=== PATIENT | male | born 1970 | race Caucasian/White ===

== ENCOUNTER 2018-03-14 10:12 | Outpatient (CLI) | payer MEDICARE, SELFPAY ==
[2018-03-14 10:45] LABS: HGB 15.5 g/dL (13.5-17.5); Mean Corp. HGB Concentration 33.7 g/dL (32.0-36.0); Mean Corpuscular Volume 83.2 fL (80-95); Mean Platelet Volume 9.8 fL (8.0-11.0); Platelet Count 184 x1000/uL (130-400); RBC 5.53 m/cumm (4.50-6.00); White Blood Cell Count 4.74 k/cumm (4.4-10.8)
[2018-03-14 10:48] LABS: Hemoglobin A1C 5.9 % (4.5-6.2)
[2018-03-14 10:55] LABS: VALPROIC ACID 37.4 ug/mL (50-100)
[2018-03-14 10:56] LABS: ALT 65 U/L (12-78); AST 47 U/L (15-37); Albumin 3.8 g/dL (3.4-5.0); Alkaline Phosphatase 66 U/L (46-116); Bilirubin, Total 0.4 mg/dL (0.2-1.0); Glucose 86 mg/dL (70-100); Total Protein 8.1 g/dL (6.4-8.2)
[2018-03-14 11:09] LABS: Cholesterol 194 mg/dL (50-200); HDL Cholesterol 43 mg/dL (40-60); LDL CHOLESTEROL 119 mg/dL (<100); Triglyceride 220 mg/dL (30-150)
== END 2018-03-14 10:32 ==
PROVIDERS: PCP Internal Medicine; Visit Provider Psychiatry & Neurology Psychiatry
DX: F63.81 Intermittent explosive disorder (principal); Z79.899 Other long term (current) drug therapy; Z51.81 Encounter for therapeutic drug level monitoring
CPT/HCPCS: 36415; 80061; 80076; 82947; 83721; 85027; 80164; 83036

== ENCOUNTER 2018-07-09 09:09 | Outpatient (CLI) | payer MEDICARE, SELFPAY ==
[2018-07-09 10:43] LABS: Ammonia 36 umol/L (11-32)
== END 2018-07-09 09:29 ==
PROVIDERS: PCP Internal Medicine
DX: F39 Unspecified mood [affective] disorder (principal); Z79.899 Other long term (current) drug therapy; Z51.81 Encounter for therapeutic drug level monitoring
CPT/HCPCS: 36415; 80164; 82140

== ENCOUNTER → 2018-10-16 10:41 | Outpatient (BNVA) | payer MEDICARE, MEDICAID, SELFPAY | PROVIDERS: PCP Internal Medicine; Visit Provider Psychiatry & Neurology Neurology | DX: G40.309 Generalized idiopathic epilepsy and epileptic syndromes, not intractable, without status epilepticus (principal); F39 Unspecified mood [affective] disorder; F81.9 Developmental disorder of scholastic skills, unspecified | CPT/HCPCS: 99213 ==

== ENCOUNTER 2018-10-25 02:05 | Outpatient (CLI) | payer MEDICARE, MEDICAID, SELFPAY ==
[2018-10-25 10:07] LABS: Ammonia 21 umol/L (11-32)
[2018-10-25 10:11] LABS: VALPROIC ACID 82.8 ug/mL (50-100)
== END 2018-10-25 02:25 ==
PROVIDERS: Psychiatry & Neurology Psychiatry; PCP Internal Medicine; Visit Provider Internal Medicine
DX: Z79.899 Other long term (current) drug therapy (principal); Z51.81 Encounter for therapeutic drug level monitoring; G40.909 Epilepsy, unspecified, not intractable, without status epilepticus
CPT/HCPCS: 36415; 80164; 82140

== ENCOUNTER → 2019-10-21 09:38 | Outpatient (BNVA) | payer MEDICARE, MEDICAID, SELFPAY | PROVIDERS: PCP Internal Medicine; Visit Provider Psychiatry & Neurology Neurology | DX: G40.309 Generalized idiopathic epilepsy and epileptic syndromes, not intractable, without status epilepticus (principal); F39 Unspecified mood [affective] disorder; F81.9 Developmental disorder of scholastic skills, unspecified | CPT/HCPCS: 99213 ==

== ENCOUNTER → 2019-12-11 10:55 | Outpatient (BNVA) | payer MEDICARE, MEDICAID, SELFPAY | PROVIDERS: PCP Internal Medicine; Referring Provider Internal Medicine; Visit Provider Physical Therapy Assistant | DX: Z12.11 Encounter for screening for malignant neoplasm of colon (principal) ==

== ENCOUNTER 2019-12-18 09:50 | Day surgery (SDC) | payer MEDICARE, MEDICAID, SELFPAY ==
[2019-12-18 10:08] VITALS: BP 130/91; PULSE 88; RESP 16; TEMP 36.3; O2SAT 93
[2019-12-18] MEDS: Lactated Ringers 1,000 ML 80 ML IV (11:03)
--- NOTE | 2019-12-18 11:45 | W.PM.DSUDISC ---
Discharge Plan Disposition Patient Disposition: HOME Condition: Good Discharge Details Reason For Visit: Colonoscopy Attending Provider: Angélica Márquez Primary Care Provider: Kelvin Delatorre Home Meds and New Rx's Prescriptions: Continued ketoconazole 2 % cream 1 applic TP .QOD RF: 0 diphenhydramine HCl [Benadryl Allergy] 25 mg tablet 25 mg PO QHS RF: 0 Atorvastatin Calcium 20 MG tablet 20 mg PO DAILY RF: 0 multivitamin [One Daily Multivitamin] 1 EACH tablet 1 ea PO DAILY RF: 0 sertraline 100 MG tablet 200 mg PO DAILY RF: 0 lorazepam [Ativan] 0.5 MG tablet 0.5 mg PO BID PRN RF: 0 risperidone [Risperdal] 1 MG tablet 1 mg PO BID RF: 0 loperamide 2 MG tablet 4 mg PO PRN RF: 0 acetaminophen [Tylenol Extra Strength] 500 MG tablet 1,000 mg PO PRN RF: 0 magnesium hydroxide [Milk of Magnesia] 400 MG/5 ML suspension 30 ml PO QID RF: 0 ibuprofen 200 MG tablet 400 mg PO TID RF: 0 MYLANTA 30 ml PO QID RF: 0 divalproex [Depakote] 500 mg tablet,delayed release (DR/EC) 1,500 mg PO BID RF: 0 Discontinued polyethylene glycol 3350 17 gram/dose powder 238 g PO ONCE Qty: 238 RF: 0 bisacodyl [Dulcolax (bisacodyl)] 5 mg tablet,delayed release (DR/EC) 5 mg PO ONCE Qty: 4 RF: 0 Discharge Instructions Additional Instructions: Findings: Two polyps were removed. My office will contact you with biopsy results. Follow up: Plan for a colonoscopy in 3 years. Please call if you develop: fevers >101.5 Nausea or Vomiting Abdominal pain that is not transient DAY SURGERY UNIT POST COLONOSCOPY INSTRUCTIONS 1. Because there will be medication in your system for the next 24 hours, you may feel a little sleepy. Your coordination will be affected. Therefore: a. Do not drive or operate dangerous equipment for 24 hours. b. Do not drink alcohol beverages for 24 hours (not even beer). c. Plan to go home and rest for the day. 2. Generally there are no restrictions on your activity after a day or so has gone by, but you may feel a bit fatigued for a few days. 3 After you arrive home you may have a light meal and return to a normal diet as you can tolerate it without feeling sick to your stomach. 4. After surgery, you may feel pain or discomfort. This should be only transient, but if it persists please contact your doctor. 5. If there are any questions regarding the findings of your procedure, please feel free to contact your doctor. 6. If you are unable to contact your doctor with a problem, contact the hospital at [phone]. 7. Continue all your regular medications unless directed otherwise. I understand the above instructions and have no questions. Signature of Patient or Responsible Adult Escort Date/Time Name of Responsible Adult Escort Signature of Nurse Date/Time Activity:: Activity as Tolerated Diet:: As Tolerated Discharge Orders Discharge Orders: Discharge Order (Routine); Ordered 12/18/19 Ordered By: Angélica Márquez DS: Diagnosis Discharge Diagnosis (1) Colon polyps: Status: Acute
--- NOTE | 2019-12-18 11:46 | W.COLOREPORT ---
Date of service: 12/18/19 Time of Service: 12:40 Colonoscopy Report Date of procedure: 12/18/19 Pre-op diagnosis general: Screening Post-op diagnosis procedure note: other (Colon polyps) Procedure: Colonoscopy with cold forceps polypectomy and snare polypectomy Surgeon: Angélica Márquez Anesthesia proc note operative: MAC Indications: This 49 year old man presents for his first screening colonoscopy. No symptoms or FH colon cancer. Procedure Description: The patient was placed in the left Dennis position. Propofol was titrated to sedation. Digital rectal examination revealed no abnormalities. The scope was advanced to the cecum without difficulty. The ileocecal valve and appendiceal orifice were clearly identified. The prep was marginal, a polyp could be missed. The scope was slowly withdrawn over the course of greater than 6 minutes with no abnormalities seen in the ascending or transverse colon. In the descending colon a less than 1cm polyp was removed with the cold forceps. In the sigmoid colon a slightly greater than 1cm polyp was removed with the snare and retrieved. A hemostatic clip was applied to the polypectomy site as a precaution. The rectum was normal including on retroflexed view. The patient tolerated the procedure well and was stable to recovery. Plan for colonoscopy in 3 years. A GoLytely prep should be used.
--- NOTE | 2019-12-18 12:30 | BOWEL_PTH ---
PATIENT: Alberto Sanchez LOC: [facility] U#:[id number] AGE/SX: 49/M ROOM: RE12/18/[address]: Angélica Márquez MD : [id number] BED: DIS: 12/18/2019 SPEC #: [id number] RECD: 12/18/19 12:50 STATUS: [place] REQ #: [id number] CHELI: 12/18/19 12:[address]: Angélica Márquez DEPT: Surgical Specimen RECD BY: Gabby Pagan ENTERED: 12/18/19 12:51 SP TYPE: Bowel OTHR DR: Kelvin Delatorre Tissues: 1 - BIOPSY BOWEL 2 - BIOPSY BOWEL Procedures: GROSS AND MICRO LEVEL 4 Comments: [id number]
[2019-12-18 13:10] VITALS: BP 118/67; PULSE 74; RESP 20; TEMP 36.8; O2SAT 93
== END 2019-12-18 13:41 | disposition home or self-care (01) ==
PROVIDERS: PCP Internal Medicine; Visit Provider Surgery
PROC: 0DJD8ZZ Inspection of Lower Intestinal Tract, Via Natural or Artificial Opening Endoscopic (ICD-10-PCS; CPT 45378; principal; 2019-12-18 11:15)
DX: Z12.11 Encounter for screening for malignant neoplasm of colon (principal); D12.4 Benign neoplasm of descending colon; D12.5 Benign neoplasm of sigmoid colon; G40.909 Epilepsy, unspecified, not intractable, without status epilepticus; F41.9 Anxiety disorder, unspecified
CPT/HCPCS: 45385; 45380; 88305

== ENCOUNTER 2020-03-18 19:27 | Outpatient (REF) | payer MEDICARE, MEDICAID, SELFPAY ==
[2020-03-18 19:59] LABS: Abs Immature Grans 0.04 10^3/uL (0.0-0.06); Absolute Basophil Count 0.04 10^3/uL (0.0-0.2); Absolute Eosinophil Count 0.18 10^3/uL (0.0-0.7); Absolute Lymphocyte Count 1.58 10^3/uL (1.2-3.4); Absolute Neutrophil Count 2.26 10^3/uL (1.2-6.7); Basophils % 0.9; HCT 50.3 % (40.0-50.0); HGB 15.8 g/dL (13.5-17.5); Immature Grans % 0.9; Lymphocytes % 35.1; MCH 28.2 pg (27.0-33.0); MCHC 31.4 % (32.0-36.0); MCV 89.8 fL (80-95); MPV 10.5 fL (8.0-11.0); Monocytes % 8.9; Neutrophils % 50.2; Nucleated RBC 0 %; Platelet Count 174 10^3/uL (130-400); RDW 14.3 % (11.8-14.1); RDW-SD 47.1 fL
[2020-03-18 20:40] LABS: Hemoglobin A1C 5.6 % (<5.7)
[2020-03-18 20:49] LABS: ALT 42 U/L (16-63); AST 55 U/L (15-37); Alkaline Phosphatase 55 U/L (46-116); Anion Gap 7.2 mmol/L (3-11); BUN 12 mg/dL (7-18); Bilirubin, Total 0.4 mg/dL (0.2-1.0); CO2 31.8 mmol/L (21.0-32.0); CREATININE 0.93 mg/dL (0.70-1.30); Calcium 9.4 mg/dL (8.5-10.1); Calculated LDL 103 mg/dL (<100); Chloride 103 mmol/L (98-107); Cholesterol 182 mg/dL (<200); Glucose 75 mg/dL (74-106); HDL Cholesterol 42 mg/dL (40-60); Potassium 4.9 mmol/L (3.5-5.1); Sodium 142 mmol/L (136-145); Total Protein 8.1 g/dL (6.4-8.2); Triglyceride 188 mg/dL (<150)
== END 2020-03-18 19:47 ==
LOC: NCHCN 19:27
PROVIDERS: PCP Internal Medicine; Visit Provider Physician Assistant
DX: R73.03 Prediabetes (principal); E78.5 Hyperlipidemia, unspecified; R39.9 Unspecified symptoms and signs involving the genitourinary system; G40.909 Epilepsy, unspecified, not intractable, without status epilepticus
CPT/HCPCS: 80053; 80061; 83036; 85025

== ENCOUNTER → 2020-07-28 13:15 | Outpatient (BNVA) | payer MEDICARE, MEDICAID, SELFPAY | PROVIDERS: PCP Internal Medicine; Referring Provider Internal Medicine; Visit Provider Psychiatry & Neurology Neurology | DX: G40.309 Generalized idiopathic epilepsy and epileptic syndromes, not intractable, without status epilepticus (principal); F39 Unspecified mood [affective] disorder; F81.9 Developmental disorder of scholastic skills, unspecified; R25.1 Tremor, unspecified | CPT/HCPCS: 99213 ==

== ENCOUNTER → 2020-10-05 11:38 | Outpatient (BNVA) | payer MEDICARE, MEDICAID, SELFPAY | PROVIDERS: PCP Internal Medicine; Referring Provider Internal Medicine; Visit Provider Psychiatry & Neurology Neurology | DX: G40.309 Generalized idiopathic epilepsy and epileptic syndromes, not intractable, without status epilepticus (principal); F39 Unspecified mood [affective] disorder; F81.9 Developmental disorder of scholastic skills, unspecified; R25.1 Tremor, unspecified | CPT/HCPCS: 99213 ==

== ENCOUNTER 2020-10-26 09:16 | Outpatient (REF) | payer MEDICARE, MEDICAID, SELFPAY ==
[2020-10-26 20:20] LABS: HCT 47.9 % (40.0-50.0); HGB 15.1 g/dL (13.5-17.5); MCH 28.2 pg (27.0-33.0); MCHC 31.5 % (32.0-36.0); MCV 89.5 fL (80-95); MPV 10.1 fL (8.0-11.0); Platelet Count 149 10^3/uL (130-400); RBC 5.35 10^6/uL (4.36-5.78); WBC 4.73 10^3/uL (4.4-10.8)
[2020-10-26 20:26] LABS: VALPROIC ACID 79.1 ug/mL
[2020-10-26 20:32] LABS: Hemoglobin A1C 5.7 % (<5.7)
[2020-10-26 20:37] LABS: ALT 44 U/L (16-63); AST 41 U/L (15-37); Albumin 3.9 g/dL (3.4-5.0); Alkaline Phosphatase 51 U/L (46-116); Bilirubin, Total 0.3 mg/dL (0.2-1.0); Calculated LDL 111 mg/dL (<100); Cholesterol 198 mg/dL (<200); Glucose 77 mg/dL (74-106); HDL Cholesterol 38 mg/dL (40-60); Total Protein 7.7 g/dL (6.4-8.2); Triglyceride 247 mg/dL (<150)
[2020-10-26 20:57] LABS: Bilirubin, Direct 0.1 mg/dL (0.0-0.2)
== END 2020-10-26 09:17 | disposition home or self-care (01) ==
LOC: LBN 09:16
PROVIDERS: Psychiatry & Neurology Psychiatry; PCP Internal Medicine; Visit Provider Physician Assistant
DX: F63.81 Intermittent explosive disorder (principal); Z79.899 Other long term (current) drug therapy
CPT/HCPCS: 80061; 80076; 82947; 85027; 80164; 83036

== ENCOUNTER → 2020-11-30 13:27 | Outpatient (BNVA) | payer MEDICARE, MEDICAID, SELFPAY | PROVIDERS: PCP Internal Medicine; Referring Provider Internal Medicine; Visit Provider Psychiatry & Neurology Neurology | DX: G40.309 Generalized idiopathic epilepsy and epileptic syndromes, not intractable, without status epilepticus (principal); F39 Unspecified mood [affective] disorder; F81.9 Developmental disorder of scholastic skills, unspecified; R25.1 Tremor, unspecified; Z79.899 Other long term (current) drug therapy | CPT/HCPCS: 99213 ==

== ENCOUNTER → 2021-03-01 13:06 | Outpatient (BNVA) | payer MEDICARE, MEDICAID, SELFPAY | PROVIDERS: PCP Internal Medicine; Referring Provider Internal Medicine; Visit Provider Psychiatry & Neurology Neurology | DX: G40.309 Generalized idiopathic epilepsy and epileptic syndromes, not intractable, without status epilepticus (principal); F39 Unspecified mood [affective] disorder; F81.9 Developmental disorder of scholastic skills, unspecified; R25.1 Tremor, unspecified | CPT/HCPCS: 99213 ==

== ENCOUNTER 2021-06-19 16:11 | Outpatient (REF) | payer MEDICARE, MEDICAID, SELFPAY | END 2021-06-19 16:12 | disposition home or self-care (01) | LOC: LBN 16:11 | PROVIDERS: PCP Internal Medicine; Visit Provider Psychiatry & Neurology Psychiatry ==

== ENCOUNTER 2021-06-20 16:31 | Inpatient (IN) | payer MEDICARE, MEDICAID, SELFPAY ==
[2021-06-20] VITALS (38 sets, daily range): BP systolic 116–139; BP diastolic 78–87; PULSE 81–107; RESP 14–26; TEMP 36.5–38.4; O2SAT 90–98
--- NOTE | 2021-06-20 16:15 | RT.EKG_ITS ---
APPROVED REPORT Exam: Resting ECG Reason for Exam: sob Patient Location: E HR:103 bpm ECG Measurements Heart Rate 103 AXIS NJ 150 P 38 QRSd 83 QRS -34 QT 326 T 35 QTc 428 Conclusion Sinus tachycardia Probable left atrial enlargement. Inferior Q >35mS, II III aVF
--- NOTE | 2021-06-20 16:22 | ED.GENADUL_ITS ---
Discharge Plan Disposition Patient Disposition: [facility] INPATIENT Condition: Stable Discharge Details Clinical Impression: COVID-19, Hypoxia Admit Date/Time: 06/20/21 18:33 Admit Provider: Joann Mata Attending Provider: Joann Mata Primary Care Provider: Kelvin Delatorre ED Provider: Azra Lee Medical Decision Making 51-year-old male with a history of epilepsy, anxiety, hyperlipidemia, obstructive sleep apnea, cognitive developmental delay and mood disorder presents to the ER with chief complaint of difficulty breathing after being diagnosed with COVID-19. Per EMS he was placed on 3 L O2 nasal cannula which brought his room air sat from 87% up to 95%. 1828: Room air trial patient desats to 88% on room air. Dexamethasone 6 mg IV given. Blood cultures ordered. Chest x-ray shows bilateral pneumonia in the bases and patchy groundglass opacities consistent with COVID-19. 1845: Spoke with Dr. Mata regarding patient case in detail she agrees to accept patient for admission. Discussed with the caregiver at the bedside and the patient who verbalized understanding. We are discussing with positive visor regarding the one-to-one caregiver that the patient has while at the long term and whether or not this will be allowed up on the floor. Dr. Mata did recommend administering remdesivir 200 mg and adding on a procalcitonin and she will place admitting orders. Patient is full code. Labs largely unremarkable, COVID-19 positive. Patient does use a CPAP machine at night I did discuss with the caregiver to request to have somebody bring in his own machine for the night. Patient remained hemodynamically stable throughout the remainder of the stay. Patient was transported up to room in hemodynamically stable condition. This text was generated using [email or web address] system, please disregard any oddities of phrase or misspellings. Medical Records Medical records reviewed: Yes I reviewed the patient's medical records. Lab Data Lab results reviewed: Yes I reviewed the patient's lab results. Lab results narrative: Laboratory Tests Range/Units 06/20/21 06/20/21 06/20/21 16:25 16:50 16:50 WBC (4.4-10.8) 10^3/uL 5.98 RBC (4.36-5.78) 10^6/uL 5.78 Hgb (13.5-17.5) g/dL 16.1 Hct (40.0-50.0) % 49.1 MCV (80-95) fL 84.9 MCH (27.0-33.0) pg 27.9 MCHC (32.0-36.0) % 32.8 RDW (11.8-14.1) % 14.5 H Plt Count (130-400) 10^3/uL 151 MPV (8.0-11.0) fL 9.7 Immature Gran % 0.3 Neutrophils % 66.1 Lymphocytes % 17.9 Monocytes % 14.9 Eosinophils % 0.3 Basophils % 0.5 Nucleated RBC % (0.0-0.3) % 0.0 Absolute Neutrophils (1.2-6.7) 10^3/uL 3.95 Absolute Lymphocytes (1.2-3.4) 10^3/uL 1.07 L Absolute Monocytes (0.1-0.8) 10^3/uL 0.89 H Absolute Eosinophils (0.0-0.7) 10^3/uL 0.02 Absolute Basophils (0.0-0.2) 10^3/uL 0.03 D-Dimer (<500) ng/mlFEU Sodium (136-145) mmol/L 137 Potassium (3.5-5.1) mmol/L 4.5 Chloride (98-107) mmol/L 99 Carbon Dioxide (21.0-32.0) mmol/L 31.8 Anion Gap (3-11) mmol/L 6.2 BUN (7-18) mg/dL 13 Creatinine (0.70-1.30) mg/dL 0.8 Estimated GFR/1.73 m2 (mL/min/1.73m2) >= 60.00 Glucose (74-106) mg/dL 99 Calcium (8.5-10.1) mg/dL 9.5 Magnesium (1.8-2.4) mg/dL 2.0 Total Bilirubin (0.2-1.0) mg/dL 0.3 AST (15-37) U/L 58 H ALT (16-63) U/L 40 Alkaline Phosphatase (46-116) U/L 51 Troponin I (<or=60) ng/L < 50 NT-Pro-B Natriuret Pep (<300) pg/mL 69 Total Protein (6.4-8.2) g/dL 8.6 H Albumin (3.4-5.0) g/dL 3.9 Procalcitonin ng/mL COVID-19 Source SARS-CoV-2 (PCR) (Negative) Influenza Type A (PCR) (Negative) Influenza Type B (PCR) (Negative) RSV (PCR) (Negative) Range/Units 06/20/21 06/20/21 06/20/21 16:50 16:50 16:52 WBC (4.4-10.8) 10^3/uL RBC (4.36-5.78) 10^6/uL Hgb (13.5-17.5) g/dL Hct (40.0-50.0) % MCV (80-95) fL MCH (27.0-33.0) pg MCHC (32.0-36.0) % RDW (11.8-14.1) % Plt Count (130-400) 10^3/uL MPV (8.0-11.0) fL Immature Gran % Neutrophils % Lymphocytes % Monocytes % Eosinophils % Basophils % Nucleated RBC % (0.0-0.3) % Absolute Neutrophils (1.2-6.7) 10^3/uL Absolute Lymphocytes (1.2-3.4) 10^3/uL Absolute Monocytes (0.1-0.8) 10^3/uL Absolute Eosinophils (0.0-0.7) 10^3/uL Absolute Basophils (0.0-0.2) 10^3/uL D-Dimer (<500) ng/mlFEU 270 Sodium (136-145) mmol/L Potassium (3.5-5.1) mmol/L Chloride (98-107) mmol/L Carbon Dioxide (21.0-32.0) mmol/L Anion Gap (3-11) mmol/L BUN (7-18) mg/dL Creatinine (0.70-1.30) mg/dL Estimated GFR/1.73 m2 (mL/min/1.73m2) Glucose (74-106) mg/dL Calcium (8.5-10.1) mg/dL Magnesium (1.8-2.4) mg/dL Total Bilirubin (0.2-1.0) mg/dL AST (15-37) U/L ALT (16-63) U/L Alkaline Phosphatase (46-116) U/L Troponin I (<or=60) ng/L NT-Pro-B Natriuret Pep (<300) pg/mL Total Protein (6.4-8.2) g/dL Albumin (3.4-5.0) g/dL Procalcitonin ng/mL 0.1 COVID-19 Source Nasopharynx SARS-CoV-2 (PCR) (Negative) Positive A Influenza Type A (PCR) (Negative) Negative Influenza Type B (PCR) (Negative) Negative RSV (PCR) (Negative) Negative HPI General Mode of arrival: EMS . Date/Time Provider Initiated Documentation: 06/20/21 16:40 . Information obtained by: EMS, RN notes reviewed and old records reviewed . HPI Narrative: 51-year-old male with a history of epilepsy, anxiety, hyperlipidemia, obstructive sleep apnea, cognitive developmental delay and mood disorder presents to the ER with chief complaint of difficulty breathing after being diagnosed with COVID-19. Per EMS he was placed on 3 L O2 nasal cannula which brought his room air sat from 87% up to 95%. Per EMS report patient is complaining of general fatigue and malaise was tested positive for COVID yesterday with a rapid home test. He denies any chest pain or productive cough upon arrival. He denies any nausea vomiting diarrhea. He is slightly tachycard ic and febrile with a temp of 38.4 temporal. Related Data Home Medications Medication Instructions Recorded Confirmed multivitamin (One Daily 1 ea PO DAILY 07/23/17 06/20/21 Multivitamin) sertraline 100 mg tablet 200 mg PO DAILY tab-cap 07/23/17 06/20/21 Mylanta 30 ml PO QID 08/07/17 06/20/21 acetaminophen 500 mg tablet 1,000 mg PO PRN tab-cap 08/07/17 06/20/21 (Tylenol Extra Strength) ibuprofen 200 mg tablet 400 mg PO TID tab-cap 08/07/17 06/20/21 magnesium hydroxide 400 mg/5 mL 30 ml PO QID ml 08/07/17 06/20/21 oral suspension (Milk of Magnesia) diphenhydramine HCl 25 mg tablet 25 mg PO QHS 10/21/19 06/20/21 (Benadryl Allergy) ketoconazole 2 % topical cream 1 applic TP .QOD gm 10/21/19 06/20/21 divalproex 500 mg tablet,delayed 1,500 mg PO BID tab 10/23/19 06/20/21 release (Depakote) atorvastatin 20 mg tablet (Lipitor) 20 mg PO QHS 07/28/20 06/20/21 menthol 1 % topical powder (Gold 1 applic TOPICAL QHS PRN 07/28/20 06/20/21 Monae Medicated Foot) lorazepam 0.5 mg tablet 0.5 mg PO BID PRN 03/01/21 06/20/21 risperidone 1 mg tablet (Risperdal) See Rx Instructions PO BID tab-cap 03/01/21 06/20/21 Allergies Allergy/AdvReac Type Severity Reaction Status Date / Time No Known Allergies Allergy Unverified 06/20/21 16:56 Review of Systems All systems reviewed & are unremarkable except as noted in HPI and below Constitutional Constitutional: Reports as per HPI, Reports chills, Reports fatigue, Reports fever(s), Reports headache(s) and Reports malaise ENT Ears, Nose, Mouth, and Throat: Reports headache(s) Cardiovascular Cardiovascular: Denies chest pain, Reports rapid heart rate, Denies leg edema and Reports dyspnea Respiratory Respiratory: Reports as per HPI, Denies hemoptysis and Reports dyspnea Neurologic Neurologic: Reports headache(s) Endocrine Endocrine: Reports fatigue PFSH All Active Problems (Updated 06/20/21 @ 21:20 by Joann Mata MD) Discharge planning issues (Acute) DVT prophylaxis (Acute) COVID-19 (Acute) Hypoxia (Acute) Tremor (Acute) Tubular adenoma of colon (Acute) Tubular adenoma (Acute ~11/2019) 12/18/19 Dr. Rajiv Márquez, repeat colo 3 years w/ Golytly prep Colon polyps (Acute) Cognitive developmental delay (Chronic) Mood disorder (Acute) Generalized epilepsy (Acute) Per caregiver he has not had a seizure in decades, see's Dr. Camarena for f/u Medical History (Updated 06/20/21 @ 21:20 by Joann Mata MD) Anxiety disorder Candidiasis Conduct disorder, aggressive type, mild Per caregiver (Liu) has been in a very good place recently History of tobacco use Hyperlipidemia Intermittent explosive disorder Per caregiver (Liu) on occasion he will have an agrressive incident per caregiver states he does not feel as though he will have any issues with procedures Kidney stone Lack of coordination Obstructive sleep apnea Remote PSG noted an AHI of 12.2 with an O2 sat jensen of 54%. He does not currently have a CPAP. Onychomycosis Other congenital valgus deformities of feet Prediabetes Per caregiver states he is not diabetic, he has lost 25 lbs Therapeutic drug monitoring Varus deformities of feet, congenital Surgical History S/P surgical manipulation of ankle joint R, 2013 Family History Father Epilepsy Brother Epilepsy Social History Smoking/Tobacco Use Status: Never Smoking risk assessment performed?: Yes Alcohol Intake: never Drug use: Never Substance use type: does not use Housing: other Number of Children: 0 current occupation: Disabled Do you feel safe at home: Yes Additional Social history: He currently resides at [facility] (since November 2016). He is under the guardianship of Patricia Arthur (since February 2017). 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 Exam Narrative Exam Narrative: Constitutional: Alert and oriented x3. Appears stated age. Obese body habitus. Febrile 38.4. Head: Normocephalic, no trauma. Eyes: Pupils PERRL, Red reflex noted, EOM's intact. Eyelids symmetrical without lesions, discharge, or swelling. ENT: Bilateral TM's WNL, External ear normal to inspection, no mastoid TTP, swe lling, or erythema, Nasal turbinates WNL, no nasal discharge. Normal dentition, Posterior pharynx WNL, no exudate. Chest: Sinus tachycardia rate of 106, S1, S2, distal pulses intact. Resp: Lungs clear to auscultation bilaterally, no wheezes, rales, or rhonchi. Slightly tachypneic respiratory rate of 25, Abdomen: Soft, non-distended, Normoactive bowel sounds all 4 quads. Musculoskeletal: Unable to assess gait, 5/5 strength to all four extremities. Skin: No suspicious rashes or lesions. Capillary refill less than 2 sec. Neurologic: Cranial nerves II-XII intact. Alert and oriented x 3. Motor: No deficits noted. Sensory: Intact bilaterally all 4 extremities. Hematologic/Lymphatic: No ecchymosis, no lymphadenopathy.
--- NOTE | 2021-06-20 16:30 | DI.RAD_ITS ---
Exam(s) XR PORTABLE CHEST AP EXAM: XR PORTABLE CHEST AP CLINICAL HISTORY: SOB, Covid + R/O PNA TECHNIQUE: 2D digital imaging was performed. COMPARISON: No exams were available for comparison FINDINGS: The exam is limited by poor pulmonary inflation. Leads overlie the chest. The heart size is normal. No consolidation. No effusion or pneumothorax.. IMPRESSION: Limited exam due to poor pulmonary inflation. No gross pulmonary consolidation. Mild infiltrates no t excluded. DATA REPOSITORY: RADIATION DOSE DELIVERED:
[2021-06-20] MEDS: Normal Saline 1,000 ML 1000 ML IV (17:02)
[2021-06-20] MEDS: Acetaminophen 325 MG TAB 650 MG PO (17:02)
[2021-06-20 17:11] LABS: Abs Immature Grans 0.02 10^3/uL (0.0-0.06); Absolute Basophil Count 0.03 10^3/uL (0.0-0.2); Absolute Eosinophil Count 0.02 10^3/uL (0.0-0.7); Absolute Lymphocyte Count 1.07 10^3/uL (1.2-3.4); Absolute Monocyte Count 0.89 10^3/uL (0.1-0.8); Absolute Neutrophil Count 3.95 10^3/uL (1.2-6.7); Basophils % 0.5; Eosinophils % 0.3; HCT 49.1 % (40.0-50.0); HGB 16.1 g/dL (13.5-17.5); Immature Grans % 0.3; Lymphocytes % 17.9; MCH 27.9 pg (27.0-33.0); MCHC 32.8 % (32.0-36.0); MCV 84.9 fL (80-95); MPV 9.7 fL (8.0-11.0); Monocytes % 14.9; Neutrophils % 66.1; Platelet Count 151 10^3/uL (130-400); RBC 5.78 10^6/uL (4.36-5.78); RDW 14.5 % (11.8-14.1); RDW-SD 44.5 fL; WBC 5.98 10^3/uL (4.4-10.8)
[2021-06-20 17:24] LABS: ALT 40 U/L (16-63); AST 58 U/L (15-37); Albumin 3.9 g/dL (3.4-5.0); Alkaline Phosphatase 51 U/L (46-116); Anion Gap 6.2 mmol/L (3-11); BUN 13 mg/dL (7-18); Bilirubin, Total 0.3 mg/dL (0.2-1.0); CO2 31.8 mmol/L (21.0-32.0); CREATININE 0.8 mg/dL (0.70-1.30); Calcium 9.5 mg/dL (8.5-10.1); Chloride 99 mmol/L (98-107); Glucose 99 mg/dL (74-106); Potassium 4.5 mmol/L (3.5-5.1); Sodium 137 mmol/L (136-145); Total Protein 8.6 g/dL (6.4-8.2); Troponin I < 50 ng/L (<or=60)
[2021-06-20 17:39] LABS: Influenza A PCR Negative (Negative); Influenza B PCR Negative (Negative); RSV PCR Negative (Negative)
[2021-06-20 17:47] LABS: COVID-19 PCR Positive (Negative); Source Nasopharynx
[2021-06-20] MEDS: Dexamethasone 4 MG/ML VIAL 6 MG IVP (18:20)
[2021-06-20 18:22] LABS: D-Dimer 270 ng/mlFEU (<500)
--- NOTE | 2021-06-20 18:22 | DI.VRAD_ITS ---
PROCEDURE INFORMATION: Exam: XR Chest Exam date and time: 06/20/2021 5:31 PM Age: 51 years old Clinical indication: Other: SOB, covid + R/O pna TECHNIQUE: Imaging protocol: XR of the chest. Views: 1 view. COMPARISON: No relevant prior studies available. FINDINGS: Lungs: Patchy ground-glass opacities within the bilateral pulmonary bases compatible with pneumonia. Low lung volumes. Pleural spaces: Unremarkable. No pleural effusion. No pneumothorax. Heart/Mediastinum: Unremarkable. No cardiomegaly. Bones/joints: Unremarkable. IMPRESSION: Patchy ground-glass opacities within the bilateral pulmonary bases compatible with pneumonia. Dictated and Authenticated by: Giancarlo Tamayo MD. Ordering:COLBY Oquendo MD
[2021-06-20 18:47] LABS: NT-proBNP 69 pg/mL (<300)
[2021-06-20 19:22] LABS: Procalcitonin 0.1 ng/mL
[2021-06-20] MEDS: REMDESIVIR 200 MG in Normal Saline 250 ML 250 MG IVPB (19:54)
[2021-06-20] MEDS: Normal Saline Flush 10 ML SYR IVP (19:54)
[2021-06-20 20:48] LABS: Troponin I < 50 ng/L (<or=60)
--- NOTE | 2021-06-20 21:02 | HPE_ITS ---
Date of service: 06/20/21 Time of Service: 21:03 Assessment and Plan Assessment and plan (1) COVID-19: Status: Acute Assessment and plan: With O2 requirements rising to 3.5-4L since being in the ED. Low threshold to transfer to the ICU. Patient was initiated on remdesivir and dexamethasone, which we will continue. Add baricitinib. Encourage proning, pulmonary toileting. Provide mucinex, tessalon perles. Schedule combivent; prn albuterol. No evidence of bacterial superinfection - no role for abx. CPAP tonight. Therapeutic anticoagulation with lovenox. Supplement vitamins C, D, zinc. Pepcid for GI ppx. Continue home atorvastatin. Monitor continuous pulse ox. Consider pulmonary consult. (2) Hypoxia: Status: Acute Assessment and plan: As above. Wean O2 as tolerated (3) Obstructive sleep apnea: Assessment and plan: Provide CPAP (4) Cognitive developmental delay: Status: Chronic Assessment and plan: With h/o mood d/o/anxiety d/o, and intermittent explosive d/o/conduct d/o. Continue home medications. The patient usually has a 1:1 sitter in his home environment. Because of COVID- 19, we have to consider that the patient's outside sitter may have been exposed to COVID-19 and could increase the risk of exposure for visitors and staff. I have asked the nursing shipyard painting supervisor to come up with a plan should the patient necessitate a sitter tonight and to address an issue of the sitter with administration/infection control tomorrow. (5) Generalized epilepsy: Status: Acute Assessment and plan: continue home divaloproex. Check valproic acid level. (6) DVT prophylaxis: Status: Acute Assessment and plan: Therapeutic anticoagulation with lovenox (indicated in patients with low flow O2 requirement in COVID-19). (7) Discharge planning issues: Status: Acute Assessment and plan: Full code See discussion re sitter above Guardian Patricia was notified of patient's admission. History of Present Illness History of Present Illness Chief Complaint: Shortness of breath Narrative: Mr Sanchez is a 51 year old male with PMHx of NARAYAN on CPAP, epilepsy, hyperlipi demia, cognitive developmental delay, who had a positive COVID-19 rapid test at his [facility] ([facility]) yesterday (the patient states that everyone is sick there ) but who did not start to feel sick until today who was brought to [facility] ED by ambulance today for shortness of breath and hypoxia with room air O2 sat of 87%, requiring 3L of O2 by NC to saturated in the 90s. The patient was fe brile to 38.4 and saturating 88% on RA in our ED, with an oxygen requirement of 2L of O2 by NC there. The patient reported that since this morning he has had a headache, runny nose, sore throat, shortness of breath, nonproductive cough, and fatigue. His COVID-19 PCR was indeed positive. His CXR showed patchy ground glass opacities in bilateral pulmonary bases c/w COVID-19 pneumonia. His D-dimer and procalcitonin were negative. He was initiated on dexamethasone and remdesivir. Hospitalist admission was requested. At the time of my evaluation with the patient his O2 sat is oscillating between 3.5 and 4L of O2. Per our medical record, the patient is s/p 2 Pfizer COVID-19 vaccines. His guardian is Patricia Jerson - I notified her of the patient's hospitalization and of his condition. She pointed out that today is Alberto's birthday. While this is rare, Alberto can sometimes act out/become aggressive if he feels he is not getting the food/drink that he wants, Patricia stated. Review of Systems Narrative: Additionally, the patient reports feeling constipated. He cannot tell me when his last bowel movement was. All systems reviewed & are unremarkable except as noted in HPI and below PFSH All Active Problems (Updated 06/20/21 @ 21:20 by Joann Mata MD) Discharge planning issues (Acute) DVT prophylaxis (Acute) COVID-19 (Acute) Hypoxia (Acute) Tremor (Acute) Tubular adenoma of colon (Acute) Tubular adenoma (Acute ~11/2019) 12/18/19 Dr. Rajiv Márquez, repeat colo 3 years w/ Golytly prep Colon polyps (Acute) Cognitive developmental delay (Chronic) Mood disorder (Acute) Generalized epilepsy (Acute) Per caregiver he has not had a seizure in decades, see's Dr. Camarena for f/u Medical History (Updated 06/20/21 @ 21:20 by Joann Mata MD) Anxiety disorder Candidiasis Conduct disorder, aggressive type, mild Per caregiver (Liu) has been in a very good place recently History of tobacco use Hyperlipidemia Intermittent explosive disorder Per caregiver (Liu) on occasion he will have an agrressive incident per caregiver states he does not feel as though he will have any issues with procedures Kidney stone Lack of coordination Obstructive sleep apnea Remote PSG noted an AHI of 12.2 with an O2 sat jensen of 54%. He does not currently have a CPAP. Onychomycosis Other congenital valgus deformities of feet Prediabetes Per caregiver states he is not diabetic, he has lost 25 lbs Therapeutic drug monitoring Varus deformities of feet, congenital Surgical History S/P surgical manipulation of ankle joint R, 2013 Family History Father Epilepsy Brother Epilepsy Social History Smoking/Tobacco Use Status: Never Smoking risk assessment performed?: Yes Alcohol Intake: never Drug use: Never Substance use type: does not use Housing: other Number of Children: 0 current occupation: Disabled Do you feel safe at home: Yes Additional Social history: He currently resides at [facility] (since November 2016). He is under the guardianship of Patricia Jerson (since February 2017). He graduated from high school and previously worked in a [employer]ing [employer]. Meds Allergies and Home Medications Allergies Allergy/AdvReac Type Severity Reaction Status Date / Time No Known Allergies Allergy Unverified 06/20/21 16:56 Home Medications Medication Instructions Recorded Confirmed Type multivitamin (One Daily 1 ea PO DAILY 07/23/17 06/20/21 History Multivitamin) sertraline 100 mg tablet 200 mg PO DAILY tab-cap 07/23/17 06/20/21 History Mylanta 30 ml PO QID 08/07/17 06/20/21 History acetaminophen 500 mg tablet 1,000 mg PO PRN tab-cap 08/07/17 06/20/21 History (Tylenol Extra Strength) ibuprofen 200 mg tablet 400 mg PO TID tab-cap 08/07/17 06/20/21 History magnesium hydroxide 400 mg/5 mL 30 ml PO QID ml 08/07/17 06/20/21 History oral suspension (Milk of Magnesia) diphenhydramine HCl 25 mg tablet 25 mg PO QHS 10/21/19 06/20/21 History (Benadryl Allergy) ketoconazole 2 % topical cream 1 applic TP .QOD gm 10/21/19 06/20/21 History divalproex 500 mg tablet,delayed 1,500 mg PO BID tab 10/23/19 06/20/21 History release (Depakote) atorvastatin 20 mg tablet (Lipitor) 20 mg PO QHS 07/28/20 06/20/21 History menthol 1 % topical powder (Gold 1 applic TOPICAL QHS PRN 07/28/20 06/20/21 History Monae Medicated Foot) lorazepam 0.5 mg tablet 0.5 mg PO BID PRN 03/01/21 06/20/21 History risperidone 1 mg tablet (Risperdal) See Rx Instructions PO BID tab-cap 03/01/21 06/20/21 History Exam Narrative Exam Narrative: General: Pleasant Obese male who is showing no dyspnea/tachypnea while on 3.5 L of O2 by NC, saturating 91%, A&Ox3 Neurological: A&Ox3, no focal deficits Psychiatric: Appropriate speech pattern/content for level of intellectual development Skin: Visible skin intact HEENT: Atraumatic, normocephalic, EOMI, dry MM, oropharynx hard to visualize, no submandibular or cervical lymphadenopathy, no goiter or JVD Cardiovascular: RRR, no m/r/g Lungs: CTAB Gastrointestinal: soft, tender in midabdomen on the R, nondistended Genitourinary: deferred Extremities: no edema BLE's, 1+ pedal pulses B Results Imaging Imaging Studies: EKG: ST, HR 103, no acute ischemia, inferior Q waves CXR: Patchy ground-glass opacities within the bilateral pulmonary bases compatible with pneumonia. Labs Result diagrams: 06/20/21 16:50 06/20/21 16:50 Labs: Laboratory Results - last 24 hr 06/20/21 06/20/21 06/20/21 16:25 16:50 16:50 WBC 5.98 RBC 5.78 Hgb 16.1 Hct 49.1 MCV 84.9 MCH 27.9 MCHC 32.8 RDW 14.5 H Plt Count 151 MPV 9.7 Immature Gran % 0.3 Neutrophils % 66.1 Lymphocytes % 17.9 Monocytes % 14.9 Eosinophils % 0.3 Basophils % 0.5 Nucleated RBC % 0.0 Absolute Neutrophils 3.95 Absolute Lymphocytes 1.07 L Absolute Monocytes 0.89 H Absolute Eosinophils 0.02 Absolute Basophils 0.03 D-Dimer Sodium 137 Potassium 4.5 Chloride 99 Carbon Dioxide 31.8 Anion Gap 6.2 BUN 13 Creatinine 0.8 Estimated GFR/1.73 m2 >= 60.00 Glucose 99 Calcium 9.5 Magnesium 2.0 Total Bilirubin 0.3 AST 58 H ALT 40 Alkaline Phosphatase 51 Troponin I < 50 NT-Pro-B Natriuret Pep 69 Total Protein 8.6 H Albumin 3.9 Procalcitonin COVID-19 Source SARS-CoV-2 (PCR) Influenza Type A (PCR) Influenza Type B (PCR) RSV (PCR) 06/20/21 06/20/21 06/20/21 16:50 16:50 16:52 WBC RBC Hgb Hct MCV MCH MCHC RDW Plt Count MPV Immature Gran % Neutrophils % Lymphocytes % Monocytes % Eosinophils % Basophils % Nucleated RBC % Absolute Neutrophils Absolute Lymphocytes Absolute Monocytes Absolute Eosinophils Absolute Basophils D-Dimer 270 Sodium Potassium Chloride Carbon Dioxide Anion Gap BUN Creatinine Estimated GFR/1.73 m2 Glucose Calcium Magnesium Total Bilirubin AST ALT Alkaline Phosphatase Troponin I NT-Pro-B Natriuret Pep Total Protein Albumin Procalcitonin 0.1 COVID-19 Source Nasopharynx SARS-CoV-2 (PCR) Positive A Influenza Type A (PCR) Negative Influenza Type B (PCR) Negative RSV (PCR) Negative 06/20/21 19:10 WBC RBC Hgb Hct MCV MCH MCHC RDW Plt Count MPV Immature Gran % Neutrophils % Lymphocytes % Monocytes % Eosinophils % Basophils % Nucleated RBC % Absolute Neutrophils Absolute Lymphocytes Absolute Monocytes Absolute Eosinophils Absolute Basophils D-Dimer Sodium Potassium Chloride Carbon Dioxide Anion Gap BUN Creatinine Estimated GFR/1.73 m2 Glucose Calcium Magnesium Total Bilirubin AST ALT Alkaline Phosphatase Troponin I < 50 NT-Pro-B Natriuret Pep Total Protein Albumin Procalcitonin COVID-19 Source SARS-CoV-2 (PCR) Influenza Type A (PCR) Influenza Type B (PCR) RSV (PCR) Last Vital Signs Temp 38.4 C H 06/20/21 16:32 Pulse 84 06/20/21 20:16 Resp 22 06/20/21 20:16 BP 138/78 06/20/21 20:16 Pulse Ox 96 06/20/21 20:16
[2021-06-20 21:43] LABS: Lab Add On Test DONE
[2021-06-20 21:57] LABS: VALPROIC ACID 74.7 ug/mL
[2021-06-20] MEDS: Famotidine 20 MG TAB PO (22:57)
[2021-06-20] MEDS: diphenhydrAMINE 25 MG CAP PO (22:57)
[2021-06-20] MEDS: Divalproex 500 MG TABEC 1500 MG PO (22:57)
[2021-06-20] MEDS: Atorvastatin 20 MG TAB PO (22:58)
[2021-06-20] MEDS: Ibuprofen 200 MG TAB 400 MG PO (22:58)
[2021-06-20] MEDS: Benzonatate 100 MG CAP PO (22:58)
[2021-06-20] MEDS: guaiFENesin 600 MG TABCR PO (22:58)
[2021-06-20] MEDS: risperiDONE 0.5 MG TAB 1 MG PO (22:58)
[2021-06-20] MEDS: Ascorbic Acid 500 MG TAB 1000 MG PO (22:58)
[2021-06-20] MEDS: Mylanta Suspension 30 ML CUP PO (22:59)
[2021-06-20] MEDS: Enoxaparin 120 MG/0.8 ML SYR 115 MG SC (23:00)
[2021-06-20] MEDS: Ipratropium/Albuterol 4 GM 120 PUFF INH IH (23:32)
[2021-06-21] VITALS (9 sets, daily range): BP systolic 119–153; BP diastolic 78–88; PULSE 57–83; RESP 14–18; TEMP 35–36.2; O2SAT 92–99
[2021-06-21 06:37] LABS: Abs Immature Grans 0.02 10^3/uL (0.0-0.06); Absolute Basophil Count 0.02 10^3/uL (0.0-0.2); Absolute Lymphocyte Count 1.28 10^3/uL (1.2-3.4); Absolute Monocyte Count 0.41 10^3/uL (0.1-0.8); Basophils % 0.5; HGB 14.4 g/dL (13.5-17.5); Immature Grans % 0.5; Lymphocytes % 32.6; MCH 27.6 pg (27.0-33.0); MCV 86.4 fL (80-95); MPV 10.3 fL (8.0-11.0); Monocytes % 10.4; Platelet Count 134 10^3/uL (130-400); RBC 5.21 10^6/uL (4.36-5.78); RDW 14.4 % (11.8-14.1); RDW-SD 45.7 fL; WBC 3.93 10^3/uL (4.4-10.8)
[2021-06-21 06:52] LABS: Prothrombin Time 10.2 sec (9.3-11.0)
[2021-06-21 06:59] LABS: ALT 35 U/L (16-63); AST 31 U/L (15-37); Albumin 3.1 g/dL (3.4-5.0); Alkaline Phosphatase 45 U/L (46-116); Anion Gap 4.3 mmol/L (3-11); BUN 18 mg/dL (7-18); Bilirubin, Direct 0.1 mg/dL (0.0-0.2); Bilirubin, Total 0.2 mg/dL (0.2-1.0); C-Reactive Protein 6.13 mg/dL (0.0-0.3); CO2 30.7 mmol/L (21.0-32.0); CREATININE 0.9 mg/dL (0.70-1.30); Calcium 8.6 mg/dL (8.5-10.1); Chloride 103 mmol/L (98-107); Creatine Kinase 59 U/L (39-308); Glucose 100 mg/dL (74-106); Magnesium 2.2 mg/dL (1.8-2.4); Potassium 4.9 mmol/L (3.5-5.1); Sodium 138 mmol/L (136-145); Total Protein 7.4 g/dL (6.4-8.2)
[2021-06-21 07:16] LABS: Hemoglobin A1C 5.8 % (<5.7)
[2021-06-21 07:22] LABS: D-Dimer 198 ng/mlFEU (<500)
[2021-06-21 07:24] LABS: Ferritin 436 ng/mL (26-388)
[2021-06-21] MEDS: Ipratropium/Albuterol 4 GM 120 PUFF INH IH ×4 (07:42→20:31)
[2021-06-21] MEDS: Zinc Sulfate 220 MG TAB PO (08:25)
[2021-06-21] MEDS: Ibuprofen 200 MG TAB 400 MG PO ×3 (08:25→20:26)
[2021-06-21] MEDS: Cholecalciferol (Vitamin D3) 1,000 UNIT TAB 2000 UNITS PO (08:25)
[2021-06-21] MEDS: Sertraline 50 MG TAB 200 MG PO (08:25)
[2021-06-21] MEDS: Famotidine 20 MG TAB PO ×2 (08:25→20:28)
[2021-06-21] MEDS: Ascorbic Acid 500 MG TAB 1000 MG PO ×2 (08:26→20:27)
[2021-06-21] MEDS: Benzonatate 100 MG CAP PO ×3 (08:26→20:30)
[2021-06-21] MEDS: Multivitamin TAB 1 TAB PO (08:26)
[2021-06-21] MEDS: Divalproex 500 MG TABEC 1500 MG PO ×2 (08:26→20:25)
[2021-06-21] MEDS: Docusate Sodium 100 MG CAP PO ×2 (08:26→20:29)
[2021-06-21] MEDS: risperiDONE 1 MG TAB 2 MG PO (08:26)
[2021-06-21] MEDS: Polyethylene Glycol 3350 17 GM PACKET PO ×2 (08:27→20:11)
[2021-06-21] MEDS: Mylanta Suspension 30 ML CUP PO ×4 (08:27→20:36)
[2021-06-21] MEDS: Dexamethasone 4 MG TAB 6 MG PO (08:27)
[2021-06-21] MEDS: guaiFENesin 600 MG TABCR PO ×2 (08:27→20:29)
[2021-06-21] MEDS: Milk of Magnesia 30 ML CUP PO ×2 (08:27→20:35)
--- NOTE | 2021-06-21 09:06 | INITIAL_ITS ---
- If Service Date Differs Date of service: 06/21/21 Time of Service: 09:06 Care Management Initial Assess REASON FOR HOSPITALIZATION:: Covid, Hypoxia PAST MEDICAL HISTORY/PAST SURGICAL HISTORY:: All Active Problems (Updated 06/20/21 @ 21:20 by Joann Mata MD). Discharge planning issues (Acute). DVT prophylaxis (Acute). COVID-19 (Acute). Hypoxia (Acute). Tremor (Acute). Tubular adenoma of colon (Acute). Tubular adenoma (Acute ~11/2019). 12/18/19 Dr. Rajiv Márquez, repeat colo 3 years w/ Yasirly prep. Colon polyps (Acute). Cognitive developmental delay (Chronic). Mood disorder (Acute). Generalized epilepsy (Acute). Per caregiver he has not had a seizure in decades, see's Dr. Camarena for f/u. Medical History (Updated 06/20/21 @ 21:20 by Joann Mata MD). Anxiety disorder. Candidiasis. Conduct disorder, aggressive type, mild. Per caregiver (Liu) has been in a very good place recently. History of tobacco use. Hyperlipidemia. Intermittent explosive disorder. Per caregiver (Liu) on occasion he will have an agrressive incident per caregiver states he does not feel as though he will have any issues with procedures. Kidney stone. Lack of coordination. Obstructive sleep apnea. Remote PSG noted an AHI of 12.2 with an O2 sat jensen of 54%. He does not currently have a CPAP. Onychomycosis. Other congenital valgus deformities of feet. Prediabetes. Per caregiver states he is not diabetic, he has lost 25 lbs. Therapeutic drug monitoring. Varus deformities of feet, congenital. Surgical History . S/P surgical manipulation of ankle joint. R, 2013 PREVIOUS FUNCTIONAL STATUS/SOCIAL/FAMILY SUPPORTS:: Alberto resides at [facility] ([facility]). He is developmentally delayed and has caregivers. Per [facility] staff, cognitively Alberto is a 6 year old in a 51 year old body. His Guardian is Patricia Arthur, Guardianship Documents were emailed to . CURRENT FUNCTIONAL STATUS:: Alberto is lying in bed, he is alert, oriented and pleasant. He is being closely monitored and treated for Covid. He requires supplimental oxygen. He would like a walker to take back to [facility] with him on discharge. CM spoke with his Guardian Patricia who states that Alberto does not use a walker. CM will request a PT evaluation prior to discharge. ADVANCE DIRECTIVES:: None on file. Guardian is Patricia Arthur. Has patient been provided with info about the portal/API?: Yes Did the patient sign up for the portal?: No CODE STATUS:: Full Code INSURANCE COVERAGE / FINANCIAL ISSUES:: Medicaid. Medicare CURRENT HOME/COMMUNITY SERVICES/EQUIPMENT:: Lives at [facility] and has caregivers. Guardian is Patricia Arthur, documention provided PRIMARY CARE PHYSICIAN:: Kelvin Delatorre POTENTIAL DISCHARGE NEEDS:: Follow up appointment. PATIENT/FAMILY EDUCATION NEEDS:: Review discharge plan, medications, limitations and plan to follow up with community providers. Review isolation considerations and ask me three. TRANSPORTATION:: via private vehicle with caregiver at [facility]. PLAN:: Alberto is Covid +, syptomatic and on isolation precautions. He requires close monitoring and treatment for his respiratory symptoms. He is on 3.5-4L Hi Flow O2 via [place], and does not use supplimental O2 at baseline. He will likely transfer to the ICU if his symptoms worsen. No caregiver's from [facility] are needed at this time, as Alberto has been appropriate in all interactions. PT contacted CM about Alberto's request for a walker at discharge. Per his guardian, he does not use a walker. He may benefit from a PT eval, to address his concerns. CM will continue to follow.
--- NOTE | 2021-06-21 16:13 | PGE_ITS ---
Date of Service Date of service: 06/21/21 Time of Service: 16:14 Assessment and Plan Assessment and plan (1) COVID-19: Status: Acute Assessment and plan: With O2 requirements that have continued to increase. Low threshold to transfer to the ICU. Patient was initiated on remdesivir and dexamethasone, baricitinib; which we will continue. Encourage proning, pulmonary toileting. Provide mucinex, tessalon perles. Schedule combivent; prn albuterol. No evidence of bacterial superinfection - no role for abx. CPAP at night. Prophylacti anticoagulation with lovenox. Supplement vitamins C, D, zinc. Pepcid for GI ppx. Continue home atorvastatin. Monitor continuous pulse ox. Consider pulmonary consult. (2) Hypoxia: Status: Acute Assessment and plan: As above. Wean O2 as tolerated (3) Obstructive sleep apnea: Assessment and plan: Provide CPAP (4) Cognitive developmental delay: Status: Chronic Assessment and plan: With h/o mood d/o/anxiety d/o, and intermittent explosive d/o/conduct d/o. Continue home medications. He has been cooperative; no behavioral events. The patient usually has a 1:1 sitter in his home environment. Because of COVID- 19, we have to consider that the patient's outside sitter may have been exposed to COVID-19 and could increase the risk of exposure for visitors and staff. Infection control in conversation with his skilled nursing to discuss logistics of a sitter should we see one is needed. (5) Generalized epilepsy: Status: Acute Assessment and plan: continue home divaloproex. Valproic acid level pendingl. (6) DVT prophylaxis: Status: Acute Assessment and plan: Now requiring high flow O2 so changed to prophylactic dosing of lovenox. (7) Discharge planning issues: Status: Acute Assessment and plan: Full code See discussion re sitter above Guardian Patricia was notified of patient's admission. Subjective Subjective Patient reports: no new complaints, tolerating a regular diet, shortness of breath and afebrile; denies diarrhea, nausea or vomiting Interval history since last seen: Dry cough Exam Narrative Exam Narrative: General: Pleasant Obese male who is showing no dyspnea/tachypnea w hile on 6 L of O2 by HFNC, saturating 92%-96% Neurological: A&Ox3, no focal deficits Psychiatric: Appropriate speech pattern/content for level of intellectual development Skin: Visible skin intact HEENT: Atraumatic, normocephalic, EOMI, dry MM Cardiovascular: RRR, no murmur Lungs: CTAB Gastrointestinal: soft, NT Extremities: no edema BLE's, no calf tenderness Objective Last Vital Signs Temp 35.9 C L 06/21/21 12:30 Pulse 83 06/21/21 12:30 Resp 16 06/21/21 12:30 BP 119/78 06/21/21 12:30 Pulse Ox 96 06/21/21 12:30 Laboratory Results - last 24 hr 06/20/21 06/20/21 06/20/21 16:25 16:50 16:50 WBC 5.98 RBC 5.78 Hgb 16.1 Hct 49.1 MCV 84.9 MCH 27.9 MCHC 32.8 RDW 14.5 H Plt Count 151 MPV 9.7 Immature Gran % 0.3 Neutrophils % 66.1 Lymphocytes % 17.9 Monocytes % 14.9 Eosinophils % 0.3 Basophils % 0.5 Nucleated RBC % 0.0 Absolute Neutrophils 3.95 Absolute Lymphocytes 1.07 L Absolute Monocytes 0.89 H Absolute Eosinophils 0.02 Absolute Basophils 0.03 PT INR D-Dimer Sodium 137 Potassium 4.5 Chloride 99 Carbon Dioxide 31.8 Anion Gap 6.2 BUN 13 Creatinine 0.8 Estimated GFR/1.73 m2 >= 60.00 Glucose 99 Hemoglobin A1c Calcium 9.5 Magnesium 2.0 Ferritin Total Bilirubin 0.3 Conjugated Bilirubin AST 58 H ALT 40 Alkaline Phosphatase 51 Creatine Kinase Troponin I < 50 C-Reactive Protein NT-Pro-B Natriuret Pep 69 Total Protein 8.6 H Albumin 3.9 Procalcitonin Valproic Acid COVID-19 Source SARS-CoV-2 (PCR) Influenza Type A (PCR) Influenza Type B (PCR) RSV (PCR) Add-On Test Request 06/20/21 06/20/21 06/20/21 16:50 16:50 16:52 WBC RBC Hgb Hct MCV MCH MCHC RDW Plt Count MPV Immature Gran % Neutrophils % Lymphocytes % Monocytes % Eosinophils % Basophils % Nucleated RBC % Absolute Neutrophils Absolute Lymphocytes Absolute Monocytes Absolute Eosinophils Absolute Basophils PT INR D-Dimer 270 Sodium Potassium Chloride Carbon Dioxide Anion Gap BUN Creatinine Estimated GFR/1.73 m2 Glucose Hemoglobin A1c Calcium Magnesium Ferritin Total Bilirubin Conjugated Bilirubin AST ALT Alkaline Phosphatase Creatine Kinase Troponin I C-Reactive Protein NT-Pro-B Natriuret Pep Total Protein Albumin Procalcitonin 0.1 Valproic Acid COVID-19 Source Nasopharynx SARS-CoV-2 (PCR) Positive A Influenza Type A (PCR) Negative Influenza Type B (PCR) Negative RSV (PCR) Negative Add-On Test Request 06/20/21 06/20/21 06/20/21 19:10 20:15 20:15 WBC RBC Hgb Hct MCV MCH MCHC RDW Plt Count MPV Immature Gran % Neutrophils % Lymphocytes % Monocytes % Eosinophils % Basophils % Nucleated RBC % Absolute Neutrophils Absolute Lymphocytes Absolute Monocytes Absolute Eosinophils Absolute Basophils PT INR D-Dimer Sodium Potassium Chloride Carbon Dioxide Anion Gap BUN Creatinine Estimated GFR/1.73 m2 Glucose Hemoglobin A1c Calcium Magnesium Ferritin Total Bilirubin Conjugated Bilirubin AST ALT Alkaline Phosphatase Creatine Kinase Troponin I < 50 C-Reactive Protein NT-Pro-B Natriuret Pep Total Protein Albumin Procalcitonin Valproic Acid 74.7 COVID-19 Source SARS-CoV-2 (PCR) Influenza Type A (PCR) Influenza Type B (PCR) RSV (PCR) Add-On Test Request DONE 06/21/21 06/21/21 06/21/21 06:02 06:02 06:02 WBC 3.93 L D RBC 5.21 Hgb 14.4 Hct 45.0 MCV 86.4 MCH 27.6 MCHC 32.0 RDW 14.4 H Plt Count 134 MPV 10.3 Immature Gran % 0.5 Neutrophils % 56.0 Lymphocytes % 32.6 Monocytes % 10.4 Eosinophils % 0.0 Basophils % 0.5 Nucleated RBC % 0.0 Absolute Neutrophils 2.20 Absolute Lymphocytes 1.28 Absolute Monocytes 0.41 Absolute Eosinophils 0.00 Absolute Basophils 0.02 PT 10.2 INR 1.0 D-Dimer 198 Sodium 138 Potassium 4.9 Chloride 103 Carbon Dioxide 30.7 Anion Gap 4.3 BUN 18 Creatinine 0.9 Estimated GFR/1.73 m2 >= 60.00 Glucose 100 Hemoglobin A1c Calcium 8.6 Magnesium 2.2 Ferritin 436 H Total Bilirubin 0.2 Conjugated Bilirubin 0.1 AST 31 ALT 35 Alkaline Phosphatase 45 L Creatine Kinase 59 Troponin I C-Reactive Protein 6.13 H NT-Pro-B Natriuret Pep Total Protein 7.4 Albumin 3.1 L Procalcitonin Valproic Acid COVID-19 Source SARS-CoV-2 (PCR) Influenza Type A (PCR) Influenza Type B (PCR) RSV (PCR) Add-On Test Request 06/21/21 06:02 WBC RBC Hgb Hct MCV MCH MCHC RDW Plt Count MPV Immature Gran % Neutrophils % Lymphocytes % Monocytes % Eosinophils % Basophils % Nucleated RBC % Absolute Neutrophils Absolute Lymphocytes Absolute Monocytes Absolute Eosinophils Absolute Basophils PT INR D-Dimer Sodium Potassium Chloride Carbon Dioxide Anion Gap BUN Creatinine Estimated GFR/1.73 m2 Glucose Hemoglobin A1c 5.8 H Calcium Magnesium Ferritin Total Bilirubin Conjugated Bilirubin AST ALT Alkaline Phosphatase Creatine Kinase Troponin I C-Reactive Protein NT-Pro-B Natriuret Pep Total Protein Albumin Procalcitonin Valproic Acid COVID-19 Source SARS-CoV-2 (PCR) Influenza Type A (PCR) Influenza Type B (PCR) RSV (PCR) Add-On Test Request
[2021-06-21] MEDS: REMDESIVIR 100 MG in Normal Saline 250 ML 250 MG IVPB (20:08)
[2021-06-21] MEDS: LORazepam 0.5 MG TAB PO (20:28)
[2021-06-21] MEDS: Atorvastatin 20 MG TAB PO (20:30)
[2021-06-21] MEDS: Normal Saline Flush 10 ML SYR IVP (20:32)
[2021-06-21] MEDS: Enoxaparin 40 MG/0.4 ML SYR SC (20:33)
[2021-06-21] MEDS: diphenhydrAMINE 25 MG CAP PO (21:45)
[2021-06-21] MEDS: risperiDONE 1 MG TAB PO (21:47)
[2021-06-22 00:57] VITALS: BP 132/88; PULSE 58; RESP 18; TEMP 36.9; O2SAT 97
[2021-06-22 00:58] VITALS: RESP 158
[2021-06-22 01:24] VITALS: PULSE 57
[2021-06-22 02:38] VITALS: BP 123/84; PULSE 61; RESP 16; TEMP 36.6; O2SAT 98
[2021-06-22] MEDS: Ipratropium/Albuterol 4 GM 120 PUFF INH IH ×2 (07:22→11:51)
[2021-06-22 07:26] LABS: Platelet Count 148 10^3/uL (130-400)
[2021-06-22] MEDS: Ascorbic Acid 500 MG TAB 1000 MG PO (09:21)
[2021-06-22] MEDS: Benzonatate 100 MG CAP PO ×2 (09:23→13:25)
[2021-06-22] MEDS: Cholecalciferol (Vitamin D3) 1,000 UNIT TAB 2000 UNITS PO (09:23)
[2021-06-22] MEDS: Dexamethasone 4 MG TAB 6 MG PO (09:24)
[2021-06-22] MEDS: Divalproex 500 MG TABEC 1500 MG PO (09:26)
[2021-06-22] MEDS: Docusate Sodium 100 MG CAP PO (09:27)
[2021-06-22] MEDS: Famotidine 20 MG TAB PO (09:27)
[2021-06-22] MEDS: guaiFENesin 600 MG TABCR PO (09:27)
[2021-06-22] MEDS: Ibuprofen 200 MG TAB 400 MG PO ×2 (09:27→13:26)
[2021-06-22] MEDS: Multivitamin TAB 1 TAB PO (09:29)
[2021-06-22] MEDS: Mylanta Suspension 30 ML CUP PO ×2 (09:29→13:26)
[2021-06-22] MEDS: Polyethylene Glycol 3350 17 GM PACKET PO (09:30)
[2021-06-22] MEDS: Normal Saline Flush 10 ML SYR IVP (09:32)
[2021-06-22] MEDS: Zinc Sulfate 220 MG TAB PO (09:32)
[2021-06-22] MEDS: risperiDONE 1 MG TAB 2 MG PO (09:32)
[2021-06-22] MEDS: Sertraline 50 MG TAB 200 MG PO (09:32)
--- NOTE | 2021-06-22 09:51 | CMPROGNOTE_ITS ---
- If Service Date Differs Date of service: 06/22/21 Time of Service: 09:51 Care Management Progress Note S/O: Alberto's respiratory status has improved. He is on room air and doing well. He was evaluated by PT and will not need a walker at discharge. Anticipate, Alberto will discharge back to [facility] later today, both his Guardian and facility RN are aware. RX's were sent to [facility] at facilities request. A: 51 year old developmentally delayed Male admitted to [facility] on 06/21/21 for Covid, Hypoxia P: Alberto will discharge back to [facility] via facility transportation when medically ready. His Guardian is Patriciagrady HudsonJerson. Alberto will follow up with community providers and discharge plan of care as prescribed. RX's will be faxed to [facility], facility RN aware. CM will continue to follow.
--- NOTE | 2021-06-22 10:47 | DSE_ITS ---
DS: Diagnosis Discharge Diagnosis (1) COVID-19: Status: Acute (2) Hypoxia: Status: Acute (3) Obstructive sleep apnea: (4) Cognitive developmental delay: Status: Chronic (5) Generalized epilepsy: Status: Acute (6) DVT prophylaxis: Status: Acute (7) Discharge planning issues: Status: Acute Discharge Plan Disposition Patient Disposition: HOME Condition: Improving Discharge Details Reason For Visit: COVID-19, Hypoxia Admit Date/Time: 06/20/21 18:33 Admit Provider: Joann Mata Attending Provider: Joann Mata [facility]: Mr Sanchez is a 51 year old male with PMHx of NARAYAN on CPAP, epilepsy, hyperlipidemia, cognitive developmental delay, who had a positive COVID-19 rapid test at his custodial ([facility]) yesterday (the patient states that everyone is sick there ) but who did not start to feel sick until today who was brought to [facility] ED by ambulance today for shortness of breath and hypoxia with room air O2 sat of 87%, requiring 3L of O2 by NC to saturated in the 90s. The patient was febrile to 38.4 and saturating 88% on RA in our ED, with an oxygen requirement of 2L of O2 by NC there. The patient reported that since this morning he has had a headache, runny nose, sore throat, shortness of breath, nonproductive cough, and fatigue.? His COVID-19 PCR was indeed positive. His CXR showed patchy ground glass opacities in bilateral pulmonary bases c/w COVID-19 pneumonia. His D-dimer and procalcitonin were negative. He was initiated on dexamethasone and remdesivir. Hospitalist admission was requested. At the time of Hospitalist's evaluation his O2 sat was oscillating between 3.5 and 4L of O2. Per our medical record, the patient is s/p 2 Pfizer COVID-19 vaccines.? His guardian is Patricia Arthur - she was notified of the patient's hospitalization and of his condition. She pointed out that today is Alberto's birthday. While this is rare, Alberto can sometimes act out/become aggressive if he feels he is not getting the food/drink that he wants, Patricia stated. Patient was initiated on remdesivir and dexamethasone, which we will continue. Add? baricitinib. Encourage proning, pulmonary toileting. Provide mucinex, tessalon perles. Schedule combivent; prn albuterol. No evidence of bacterial superinfection - no role for abx. During the first 24 hours of his stay his supplemental O2 demands did increase; CPAP initiated but he did not tolerate it well. The following day / day of discharge he was stable on RA and did not meet qualifications for home O2. He felt better. He was eating well. He displayed no agitated or combative behaviors. He was discharged back to his custodial setting on a burst of prednisone. Telehealth follow up being arranged with PCP. Home Meds and New Rx's Prescriptions: New prednisone 20 mg tablet 40 mg PO DAILY Qty: 8 0RF benzonatate 100 mg capsule 100 mg PO TID Qty: 15 0RF Continued atorvastatin [Lipitor] 20 mg tablet 20 mg PO QHS 0RF Gold Monae Medicated Foot 1 % powder 1 applic topical QHS PRN0RF ketoconazole 2 % cream 1 applic TP .QOD 0RF diphenhydramine HCl [Benadryl Allergy] 25 mg tablet 25 mg PO QHS 0RF Label Comments: 1-2 po HS prn lorazepam 0.5 mg tablet 0.5 mg PO BID PRN0RF multivitamin [One Daily Multivitamin] 1 EACH tablet 1 ea PO DAILY 0RF sertraline 100 MG tablet 200 mg PO DAILY 0RF acetaminophen [Tylenol Extra Strength] 500 MG tablet 1,000 mg PO PRN 0RF magnesium hydroxide [Milk of Magnesia] 400 MG/5 ML suspension 30 ml PO QID 0RF ibuprofen 200 MG tablet 400 mg PO TID 0RF MYLANTA 30 ml PO QID 0RF divalproex [Depakote] 500 mg tablet,delayed release (DR/EC) 1,500 mg PO BID 0RF risperidone [Risperdal] 1 mg tablet See Rx Instructions PO BID 0RF Rx Instructions: 2mg am and 1mg HS PO twice a day; Discharge Instructions Instructions: COVID-19 (Coronavirus Disease 2019) (DC) Stand Alone Forms: Nursing Discharge Form Referrals: Kelvin Delatorre [Primary Care Provider] - 07/06/21 2:00 pm Activity:: Activity as Tolerated Equipment/Supplies:: No Equipment Needed Diet:: Resume usual diet. Discharge Orders Discharge Orders: Discharge Order (Routine); Ordered 06/22/21 Ordered By: Lane Magallanes DS: Summary Time Spent with Patient providing and/or coordinating discharge services: Greater than 30 minutes Status at Discharge Functional status at discharge: uses cane/walker Overall status at discharge: patient is progressing back to baseline Mental Status: mental status grossly normal Speech and Movement: speech clear Mood: congruent mood Affect: normal affect Exam Narrative Exam Narrative: General: Pleasant Obese male who is showing no dyspnea/tachypnea while on 6 L of O2 by HFNC, saturating 92%-96% Neurological: A&Ox3, no focal deficits Psychiatric: Appropriate speech pattern/content for level of intellectual development Skin: Visible skin intact HEENT: Atraumatic, normocephalic, EOMI, dry MM Cardiovascular: RRR, no murmur Lungs: CTAB Gastrointestinal: soft, NT Extremities: no edema BLE's, no calf tenderness Psych Mental Status: mental status grossly normal Speech and Movement: speech clear Mood: congruent mood Affect: normal affect DS: Data Vitals/I&O Vitals and I&O: Vital Signs Temperature 36.6 C 06/22/21 02:38 Temperature Source Skin 06/22/21 02:38 Pulse 61 06/22/21 02:38 Pulse Rhythm Regular 06/22/21 00:55 Pulse 83 06/20/21 20:16 Respiratory Rate 16 06/22/21 02:38 Respiratory Effort Non-Labored 06/22/21 00:55 Respiratory Depth Normal 06/22/21 00:55 Respiratory Pattern Normal 06/22/21 00:55 Blood Pressure 123/84 06/22/21 02:38 Blood Pressure Mean 91 06/20/21 20:16 Blood Pressure Position Supine 06/20/21 16:32 Pulse Oximetry 98 06/22/21 02:38 Oxygen Delivery Method Cpap 06/22/21 02:38 Oxygen Flow Rate 5 06/21/21 20:43 Fraction of Inspired Oxygen (FIO2) 30 06/22/21 02:38 Pain Level 0 06/22/21 09:27 Comment 06/21/21 20:43 Intake & Output 06/21/21 06/21/21 06/22/21 11:59 23:59 11:59 Intake Total 110 / 1460 1350 / 1460 250 / 250 Output Total 500 / 1650 1150 / 1650 750 / 750 Balance -390 / -190 200 / -190 -500 / -500 Weight 111.9 kg Intake: IV 10 / 280 270 / 280 Oral 100 / 1180 1080 / 1180 250 / 250 Output: Urine 500 / 1650 1150 / 1650 750 / 750 Other: Urine Color Light Erin Straw Yellow Urine Appearance Clear Clear Clear Urine Odor Normal Comment voided in toilet and the hat 100 in the hat Stool Size Large Small Copious Stool Characteristics Liquid Soft Soft Liquid Formed Brown Voiding Methods Toilet Toilet Toilet Data Completed and Pending Labs on day of discharge: Labs from last 24 hours 06/22/21 06/21/21 06:35 06:02 Plt Count 148 25-OH Vitamin D Total 23.0 L Preliminary micro results at discharge 06/20/21 19:10 Blood Culture - Preliminary Blood NO GROWTH 24 HOURS 06/20/21 18:55 Blood Culture - Preliminary Blood NO GROWTH 24 HOURS PFSH All Active Problems (Updated 06/20/21 @ 21:20 by Joann Mata MD) Discharge planning issues (Acute) DVT prophylaxis (Acute) COVID-19 (Acute) Hypoxia (Acute) Tremor (Acute) Tubular adenoma of colon (Acute) Tubular adenoma (Acute ~11/2019) 12/18/19 Dr. Rajiv Márquez, repeat colo 3 years w/ Golabily prep Colon polyps (Acute) Cognitive developmental delay (Chronic) Mood disorder (Acute) Generalized epilepsy (Acute) Per caregiver he has not had a seizure in decades, see's Dr. Camarena for f/u Medical History (Updated 06/20/21 @ 21:20 by Joann Mata MD) Anxiety disorder Candidiasis Conduct disorder, aggressive type, mild Per caregiver (Liu) has been in a very good place recently History of tobacco use Hyperlipidemia Intermittent explosive disorder Per caregiver (Liu) on occasion he will have an agrressive incident per caregiver states he does not feel as though he will have any issues with procedures Kidney stone Lack of coordination Obstructive sleep apnea Remote PSG noted an AHI of 12.2 with an O2 sat jensen of 54%. He does not currently have a CPAP. Onychomycosis Other congenital valgus deformities of feet Prediabetes Per caregiver states he is not diabetic, he has lost 25 lbs Therapeutic drug monitoring Varus deformities of feet, congenital Surgical History S/P surgical manipulation of ankle joint R, 2014 Family History Father Epilepsy Brother Epilepsy Social History Smoking/Tobacco Use Status: Never Smoking risk assessment performed?: Yes Alcohol Intake: never Drug use: Never Substance use type: does not use Housing: other Number of Children: 0 current occupation: Disabled Do you feel safe at home: Yes Additional Social history: He currently resides at [facility] (since November 2016). He is under the guardianship of Patricia Arthur (since February 2017). 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
--- NOTE | 2021-06-22 11:49 | IN_ITS ---
Date of service: 06/22/21 Time of Service: 11:49 PT Notes Visit Reasons: COVID-19, Hypoxia Physical Therapy Inpatient Initial Evaluation Date: 06/22/2021 Referring Doctor: Lane Magallanes MD PT Orders: PT CONSULT: Eval/treat Precautions: COVID-19 positive. Activity as tolerated. Patient Profile/Admitting Diagnosis: Daniel is a 51-year-old male with admitting diagnosis of hypoxia, obstructive sleep apnea, cognitive developmental delay, generalized epilepsy, and COVID-19 infection referred to physical for mobility assessment and discharge planning recommendations. PMHX: All Active Problems?(Updated 06/20/21 @ 21:20 by Joann Mata MD) Discharge planning issues (Acute) DVT prophylaxis (Acute) COVID-19 (Acute) Hypoxia (Acute) Tremor (Acute) Tubular adenoma of colon (Acute) Tubular adenoma (Acute ~11/2019) 12/18/19 Dr. Rajiv Márquez, repeat colo 3 years w/ Golytly prep Colon polyps (Acute) Cognitive developmental delay (Chronic) Mood disorder (Acute) Generalized epilepsy (Acute) Per caregiver he has not had a seizure in decades, see's Dr. Camarena for f/u Medical History?(Updated 06/20/21 @ 21:20 by Joann Mata MD) Anxiety disorder Candidiasis Conduct disorder, aggressive type, mild Per caregiver (Liu) has been in a very good place recently History of tobacco use Hyperlipidemia Intermittent explosive disorder Per caregiver (Liu) on occasion he will have an agressive incident per caregiver states he does not feel as though he will have any issues with procedures Kidney stone Lack of coordination Obstructive sleep apnea Remote PSG noted an AHI of 12.2 with an O2 sat jensen of 54%. He does not currently have a CPAP. Onychomycosis Other congenital valgus deformities of feet Prediabetes Per caregiver states he is not diabetic, he has lost 25 lbs Therapeutic drug monitoring Varus deformities of feet, congenital Surgical History? S/P surgical manipulation of ankle joint R, 2013 Social History/Home Situation: Lives in a fdc at the [facility]. Requires no assistive device for mobility ADL performance. Equipment Owned/DME: None Subjective: Okay with PT assessment. Objective: General Observation: Seated on chair. RT Juwan present during consult. Mental Status: Alert and oriented as to person. Able to pay attention, focus, and respond appropriately. Pain: Denies Vital Signs: Oxygen oxygen saturation 91% to 93% on room air during ambulation activity. ROM: Right Upper Extremity: Shoulder Flexion WFL. Shoulder abduction WFL. Elbow flexion WFL. Wrist flexion WFL. Functional opening and closing of hand WFL. Left Upper Extremity: Shoulder Flexion WFL. Shoulder abduction WFL. Elbow flexion WFL. Wrist flexion WFL. Functional opening and closing of hand WFL. Right Lower Extremity: Hip flexion WFL. Hip abduction WFL. Knee flexion WFL. Ankle dorsiflexion WFL. Ankle plantarflexion WFL. Left Lower Extremity: Hip flexion WFL. Hip abduction WFL. Knee flexion WFL. Ankle dorsiflexion WFL. Ankle plantarflexion WFL. Strength: Right Upper Extremity: Shoulder flexors 4/5. Shoulder abductors 4/5. Elbow flexors 5/5. Elbow extensors 5/5. Senior Mobile Web Developer strong. Left Upper Extremity: Shoulder flexors 4/5. Shoulder abductors 4/5. Elbow flexors 5/5. Elbow extensors 5/5. Senior Mobile Web Developer strong. Right Lower Extremity: Hip flexors 4/5. Hip abductors 4/5. Knee flexors 5/5. Knee extensors 5/5. Ankle dorsiflexors 5/5. Ankle plantarflexors 5/5. Left Lower Extremity: Hip flexors 4/5. Hip abductors 4/5. Knee flexors 5/5. Knee extensors 5/5. Ankle dorsiflexors 5/5. Ankle plantarflexors 5/5. Bed Mobility/Transfers: Sit to stand independent Stand to sit independent Bed to bedside commode independent Bedside commode to bed independent Gait: Instructed patient with level surface ambulation of at least 60 feet requiring stand by assist. Jennifer decreased. Mild trunk lean to R (chronic). Balance: Static Sitting: Normal Dynamic Sitting: Normal Static Standing: Good Dynamic Standing: Fair Special Tests: Mobility Limitations Standardized Measure [facility] AM-PAC 6 clicks Basic Mobility Inpatient Short Form: Raw Score: 23 CMS Score: 11% deficit Informed Consent/Education: Patient was instructed in purpose of PT consult and plan of care. Agreeable to proceed with established PT POC to achieve personal goals. Assessment: Patient is independent with all mobility ADL performance without the need for any assistive device. Patient is assessed as a 83769 low complexity based on the following: History: 51-year-old male with past medical history as indicated above Examination: Demonstrable impairment in strength, balance, and mobility level with underlying impairments and functional limitations as exhibited above as well as deficit score of 11% utilizing the [facility] Mobility Inpatient Short Form Presentation: Evolving Decision Makin low complexity Goals: N/A. PT evaluation only. Plan of Care/Treatment Plan: N/A. PT evaluation only. DISCHARGE RECOMMENDATIONS: Home when medically cleared by hospitalist. TREATMENT CODE/TIME: 53677 x 15 minutes beginning at 11:49 AM. Thank you for the opportunity to participate in the care of this patient. Angelika Cloud PT, DPT, CLT [facility] [place], [place]
[2021-06-22 11:57] VITALS: PULSE 80; PULSE 81; PULSE 88; RESP 16; RESP 18; O2SAT 91; O2SAT 93; O2SAT 95
--- NOTE | 2021-06-22 12:22 | PDOC.CMDIS ---
- If Service Date Differs Date of service: 06/22/21 Time of Service: 12:22 LACE Index Scoring Tool - Questions: Length of Stay (in days): 2 Acuity (Admit via E.D.?): Yes E.D. Visits: 1 - Answers: Total Score: 6 Risk of Readmission: Low Risk Care Management Discharge Reason for Hospitalization: Covid, Hypoxia Discharge Plan: Alberto is discharged back to [facility]. He will transport via facility vehicle with [facility] staff when medically ready. Alberto will follow up with community providers and discharge plan of care as prescribed. RX's will be faxed to [facility], facility RN oneil and will arrange pickling grader. CM discussed plan with Alberto's Guardian Patricia Arthur and Facility RN Jyoti prior to discharge. Patient/Family Education Needs: Review discharge instructions, medications, limitations and plan to follow up with community providers. Review isolation considerations and ask me three.
[2021-06-22 14:47] VITALS: PULSE 89
[2021-06-22 16:02] LABS: Alkaline Phosphatase 50 U/L (46-116); Calculated LDL 72 mg/dL (<100); Cholesterol 147 mg/dL (<200); HDL Cholesterol 37 mg/dL (40-60); Triglyceride 190 mg/dL (<150); Vitamin B12 471 pg/mL (193-986)
[2021-06-22 16:56] LABS: Folate > 20.0 ng/mL (8.6-20.0)
[2021-06-22 17:11] LABS: FREE T4 0.77 ng/dL (0.76-1.46)
[2021-06-22 21:44] LABS: T3,Free 3.8 pg/mL (2.8-5.3)
[2021-06-23 15:52] LABS: Copper, Serum 1.22 mcg/mL (0.75-1.45)
[2021-06-28 13:25] LABS: 1,25-Dihydroxyvitamin D 60 pg/mL (18-64)
== END 2021-06-22 16:00 | disposition home or self-care (01) | DRG 177 ==
LOC: ER 19:05 → MS 20:59
PROVIDERS: Psychiatry & Neurology Psychiatry; Admitting Provider Internal Medicine; Emergency Provider Registered Nurse Emergency; PCP Internal Medicine; Visit Provider Internal Medicine
DX: U07.1 COVID-19 (principal); J12.82 Pneumonia due to coronavirus disease 2019; R09.02 Hypoxemia; G47.33 Obstructive sleep apnea (adult) (pediatric); F81.9 Developmental disorder of scholastic skills, unspecified; G40.309 Generalized idiopathic epilepsy and epileptic syndromes, not intractable, without status epilepticus; F41.9 Anxiety disorder, unspecified; E78.5 Hyperlipidemia, unspecified; F39 Unspecified mood [affective] disorder; R25.1 Tremor, unspecified; F63.81 Intermittent explosive disorder; R73.03 Prediabetes
CPT/HCPCS: 36410; 36415; 80048; 80053; 80061; 80076; 82306; 82550; 84145; 87040; 87637; 93005; 94618; 94640; 96361; 96365; 96375; 97161; 99285; J1650; 71045; 80164; 82525; 82607; 82652; 82728; 82746; 83036; 83735; 83880; 84075; 84439; 84443; 84481; 84484; 85025; 85049; 85379; 85610; 86140; 93010; 94660; 99223; 99232; 99239; J0248; J1100; J3490; J8540

== ENCOUNTER → 2021-09-05 12:52 | Outpatient (BNVA) | payer MEDICARE, MEDICAID, SELFPAY | PROVIDERS: PCP Internal Medicine; Referring Provider Internal Medicine; Visit Provider Psychiatry & Neurology Neurology | DX: G40.309 Generalized idiopathic epilepsy and epileptic syndromes, not intractable, without status epilepticus (principal); R25.1 Tremor, unspecified; F81.9 Developmental disorder of scholastic skills, unspecified; F39 Unspecified mood [affective] disorder | CPT/HCPCS: 99214 ==

== ENCOUNTER → 2022-03-13 12:22 | Outpatient (BNVA) | payer MEDICARE, MEDICAID, SELFPAY | PROVIDERS: PCP Internal Medicine; Referring Provider Internal Medicine; Visit Provider Psychiatry & Neurology Neurology | DX: G40.309 Generalized idiopathic epilepsy and epileptic syndromes, not intractable, without status epilepticus (principal); F39 Unspecified mood [affective] disorder; F81.9 Developmental disorder of scholastic skills, unspecified; R25.1 Tremor, unspecified | CPT/HCPCS: 99214 ==

== ENCOUNTER → 2022-09-11 09:46 | Outpatient (BNVA) | payer MEDICARE, MEDICAID, SELFPAY | PROVIDERS: PCP Internal Medicine; Visit Provider Psychiatry & Neurology Neurology | DX: G40.309 Generalized idiopathic epilepsy and epileptic syndromes, not intractable, without status epilepticus (principal); F39 Unspecified mood [affective] disorder; F81.9 Developmental disorder of scholastic skills, unspecified; R25.1 Tremor, unspecified | CPT/HCPCS: 99213 ==

== ENCOUNTER 2022-10-24 13:02 | Outpatient (REF) | payer MEDICARE, MEDICAID, SELFPAY ==
[2022-10-24 20:13] LABS: HCT 46.8 % (40.0-50.0); HGB 15.8 g/dL (13.5-17.5); MCHC 33.8 % (32.0-36.0); MCV 83 fL (80-95); MPV 9.5 fL (8.0-11.0); Platelet Count 172 10^3/uL (130-400); RBC 5.64 10^6/uL (4.36-5.78); RDW 13.5 % (11.8-14.1); RDW-SD 41.1 fL; WBC 4.44 10^3/uL (4.4-10.8)
[2022-10-24 20:41] LABS: ALT 22 U/L (16-63); AST 19 U/L (15-37); Albumin 3.8 g/dL (3.4-5.0); Alkaline Phosphatase 54 U/L (46-116); BUN 16 mg/dL (7-18); Bilirubin, Total 0.4 mg/dL (0.2-1.0); CREATININE 0.7 mg/dL (0.70-1.30); Calcium 9.1 mg/dL (8.5-10.1); Chloride 97 mmol/L (98-107); Estimated GFR 110.18 (mL/min/1.73m2); Glucose 127 mg/dL (74-106); LDL CHOLESTEROL 94 mg/dL (<100); Potassium 4.6 mmol/L (3.5-5.1); Sodium 134 mmol/L (136-145); TSH (W/Ref FT4) 2.27 uIU/mL (0.36-3.74); Total Protein 7.7 g/dL (6.4-8.2)
[2022-10-24 20:51] LABS: Vitamin D 25 Total 25.8 ng/mL (30-100)
[2022-10-25 20:29] LABS: PSA, Screening 0.4 ng/mL (<=3.5)
== END 2022-10-24 13:03 | disposition home or self-care (01) ==
LOC: NCHCN 13:02
PROVIDERS: PCP Internal Medicine; Visit Provider Physician Assistant
DX: E78.5 Hyperlipidemia, unspecified (principal); E55.9 Vitamin D deficiency, unspecified; R73.03 Prediabetes; G40.909 Epilepsy, unspecified, not intractable, without status epilepticus; Z12.5 Encounter for screening for malignant neoplasm of prostate; R25.1 Tremor, unspecified
CPT/HCPCS: 80053; 82306; 83721; 84153; 85027; 84443

== ENCOUNTER 2023-03-18 19:19 | Emergency (ER) | payer MEDICARE, MEDICAID, SELFPAY ==
[2023-03-18] VITALS (14 sets, daily range): BP systolic 120–155; BP diastolic 68–78; PULSE 98–109; RESP 20; TEMP 39.3–39.8; O2SAT 89–95
[2023-03-18] MEDS: Ibuprofen 600 MG TAB PO (20:11)
--- NOTE | 2023-03-18 20:15 | DI.RAD_ITS ---
Exam(s) XR CHEST 2V PA LATERAL EXAM: XR CHEST 2V PA LATERAL CLINICAL HISTORY: cough TECHNIQUE: 2D digital imaging was performed of the chest. Two images were obtained. PA and lateral views were obtained. COMPARISON: CR,XR XR PORTABLE CHEST AP from 06/20/2021 FINDINGS: MEDIASTINUM: Normal. HEART: Normal. PULMONARY VASCULATURE: Normal. LUNGS: There is a left lower lobe infiltrate. The right lung is clear. PLEURAL SPACE: No pleural effusion or pneumothorax. BONE:Within normal limits for the patient's age. OTHER FINDINGS:Normal. IMPRESSION: Left lower lobe pneumonia. DATA REPOSITORY: RADIATION DOSE DELIVERED:
--- NOTE | 2023-03-18 20:26 | ED.GENADUL_ITS ---
HPI General Mode of arrival: ambulatory . Date/Time Provider Initiated Documentation: 03/18/23 19:58 . Limitations to Documentation: no limitations . Information obtained by: patient . History of Present Illness 52 year old M presents to the emergency department with the chief complaint of left foot pain, described as moderate, Quality is described as aching, Patient started experiencing this day(s) (1) and it has been constant. No relieving factors improve symptom(s), No exacerbating factors reported . Patient notes cough and fever/chills; denies chest pain and shortness of breath. Patient did receive the following treatments prior to arrival, none Related Data Home Medications Medication Instructions Recorded Confirmed sertraline 100 mg tablet 200 mg PO DAILY 07/23/17 03/18/23 magnesium hydroxide 400 mg/5 mL 30 ml PO QID 08/07/17 03/18/23 oral suspension (Milk of Magnesia) atorvastatin 20 mg tablet (Lipitor) 20 mg PO QHS 07/28/20 03/18/23 MYLANTA 15 - 30 ml PO QID PRN 09/05/21 12/12/22 acetaminophen 500 mg tablet 500 - 1,000 mg PO Q6H PRN 09/05/21 03/18/23 (Tylenol Extra Strength) diphenhydramine HCl 25 mg tablet 25 mg PO Q6H PRN allergy symptoms 09/05/21 03/18/23 (Benadryl Allergy) ibuprofen 200 mg tablet 400 mg PO TID PRN 09/05/21 03/18/23 risperidone 1 mg tablet (Risperdal) 2 mg PO BID 09/05/21 03/18/23 loperamide 2 mg capsule 2 mg PO DIRECTED PRN 10/25/21 03/18/23 divalproex 250 mg tablet,delayed 250 mg PO BID 03/13/22 03/18/23 release divalproex 500 mg tablet,delayed 1,000 mg PO BID 03/13/22 03/18/23 release (Depakote) ondansetron 4 mg disintegrating 4 mg PO Q8H PRN 03/13/22 12/12/22 tablet psyllium seed (sugar) oral powder 1 tbsp PO DAILY 03/13/22 03/18/23 (Metamucil (sugar) oral powder) triamcinolone acetonide 0.1 % 1 applic topical BID PRN 03/13/22 03/18/23 topical cream lorazepam 0.5 mg tablet 0.5 mg PO TID PRN 03/29/22 03/18/23 multivitamin (One Daily 1 tab PO DAILY 03/29/22 03/18/23 Multivitamin tablet) cholecalciferol (vitamin D3) 25 25 mcg PO DAILY 12/03/22 03/18/23 mcg (1,000 unit) capsule ketoconazole 2 % topical cream 1 applic topical BID #30 grams 12/03/22 03/18/23 urea 40 % topical cream 1 applic topical DAILY #198.4 grams 12/03/22 03/18/23 doxycycline hyclate 100 mg tablet 100 mg PO BID #14 tabs 03/18/23 Previous Rx's Medication Instructions Recorded ketoconazole 2 % topical cream 1 applic topical BID #30 grams 12/03/22 urea 40 % topical cream 1 applic topical DAILY #198.4 grams 12/03/22 doxycycline hyclate 100 mg tablet 100 mg PO BID #14 tabs 03/18/23 Allergies Allergy/AdvReac Type Severity Reaction Status Date / Time No Known Allergies Allergy Unverified 03/18/23 19:45 General Stated Complaint: Trauma YRN: 3 Review of Systems All systems reviewed & are unremarkable except as noted in HPI and below Constitutional Constitutional: Reports fever(s) and Denies weakness Cardiovascular Cardiovascular: Denies chest pain and Denies dyspnea Respiratory Respiratory: Reports cough and Denies dyspnea Gastrointestinal Gastrointestinal: Denies abdominal pain, Denies nausea and Denies vomiting Integumentary/Breasts Skin/Breast: Denies rash Neurologic Neurologic: Denies weakness Exam Const General: no acute distress Orientation: alert [facility] Head: normal to inspection Ears: external ears normal General nose exam: external nose normal Mouth: moist mucous membranes Eyes General: appearance normal, both eyes and all related structures Neck Neck: normal visual inspection Resp Effort & Inspection: normal respiratory effort and able to speak in complete sentences Auscultation: clear to auscultation bilaterally Cardio Jugular venous pressure: no JVD Rate: regular rate Heart Sounds: no murmurs Skin General skin exam: no rashes or lesions noted Neuro General: patient alert and patient oriented x3 Extrem General: full ROM and capillary refill normal Psych Mental Status: mental status grossly normal Course Vital Signs Vital signs: Vital Signs Temperature 39.3 C H 03/18/23 19:29 Pulse 109 H 03/18/23 19:29 Respiratory Rate 20 03/18/23 19:29 Blood Pressure 143/77 H 03/18/23 19:29 Temperature 39.8 C H 03/18/23 19:52 Temperature Source Oral 03/18/23 19:52 Pulse 109 H 03/18/23 19:29 Respiratory Rate 20 03/18/23 19:53 Respiratory Effort Normal, Non-Labored 03/18/23 19:56 Respiratory Depth Normal 03/18/23 19:56 Blood Pressure 143/77 H 03/18/23 19:29 Pulse Oximetry 95 03/18/23 19:52 Oxygen Delivery Method Room Air 03/18/23 19:52 Oxygen Flow Rate 0 03/18/23 19:29 Pain Level 3 03/18/23 19:52 Procedures Orthopedic Splinting/Casting Injury #1: Side: left Lower Extremity Injury Location: foot Lower Extremity Immobilizer: posterior splint Other Orthopedic Equipment: walker Medical Decision Making 52 yo male with hx of developmental delay who comes in with left foot pain after he states he tripped and hit his foot on the ground, denies hitting his head or loc. He also has had a cough for 2-3 days and today a fever. He is alert and appears well on exam with intermittent wet cough. Denies chest pain, dyspnea, abdominal pain, rashes. He has pain and burising of the left mid foot with intact sensation and pulses, has full rom of the ankle with no pain. Suspect fracture vs foot contusion, will obtain xrays. For his cough and fever will obtain cbc, cmp, fluvid and cxr. pt started coughing more persistently and on repeat exam does have apical wheezing, will treat with duoneb and decadron and reassess. foot xray shows fracute, consulted Dr. Haji recommends CT and f/u with them, posterior ankle splint and non weight bearing. CHest xray no infiltrate, has evidence of viral illness, is rsv positive. Will reassess after CT pt states he feels well, room air sat 93%. Given he is a former smoker will cover for possible copd exacerbation with doxy. Posterior splint applied without issues and intact csmts post splinting. He will trial crutches and if unable to will try walker. Differential Diagnosis Differential Diagnosis: fracture, contusion, pneumonia, covid Medical Records Medical records reviewed: Yes I reviewed the patient's medical records. Imaging Data Radiologic Study: Attestation: I personally reviewed and interpreted this imaging study as follows: Imaging: X-Ray Radiologist's impression: IMPRESSION: 1. No focal pneumonia. 2. There is bilateral perihilar peribronchial thickening consistent with bronchitis/bronchiolitis, pneumonitis, reactive airways disease or atypical bilateral bacterial pneumonia. Radiologic Study #2: Attestation: I personally reviewed and interpreted this imaging study as follows: Imaging: X-Ray Radiologist's impression: IMPRESSION: 1. Acute fracture through the proximal metaphysis of the 1st metatarsal with extension to the tarsometatarsal joint. 2. Irregularity of the proximal meta diaphyses of the 2nd, 3rd and 4th metatarsals, most consistent w ith nondisplaced fractures, with extension to the tarsometatarsal joints. 3. Acute comminuted fracture through the proximal metaphysis of the 5th metatarsal with extension to the tarsometatarsal joint. 4. Small calcaneal spurs at the insertion of the plantar aponeurosis. Lab Data Lab results reviewed: Yes I reviewed the patient's lab results. Quality:SDOH Health Related Social Needs: No Data to Display PFSH All Active Problems (Updated 03/18/23 @ 22:27 by Federico Saldana MD) Foot fracture, left (Acute) Respiratory syncytial virus (RSV) (Acute) GERD (gastroesophageal reflux disease) (Chronic) Vitamin D deficiency (Acute) Dermatophytosis of foot (Acute) Pain, foot (Acute) Nail dystrophy (Acute) Sensorineural hearing loss (SNHL) of both ears (Acute) Tremor (Acute) Tubular adenoma of colon (Acute) Tubular adenoma (Acute ~11/2019) 12/18/19 Dr. Rajiv Márquez, repeat colo 3 years w/ Golytly prep Colon polyps (Acute) Cognitive developmental delay (Chronic) Mood disorder (Acute) Generalized epilepsy (Acute) Per caregiver he has not had a seizure in decades, see's Dr. Camarena for f/u Medical History Anxiety disorder At high risk for falls BMI 40.0-44.9, adult Candidiasis Cerumen impaction Conduct disorder, aggressive type Conduct disorder, aggressive type, mild Per caregiver (Liu) has been in a very good place recently COVID-19 Decreased hearing of both ears Dyshidrotic eczema Epilepsy H/O adenomatous polyp of colon Hip pain, bilateral History of diverticulitis History of tobacco use Hyperlipidemia Impacted cerumen, bilateral Intellectual disability Intermittent explosive disorder Per caregiver (Liu) on occasion he will have an agrressive incident per caregiver states he does not feel as though he will have any issues with procedures Kidney stone Lack of coordination Morbid obesity Obesity Obstructive sleep apnea Remote PSG noted an AHI of 12.2 with an O2 sat jensen of 54%. He does not currently have a CPAP. Onychomycosis Onychomycosis of toenail Other congenital valgus deformities of feet Prediabetes Per caregiver states he is not diabetic, he has lost 25 lbs Pulmonary embolism Screening for colon cancer Therapeutic drug monitoring Tobacco use Varus deformities of feet, congenital Weakness of both legs Surgical History S/P surgical manipulation of ankle joint , 2013 Family History Father Epilepsy Brother , of seizure Epilepsy Social History Smoking/Tobacco Use Status: Former Tobacco Use Quit Date: 02/25/18 Smoking risk assessment performed?: Yes Alcohol Intake: never Drug use: Never Substance use type: does not use Housing: other Number of Children: 0 current occupation: Disabled Do you feel safe at home: Yes Additional Social history: He currently resides at [facility] (since November 2016). He is under the guardianship of [facility] (since February 2017). He graduated from high school and previously worked in a [employer]. Discharge Plan Disposition Patient Disposition: Home Condition: Stable Discharge Details Clinical Impression: Respiratory syncytial virus (RSV), Foot fracture, left Primary Care Provider: Kelvin Delatorre ED Provider: Federico Saldana [place] Meds and New Rx's Prescriptions: New doxycycline hyclate 100 mg tablet 100 mg PO BID Qty: 14 0RF Continued atorvastatin [Lipitor] 20 mg tablet 20 mg PO QHS triamcinolone acetonide 0.1 % cream 1 applic topical BID PRN Metamucil (sugar) Powder 1 tbsp PO DAILY ondansetron 4 mg tablet,disintegrating 4 mg PO Q8H PRN divalproex 250 mg tablet,delayed release (DR/EC) 250 mg PO BID lorazepam 0.5 mg tablet 0.5 mg PO TID PRN multivitamin [One Daily Multivitamin] Tablet 1 tab PO DAILY diphenhydramine HCl [Benadryl Allergy] 25 mg tablet 25 mg PO Q6H PRN (Reason: allergy symptoms) Patient Comments: 1-2 po Q6 hrs cholecalciferol (vitamin D3) 25 mcg (1,000 unit) capsule 25 mcg PO DAILY ketoconazole 2 % cream 1 applic topical BID Qty: 30 5RF Rx Instructions: Apply to affected areas of feet BID. urea 40 % cream 1 applic topical DAILY Qty: 198.4 3RF Rx Instructions: apply to feet as directed sertraline 100 MG tablet 200 mg PO DAILY magnesium hydroxide [Milk of Magnesia] 400 MG/5 ML suspension 30 ml PO QID ibuprofen 200 mg tablet 400 mg PO TID PRN MYLANTA 15 - 30 ml PO QID PRN acetaminophen [Tylenol Extra Strength] 500 mg tablet 500 - 1,000 mg PO Q6H PRN risperidone [Risperdal] 1 mg tablet 2 mg PO BID loperamide 2 mg capsule 2 mg PO DIRECTED PRN divalproex [Depakote] 500 mg tablet,delayed release (DR/EC) 1,000 mg PO BID Discharge Instructions Instructions: Foot Fracture in Adults (ED), Viral Syndrome (ED) Additional Instructions: call orthopedics tomorrow to arrange a follow up appointment use the inhaler 1-2 puffs as needed eveyr 4 hours you can take 1000mg tylenol and 600mg ibuprofen every 6 hours as needed follow up with his primary care provider within 1 week if cough continues if he feels more ill, has difficulty breathing or new symptoms such as persistent vomiting return to the emergency department Referrals: German Haji MD [ [facility] STAFF PHYSICIAN] -
[2023-03-18 20:52] LABS: Abs Immature Grans 0.02 10^3/uL (0.0-0.06); Absolute Basophil Count 0.02 10^3/uL (0.0-0.2); Absolute Lymphocyte Count 0.55 10^3/uL (1.2-3.4); Absolute Neutrophil Count 6.18 10^3/uL (1.2-6.7); Basophils % 0.3; HCT 43.9 % (40.0-50.0); HGB 14.5 g/dL (13.5-17.5); Immature Grans % 0.3; Lymphocytes % 7.5; MCH 27.3 pg (27.0-33.0); MCV 83 fL (80-95); MPV 9.3 fL (8.0-11.0); Monocytes % 8.1; Neutrophils % 83.8; Platelet Count 109 10^3/uL (130-400); RBC 5.32 10^6/uL (4.36-5.78); RDW 14.1 % (11.8-14.1); RDW-SD 42.4 fL; WBC 7.37 10^3/uL (4.4-10.8)
[2023-03-18 21:06] LABS: ALT 19 U/L (16-63); AST 37 U/L (15-37); Albumin 3.4 g/dL (3.4-5.0); Alkaline Phosphatase 36 U/L (46-116); Anion Gap 8.2 mmol/L (3-11); BUN 15 mg/dL (7-18); Bilirubin, Total 0.4 mg/dL (0.2-1.0); CO2 30.8 mmol/L (21.0-32.0); Calcium 9.2 mg/dL (8.5-10.1); Chloride 98 mmol/L (98-107); Glucose 138 mg/dL (74-106); Potassium 4.7 mmol/L (3.5-5.1); Sodium 137 mmol/L (136-145); Total Protein 7.8 g/dL (6.4-8.2)
--- NOTE | 2023-03-18 21:15 | DI.RAD_ITS ---
Exam(s) XR FOOT LT COMPLETE EXAM: XR FOOT LT COMPLETE CLINICAL HISTORY: pain s/p fall. TECHNIQUE: 2D digital imaging was performed of the left foot. Three images were obtained. AP, obli que and lateral views were obtained. COMPARISON: CT CT LOWER EXTREMITY LT WO from 03/18/2023 FINDINGS: BONES: There is a nondisplaced transverse fracture through the base of the 5th metatarsal bone. It a ppears comminuted. There is a nondisplaced fracture through the medial aspect of the base of the 1st metatarsal. There is a faint transverse lucencies through the proximal metaphysis of the 3rd metata rsal suspicious for fracture. It is comminuted on the lateral view. No bony destructive lesion is s een. There is a plantar calcaneal spur. There is an enthesophyte at the posterior calcaneus. There is a lucency seen through the base of the 4th metatarsal suspicious for fracture. JOINTS: No dislocation present. There is widening of the distance between the bases of the 1st and 2n d metatarsal bones suspicious for Lisfranc injury. SOFT TISSUE: There is soft tissue swelling of the foot. Vascular calcifications are present. IMPRESSION: 1. Visualized fractures involving the bases of the 1st, 3rd and 5th metatarsal bones which show minim al displacement. 2. Findings concerning for Lisfranc fracture dislocation. 3. Question of a fracture involving the base of the 3rd metatarsal bone. 4. Diffuse soft tissue swelling of the foot. DATA REPOSITORY: RADIATION DOSE DELIVERED:
[2023-03-18 21:21] LABS: COVID-19 PCR Negative (Negative); Influenza A PCR Negative (Negative); Influenza B PCR Negative (Negative); Source Nasopharynx
[2023-03-18 21:22] LABS: RSV PCR Positive (Negative)
--- NOTE | 2023-03-18 21:45 | DI.VRAD_ITS ---
PROCEDURE INFORMATION: Exam: XR Chest Exam date and time: 03/18/2023 9:13 PM Age: 52 years old Clinical indication: Cough TECHNIQUE: Imaging protocol: Radiologic exam of the chest. Views: 2 views. Total images: 4 COMPARISON: CR XR PORTABLE CHEST AP 06/20/2021 5:31 PM FINDINGS: Lungs: There is bilateral perihilar peribronchial thickening consistent with bronchitis/bronchiolitis, pneumonitis, reactive airways disease or atypical bilateral bacterial pneumonia. There is no focal pneumonia. Pulmonary vascularity is normal. Pleural spaces: There is no pleural effusion or pneumothorax. Heart/Mediastinum: Heart size is normal. Bones/joints: No acute osseous abnormalities. Gastrointestinal tract: The upper abdominal bowel gas pattern is normal. IMPRESSION: 1. No focal pneumonia. 2. There is bilateral perihilar peribronchial thickening consistent with bronchitis/bronchiolitis, pneumonitis, reactive airways disease or atypical bilateral bacterial pneumonia. Dictated and Authenticated by: Kathy Mera MD. Ordering:DIAMOND Caballero MD
--- NOTE | 2023-03-18 21:50 | DI.VRAD_ITS ---
PROCEDURE INFORMATION: Exam: XR Left Foot Exam date and time: 03/18/2023 9:22 PM Age: 52 years old Clinical indication: Injury or trauma; Blunt trauma; Left; Injury date: 03/18/23; Injury details: Fall, foot pain TECHNIQUE: Imaging protocol: Radiologic exam of the left foot. Views: 3 or more views. Total images: 3 COMPARISON: No relevant prior studies available. FINDINGS: Bones/joints: There is an acute fracture through the proximal metaphysis of the 1st metatarsal with extension to the tarsometatarsal joint. There is irregularity of the proximal metadiaphyses of the 2nd, 3rd and 4th metatarsals, most consistent with nondisplaced fractures, with extension to the tarsometatarsal joints. There is an acute comminuted fracture through the proximal metaphysis of the 5th metatarsal with extension to the tarsometatarsal joint. There are small calcaneal spurs at the insertion of the plantar aponeurosis. Soft tissues: Soft tissue swelling of the foot. IMPRESSION: 1. Acute fracture through the proximal metaphysis of the 1st metatarsal with extension to the tarsometatarsal joint. 2. Irregularity of the proximal meta diaphyses of the 2nd, 3rd and 4th metatarsals, most consistent with nondisplaced fractures, with extension to the tarsometatarsal joints. 3. Acute comminuted fracture through the proximal metaphysis of the 5th metatarsal with extension to the tarsometatarsal joint. 4. Small calcaneal spurs at the insertion of the plantar aponeurosis. 5. Soft tissue swelling of the foot. Dictated and Authenticated by: Kathy Mera MD. Ordering:DIAMOND Caballero MD
[2023-03-18] MEDS: Albuterol/Ipratropium 3 ML UPD VIAL UPD (21:55)
[2023-03-18] MEDS: Dexamethasone 10 MG/ML VIAL IVP (21:56)
--- NOTE | 2023-03-18 23:09 | DI.CT_ITS ---
Exam(s) CT LOWER EXTREMITY LT WO EXAM: CT LOWER EXTREMITY LT WO CLINICAL HISTORY: left foot fracture. TECHNIQUE: Imaging Protocol: Axial computed tomography images with coronal and sagittal reformatted images were created and reviewed. COMPARISON: CR,XR XR FOOT LT COMPLETE from 03/18/2023 FINDINGS: Bones: There is a nondisplaced fracture involving the anterolateral aspect of the lateral cuneiform. There is a comminuted intra-articular fracture involving the base of the 1st metatarsal bone. Ther e is mild displacement of the dorsal fracture component. There is a comminuted intra-articular fract ure involving the base of the 2nd metatarsal bone. There also comminuted intra-articular fractures i nvolving the bases of the 3rd and 4th metatarsal bones. There is a transverse comminuted fracture in volving the base of the 5th metatarsal bone. There is some deformity involving the head of the 5th m etatarsal bone. This may be chronic. There is a question of a lucency along the posterior aspect of the head of the 5th metatarsal which may represent a nondisplaced fracture (series 5, image 8). No cellulitic or osteomyelitic changes are identified. There is no evidence of joint space narrowing or cystic degeneration seen. No lytic or sclerotic lesions are identified. There is a plantar calcaneal spur. There is an enthesophyte at the posterior calcaneus. Soft Tissues: There is soft tissue swelling of the foot. IMPRESSION: 1. Fractures involving the bases of the 1st through 5th metatarsal bones as described above. Lisfran c fracture dislocation is seen. 2. Fracture involving the anterior lateral aspect of the lateral cuneiform. 3. Question of a nondisplaced fracture involving the head of the 5th metatarsal bone. 4. Diffuse soft tissue swelling of the foot. RADIATION DOSE DELIVERED: 277.76mGy.cm Total DLP 277.76mGy.cm Total DLP DATA REPOSITORY: All CT scans at this facility are submitted to the National Radiology Data Registry (NRDR) Dose Index Registry (DIR) with the [employer] (ACR). RADIATION OPTIMIZATION: All CT scans at this facility use at least one of these dose optimization te chniques: automated exposure control; mA and/or kV adjustment per patient size (includes targeted exa ms where dose is matched to clinical indication); or iterative reconstruction.
--- NOTE | 2023-03-18 23:38 | DI.VRAD_ITS ---
PROCEDURE INFORMATION: Exam: CT Left Lower Extremity Without Contrast, Foot Exam date and time: 03/18/2023 10:41 PM Age: 52 years old Clinical indication: Other: Lt foot fracture TECHNIQUE: Imaging protocol: CT of the left lower extremity without contrast was performed. Exam focused on the foot. COMPARISON: CR XR FOOT LT COMPLETE 03/18/2023 9:22 PM FINDINGS: Bones/joints: Os trigonum. There are comminuted intra-articular fractures of the base of the 1st metatarsal, base of the 2nd metatarsal, base of the 3rd metatarsal, base of 4th metatarsal and base of the 5th metatarsal bones. There is a nondisplaced fracture at the dorsal aspect of the lateral cuneiform. There is a nondisplaced fracture at the dorsal aspect of the middle cuneiform. There is an impacted fracture at the head of the 5th metatarsal, and head the 4th metatarsal bones. No ankle joint effusion. There is an inferior calcaneal spur. Soft tissues: Achilles enthesophytes. There is soft tissue swelling at the dorsum of the foot. There are Achilles enthesophytes. No tendon entrapment. IMPRESSION: 1. Lisfranc fracture dislocation with comminuted fractures of the base of the 1st, 2nd, 3rd, 4th and 5th metatarsal bones. 2. Nondisplaced fractures of the middle and lateral cuneiforms. 3. Nondisplaced fractures of the head of the 4th and 5th metatarsal bones. 4. No findings of open fracture. Dictated and Authenticated by: Edward Garcia MD. Ordering:DIAMOND Caballero MD
[2023-03-18] MEDS: Doxycycline Hyclate 100 MG CAP PO (23:58)
[2023-03-18] MEDS: Albuterol HFA 8 GM 60 PUFF INH IH (23:59)
[2023-03-19 00:05] VITALS: BP 124/85; PULSE 88; RESP 20; TEMP 37; O2SAT 94
--- NOTE | 2023-03-19 11:02 | NUR.NOTE ---
Accessed Pt chart for the Learning [employer] Development [employer] as the Pt took home a wheel chair and she needed to call him. His phone number was given.
== END 2023-03-19 00:06 | disposition home or self-care (01) ==
PROVIDERS: Emergency Provider Emergency Medicine; PCP Internal Medicine
DX: J12.1 Respiratory syncytial virus pneumonia (principal); S92.315A Nondisplaced fracture of first metatarsal bone, left foot, initial encounter for closed fracture; S92.325A Nondisplaced fracture of second metatarsal bone, left foot, initial encounter for closed fracture; S92.345A Nondisplaced fracture of fourth metatarsal bone, left foot, initial encounter for closed fracture; S92.335A Nondisplaced fracture of third metatarsal bone, left foot, initial encounter for closed fracture; S92.355A Nondisplaced fracture of fifth metatarsal bone, left foot, initial encounter for closed fracture; S92.225A Nondisplaced fracture of lateral cuneiform of left foot, initial encounter for closed fracture; R62.50 Unspecified lack of expected normal physiological development in childhood; G40.909 Epilepsy, unspecified, not intractable, without status epilepticus; Z11.52 Encounter for screening for COVID-19; Z87.891 Personal history of nicotine dependence; W19.XXXA Unspecified fall, initial encounter; Y92.099 Unspecified place in other non-institutional residence as the place of occurrence of the external cause
CPT/HCPCS: 29515; 80053; 87637; 94640; 96374; 99284; 71046; 73630; 73700; 85025; J1100; J7620

== ENCOUNTER 2023-03-19 12:53 | Inpatient (IN) | payer MEDICARE, MEDICAID, SELFPAY ==
[2023-03-19] VITALS (84 sets, daily range): BP systolic 94–149; BP diastolic 46–111; PULSE 81–130; RESP 2–20; TEMP 36.7–37.6; O2SAT 85–98
[2023-03-19 13:21] LABS: Abs Immature Grans 0.03 10^3/uL (0.0-0.06); Absolute Basophil Count 0.01 10^3/uL (0.0-0.2); Absolute Eosinophil Count 0.01 10^3/uL (0.0-0.7); Absolute Neutrophil Count 5.18 10^3/uL (1.2-6.7); Basophils % 0.2; Eosinophils % 0.2; HGB 13.8 g/dL (13.5-17.5); Immature Grans % 0.5; Lymphocytes % 10.6; MCH 27.3 pg (27.0-33.0); MCHC 32.9 % (32.0-36.0); MCV 83 fL (80-95); MPV 9.5 fL (8.0-11.0); Monocytes % 10.6; Neutrophils % 77.9; Platelet Count 121 10^3/uL (130-400); RBC 5.06 10^6/uL (4.36-5.78); RDW 14.2 % (11.8-14.1); RDW-SD 43.4 fL; WBC 6.63 10^3/uL (4.4-10.8)
--- NOTE | 2023-03-19 13:26 | ED.GENADUL_ITS ---
HPI General Date/Time Provider Initiated Documentation: 03/19/23 13:05 . HPI Narrative: 52-year-old male history of developmental delay, epilepsy, recent RSV diagnosis, presents with cough fever and hypoxia. Patient does have a history of PE Related Data Home Medications Medication Instructions Recorded Confirmed sertraline 100 mg tablet 200 mg PO DAILY 07/23/17 03/19/23 magnesium hydroxide 400 mg/5 mL 30 ml PO QID 08/07/17 03/19/23 oral suspension (Milk of Magnesia) atorvastatin 20 mg tablet (Lipitor) 20 mg PO QHS 07/28/20 03/19/23 MYLANTA 15 - 30 ml PO QID PRN 09/05/21 03/19/23 acetaminophen 500 mg tablet 500 - 1,000 mg PO Q6H PRN 09/05/21 03/19/23 (Tylenol Extra Strength) diphenhydramine HCl 25 mg tablet 25 mg PO Q6H PRN allergy symptoms 09/05/21 03/19/23 (Benadryl Allergy) ibuprofen 200 mg tablet 400 mg PO TID PRN 09/05/21 03/19/23 risperidone 1 mg tablet (Risperdal) 2 mg PO BID 09/05/21 03/19/23 loperamide 2 mg capsule 2 mg PO DIRECTED PRN 10/25/21 03/19/23 divalproex 250 mg tablet,delayed 250 mg PO BID 03/13/22 03/19/23 release divalproex 500 mg tablet,delayed 1,000 mg PO BID 03/13/22 03/19/23 release (Depakote) ondansetron 4 mg disintegrating 4 mg PO Q8H PRN 03/13/22 03/19/23 tablet psyllium seed (sugar) oral powder 1 tbsp PO DAILY 03/13/22 03/19/23 (Metamucil (sugar) oral powder) triamcinolone acetonide 0.1 % 1 applic topical BID PRN 03/13/22 03/19/23 topical cream lorazepam 0.5 mg tablet 0.5 mg PO TID PRN 03/29/22 03/19/23 multivitamin (One Daily 1 tab PO DAILY 03/29/22 03/19/23 Multivitamin tablet) cholecalciferol (vitamin D3) 25 25 mcg PO DAILY 12/03/22 03/19/23 mcg (1,000 unit) capsule ketoconazole 2 % topical cream 1 applic topical BID #30 grams 12/03/22 03/19/23 urea 40 % topical cream 1 applic topical DAILY #198.4 grams 12/03/22 03/19/23 doxycycline hyclate 100 mg tablet 100 mg PO BID #14 tabs 03/18/23 03/19/23 Previous Rx's Medication Instructions Recorded ketoconazole 2 % topical cream 1 applic topical BID #30 grams 12/03/22 urea 40 % topical cream 1 applic topical DAILY #198.4 grams 12/03/22 doxycycline hyclate 100 mg tablet 100 mg PO BID #14 tabs 03/18/23 Allergies Allergy/AdvReac Type Severity Reaction Status Date / Time No Known Allergies Allergy Unverified 03/18/23 19:45 General Stated Complaint: RespSymp YRN: 3 Review of Systems Narrative: Review of Systems Constitutional: Fever Eyes: negative ENT: negative Cardiovascular: negative Respiratory: Cough Gastrointestinal: negative : negative Musculoskeletal: negative Skin: negative Neurologic: negative Psych: negative Exam Narrative Exam Narrative: Physical Examination General: alert, awake, cooperative, resting comfortably, no acute distress HEENT: normocephalic, atraumatic; PERRL, EOM intact, conjunctiva normal; no nasal discharge; moist mucous membranes, oral and pharyngeal mucosa normal, tolerating secretions Neck: supple, trachea midline; full ROM Chest: normal to inspection Respiratory: normal respiratory effort, speaking in full sentences, dullness to auscultation left anterior lung field Cardiac: regular rate, regular rhythm, S1S2 intact, no murmurs rubs or gallops GI: abdomen soft, non-tender, non-distended; no palpable mass or hepatosplenomegaly Skin: no lesions, rashes or trauma appreciated Neuro: Interactive following commands cranial nerves intact, no focal weakness or sensory deficit Extremities: Left lower extremity in posterior slab cast Psych: Appropriate mood and affect Course Vital Signs Vital signs: Vital Signs Temperature 37.6 C H 03/19/23 12:57 Pulse 100 H 03/19/23 12:57 Respiratory Rate 20 03/19/23 12:57 Blood Pressure 120/63 03/19/23 12:57 Pulse Oximetry 88 L 03/19/23 12:57 Temperature 37.6 C H 03/19/23 12:59 Temperature Source Oral 03/19/23 12:59 Pulse 100 H 03/19/23 12:59 Respiratory Rate 20 03/19/23 12:59 Respiratory Effort Normal, Non-Labored 03/19/23 12:59 Respiratory Depth Normal 03/19/23 12:59 Blood Pressure 120/63 03/19/23 12:59 Blood Pressure Position Sitting 03/19/23 12:59 Pulse Oximetry 88 L 03/19/23 12:59 Oxygen Delivery Method Room Air 03/19/23 12:59 Oxygen Flow Rate 0 03/19/23 12:57 Lab/Test Results Lab/Test Results: Laboratory Tests Range/Units 03/19/23 13:05 WBC (4.4-10.8) 10^3/uL 6.63 RBC (4.36-5.78) 10^6/uL 5.06 Hgb (13.5-17.5) g/dL 13.8 Hct (40.0-50.0) % 42.0 MCV (80-95) fL 83 MCH (27.0-33.0) pg 27.3 MCHC (32.0-36.0) % 32.9 RDW (11.8-14.1) % 14.2 H Plt Count (130-400) 10^3/uL 121 L MPV (8.0-11.0) fL 9.5 Immature Gran % 0.5 Neutrophils % 77.9 Lymphocytes % 10.6 Monocytes % 10.6 Eosinophils % 0.2 Basophils % 0.2 Nucleated RBC % (0.0-0.3) % 0.0 Absolute Neutrophils (1.2-6.7) 10^3/uL 5.18 Absolute Lymphocytes (1.2-3.4) 10^3/uL 0.70 L Absolute Monocytes (0.1-0.8) 10^3/uL 0.70 Absolute Eosinophils (0.0-0.7) 10^3/uL 0.01 Absolute Basophils (0.0-0.2) 10^3/uL 0.01 Medical Decision Making 52-year-old male history of epilepsy, developmental delay, PE not on anticoagulation presents with cough fever and hypoxia in the setting of recent RSV diagnosis, patient also in left lower extremity posterior slab cast for orthopedic injury, noted be hypoxic to 88% on room air mildly tachycardic, some dullness to auscultation left anterior lung field, consider RSV with superimposed pneumonia versus PE versus pleural effusion versus asthma exacerbation versus less likely CHF aortic pathology or ACS. Screening labs imaging trial of albuterol dexamethasone will attempt to wean off of O2. 17:22 Patient resting comfortably no acute distress. Motion degraded CT chest no central PE however unable to appreciate peripheral vessels. Rescan with similar issue; patient remains hemodynamically stable however hypoxic to the 80s requiring 5 to 6 L nasal cannula to maintain a saturation in the low 90s; consider likely related to RSV infection will continue with nebs steroids also has been given. Speaking full sentences nontachypneic nontoxic. Plan for admission, awaiting call back from hospitalist. Quality:SDOH Health Related Social Needs: No Data to Display PFSH All Active Problems (Updated 03/18/23 @ 22:27 by Federico Saldana MD) Foot fracture, left (Acute) Respiratory syncytial virus (RSV) (Acute) GERD (gastroesophageal reflux disease) (Chronic) Vitamin D deficiency (Acute) Dermatophytosis of foot (Acute) Pain, foot (Acute) Nail dystrophy (Acute) Sensorineural hearing loss (SNHL) of both ears (Acute) Tremor (Acute) Tubular adenoma of colon (Acute) Tubular adenoma (Acute ~11/2019) 12/18/19 Dr. Rajiv Márquez, repeat colo 3 years w/ Golytly prep Colon polyps (Acute) Cognitive developmental delay (Chronic) Mood disorder (Acute) Generalized epilepsy (Acute) Per caregiver he has not had a seizure in decades, see's Dr. Camarena for f/u Medical History Anxiety disorder At high risk for falls BMI 40.0-44.9, adult Candidiasis Cerumen impaction Conduct disorder, aggressive type Conduct disorder, aggressive type, mild Per caregiver (Liu) has been in a very good place recently COVID-19 Decreased hearing of both ears Dyshidrotic eczema Epilepsy H/O adenomatous polyp of colon Hip pain, bilateral History of diverticulitis History of tobacco use Hyperlipidemia Impacted cerumen, bilateral Intellectual disability Intermittent explosive disorder Per caregiver (Liu) on occasion he will have an agrressive incident per caregiver states he does not feel as though he will have any issues with procedures Kidney stone Lack of coordination Morbid obesity Obesity Obstructive sleep apnea Remote PSG noted an AHI of 12.2 with an O2 sat jensen of 54%. He does not currently have a CPAP. Onychomycosis Onychomycosis of toenail Other congenital valgus deformities of feet Prediabetes Per caregiver states he is not diabetic, he has lost 25 lbs Pulmonary embolism Screening for colon cancer Therapeutic drug monitoring Tobacco use Varus deformities of feet, congenital Weakness of both legs Surgical History S/P surgical manipulation of ankle joint , 2013 Family History Father Epilepsy Brother , of seizure Epilepsy Social History Smoking/Tobacco Use Status: Former Tobacco Use Quit Date: 02/25/18 Smoking risk assessment performed?: Yes Alcohol Intake: never Drug use: Never Substance use type: does not use Housing: other Number of Children: 0 current occupation: Disabled Do you feel safe at home: Yes Additional Social history: He currently resides at [facility] (since November 2016). He is under the guardianship of [employer] (since February 2017). He graduated from high school and previously worked in a [employer]. Discharge Plan Discharge Details Chief Complaint: RespSymp Primary Care Provider: Kelvin Delatorre ED Provider: Lane Martino Home Meds and New Rx's Prescriptions: No Action atorvastatin [Lipitor] 20 mg tablet 20 mg PO QHS triamcinolone acetonide 0.1 % cream 1 applic topical BID PRN Metamucil (sugar) Powder 1 tbsp PO DAILY ondansetron 4 mg tablet,disintegrating 4 mg PO Q8H PRN divalproex 250 mg tablet,delayed release (DR/EC) 250 mg PO BID lorazepam 0.5 mg tablet 0.5 mg PO TID PRN multivitamin [One Daily Multivitamin] Tablet 1 tab PO DAILY diphenhydramine HCl [Benadryl Allergy] 25 mg tablet 25 mg PO Q6H PRN (Reason: allergy symptoms) Patient Comments: 1-2 po Q6 hrs cholecalciferol (vitamin D3) 25 mcg (1,000 unit) capsule 25 mcg PO DAILY ketoconazole 2 % cream 1 applic topical BID Qty: 30 5RF Rx Instructions: Apply to affected areas of feet BID. urea 40 % cream 1 applic topical DAILY Qty: 198.4 3RF Rx Instructions: apply to feet as directed sertraline 100 MG tablet 200 mg PO DAILY magnesium hydroxide [Milk of Magnesia] 400 MG/5 ML suspension 30 ml PO QID ibuprofen 200 mg tablet 400 mg PO TID PRN MYLANTA 15 - 30 ml PO QID PRN acetaminophen [Tylenol Extra Strength] 500 mg tablet 500 - 1,000 mg PO Q6H PRN risperidone [Risperdal] 1 mg tablet 2 mg PO BID loperamide 2 mg capsule 2 mg PO DIRECTED PRN divalproex [Depakote] 500 mg tablet,delayed release (DR/EC) 1,000 mg PO BID doxycycline hyclate 100 mg tablet 100 mg PO BID Qty: 14 0RF
[2023-03-19] MEDS: ACETAMINOPHEN 1,000 MG/100 ML BTL 400 MG IVPB (13:28)
[2023-03-19] MEDS: Albuterol/Ipratropium 3 ML UPD VIAL 9 ML UPD (13:29)
[2023-03-19] MEDS: Normal Saline 1,000 ML 1000 ML IV ×2 (13:30→15:50)
[2023-03-19] MEDS: Dexamethasone 10 MG/ML VIAL IVP (13:30)
[2023-03-19 13:40] LABS: ALT 23 U/L (16-63); AST 36 U/L (15-37); Albumin 3.1 g/dL (3.4-5.0); Alkaline Phosphatase 30 U/L (46-116); Anion Gap 8.5 mmol/L (3-11); BUN 22 mg/dL (7-18); Bilirubin, Total 0.3 mg/dL (0.2-1.0); CO2 29.5 mmol/L (21.0-32.0); Calcium 9.1 mg/dL (8.5-10.1); Chloride 100 mmol/L (98-107); Glucose 119 mg/dL (74-106); Sodium 138 mmol/L (136-145); Total Protein 7.5 g/dL (6.4-8.2)
--- NOTE | 2023-03-19 14:38 | DI.CT_ITS ---
Exam(s) CT CHEST PE CTA EXAM: CT CHEST PE CTA CLINICAL HISTORY: cough, hypoxa, rsv+ hx of PE. TECHNIQUE: Imaging Protocol: Axial CT angiography was performed with multi-slice acquisition and mu lti-planar and/or 3D reconstructions. CONTRAST MATERIAL: Intravenous: Omnipaque 350 contrast volume:100 mL COMPARISON: CR,XR XR CHEST 2V PA LATERAL from 03/18/2023 FINDINGS: The examination is limited due to patient motion artifact. Tracheobronchial tree: Patent where visualized. Pulmonary parenchyma: There is mild dependent atelectasis in the left lower lobe. No focal consolida ting infiltrates are seen. No architectural distortion. Pulmonary Arteries: There is significant artifact secondary to patient motion and low lung volumes. This significantly compromises evaluation of the peripheral pulmonary arteries. No central pulmonary embolus is seen. There are areas of decreased attenuation in or around several peripheral pulmonary arteries. This may reflect artifact versus filling defects. Mediastinum and Mely: No dominant adenopathy or fluid collection. The esophagus is unremarkable. Visualized thyroid gland: Unremarkable. Pleura: No effusion or pneumothorax. Heart: The heart is not dilated. No coronary artery calcifications are seen. No pericardial effusion. No evidence for right heart failure. Aorta: Thoracic aorta non-dilated. No evidence of dissection. Upper abdomen: Unremarkable. Tubes, Catheters, and Lines: None. Soft tissues: Unremarkable. Bones: Within normal limits for the patient's age. IMPRESSION: 1. Examination is compromised due to patient motion artifact. This affects the peripheral pulmonary arteries significantly. There are areas of decreased attenuation in/or around several peripheral pul monary arteries. This may reflect artifact versus filling defects. 2. No central pulmonary embolus. 3. No evidence for right heart failure. 4. Mild atelectasis in the left lower lobe. No focal consolidating infiltrates. 5. Findings were discussed with Dr. Martino at 3 p.m. on 03/19/2023. RADIATION DOSE DELIVERED: 507.31mGy.cm Total DLP DATA REPOSITORY: All CT scans at this facility are submitted to the National Radiology Data Registry (NRDR) Dose Index Registry (DIR) with the [employer] (ACR). RADIATION OPTIMIZATION: All CT scans at this facility use at least one of these dose optimization te chniques: automated exposure control; mA and/or kV adjustment per patient size (includes targeted exa ms where dose is matched to clinical indication); or iterative reconstruction.
[2023-03-19] MEDS: Albuterol 2.5 MG/3 ML INH SOLN VIAL UPD (14:40)
[2023-03-19] MEDS: Omnipaque 350 MG/ML 100 ML BTL IJ ×2 (14:44→15:58)
[2023-03-19] MEDS: Normal Saline - Diluent 50 ML VIAL IJ ×2 (14:45→15:59)
--- OUTSIDE RECORDS SUMMARY | 2023-03-19 14:52 | XMS_ITS | Continuity of Care Document ---
Author Name Unknown Organization [facility] Address [address] [place] [address] Care Team Providers Care Spray Crew Name Role Phone Juan Ramon BRYSONKelvin Primary Care Physician Encounter [facility] Date(s): 06/12/22 - 06/12/[address] [id number] Discharge Disposition: Home or Self Care Attending Physician: Meir Arora MD Admitting Physician: Meir Arora MD Referring Physician: Meir Arora MD Allergies, Adverse Reactions, Alerts No Known Medication Allergies Assessment and Plan Future Appointments Diagnostic Tests Pending * Homocysteine, Total, P OTT 06/12/22 Medications Ativan 0.5 mg oral tablet 0 Refill(s) Start Date: 08/16/21 Status: Ordered atorvastatin 20 mg oral tablet Start Date: 08/17/21 Status: Ordered benzonatate 100 mg oral capsule Start Date: 08/17/21 Status: Ordered CPAP mask fit CPAP mask fit, Please schedule an oofice visit with RT for a new mask fit for comfort. He can't tolerate current full face and may do better with a F301, Dreamwear full face or similar. Davidson Velazquez, See instructions, # 1 EA, 0 Refill(s) Start Date: 08/18/21 Status: Ordered Depakote 500 mg oral delayed release tablet 0 Refill(s) Start Date: 08/16/21 Status: Ordered ketoconazole 2% topical cream Start Date: 08/17/21 Status: Ordered loperamide PRN other (see comment), PRN, 0 Refill(s) Start Date: 08/16/21 Status: Ordered multivitamin adult, oral tablet 0 Refill(s) Start Date: 08/16/21 Status: Ordered Mylanta Mylanta, PRN other (see comment), PRN Start Date: 09/12/21 Status: Ordered Mylanta Coat and Cool 0 Refill(s) Start Date: 08/16/21 Status: Ordered Ritter Milk of Magnesia 0 Refill(s) Start Date: 08/16/21 Status: Ordered predniSONE 20 mg oral tablet Start Date: 08/17/21 Status: Ordered risperiDONE 2 mg oral tablet Start Date: 08/17/21 Status: Ordered Zoloft 2 tab(s), Oral, Daily, 100 mg, 0 Refill(s) Start Date: 08/16/21 Status: Ordered Problem List Condition Confirmation Course Effective Dates Status H ealth Status Informant Anxiety Confirmed Active Conduct disorder Confirmed Active Epilepsy Confirmed Active Hyperlipidemia Confirmed Active Kidney stone Confirmed Active Mental retardation Confirmed Active Obstructive sleep apnea syndrome Confirmed Active Results Laboratory List Name Date Automated Diff 06/12/22 CBC w/ Diff 06/12/22 Comprehensive Metabolic Panel 06/12/22 Folate Level 06/12/22 Free T4 06/12/22 Generic Orderable [facility] 06/12/22 Hemoglobin A1c 06/12/22 Lipid Panel 06/12/22 Magnesium Level 06/12/22 Thyroid Stimulating Hormone 06/12/22 Valproic Acid Level 06/12/22 Vitamin B12 Level 06/12/22 Most recent to oldest [Reference Range]: 1 WBC [5.0-10.0 x10^3/mcL] 4.7 x10^3/mcL *LOW* (06/12/22 9:04 AM) RBC [4.6-6.0 x10^6/mcL] 6.0 x10^6/mcL (06/12/22 9:04 AM) Neutro Auto [40.0-75.0 %] 59.6 % (06/12/22 9:04 AM) Lymph Auto [20.0-50.0 %] 30.5 % (06/12/22 9:04 AM) [place] Auto [2.0-15.0 %] 7.4 % (06/12/22 9:04 AM) Basophil Auto [0.0-1.0 %] 0.4 % (06/12/22 9:04 AM) BUN [7-18 mg/dL] 16 mg/dL (06/12/22 9:04 AM) Cholesterol Total [50-200 mg/dL] 169 mg/ dL (06/12/22 9:04 AM) LDL [0-130 mg/dL] 90 mg/dL (06/12/22:04 AM) Glucose Level [74-106 mg/dL] 84 mg/dL (06/12/22:04 AM) Potassium Level [3.5-5.1 mmol/L] 4.7 mmo l/L (06/12/22:04 AM) Valproic Acid Level [50-100 ug/mL] 64 ug /mL (06/12/22:04 AM) MCV [80.0-96.0] 84.0 (06/12/22:04 AM) HDL [40-60 mg/dL] 37 mg/dL *LOW* (06/12/22 AM) T4 Free [0.76-1.46 ng/dL] 0.61 ng/dL *LOW* (06/12/22:04 AM) AST [15-37 unit/L] 17 unit/L (06/12/22:04 AM) ALT [16-63 unit/L] 21 unit/L (06/12/22:04 AM) MCHC [31.0-35.0 g/dL] 32.9 g/dL (06/12/22:04 AM) Sodium Level [136-145 mmol/L] 138 mmol/L (06/12/22:04 AM) Folate Level [8.6-58.9 ng/mL] 20.0 ng/mL (06/12/22:04 AM) Hct [41.0-51.0 %] 50.4 % (06/12/22 9:04 AM) Triglycerides [0-150 mg/dL] 210 mg/dL *HI* (06/12/22:04 AM) Calcium Level [8.5-10.1 mg/dL] 9.3 mg/dL (06/12/22:04 AM) Albumin Level [3.4-5.0 g/dL] 3.9 g/dL (06/12/22:04 AM) Protein Total [6.4-8.2 g/dL] 8.1 g/dL (06/12/22 9:04 AM) MCH [26.0-32.0 pg] 27.7 pg (06/12/22 9:04 AM) Magnesium Level [1.8-2.4 mg/dL] 1.9 mg/d L (06/12/22 9:04 AM) Neutro Absolute 2.8 x10^3/mcL *NA* (06/12/22 9:04 AM) Bilirubin Total [0.2-1.0 mg/dL] 0.4 mg/d L (06/12/22 9:04 AM) Hgb [14.0-18.0 g/dL] 16.6 g/dL (06/12/22 9:04 AM) B12 Level [193-986 pg/mL] 513 pg/mL (06/12/22 9:04 AM) Alk Phos [46-146 unit/L] 51 unit/L (06/12/22 9:04 AM) Platelets [130-450 x10^3/mcL] 176 x10^3/ mcL (06/12/22 9:04 AM) CO2 [21-32 mmol/L] 33 mmol/L *HI* (06/12/22 9:04 AM) TSH [0.358-3.740 mcIntlUnit/mL] 3.275 mc IntlUnit/mL (06/12/22 9:04 AM) eGFR Non-AA [>=60] 103 (06/12/22 9:04 AM) eGFR AA [>=60] 103 (06/12/22 9:04 AM) Hemoglobin A1c [4.0-6.0 %] sent to rust % *NA* (06/12/22 9:04 AM) Chloride Level [98-107 mmol/L] 99 mmol/L (06/12/22 9:04 AM) RDW-CV [11.5-17.0 %] 14.7 % (06/12/22 9:04 AM) Imm Gran Auto [0.0-0.9 %] 0.2 % (06/12/22 9:04 AM) Creatinine Level [0.70-1.30 mg/dL] 0.88 mg/dL (06/12/22 9:04 AM) Generic Result [place] See Footnote 1 *NA* (06/12/22 9:04 AM) Eos, Auto [1.0-6.0 %] 1.9 % (06/12/22 9:04 AM) 1Result Comment: Test Result Flag Unit RefValue Hemoglobin A1c 5.4 % <5.7 Glycemic Status References: Normal: <5.7% Pre-Diabetes: 5.7% - 6.4% Diagnostic of Diabetes: > or = 6.5% (if confirmed) Estimated Average Glucose 108 mg/dL The eAG represents the A1c result expressed as average glucose in mg/dL. [id number]: HA1C DIAZ [place]: [id number] Test performed [place] [address] Social History Social History Type Response Tobacco Never tobacco user T obacco Use:. Sex Male Patient Care team information Care Team Personnel Name: Kelvin Onofre MD Position: Physician Member Role: Primary Care Physician Address: Address: [address] [place] [id number] [place] Care Team Related Persons Name: ARMAAN FRAZIER Address: Home [address] [phone]
--- OUTSIDE RECORDS SUMMARY | 2023-03-19 14:52 | XMS_ITS | Continuity of Care Document ---
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 Allergies, Adverse Reactions, Alerts No Known Medication Allergies Assessment and Plan Future Appointments Functional Status 04/16/22 Other exposure to Infectious Disease Non e Medications Ativan 0.5 mg oral tablet 0 [...] Active Obstructive sleep apnea syndrome Confirmed Active Vital Signs Most recent to oldest [Reference Range]: 1 Peripheral Pulse Rate [60-100 bpm] 105 b pm *HI* (04/16/22 11:20 AM) Blood Pressure [90-140/60-90 mmHg] 127/7 4mmHg (04/16/22 11:20 AM) Weight 115.53 kg (04/16/22 11:20 AM) Weight Measured (lbs) 254.7 lb (04/16/22 11:20 AM) Height 175 cm (04/16/22 11:20 AM) Height/Length Measured (inches) 68.9 inc h (04/16/22 11:20 AM) BSA Measured 2.37 m2 (04/16/22 11:20 AM) Body Mass Index 37.72 kg/m2 (04/16/22 11:20 AM) Social History Social History Type Response Tobacco Never tobacco user T obacco Use:. 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 He has a caregiver with him. Alberto was last seen by me on??09/15/2021. He has a history of mental retardation, epilepsy, anxiety, conduct disorder (aggressive/explosive) and NARAYAN. He currently resides at [facility] in [place], [place]. PSG 01/05/2010, Sleep efficiency 76.7%, AHI 12.2/hr, supine AHI 6.1/hr, sp02 jensen 54%, PLMi 1.7/hr, PLMai 0.6/hr. Titration study 03/23/2010, sleep efficiency 53.5%, no REM sleep, CPAP to 14 cm with an AHI of 2/hr and sp02 jensen 90% on this setting. CPAP 14 cm recommended. Titration 04/16/17 (BMI 38.1), sleep efficiency 73%, CPAP titrated from 7 to 16 cm and BiPAP /12 to 18/14 cm. At CPAP 14 cm there was elimination of all abnormal respiratory events including in lateral REM sleep, higher pressures were associated with treatment emergent centrals. PLMi 3.8/hr, PLMai0/hr, EKG NSR, CPAP 8-14 cm recommended. ? He has never had good compliance with CPAP and was not using CPAP 6-10 cm at last visit because he didn't know how to put his mask on. (Eson2)??His caregiver was going to help him with this. ?? Alberto says he is not really using CPAP because he finds the nasal mask to be uncomfortable and he wants to try nasal pillows. He had an unprevoked??PE in 01/2022 and he is being seen by [facility] (he is on Eliquis 5 mg BID now). He tried for a two week period after that to use his CPAP and did fairly well with it but after those couple of weeks he stopped using it again. He is napping mostdays after lunch for 1.5 hours and occasionally two naps a day. He sleeps from about 5:30-6 pm until 7 am. He gets up 2/night to urinate. He is snoring.? ESS today Physical Exam Vitals & Measurements HR:??105??(Peripheral)?? BP:??127/74?? SpO2:??94%?? HT:??175??cm?? WT:??115.53??kg?? BMI:??37.72?? BSA:??2.37?? GENERAL: answers questions appropriately, well groomed, obese. HEAD: normocephalic and atraumatic. EYES: non icteric LUNGS: CTA all perez. Good air movement throughout. CARDIO: RRR without murmur, gallop or thrill. NEURO: alert and oriented, normal gait. PYSCH: normal mood and affect. CUTANEOUS: no overt lesions or rashes.?? Assessment/Plan 1.??Obstructive sleep apnea syndrome??G47.33 NARAYAN diagnosed in 2009 with an AHI of 12.2/hr. He has most recently been treated with CPAP 6-10 cm. He has never had good compliance with CPAP due to poor tolerance to both pressures and masks as wellas problems with getting the mask on correctly. He most recently tried a nasal mask but continued to find the mask and headgear very uncomfortable. He is asking for a nasal pillows with straps on theears. I sent in an order to Caroline for nasal pillows with Vy straps. He is encouraged to use daily and reminded it should help with his excessive sleepiness, nocturia and reduce risk of cardiac disease and repeat PE (this was new in 01/2022). I will see him back in six months. He is asked to callour office for any sleep related questions or concerns. I provided greater than 30 minutes in the care of this patient, more than half the time was spent in [id number] counseling. Ordered: Follow-Up Appointment Request JOSEY, *Est. 10/14/22 +/- 28 days, Future Order, In [facility] ?? Referral Orders Referral Management, Medical Service: Other, Reason: Please send him nasal piloows with Vy straps. Caroline, Start: 04/16/22 Problem List/Past Medical History Ongoing Anxiety Conduct disorder Epilepsy Hyperlipidemia Kidney stone Mental retardation Morbid obesity Obstructive sleep apnea syndrome Historical No qualifying data Medications Ativan 0.5 mg oral tablet atorvastatin 20 mg oral tablet benzonatate 100 mg oral capsule CPAP mask fit, See instructions Depakote 500 mg oral delayed release tablet ketoconazole 2% topical cream loperamide, PRN multivitamin adult, oral tablet Mylanta, PRN Mylanta Coat and Cool Ritter Milk of Magnesia predniSONE 20 mg oral tablet risperiDONE 2 mg oral tablet Zoloft, 2 tab(s), Oral, Daily Allergies No Known Medication Allergies Social History Electronic Cigarette/Vaping Electronic Cigarette Use: Never. Tobacco Never tobacco user Tobacco Use:. Electronically Signed on 04/16/22 11:38 AM Stephanie Tate NP Patient Care team information Care Team Personnel Name: Kelvin Onofre MD Position: Physician Member Role: Primary Care Physician Address: Address: [address] [place] [id number] Care Team Related Persons Name: ARMAAN FRAZIER Address: Home [address] [phone]
--- OUTSIDE RECORDS SUMMARY | 2023-03-19 14:52 | XMS_ITS | Continuity of Care Document ---
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 Allergies, Adverse Reactions, Alerts No Known Medication Allergies Assessment and Plan Future Appointments Medications Ativan 0.5 mg oral tablet 0 [...] retardation Confirmed Active Obstructive sleep apnea syndrome 1 Confirmed Active 1CPAP 6-10 cm [place]/Adapt Results Laboratory List Name Date Automated Diff 03/07/23 CBC w/ Diff 03/07/23 Comprehensive Metabolic Panel 03/07/23 Valproic Acid Level 03/07/23 Most recent to oldest [Reference Range]: 1 WBC [5.0-10.0 x10^3/mcL] 4.1 x10^3/mcL *LOW* (03/07/23 9:40 AM) RBC [4.6-6.0 x10^6/mcL] 5.9 x10^6/mcL (03/07/23 9:40 AM) Neutro Auto [40.0-75.0 %] 57.2 % (03/07/23 9:40 AM) Lymph Auto [20.0-50.0 %] 30.4 % (03/07/23 9:40 AM) Morgan Auto [2.0-15.0 %] 9.0 % (03/07/23 9:40 AM) Basophil Auto [0.0-1.0 %] 0.7 % (03/07/23 9:40 AM) BUN [7-18 mg/dL] 16 mg/dL (03/07/23 9:40 AM) Glucose Level [74-106 mg/dL] 109 mg/dL *HI* (03/07/23 9:40 AM) Potassium Level [3.5-5.1 mmol/L] 4.8 mmo l/L (03/07/23 9:40 AM) Valproic Acid Level [50-100 ug/mL] 83 ug /mL (03/07/23 9:40 AM) MCV [80.0-96.0 fL] 84.8 fL (03/07/23 9:40 AM) AST [15-37 unit/L] 14 unit/L *LOW* (03/07/23 9:40 AM) ALT [16-63 unit/L] 19 unit/L (03/07/23 9:40 AM) MCHC [31.0-35.0 g/dL] 32.8 g/dL (03/07/23 9:40 AM) Sodium Level [136-145 mmol/L] 139 mmol/L (03/07/23 9:40 AM) Hct [41.0-51.0 %] 49.7 % (03/07/23 9:40 AM) Calcium Level [8.5-10.1 mg/dL] 9.4 mg/dL (03/07/23 9:40 AM) Albumin Level [3.4-5.0 g/dL] 3.6 g/dL (03/07/23 9:40 AM) Protein Total [6.4-8.2 g/dL] 7.9 g/dL (03/07/23 9:40 AM) MCH [26.0-32.0 pg] 27.8 pg (03/07/23 9:40 AM) Neutro Absolute 2.4 x10^3/mcL *NA* (03/07/23 9:40 AM) Bilirubin Total [0.2-1.0 mg/dL] 0.4 mg/d L (03/07/23 9:40 AM) Hgb [14.0-18.0 g/dL] 16.3 g/dL (03/07/23 9:40 AM) Alk Phos [46-146 unit/L] 46 unit/L (03/07/23 9:40 AM) Platelets [130-450 x10^3/mcL] 161 x10^3/ mcL (03/07/23 9:40 AM) CO2 [21-32 mmol/L] 32 mmol/L (03/07/23 9:40 AM) eGFR Non-AA [>=60] 105 (03/07/23 9:40 AM) eGFR AA [>=60] 105 (03/07/23 9:40 AM) Chloride Level [98-107 mmol/L] 101 mmol/ L (03/07/23 9:40 AM) RDW-CV [11.5-14.5 %] 14.2 % (03/07/23 9:40 AM) Imm Gran Auto [0.0-0.9 %] 0.5 % (03/07/23 9:40 AM) Slide Review Not Indicated (03/07/23 9:40 AM) Creatinine Level [0.70-1.30 mg/dL] 0.81 mg/dL (03/07/23 9:40 AM) Eos, Auto [1.0-6.0 %] 2.2 % (03/07/23 9:40 AM) Social History Social History Type Response Tobacco Former tobacco user Tobacco Use:. Sex Male Patient Care team information Care Team Personnel Name: Kelvin Smith MD Position: No Access Member Role: Primary Care Physician Address: Address: [facility] [address] [place] [address]- Care Team Related Persons Name: ARMAAN RFAZIER Address: Home [address] [place] [phone]
--- OUTSIDE RECORDS SUMMARY | 2023-03-19 14:52 | XMS_ITS | Continuity of Care Document ---
Author Name Unknown Organization 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 Caroline, Davidson, See instructions, # 1 EA, 0 Refill(s) [...] syndrome 1 Confirmed Active 1CPAP 6-10 cm Caroline/Adapt Vital Signs Most recent to oldest [Reference Range]: 1 Peripheral Pulse Rate [60-100 bpm] 83 bp m (12/24/22 1:00 PM) Blood Pressure [90-140/60-90 mmHg] 125/5 8mmHg (12/24/22 1:00 PM) Mean Arterial Pressure, Cuff [65-140 mmH g] 80 mmHg (12/24/22 1:00 PM) Weight 113.53 kg (12/24/22 1:00 PM) Weight Measured (lbs) 250.291 lb (12/24/22 1:00 PM) Weight Dosing 113.530 kg (12/24/22 1:00 PM) Height 175 cm (12/24/22 1:00 PM) Height/Length Measured (inches) 68.9 inc h (12/24/22 1:00 PM) BSA Measured 2.35 m2 (12/24/22 1:00 PM) Body Mass Index 37.07 kg/m2 (12/24/22 1:00 PM) Social History Social History Type Response Tobacco Former tobacco user Tobacco Use:. 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 He has a caregiver with him. Alberto was last seen by me on??04/16/2022. He has a history of mental retardation, epilepsy, anxiety, conduct disorder (aggressive/explosive) and NARAYAN. He currently resides at [facility] in [place], [place]. PSG 01/05/2010, Sleep efficiency 76.7%, AHI 12.2/hr, supine AHI 6.1/hr, sp02 jensen 54%, PLMi 1.7/hr, PLMai 0.6/hr. Titration study 03/23/2010, sleep efficiency 53.5%, no REM sleep, CPAP to 14 cm with an AHI of 2/hr and sp02 jensen 90% on this setting. CPAP 14 cm recommended. Titration 04/16/17 (BMI 38.1), sleep efficiency 73%, CPAP titrated from 7 to 16 cm and BiPAP 16/12 to 18/14 cm. At CPAP 14 cm there was elimination of all abnormal respiratory events including in lateral REM sleep, higher pressures were associated with treatment emergent centrals. PLMi 3.8/hr, PLMai0/hr, EKG NSR, CPAP 8-14 cm recommended. ? He has never had good compliance with CPAP and last visit was using CPAP 6-10 cm occasionally because he did not like his nasal mask. I placed?? an order for nasal pillows with Vy straps as he hadpoor tolerance to headgear. ?? Alberto says that he did get the nasal pillows with Vy straps?? and he recalls liking it. Whenasked why he is??not using he said I don't have anyone to set it up. ?? Compliance: No data! Physical Exam Vitals & Measurements HR:??83??(Peripheral)?? BP:??125/58?? SpO2:??94%?? HT:??175??cm?? WT:??113.53??kg?? BMI:??37.07?? BSA:??2.35?? GENERAL: answers questions appropriately, well groomed, obese. HEAD: normocephalic and atraumatic. EYES: non icteric LUNGS: CTA all perez. Good air movement throughout. CARDIO: RRR without murmur, gallop or thrill. NEURO: alert and oriented, normal gait. PYSCH: normal mood and affect. CUTANEOUS: no overt lesions or rashes.?? Clinic Assessment/Plan 1.??Obstructive sleep apnea syndrome??G47.33 NARAYAN diagnosed in 2009 with an AHI of 12.2/hr. He has most recently been treated with CPAP 6-10 cm. He has never had good compliance with CPAP due to poor tolerance to both pressures and masks as wellas problems with getting the mask on correctly He has tried several different masks at this point. He has not used the CPAP essentially since i last saw him. He did receive the nasal pillows with Vy straps and reports tolerating these so it is not really clear why he is not using CPAP. I reminded him to use it QHS, I asked that the staff where he resides given him a nightly reminder to put on his CPAP and assist with getting the mask on if needed. The attendant with him today asked about howto clean the parts??and I covered this with her as well as when mask, filter, tube etc should be changed our. They just need to request supplies as needed from [facility]. I will see him back in one year.He is asked to call our office for any sleep related questions or concerns.?? I provided greater than 30 minutes in the care of this patient, more than half the time was spent in [id number] counseling. Actions: COMPLETED - [id number] Office/Outpatient Visit - Established Patient, Level 4 (30-39 min)., 12/24/22 12:49:00 EDT, Obstructive sleep apnea syndrome FUTURE - Follow-Up Appointment Request KENISHA, *Est. 12/25/23 +/- 28 days, Future Order, In [facility] ?? Problem List/Past Medical History Ongoing Anxiety Conduct disorder Epilepsy Hyperlipidemia Kidney stone Mental retardation Morbid obesity Obstructive sleep apnea syndrome Historical No qualifying data Medications What How Much When Why Instructions Unchanged atorvastatin (atorvastatin 20 mg oral tablet) Contact prescribing physician if questions or concerns ?? Unchanged benzonatate (benzonatate 100 mg oral capsule) Contact prescribing physician if questions or concerns ?? Unchanged calcium carbonate/ Mg hydroxide/ simethicone (Mylanta Coat and Cool) Contact prescribing physician if questions or concerns ?? Unchanged divalproex sodium (Depakote 500 mg oral delayed release tablet) Contact prescribing physician if questions or concerns ?? Unchanged DME RESP CPAP (CPAP mask fit) See instructions Obstructive sleep apnea syndrome Please schedule an oofice visit with RT for a new mask fit for comfort. He can't tolerate current full face and may do better with a F301, Dreamwear full face or similar. Caroline Contact prescribing physician if questions or concerns ?? Unchanged ketoconazole topical (ketoconazole 2% topical cream) Contact prescribing physician if questions or concerns ?? Unchanged loperamide As needed for other (see comment) PRN Contact prescribing physician if questions or concerns ?? Unchanged LORazepam (Ativan 0.5 mg oral tablet) Contact prescribing physician if questions or concerns ?? Unchanged magnesium hydroxide (Ritter Milk of Magnesia) Contact prescribing physician if questions or concerns ?? Unchanged multivitamin (multivitamin adult, oral tablet) Contact prescribing physician if questions or concerns ?? Unchanged Other Prescription (Mylanta) As needed for other (see comment) PRN Contact prescribing physician if questions or concerns ?? Unchanged predniSONE (predniSONE 20 mg oral tablet) Contact prescribing physician if questions or concerns ?? Unchanged risperiDONE (risperiDONE 2 mg oral tablet) Contact prescribing physician if questions or concerns ?? Unchanged sertraline (Zoloft) 2 tab(s) Oral (given by mouth) Every day 100 mg Contact prescribing physician if questions or concerns ?? Allergies No Known Medication Allergies Social History Electronic Cigarette/Vaping Electronic Cigarette Use: Never. Tobacco Former tobacco user Tobacco Use:. Electronically Signed on 12/24/22 01:27 PM Stephanie Tate NP Patient Care team information Care Team Personnel Name: Kelvin Smith MD Position: No Access Member Role: Primary Care Physician Address: Address: [address] [address]- Care Team Related Persons Name: ARMAAN FRAZIER Address: Home [address] [phone]
--- OUTSIDE RECORDS SUMMARY | 2023-03-19 14:52 | XMS_ITS | Continuity of Care Document ---
Author Name Unknown Organization [facility] Address [address] [place] [address] Care Team Providers Care Nurse Name Role Phone Juan Ramon BRYSONKelvin Primary Care Physician Encounter [facility] Date(s): 12/19/21 - 12/19/[address] [address] Discharge Disposition: Home or Self Care Attending Physician: Meir Cabrera MD Admitting Physician: Meir Cabrera MD Referring Physician: Meir Cabrera MD Allergies, Adverse Reactions, Alerts No Known Medication Allergies Assessment and Plan Future Appointments Diagnostic Tests Pending * Homocysteine, Total, P OTT 12/19/21 Medications Ativan 0.5 mg oral tablet 0 [...] F301, Dreamwear full face or similar. Davidson eVlazquez, See instructions, # 1 EA, 0 Refill(s) [...] Results Laboratory List Name Date Automated Diff 12/19/21 CBC w/ Diff 12/19/21 Comprehensive Metabolic Panel 12/19/21 Folate Level 12/19/21 Free T4 12/19/21 Hemoglobin A1c 12/19/21 Lipid Panel 12/19/21 Magnesium Level 12/19/21 Thyroid Stimulating Hormone 12/19/21 Valproic Acid Level 12/19/21 Vitamin B12 Level 12/19/21 Most recent to oldest [Reference Range]: 1 WBC [5.0-10.0 x10^3/mcL] 5.3 x10^3/mcL (12/19/21 9:12 AM) RBC [4.6-6.0 x10^6/mcL] 5.9 x10^6/mcL (12/19/21 9:12 AM) Neutro Auto [40.0-75.0 %] 58.3 % (12/19/21 9:12 AM) Lymph Auto [20.0-50.0 %] 30.0 % (12/19/21 9:12 AM) Coosa Auto [2.0-15.0 %] 8.1 % (12/19/21 9:12 AM) Basophil Auto [0.0-1.0 %] 0.8 % (12/19/21 9:12 AM) BUN [7-18 mg/dL] 16 mg/dL (12/19/21 9:12 AM) Cholesterol Total [50-200 mg/dL] 201 mg/ dL *HI* (12/19/21 9:12 AM) LDL [0-130 mg/dL] 120 mg/dL (12/19/21 9:12 AM) Glucose Level [74-106 mg/dL] 91 mg/dL (12/19/21 9:12 AM) Potassium Level [3.5-5.1 mmol/L] 4.9 mmo l/L (12/19/21:12 AM) Valproic Acid Level [50-100 ug/mL] 59 ug /mL (12/19/21 9:12 AM) MCV [80.0-103.0 fL] 86.0 fL (12/19/21:12 AM) HDL [40-60 mg/dL] 40 mg/dL (12/19/21:12 AM) T4 Free [0.76-1.46 ng/dL] 0.63 ng/dL *LOW* (12/19/21:12 AM) AST [15-37 unit/L] 20 unit/L (12/19/21:12 AM) ALT [16-63 unit/L] 26 unit/L (12/19/21 9:12 AM) MCHC [31.0-35.0 g/dL] 33.1 g/dL (12/19/21:12 AM) Sodium Level [136-145 mmol/L] 138 mmol/L (12/19/21 9:12 AM) Folate Level [8.6-58.9 ng/mL] 61.8 ng/mL *HI* (12/19/21 9:12 AM) Hct [41.0-51.0 %] 50.4 % (12/19/21 9:12 AM) Triglycerides [0-150 mg/dL] 203 mg/dL *HI* (12/19/21 9:12 AM) Calcium Level [8.5-10.1 mg/dL] 9.3 mg/dL (12/19/21 9:12 AM) Albumin Level [3.4-5.0 g/dL] 4.0 g/dL (12/19/21 9:12 AM) Protein Total [6.4-8.2 g/dL] 8.2 g/dL (12/19/21 9:12 AM) MCH [26.0-32.0 pg] 28.5 pg (12/19/21 9:12 AM) Magnesium Level [1.8-2.4 mg/dL] 1.9 mg/d L (12/19/21 9:12 AM) Neutro Absolute 3.1 x10^3/mcL *NA* (12/19/21 9:12 AM) Bilirubin Total [0.2-1.0 mg/dL] 0.4 mg/d L (12/19/21 9:12 AM) Hgb [14.0-18.0 g/dL] 16.7 g/dL (12/19/21 9:12 AM) B12 Level [193-986 pg/mL] 502 pg/mL (12/19/21 9:12 AM) Alk Phos [46-146 unit/L] 48 unit/L (12/19/21 9:12 AM) Platelets [130-450 x10^3/mcL] 183 x10^3/ mcL (12/19/21 9:12 AM) CO2 [21-32 mmol/L] 34 mmol/L *HI* (12/19/21 9:12 AM) TSH [0.358-3.740 mcIntlUnit/mL] 2.428 mc IntlUnit/mL (12/19/21 9:12 AM) eGFR Non-AA [>=60] 92 (12/19/21 9:12 AM) eGFR AA [>=60] 92 (12/19/21 9:12 AM) Hemoglobin A1c [4.0-6.0 %] 5.2 % (12/19/21 9:12 AM) Chloride Level [98-107 mmol/L] 99 mmol/L (12/19/21 9:12 AM) RDW-CV [11.5-17.0 %] 14.2 % (12/19/21 9:12 AM) Imm Gran Auto [0.0-0.9 %] 0.4 % (12/19/21 9:12 AM) Creatinine Level [0.70-1.30 mg/dL] 0.99 mg/dL (12/19/21 9:12 AM) Eos, Auto [1.0-6.0 %] 2.4 % (12/19/21 9:12 AM) Social History Social History Type Response Tobacco Never tobacco user T obacco Use:. Sex Male Patient Care team information Personnel Name: Kelvin Onofre MD Address: Address: [address] [address]- [place]
--- OUTSIDE RECORDS SUMMARY | 2023-03-19 14:53 | XMS_ITS | Continuity of Care Document ---
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 Role Phone BAIRON RIOJAS Primary Care Physician Encounter [facility] FIN NBR [id number] Date(s): 01/29/22 - 01/31/[address] [id number] [place] Encounter Diagnosis Diverticulitis(Discharge Diagnosis) - 01/29/22 Pulmonary embolus(Discharge Diagnosis) - 01/29/22 Seizures(Discharge Diagnosis) - 01/29/22 Depression(Discharge Diagnosis) - 01/29/22 Conjunctivitis of both eyes(Discharge Diagnosis) - 01/29/22 Discharge Disposition: Discharge/Transfer - Other Type of Inst Attending Physician: Lane Hernandez MD Admitting Physician: Gege Mata APRN Allergies, Adverse Reactions, Alerts No Known Allergies Assessment and Plan Diagnostic Tests Pending * Thrombotic Risk Assessment LC 01/31/22 Future Scheduled Tests Laboratory* Lipase Level 01/29/22 Functional Status 01/31/22 Living Environment Living Situation: Current Home Treatments: Home Devices/Equipment Professional Skilled Services: Other: He has a casework managerCaryn Special Services and Community Resources: Sensory Deficits: Performed by: Lilia Aguila01/30/22 11:11:00 Lives In Other: [facility] facility Living Situation retirement Current Home Treatments CPAP Professional Skilled Services Other: He has a casework managerCaryn 01/31/22 Activity Status ADL Sleeping 01/31/22 ADLs Minimal assistance Personal Care Provided Back rub, Barrier cream, Bed bath, Diaper/Brief changed, Gown change, Linen change, Partial bath, Tessy care, Underpad change 01/30/22 Dinner Percent 100 01/30/22 Breakfast Percent 100 01/29/22 Other exposure to Infectious Disease COV ID-19 Symptoms Present Medications !-Augmentin 875 mg-125 mg oral tablet 1 tab, Oral, every 12 hr, # 14 tab, 0 Refill(s), called to pharmacy (Rx) Start Date: 01/31/22 Stop Date: 02/07/22 Status: Ordered acetaminophen 500 mg oral tablet 1-2 tabs, Oral, every 6 hr, PRN as needed for pain, 0 Refill(s) Start Date: 01/29/22 Status: Ordered Benadryl 25 mg oral capsule 1- 2 caps, Oral, every 6 hr, PRN as needed for itching, 0 Refill(s) Start Date: 01/29/22 Status: Ordered divalproex sodium 250 mg oral tablet, extended release 250 mg = 1 tab, Oral, BID, also takes DR 1000 mg twice daily Start Date: 01/30/22 Status: Ordered divalproex sodium 500 mg oral delayed release tablet 1,000 mg = 2 tab, Oral, BID, also takes ER 250mg twice daily, 0 Refill(s) Start Date: 01/29/22 Status: Ordered Eliquis 5 mg oral tablet 10 mg = 2 tab, Oral, BID, 0 Refill(s) Start Date: 01/31/22 Status: Ordered ibuprofen 400 mg oral tablet 400 mg = 1 tab, Oral, every 4 hr, PRN as needed for pain, 0 Refill(s) Start Date: 01/29/22 Status: Ordered lactobacillus acidophilus oral capsule Oral, BID, 0 Refill(s) Start Date: 01/31/22 Status: Ordered Lipitor 20 mg oral tablet 20 mg = 1 tab, Oral, every evening, 0 Refill(s) Start Date: 01/29/22 Status: Ordered LORazepam 0.5 mg oral tablet 0.5 mg = 1 tab, Oral, every 8 hr, PRN as needed for anxiety, 0 Refill(s) Start Date: 01/29/22 Status: Ordered Milk of Magnesia 8% oral suspension 2.4 g 30 mL, Oral, every day at bedtime, PRN as needed for constipation, # 300 mL, 0 Refill(s) Start Date: 01/29/22 Status: Ordered ofloxacin 0.3% ophthalmic solution 2 drops, Eye-Both, QID, 0 Refill(s) Start Date: 01/31/22 Status: Ordered risperiDONE 2 mg oral tablet 2 mg = 1 tab, Oral, BID, 0 Refill(s) Start Date: 01/29/22 Status: Ordered sertraline 100 mg oral tablet 200 mg = 2 tab, Oral, every morning, 0 Refill(s) Start Date: 01/29/22 Status: Ordered simethicone 80 mg oral tablet, chewable 0 Refill(s) Start Date: 01/29/22 Status: Ordered Problem List Condition Confirmation Course Effective Dates Status Health [facility] Informant Depression Confirmed Active Seizures Confirmed Active Results Laboratory List Name Date Automated Diff 01/31/22 Basic Metabolic Panel (BMP) 01/31/22 CBC w/ Diff 01/31/22 Automated Diff 01/30/22 Basic Metabolic Panel (BMP) 01/30/22 CBC w/ Diff 01/30/22 Urinalysis with Microscopic if Indicated 01/30/22 CBC w/ Diff 01/29/22 Comprehensive Metabolic Panel 01/29/22 Lactic Acid 01/29/22 Magnesium Level 01/29/22 Troponin-I 01/29/22 SARS-CoV-2 (COVID-19)/Flu/RSV ([facility]pert ) 01/29/22 Automated Diff 01/29/22 Most recent to oldest [Reference Range]: 1 2 3 WBC [4.8-10.8 K/mcL] 4.8 K/mcL (01/31/22 4:25 AM) 6.0 K/mcL (01/30/22 6:33 AM) 9.8 K/mcL (01/29/22 3:19 PM) RBC [4.20-6.10 Million/mcL] 4.67 Million /mcL (01/31/22 4:25 AM) 4.88 Million/mcL (01/30/22 6:33 AM) 5.27 Million/mcL (01/29/22 3:19 PM) Neutro Auto [42.2-75.2 %] 57.0 % (01/31/22 4:25 AM) 65.5 % (01/30/22 6:33 AM) 71.5 % (01/29/22 3:19 PM) Lymph Auto [20.5-51.1 %] 28.4 % (01/31/22 4:25 AM) 20.9 % (01/30/22 6:33 AM) 15.6 % *LOW* (01/29/22 3:19 PM) Hartley Auto [1.7-9.3 %] 10.9 % *HI* (01/31/22 4:25 AM) 11.0 % *HI* (01/30/22 6:33 AM) 11.8 % *HI* (01/29/22 3:19 PM) Basophil Auto [0.0-0.8 %] 0.6 % (01/31/22 4:25 AM) 0.5 % (01/30/22 6:33 AM) 0.2 % (01/29/22 3:19 PM) BUN [8-26 mg/dL] 11 mg/dL (01/31/22 4:25 AM) 12 mg/dL (01/30/22:33 AM) 14 mg/dL (01/29/22 3:19 PM) UA Color [Yellow] Yellow (01/30/22 3:24 AM) Glucose Level [74-106 mg/dL] 88 mg/dL (01/31/22 4:25 AM) 87 mg/dL (01/30/22 6:33 AM) 99 mg/dL (01/29/22 3:19 PM) Potassium Level [3.5-5.1 mmol/L] 4.3 mmol/L (01/31/22 4:25 AM) 4.5 mmol/L (01/30/22 6:33 AM) 4.1 mmol/L (01/29/22 3:19 PM) Baso Absolute [0.0-0.2 K/mcL] 0.0 K/mcL (01/31/22 4:25 AM) 0.0 K/mcL (01/30/22:33 AM) 0.0 K/mcL (01/29/22 3:19 PM) MCV [80.0-99.0 fL] 87.4 fL (01/31/22 4:25 AM) 85.5 fL (01/30/22 6:33 AM) 85.2 fL (01/29/22 3:19 PM) UA Urobilinogen [0.2] 0.2 (01/30/22 3:24 AM) UA Bili [Negative] Negative (01/30/22 3:24 AM) UA Ketones [Negative] Negative (01/30/22 3:24 AM) AST [15-41 IntlUnit/L] 13 IntlUnit/L *LOW* (01/29/22 3:19 PM) ALT [17-63 IntlUnit/L] 15 IntlUnit/L *LOW* (01/29/22 3:19 PM) MCHC [32.0-36.0 g/dL] 31.9 g/dL *LOW* (01/31/22 4:25 AM) 32.9 g/dL (01/30/22 6:33 AM) 33.0 g/dL (01/29/22 3:19 PM) Osmolality [275-295 mOsm/kg] 276 mOsm/kg (01/31/22 4:25 AM) 273 mOsm/kg *LOW* (01/30/22 6:33 AM) 258 mOsm/kg *LOW* (01/29/22 3:19 PM) Troponin-I [<=0.05 ng/mL] 0.01 ng/mL (01/29/22 3:19 PM) Sodium Level [134-143 mmol/L] 139 mmol/L (01/31/22 4:25 AM) 137 mmol/L (01/30/22 6:33 AM) 128 mmol/L *LOW* (01/29/22 3:19 PM) UA Leuk Est [Negative] Negative (01/30/22 3:24 AM) Lymph Absolute [1.2-3.4 K/mcL] 1.4 K/mcL (01/31/22 4:25 AM) 1.2 K/mcL (01/30/22 6:33 AM) 1.5 K/mcL (01/29/22 3:19 PM) UA Nitrite [Negative] Negative (01/30/22 3:24 AM) UA Glucose [Negative] Negative (01/30/22 3:24 AM) Hct [37.0-52.0 %] 40.8 % (01/31/22 4:25 AM) 41.7 % (01/30/22 6:33 AM) 44.9 % (01/29/22 3:19 PM) Calcium Level [8.9-10.3 mg/dL] 8.9 mg/dL (01/31/22 4:25 AM) 8.6 mg/dL *LOW* (01/30/22 6:33 AM) 9.2 mg/dL (01/29/22 3:19 PM) Hartley Absolute [0.1-0.6 K/mcL] 0.5 K/mcL (01/31/22 4:25 AM) 0.7 K/mcL *HI* (01/30/22 6:33 AM) 1.2 K/mcL *HI* (01/29/22 3:19 PM) Albumin Level [3.5-5.0 g/dL] 3.7 g/dL (01/29/22 3:19 PM) Protein Total [6.5-8.1 g/dL] 7.9 g/dL (01/29/22 3:19 PM) UA Protein [Negative] Negative (01/30/22 3:24 AM) MCH [27.0-31.0 pg] 27.8 pg (01/31/22 4:25 AM) 28.1 pg (01/30/22 6:33 AM) 28.1 pg (01/29/22 3:19 PM) Magnesium Level [1.8-2.5 mg/dL] 2.0 mg/dL (01/29/22 3:19 PM) Neutro Absolute [1.4-6.5 K/mcL] 2.7 K/mcL (01/31/22 4:25 AM) 3.9 K/mcL (01/30/22 6:33 AM) 7.0 K/mcL *HI* (01/29/22 3:19 PM) Bilirubin Total [0.2-1.2 mg/dL] 0.5 mg/dL (01/29/22 3:19 PM) Hgb [12.0-18.0 g/dL] 13.0 g/dL (01/31/22 4:25 AM) 13.7 g/dL (01/30/22 6:33 AM) 14.8 g/dL (01/29/22 3:19 PM) Alk Phos [38-130 IntlUnit/L] 41 IntlUnit /L (01/29/22 3:19 PM) UA Blood [Negative] Negative (01/30/22 3:24 AM) MPV [7.4-10.4 fL] 9.7 fL (01/31/22 4:25 AM) 9.7 fL (01/30/22 6:33 AM) 9.3 fL (01/29/22 3:19 PM) UA Spec Grav 1.010 *NA* (01/30/22 3:24 AM) Platelets [130-400 K/mcL] 183 K/mcL (01/31/22 4:25 AM) 154 K/mcL (01/30/22 6:33 AM) 170 K/mcL (01/29/22 3:19 PM) CO2 [22-32 mmol/L] 31 mmol/L (01/31/22 4:25 AM) 31 mmol/L (01/30/22 6:33 AM) 26 mmol/L (01/29/22 3:19 PM) Eos Absolute [0.0-0.2 K/mcL] 0.1 K/mcL (01/31/22 4:25 AM) 0.1 K/mcL (01/30/22 6:33 AM) 0.1 K/mcL (01/29/22 3:19 PM) Lactic Acid Lvl [0.5-2.2 mmol/L] 1.2 mmol/L (01/29/22 3:19 PM) UA pH 5.50 *NA* (01/30/22 3:24 AM) eGFR Non-AA 109 *NA* (01/31/22 4:25 AM) 120 *NA* (01/30/22 6:33 AM) 113 *NA* (01/29/22 3:19 PM) eGFR AA 109 *NA* (01/31/22 4:25 AM) 120 *NA* (01/30/22 6:33 AM) 113 *NA* (01/29/22 3:19 PM) UA Appear [Clear] Clear (01/30/22 3:24 AM) Chloride Level [98-111 mmol/L] 99 mmol/L (01/31/22 4:25 AM) 99 mmol/L (01/30/22 6:33 AM) 89 mmol/L *LOW* (01/29/22 3:19 PM) RDW-CV [11.5-14.5 %] 13.9 % (01/31/22 4:25 AM) 14.2 % (01/30/22 6:33 AM) 14.1 % (01/29/22 3:19 PM) A/G Ratio 0.9 *NA* (01/29/22 3:19 PM) BUN/Creat Ratio [8.0-20.0] 14.9 (01/31/22 4:25 AM) 22.2 *HI* (01/30/22 6:33 AM) 21.2 *HI* (01/29/22 3:19 PM) Globulin 4.2 *NA* (01/29/22 3:19 PM) Imm Gran Absolute 0.01 *NA* (01/31/22 4:25 AM) 0.02 *NA* (01/30/22 6:33 AM) 0.03 *NA* (01/29/22 3:19 PM) Imm Gran Auto [0.0-0.5 %] 0.2 % (01/31/22 4:25 AM) 0.3 % (01/30/22 6:33 AM) 0.3 % (01/29/22 3:19 PM) Creatinine Level [0.61-1.24 mg/dL] 0.74 mg/dL (01/31/22 4:25 AM) 0.54 mg/dL *LOW* (01/30/22 6:33 AM) 0.66 mg/dL (01/29/22 3:19 PM) Employed in healthcare? Unknown *NA* (01/29/22 3:07 PM) Symptomatic as defined by CDC? Unknown *NA* (01/29/22 3:07 PM) Hospitalized due to COVID-19? Unknown *NA* (01/29/22 3:07 PM) In ICU? Unknown *NA* (01/29/22 3:07 PM) Group care resident? Unknown *NA* (01/29/22 3:07 PM) status? Unknown *NA* (01/29/22 3:07 PM) SARS-CoV-2(Covid19)PCR(GXper t COVFLURSV) [Negative] Negative (01/29/22 3:07 PM) Flu A (GXpert COVFLURSV) [Negative] Negative (01/29/22 3:07 PM) RSV (GXpert COVFLURSV) [Negative] Negative (01/29/22 3:07 PM) Flu B (GXpert COVFLURSV) [Negative] Negative (01/29/22 3:07 PM) Anion Gap [3.0-12.0] 9.0 (01/31/22 4:25 AM) 7.0 (01/30/22 6:33 AM) 13.0 *HI* (01/29/22 3:19 PM) Eos, Auto [0.00-3.00 %] 2.90 % (01/31/22 4:25 AM) 1.80 % (01/30/22 6:33 AM) 0.60 % (01/29/22 3:19 PM) Orders for Microbiology Reports Name Date Blood Culture 01/29/22 Blood Culture 01/29/22 Microbiology Reports TEST:Blood Culture STATUS:Order in Progress BODY SITE:Right Hand SOURCE:Blood COLLECTED DATE/TIME:01/29/22 5:47 PM PRELIMINARY REPORT No growth at 2 days. TEST:Blood Culture STATUS:Order in Progress BODY SITE:Right Arm SOURCE:Blood COLLECTED DATE/TIME:01/29/22 3:19 PM PRELIMINARY REPORT No growth at 2 days. Radiology Reports * Exam Date Time Procedure Performing Provider Status 01/29/22 4:[address] Angio Chest Yue Godfrey ed Notes: (CT Angio Chest) Reason For Exam: hypoxia ?PE CT Angio Chest EXAM DESCRIPTION: CT Angio Chest 01/29/2022 INDICATION: HYPOXIA ?PE TECHNIQUE: All CT scans at this facility use at least one of these dose optimization techniques: Automated exposure control; mA and/or kV adjustment per patient size (includes targeted exams where dose is matched to clinical indication); or iterative reconstruction. CT angiography examination of the chest with thin section axial images including sagittal and coronal MPR images performed on a separate workstation under concurrent supervision. 100 cc of Isovue 370 contrast was utilized COMPARISON: None FINDINGS: Respiratory motion artifact significantly limits evaluation, especially of pulmonary artery branches in the mid-lower chest bilaterally. Filling defects suspicious for pulmonary emboli are identified involving segmental right middle lobe and right lower lobe pulmonary artery branches. Normal opacification of the right ventricular outflow tract and main pulmonary arteries with no significant central pulmonary embolism. No findings to suggest right ventricular strain. No evidence of thoracic aortic dissection. Mild ectasia of the ascending thoracic aorta measuring 3.6 x 3.3 cm. No focal consolidation or pulmonary mass with mild subsegmental atelectasis or scarring in the posterior aspect of both lower lobes. No significant emphysematous changes. No central endobronchial filling defect identified No pleural effusion or pneumothorax. No mediastinal, hilar or axillary adenopathy. No pericardial effusion. No suspicious regional osseous lesions. IMPRESSION: Respiratory motion artifact significantly limits evaluation, especially in the mid-lower chest. Filling defects in segmental right middle lobe and right lower lobe pulmonary artery branches suspicious for pulmonary emboli. No focal consolidation or pulmonary mass with mild subsegmental atelectasis or scarring in the posterior aspect of both lower lobes. JOB #: [id number] Final Signed by: Rufino Jamil MD Signed (Electronic Signature): 01/29/2022 4:[address] Angio Chest ADDENDUM: Results telephoned to ER physician at the time of interpretation. JOB #: [id number] Final Signed by: Rufino Jamil MD Signed (Electronic Signature): 01/29/2022 4:43 pm * Exam Date Time Procedure Performing Provider Status 01/29/22 4:[address] Abdomen and Pelvis w/ Contrast Yue Valdes; Auth (Verified) Notes: (CT Abdomen and Pelvis w/ Contrast) Reason For Exam: pain LLQ, left side with fever CT Abdomen and Pelvis w/ Contrast EXAM DESCRIPTION: CT Abdomen and Pelvis w/ Contrast 01/29/2022 INDICATION: PAIN LLQ, LEFT SIDE WITH FEVER TECHNIQUE: All CT scans at this facility use at least one of these dose optimization techniques: Automated exposure control; mA and/or kV adjustment per patient size (includes targeted exams where dose is matched to clinical indication); or iterative reconstruction. Technique: Axial CT images of the abdomen/pelvis with IV contrast administration 100 cc of Isovue 370 contrast was utilized COMPARISON: None FINDINGS: No focal hepatic lesion. Normal enhancement of the main hepatic veins and main portal vein. Normal spleen size without focal mass. No calcified gallstones in the gallbladder. Adrenal glands and pancreas appear within normal limits. Small fluid attenuation lesion involving the mid right kidney consistent with cyst. No solid renal mass, hydronephrosis or perinephric fluid collection on either side Normal caliber abdominal aorta with mild atherosclerotic calcifications. No retroperitoneal adenopathy in the abdomen or pelvis. Mural thickening and mesenteric inflammatory stranding involving the mid-distal descending colon consistent with colitis or acute diverticulitis. No abnormal fluid collection to suggest abscess. No free intraperitoneal air or ascites. No bowel dilatation to suggest obstruction or ileus. Normal appendix. No suspicious regional osseous lesions. IMPRESSION: Colitis or acute diverticulitis involving the mid-distal descending colon. Nonobstructive bowel pattern. No free air or evidence of abscess. JOB #: [id number] Final Signed by: Rufino Jamil MD Signed (Electronic Signature): 01/29/2022 4:26 pm Vital Signs Most recent to oldest [Reference Range]: 1 2 3 Temperature Oral [35.8-37.3 Deg C] 37.1 Deg C (01/30/22 2:48 PM) 37.3 Deg C (01/30/22 1:58 PM) 36.5 Deg C (01/30/22 7:35 AM) Temperature Tympanic [36.6-37.9 Deg C] 37 Deg C (01/30/22 6:07 PM) Temperature Temporal Artery [36-38 Deg C] 36.8 Deg C (01/31/22 7:23 AM) 36.6 Deg C (01/31/22 3:51 AM) 36.4 Deg C (01/31/22 12:06 AM) Temperature Temporal Artery (DegF) [97.3-100 Deg F] 97.88 Deg F (01/31/22 3:51 AM) 97.52 Deg F (01/31/22 12:06 AM) 98.6 Deg F (01/30/22 8:28 PM) Peripheral Pulse Rate [60-100 bpm] 88 bpm (01/31/22 11:07 AM) 73 bpm (01/31/22 7:23 AM) 73 bpm (01/31/22 3:51 AM) Heart Rate Monitored [60-100 bpm] 106 bpm *HI* (01/29/22 6:30 PM) 84 bpm (01/29/22 6:00 PM) 86 bpm (01/29/22 5:30 PM) Respiratory Rate [12-24 br/min] 20 br/min (01/31/22 11:07 AM) 20 br/min (01/31/22 7:23 AM) 20 br/min (01/31/22 3:51 AM) Blood Pressure [90-140/60-90 mmHg] 149/103mmHg *HI* (01/31/22 11:07 AM) 145/107mmHg *HI* (01/31/22 7:23 AM) 140/93mmHg (01/31/22 3:51 AM) Mean Arterial Pressure, Cuff [65-140 mmHg] 109 mmHg (01/31/22 3:51 AM) 111 mmHg (01/31/22 12:06 AM) 96 mmHg (01/30/22 8:28 PM) Mean Arterial Pressure Cuff 88 mmHg (01/29/22 6:30 PM) 87 mmHg (01/29/22 6:00 PM) 96 mmHg (01/29/22 5:30 PM) Weight 116 kg (01/31/22 6:59 AM) 116.2 kg (01/29/22 9:34 PM) Weight Dosing 116.00 kg (01/29/22 3:03 PM) Weight Estimated 116.00 kg (01/29/22 2:37 PM) Height/Length Dosing 180.000 cm (01/29/22 3:03 PM) Height/Length Estimated 180.000 cm (01/29/22 2:37 PM) Social History Social History Type Response Tobacco Never tobacco user T obacco Use:. Sex Hospital Discharge Instructions Patient Education 01/31/2022 09:19:54 Pulmonary Embolism Pulmonary Embolism A pulmonary embolism (PE) is a sudden blockage or decrease of blood flow in one or both lungs that happens when a clot travels into the arteries of the lung (pulmonary arteries). Most blockages come from a blood clot that forms in the vein of a leg or arm (deep vein thrombosis, DVT) and travels to the lungs. A clot is blood that has thickened into a gel or solid. PE is a dangerous and life-threatening condition that needs to be treated right away. What are the causes? This condition is usually caused by a blood clot that forms in a vein and moves to the lungs. In rare cases, it may be caused by air, fat, part of a tumor, or other tissue that moves through the veins and into the lungs. What increases the risk? The following factors may make you more likely to develop this condition: ??? Experiencing a traumatic injury, such as breaking a hip or leg. ??? Having: ??? A spinal cord injury. ??? Major surgery, especially hip or knee replacement, or surgery on parts of the nervous system oron the abdomen. ??? A stroke. ??? A blood-clotting disease. ??? Long-term (chronic) lung or heart disease. ??? Cancer, especially if you are being treated with chemotherapy. ??? A central venous catheter. ??? Taking medicines that contain estrogen. These include control pills and hormone replacement therapy. ??? Being: ??? . ??? In the period of time after your baby is delivered (). ??? Older than age 60. ??? Overweight. ??? A smoker, especially if you have other risks. ??? Not very active (sedentary), not being able to move at all, or spending long periods sitting, such as travel over 6 hours. You are also at a greater risk if you have a leg in a cast or splint. What are the signs or symptoms? Symptoms of this condition usually start suddenly and include: ??? Shortness of breath during activity or at rest. ??? Coughing, coughing up blood, or coughing up bloody mucus. ??? Chest pain, back pain, or shoulder blade pain that gets worse with deep breaths. ??? Rapid or irregular heartbeat. ??? Feeling light-headed or dizzy, or fainting. ??? Feeling anxious. ??? Pain and swelling in a leg. This is a symptom of DVT, which can lead to PE. How is this diagnosed? This condition may be diagnosed based on your medical history, a physical exam, and tests. Tests may include: ??? Blood tests. ??? An ECG (electrocardiogram) of the heart. ??? A CT pulmonary angiogram. This test checks blood flow in and around your lungs. ??? A ventilation???perfusion scan, also called a lung VQ scan. This test measures air flow and blood flow to the lungs. ??? An ultrasound to check for a DVT. How is this treated? Treatment for this condition depends on many factors, such as the cause of your PE, your risk for bleeding or developing more clots, and other medical conditions you may have. Treatment aims to stop blood clots from forming or growing larger. In some cases, treatment may be aimed at breaking apart or removing the blood clot. Treatment may include: ??? Medicines, such as: ??? Blood thinning medicines, also called anticoagulants, to stop clots from forming and growing. ??? Medicines that break apart clots (fibrinolytics). ??? Procedures, such as: ??? Using a flexible tube to remove a blood clot (embolectomy) or to deliver medicine to destroy it(catheter-directed thrombolysis). ??? Surgery to remove the clot (surgical embolectomy). This is rare. You may need a combination of immediate, long-term, and extended treatments. Your treatment may continue for several months (maintenance therapy) or longer depending on your medical conditions. You and your health care provider will work together to choose the treatment program that is best for you. Follow these instructions at home: Medicines ??? Take [id number] and prescription medicines only as told by your health care provider. ??? If you are taking blood thinners: ??? Talk with your health care provider before you take any medicines that contain aspirin or NSAIDs, such as ibuprofen. These medicines increase your risk for dangerous bleeding. ??? Take your medicine exactly as told, at the same time every day. ??? Avoid activities that could cause injury or bruising, and follow instructions about how to prevent falls. ??? Wear a medical alert bracelet or carry a card that lists what medicines you take. ??? Understand what foods and drugs interact with any medicines that you are taking. General instructions ??? Ask your health care provider when you may return to your normal activities. Avoid sitting or lying for a long time without moving. ??? Maintain a healthy weight. Ask your health care provider what weight is healthy for you. ??? Do not use any products that contain nicotine or tobacco. These products include cigarettes, chewing tobacco, and vaping devices, such as e-cigarettes. If you need help quitting, ask your health care provider. ??? Talk with your health care provider about any travel plans. It is important to make sure that you are still able to take your medicine while traveling. ??? Keep all follow-up visits. This is important. Where to find more information ??? [place] [employer]: www.lung.org ??? Centers for Disease Control and Prevention: www.cdc.gov Contact a health care provider if: ??? You missed a dose of your blood thinner medicine. ??? You have a fever. Get help right away if: ??? You have: ??? New or increased pain, swelling, warmth, or redness in an arm or leg. ??? Shortness of breath that gets worse during activity or at rest. ??? Worsening chest pain. ??? A rapid or irregular heartbeat. ??? A severe headache. ??? Vision changes. ??? A serious fall or accident, or you hit your head. ??? Blood in your vomit, stool, or urine. ??? A cut that will not stop bleeding. ??? You cough up blood. ??? You feel light-headed or dizzy, and that feeling does not go away. ??? You cannot move your arms or legs. ??? You are confused or have memory loss. These symptoms may represent a serious problem that is an emergency. Do not wait to see if the symptoms will go away. Get medical help right away. Call your local emergency services (911 in the [place] Do not drive yourself to the hospital. Summary ??? A pulmonary embolism (PE) is a serious and potentially life-threatening condition. It happens when a blood clot from one part of the body travels to the arteries of the lung, causing a sudden blockage or decrease of blood flow to the lungs. This may result in shortness of breath, chest pain, dizziness, and fainting. ??? Treatments for this condition usually include medicines to thin your blood (anticoagulants) or medicines to break apart blood clots. ??? If you are given blood thinners, take your medicine exactly as told by your health care provider, at the same time every day. This is important. ??? Understand what foods and drugs interact with any medicines that you are taking. ??? If you have signs of PE or DVT, call your local emergency services (911 in the [place] This information is not intended to replace advice given to you by your health care provider. Make sure you discuss any questions you have with your health care provider. Document Revised: 01/13/2021 Document Reviewed: 01/13/2021 [employer] Patient Education ?? 2021 [employer]. 01/31/2022 09:19:47 Diverticulitis Diverticulitis Diverticulitis is infection or inflammation of small pouches (diverticula) in the colon that form due to a condition called diverticulosis. Diverticula can trap stool (feces) and bacteria, causing infection and inflammation. Diverticulitis may cause severe stomach pain and diarrhea. It may lead to tissue damage in the colon that causes bleeding or blockage. The diverticula may also burst (rupture) and cause infected stool to enter other areas of the abdomen. What are the causes? This condition is caused by stool becoming trapped in the diverticula, which allows bacteria to grow in the diverticula. This leads to inflammation and infection. What increases the risk? You are more likely to develop this condition if you have diverticulosis. The risk increases if you: ??? Are overweight or obese. ??? Do not get enough exercise. ??? Drink alcohol. ??? Use tobacco products. ??? Eat a diet that has a lot of red meat such as beef, pork, or valentino. ??? Eat a diet that does not include enough fiber. High-fiber foods include fruits, vegetables, beans, nuts, and whole grains. ??? Are over 40 years of age. What are the signs or symptoms? Symptoms of this condition may include: ??? Pain and tenderness in the abdomen. The pain is normally located on the left side of the abdomen, but it may occur in other areas. ??? Fever and chills. ??? Nausea. ??? Vomiting. ??? Cramping. ??? Bloating. ??? Changes in bowel routines. ??? Blood in your stool. How is this diagnosed? This condition is diagnosed based on: ??? Your medical history. ??? A physical exam. ??? Tests to make sure there is nothing else causing your condition. These tests may include: ??? Blood tests. ??? Urine tests. ??? CT scan of the abdomen. How is this treated? Most cases of this condition are mild and can be treated at home. Treatment may include: ??? Taking lmog-awi-tqwwdpt pain medicines. ??? Following a clear liquid diet. ??? Taking antibiotic medicines by mouth. ??? Resting. More severe cases may need to be treated at a hospital. Treatment may include: ??? Not eating or drinking. ??? Taking prescription pain medicine. ??? Receiving antibiotic medicines through an IV. ??? Receiving fluids and nutrition through an IV. ??? Surgery. When your condition is under control, your health care provider may recommend that you have a colonoscopy. This is an exam to look at the entire large intestine. During the exam, a lubricated, bendable tube is inserted into the anus and then passed into the rectum, colon, and other parts of the large intestine. A colonoscopy can show how severe your diverticula are and whether something else may be causing your symptoms. Follow these instructions at home: Medicines ??? Take fgyw-rcs-zzoqlmi and prescription medicines only as told by your health care provider. These include fiber supplements, probiotics, and stool softeners. ??? If you were prescribed an antibiotic medicine, take it as told by your health care provider. Donot stop taking the antibiotic even if you start to feel better. ??? Ask your health care provider if the medicine prescribed to you requires you to avoid driving or using machinery. Eating and drinking ??? Follow a full liquid diet or another diet as directed by your health care provider. ??? After your symptoms improve, your health care provider may tell you to change your diet. He or she may recommend that you eat a diet that contains at least 25 grams (25 g) of fiber daily. Fiber makes it easier to pass stool. Healthy sources of fiber include: ??? Berries. One cup contains 4???8 grams of fiber. ??? Beans or lentils. One-half cup contains 5???8 grams of fiber. ??? Green vegetables. One cup contains 4 grams of fiber. ??? Avoid eating red meat. General instructions ??? Do not use any products that contain nicotine or tobacco, such as cigarettes, e-cigarettes, andchewing tobacco. If you need help quitting, ask your health care provider. ??? Exercise for at least 30 minutes, 3 times each week. You should exercise hard enough to raise your heart rate and break a sweat. ??? Keep all follow-up visits as told by your health care provider. This is important. You may needto have a colonoscopy. Contact a health care provider if: ??? Your pain does not improve. ??? Your bowel movements do not return to normal. Get help right away if: ??? Your pain gets worse. ??? Your symptoms do not get better with treatment. ??? Your symptoms suddenly get worse. ??? You have a fever. ??? You vomit more than one time. ??? You have stools that are bloody, black, or tarry. Summary ??? Diverticulitis is infection or inflammation of small pouches (diverticula) in the colon that form due to a condition called diverticulosis. Diverticula can trap stool (feces) and bacteria, causing infection and inflammation. ??? You are at higher risk for this condition if you have diverticulosis and you eat a diet that does not include enough fiber. ??? Most cases of this condition are mild and can be treated at home. More severe cases may need tana treated at a hospital. ??? When your condition is under control, your health care provider may recommend that you have an exam called a colonoscopy. This exam can show how severe your diverticula are and whether something else may be causing your symptoms. ??? Keep all follow-up visits as told by your health care provider. This is important. This information is not intended to replace advice given to you by your health care provider. Make sure you discuss any questions you have with your health care provider. Document Revised: 11/23/2019 Document Reviewed: 11/23/2019 [employer] Patient Education ?? 2021 [employer]. Follow Up Care 01/29/2022 14:37:35 With:BAIRON RIOJAS Address: [address] [place] [id number] When:1 to 2 weeks Comments:02/14/22 130pm Discharge instructions * Anais Gonzalez: PERFORM Event Display: Discharge Instructions Authored Date: [id number] OSITO CHAPIN :1970 Age:51 years Sex:Male Visit Date:01/29/2022 Primary Care Physician: BAIRON RIOJAS Hospital Discharge Instructions We would like to thank you for allowing us to assist you with your healthcare needs. The following includes patient education materials and information regarding your injury/illness. After you leave the hospital, you may get your health information including your test results, physician notes and discharge information by accessing your Patient Portal. Your Next Steps Follow Up Appointments Follow Up with??BAIRON RIOJAS When:??Within 1 to 2 weeks Why: 02/14/22 130pm Where: [address] [place] [id number]- The Following Services Have Been Arranged for You Other: He has ??a casework manager, Caryn Valles What How Much When Instructions Next Dose New amoxicillin-clavulanate (!- Augmentin 875 mg-125 mg oral tablet) 1 tab Oral (given by mouth) Every 12 hours Duration: 7 Days New apixaban (Eliquis 5 mg oral tablet) 2 tab Oral (given by mouth) 2 times a day New lactobacillus acidophilus (lactobacillus acidophilus oral capsule) Oral (given by mouth) 2 times a day New ofloxacin ophthalmic (ofloxacin 0.3% ophthalmic solution) 2 Drops Both eyes 4 times a day Changed acetaminophen (acetaminophen 500 mg oral tablet) 1-2 tabs Oral (given by mouth) Every 6 hours as needed for as needed for pain Changed atorvastatin (Lipitor 20 mg oral tablet) 1 tab Oral (given by mouth) Every evening Changed diphenhydrAMINE (Benadryl 25 mg oral capsule) 1- 2 caps Oral (given by mouth) Every 6 hours as needed for as needed for itching Changed divalproex sodium (divalproex sodium 250 mg oral tablet, extended release) 1 tab Oral (given by mouth) 2 times a day also takes DR 1000 mg twice daily ?? Changed divalproex sodium (divalproex sodium 500 mg oral delayed release tablet) 2 tab Oral (given by mouth) 2 times a day also takes ER 250mg twice daily ?? Changed ibuprofen (ibuprofen 400 mg oral tablet) 1 tab Oral (given by mouth) Every 4 hours as needed for as needed for pain Changed sertraline (sertraline 100 mg oral tablet) 2 tab Oral (given by mouth) Every morning Unchanged LORazepam (LORazepam 0.5 mg oral tablet) 1 tab Oral (given by mouth) Every 8 hours as needed for as needed for anxiety Unchanged magnesium hydroxide (Milk of Magnesia 8% oral suspension) 30 Milliliters Oral (given by mouth) Every night at bedtime as needed for as needed for constipation Unchanged risperiDONE (risperiDONE 2 mg oral tablet) 1 tab Oral (given by mouth) 2 times a day Unchanged simethicone (simethicone 80 mg oral tablet, chewable) Your Summary Your Care Team Admitting Physician - Gege Mata APRN Attending Physician - Lane Hernandez MD Primary Care Physician - BAIRON RIOJAS Your Diagnosis Diverticulitis Pulmonary embolus Seizures Depression Conjunctivitis of both eyes Problems Ongoing - Any problem that you are currently receiving treatment for. Depression Seizures Tests Performed/Pending Automated Diff BMP CBC w/ Diff Comprehensive Metabolic Panel GI Panel ([employer])?-- Results Pending -- Lactic Acid Magnesium Level SARS-CoV-2 (COVID-19)/Flu/RSV ([facility]) Thrombotic Risk Assessment LC?-- Results Pending -- Troponin-I Urinalysis with Microscopic if Indicated CT Abdomen and Pelvis w/ Contrast CT Angio Chest You will be contacted within 72 hours with your results. Discharge Vitals Temperature??(Temporal Artery) 98.2 ??F (36.8 ??C) Heart Rate??(Peripheral) 88 Respiratory Rate?? 20 Blood Pressure?? 149/103?? Weight?? 255.78 lb (116 kg) Allergies No Known Allergies Education Materials Pulmonary Embolism A pulmonary embolism (PE) is a sudden blockage or decrease of blood flow in one or both lungs that happens when a clot travels into the arteries of the lung (pulmonary arteries). Most blockages come from a blood clot that forms in the vein of a leg or arm (deep vein thrombosis, DVT) and travels to the lungs. A clot is blood that has thickened into a gel or solid. PE is a dangerous and life-threatening condition that needs to be treated right away. What are the causes? This condition is usually caused by a blood clot that forms in a vein and moves to the lungs. In rare cases, it may be caused by air, fat, part of a tumor, or other tissue that moves through the veins and into the lungs. What increases the risk? The following factors may make you more likely to develop this condition: ? Experiencing a traumatic injury, such as breaking a hip or leg. ? Having: ? A spinal cord injury. ? Major surgery, especially hip or knee replacement, or surgery on parts of the nervous system or on the abdomen. ? A stroke. ? A blood-clotting disease. ? Long-term (chronic) lung or heart disease. ? Cancer, especially if you are being treated with chemotherapy. ? A central venous catheter. ? Taking medicines that contain estrogen. These include control pills and hormone replacement therapy. ? Being: ? . ? In the period of time after your baby is delivered (). ? Older than age 60. ? Overweight. ? A smoker, especially if you have other risks. ? Not very active (sedentary), not being able to move at all, or spending long periods sitting, such as travel over 6 hours. You are also at a greater risk if you have a leg in a cast or splint. What are the signs or symptoms? Symptoms of this condition usually start suddenly and include: ? Shortness of breath during activity or at rest. ? Coughing, coughing up blood, or coughing up bloody mucus. ? Chest pain, back pain, or shoulder blade pain that gets worse with deep breaths. ? Rapid or irregular heartbeat. ? Feeling light-headed or dizzy, or fainting. ? Feeling anxious. ? Pain and swelling in a leg. This is a symptom of DVT, which can lead to PE. How is this diagnosed? This condition may be diagnosed based on your medical history, a physical exam, and tests. Tests may include: ? Blood tests. ? An ECG (electrocardiogram) of the heart. ? A CT pulmonary angiogram. This test checks blood flow in and around your lungs. ? A ventilation???perfusion scan, also called a lung VQ scan. This test measures air flow and blood flow to the lungs. ? An ultrasound to check for a DVT. How is this treated? Treatment for this condition depends on many factors, such as the cause of your PE, your risk for bleeding or developing more clots, and other medical conditions you may have. Treatment aims to stop blood clots from forming or growing larger. In some cases, treatment may be aimed at breaking apart or removing the blood clot. Treatment may include: ? Medicines, such as: ? Blood thinning medicines, also called anticoagulants, to stop clots from forming and growing. ? Medicines that break apart clots (fibrinolytics). ? Procedures, such as: ? Using a flexible tube to remove a blood clot (embolectomy) or to deliver medicine to destroy it (catheter-directed thrombolysis). ? Surgery to remove the clot (surgical embolectomy). This is rare. You may need a combination of immediate, long-term, and extended treatments. Your treatment may continue for several months (maintenance therapy) or longer depending on your medical conditions. You and your health care provider will work together to choose the treatment program that is best for you. Follow these instructions at home: Medicines ? Take ksyj-zrz-cdumssr and prescription medicines only as told by your health care provider. ? If you are taking blood thinners: ? Talk with your health care provider before you take any medicines that contain aspirin or NSAIDs, such as ibuprofen. These medicines increase your risk for dangerous bleeding. ? Take your medicine exactly as told, at the same time every day. ? Avoid activities that could cause injury or bruising, and follow instructions about how to prevent falls. ? Wear a medical alert bracelet or carry a card that lists what medicines you take. ? Understand what foods and drugs interact with any medicines that you are taking. General instructions ? Ask your health care provider when you may return to your normal activities. Avoid sitting or lyingfor a long time without moving. ? Maintain a healthy weight. Ask your health care provider what weight is healthy for you. ? Do not use any products that contain nicotine or tobacco. These products include cigarettes, chewing tobacco, and vaping devices, such as e-cigarettes. If you need help quitting, ask your health careprovider. ? Talk with your health care provider about any travel plans. It is important to make sure that you are still able to take your medicine while traveling. ? Keep all follow-up visits. This is important. Where to find more information ? [place] [employer]: www.lung.org ? Centers for Disease Control and Prevention: www.cdc.gov Contact a health care provider if: ? You missed a dose of your blood thinner medicine. ? You have a fever. Get help right away if: ? You have: ? New or increased pain, swelling, warmth, or redness in an arm or leg. ? Shortness of breath that gets worse during activity or at rest. ? Worsening chest pain. ? A rapid or irregular heartbeat. ? A severe headache. ? Vision changes. ? A serious fall or accident, or you hit your head. ? Blood in your vomit, stool, or urine. ? A cut that will not stop bleeding. ? You cough up blood. ? You feel light-headed or dizzy, and that feeling does not go away. ? You cannot move your arms or legs. ? You are confused or have memory loss. These symptoms may represent a serious problem that is an emergency. Do not wait to see if the symptoms will go away. Get medical help right away. Call your local emergency services (911 in the [place] Do not drive yourself to the hospital. Summary ? A pulmonary embolism (PE) is a serious and potentially life-threatening condition. It happens when a blood clot from one part of the body travels to the arteries of the lung, causing a sudden blockage or decrease of blood flow to the lungs. This may result in shortness of breath, chest pain, dizziness, and fainting. ? Treatments for this condition usually include medicines to thin your blood (anticoagulants) or medicines to break apart blood clots. ? If you are given blood thinners, take your medicine exactly as told by your health care provider, at the same time every day. This is important. ? Understand what foods and drugs interact with any medicines that you are taking. ? If you have signs of PE or DVT, call your local emergency services (911 in the [place] This information is not intended to replace advice given to you by your health care provider. Make sure you discuss any questions you have with your health care provider. Document Revised: 01/13/2021 Document Reviewed: 01/13/2021 [employer] Patient Education ?? 2021 [employer] Diverticulitis Diverticulitis is infection or inflammation of small pouches (diverticula) in the colon that form due to a condition called diverticulosis. Diverticula can trap stool (feces) and bacteria, causing infection and inflammation. Diverticulitis may cause severe stomach pain and diarrhea. It may lead to tissue damage in the colon that causes bleeding or blockage. The diverticula may also burst (rupture) and cause infected stool to enter other areas of the abdomen. What are the causes? This condition is caused by stool becoming trapped in the diverticula, which allows bacteria to grow in the diverticula. This leads to inflammation and infection. What increases the risk? You are more likely to develop this condition if you have diverticulosis. The risk increases if you: ? Are overweight or obese. ? Do not get enough exercise. ? Drink alcohol. ? Use tobacco products. ? Eat a diet that has a lot of red meat such as beef, pork, or valentino. ? Eat a diet that does not include enough fiber. High-fiber foods include fruits, vegetables, beans, nuts, and whole grains. ? Are over 40 years of age. What are the signs or symptoms? Symptoms of this condition may include: ? Pain and tenderness in the abdomen. The pain is normally located on the left side of the abdomen, but it may occur in other areas. ? Fever and chills. ? Nausea. ? Vomiting. ? Cramping. ? Bloating. ? Changes in bowel routines. ? Blood in your stool. How is this diagnosed? This condition is diagnosed based on: ? Your medical history. ? A physical exam. ? Tests to make sure there is nothing else causing your condition. These tests may include: ? Blood tests. ? Urine tests. ? CT scan of the abdomen. How is this treated? Most cases of this condition are mild and can be treated at home. Treatment may include: ? Taking fvxg-gcq-fnagnfp pain medicines. ? Following a clear liquid diet. ? Taking antibiotic medicines by mouth. ? Resting. More severe cases may need to be treated at a hospital. Treatment may include: ? Not eating or drinking. ? Taking prescription pain medicine. ? Receiving antibiotic medicines through an IV. ? Receiving fluids and nutrition through an IV. ? Surgery. When your condition is under control, your health care provider may recommend that you have a colonoscopy. This is an exam to look at the entire large intestine. During the exam, a lubricated, bendable tube is inserted into the anus and then passed into the rectum, colon, and other parts of the large intestine. A colonoscopy can show how severe your diverticula are and whether something else may be causing your symptoms. Follow these instructions at home: Medicines ? Take zabq-qel-xnpnkzh and prescription medicines only as told by your health care provider. These include fiber supplements, probiotics, and stool softeners. ? If you were prescribed an antibiotic medicine, take it as told by your health care provider. Do notstop taking the antibiotic even if you start to feel better. ? Ask your health care provider if the medicine prescribed to you requires you to avoid driving or using machinery. Eating and drinking ? Follow a full liquid diet or another diet as directed by your health care provider. ? After your symptoms improve, your health care provider may tell you to change your diet. He or she may recommend that you eat a diet that contains at least 25 grams (25 g) of fiber daily. Fiber makesit easier to pass stool. Healthy sources of fiber include: ? Berries. One cup contains 4???8 grams of fiber. ? Beans or lentils. One-half cup contains 5???8 grams of fiber. ? Green vegetables. One cup contains 4 grams of fiber. ? Avoid eating red meat. General instructions ? Do not use any products that contain nicotine or tobacco, such as cigarettes, e- cigarettes, and chewing tobacco. If you need help quitting, ask your health care provider. ? Exercise for at least 30 minutes, 3 times each week. You should exercise hard enough to raise your heart rate and break a sweat. ? Keep all follow-up visits as told by your health care provider. This is important. You may need to have a colonoscopy. Contact a health care provider if: ? Your pain does not improve. ? Your bowel movements do not return to normal. Get help right away if: ? Your pain gets worse. ? Your symptoms do not get better with treatment. ? Your symptoms suddenly get worse. ? You have a fever. ? You vomit more than one time. ? You have stools that are bloody, black, or tarry. Summary ? Diverticulitis is infection or inflammation of small pouches (diverticula) in the colon that form due to a condition called diverticulosis. Diverticula can trap stool (feces) and bacteria, causing infection and inflammation. ? You are at higher risk for this condition if you have diverticulosis and you eat a diet that does not include enough fiber. ? Most cases of this condition are mild and can be treated at home. More severe cases may need to be treated at a hospital. ? When your condition is under control, your health care provider may recommend that you have an examcalled a colonoscopy. This exam can show how severe your diverticula are and whether something elsemay be causing your symptoms. ? Keep all follow-up visits as told by your health care provider. This is important. This information is not intended to replace advice given to you by your health care provider. Make sure you discuss any questions you have with your health care provider. Document Revised: 11/23/2019 Document Reviewed: 11/23/2019 [employer] Patient Education ?? 2021 [employer] Medication Information amoxicillin and clavulanate potassium?? (am OK i JORDEN in ??KLAV ue ROSENDO ate ??norman TAS ee um) ?? Augmentin?What is the most important information I should know about amoxicillin and clavulanate potassium?You should not use this medicine if you have severe kidney disease, if you have had liver problems or jaundice while taking amoxicillin and clavulanate potassium, or if you are allergic to any penicillin or cephalosporin antibiotic, such as Amoxil, Ceftin, Cefzil, Moxatag, Omnicef, and others. ?What is amoxicillin and clavulanate potassium?Amoxicillin is a penicillin antibiotic. Clavulanate potassium helps prevent certain bacteria from becoming resistant to amoxicillin. ?Amoxicillin and clavulanate potassium is a combination medicine used to treat many different infections caused by bacteria, such as sinusitis, pneumonia, ear infections, bronchitis, urinary tractinfections, and infections of the skin. ?Amoxicillin and clavulanate potassium may also be used for purposes not listed in this medication guide. ?What should I discuss with my healthcare provider before taking amoxicillin and clavulanate potassium?You should not use this medicine if you are allergic to it, or if: ?you have severe kidney disease (or if you are on dialysis);?you have had liver problems or jaundice while taking amoxicillin and clavulanate potassium;or ?you are allergic to any penicillin or cephalosporin antibiotic, such as Amoxil, Ceftin, Cefzil, Moxatag, Omnicef, and others. ?Tell your doctor if you have ever had: ?liver disease (hepatitis or jaundice); ?kidney disease; or ?mononucleosis. ?The??liquid??or??chewable tablet??may contain phenylalanine. ??Tell your doctor if you have phenylketonuria (PKU). ?Tell your doctor if you are or . ?Amoxicillin and clavulanate potassium can make control pills less effective. Ask your doctor about using a non-hormonal control (condom, diaphragm, cervical cap, or contraceptive sponge) to prevent . ?Do not give this medicine to a child without medical advice. ?How should I take amoxicillin and clavulanate potassium?Follow all directions on your prescription label and read all medication guides or instruction sheets. ??Use the medicine exactly as directed. ?Amoxicillin and clavulanate potassium may work best if you take it at the start of a meal. ?Take the medicine every 12 hours.?Do not crush or chew the??extended-release tablet. ??Swallow the pill whole, or break the pill in half and take both halves one at a time. Tell your doctor if you have trouble swallowing a whole or half pill. ?You must chew the??chewable tablet??before you swallow it. ?Shake the??oral suspension??(liquid) before you measure a dose. Use the dosing syringe provided, or use a medicine dose-measuring device (not a kitchen spoon). ?This medicine can affect the results of certain medical tests. ??Tell any doctor who treats youthat you are using amoxicillin and clavulanate potassium. ?Use this medicine for the full prescribed length of time, even if your symptoms quickly improve. ??Skipping doses can increase your risk of infection that is resistant to medication. ??Amoxicillin and clavulanate potassium will not treat a viral infection such as the flu or a common cold. ?Store the??tablets??at room temperature away from moisture and heat. ?Store the??liquid??in the refrigerator. Throw away any unused liquid after 10 days. ?What happens if I miss a dose?Take the medicine as soon as you can, but skip the missed dose if it is almost time for your next dose.??Do not??take two doses at one time.?What happens if I overdose?Seek emergency medical attention or call the Poison Help line at . ?Overdose can cause nausea, vomiting, stomach pain, diarrhea, skin rash, drowsiness, hyperactivity, and decreased urination. ?What should I avoid while taking amoxicillin and clavulanate potassium?Avoid taking this medicine together with or just after eating a high-fat meal. ??This will makeit harder for your body to absorb the medication. ?Antibiotic medicines can cause diarrhea, which may be a sign of a new infection. ??If you have diarrhea that is watery or bloody, call your doctor before using anti-diarrhea medicine.?What are the possible side effects of amoxicillin and clavulanate potassium?Get emergency medical help if you have??signs of an allergic reaction??(hives, difficult breathing, swelling in your face or throat)??or a severe skin reaction??(fever, sore throat, burning eyes,skin pain, red or purple skin rash with blistering and peeling). ?Stop using amoxicillin and clavulanate potassium and seek medical treatment if you have a serious drug reaction that can affect many parts of your body.?Symptoms may include skin rash, fever, swollen glands, muscle aches, severe weakness, unusual bruising, or yellowing of your skin or eyes. ?Call your doctor at once if you have: ?severe stomach pain, diarrhea that is watery or bloody (even if it occurs months after yourlast dose); ?pale or yellowed skin, dark colored urine, fever, confusion or weakness; ?loss of appetite, upper stomach pain; ?little or no urination; or ?easy bruising or bleeding. ?Common side effects may include: ?nausea, vomiting; diarrhea;?rash, itching;?vaginal itching or discharge; or ?diaper rash. ?This is not a complete list of side effects and others may occur. Call your doctor for medical advice about side effects. You may report side effects to FDA at 2-515-TBK-5918. ?What other drugs will affect amoxicillin and clavulanate potassium?Tell your doctor about all your other medicines, especially: ?allopurinol; ?probenecid; or ?a blood thinner--warfarin, Coumadin, Jantoven. ?This list is not complete. ??Other drugs may affect amoxicillin and clavulanate potassium, including prescription and gthe-gwb-hatdsfy medicines, vitamins, and herbal products. ??Not all possibledrug interactions are listed here. ?Where can I get more information?Your doctor or pharmacist can provide more information about amoxicillin and clavulanate potassium. ?Remember, keep this and all other medicines out of the reach of children, never share your medicines with others, and use this medication only for the indication prescribed. ?Every effort has been made to ensure that the information provided by [employer] is accurate, up-to-date, and complete, but no guarantee is made to that effect. Drug information contained herein may be time sensitive. [employer] information has been compiled for use by healthcare practitioners and consumers in the [place] and therefore [facility] does not warrant that uses outside of the [place] are appropriate, unless specifically indicated otherwise. [facility] drug information does not endorse drugs, diagnose patients or recommend therapy. [facility] drug information is an informational resource designed to assist licensed healthcare practitioners in caring for their patients and/or to serve consumers viewing this service as a supplement to, and not a substitutefor, the expertise, skill, knowledge and judgment of healthcare practitioners. The absence of a warning for a given drug or drug combination in no way should be construed to indicate that the drug ordrug combination is safe, effective or appropriate for any given patient. [facility] does not assume any responsibility for any aspect of healthcare administered with the aid of information [facility] provides. The information contained herein is not intended to cover all possible uses, directions, precautions, warnings, drug interactions, allergic reactions, or adverse effects. If you have questions about the drugs you are taking, check with your doctor, nurse or pharmacist.? Copyright [employer]. Version: 14.. Revision Date: 12/01/2021. ? Patient Name:OSITO CHAPIN I have received this information and my questions have been answered. Patient/Die Stamper Name: Patient/Die Stamper Signature: Relationship to Patient: Witness Name/Signature: Date: Electronically Signed on: 01/31/2022 11:39 ESTSigned by:Ree David: PERFORM Event Display: Discharge Instructions Authored Date: [id number] OSITO CHAPIN :1970 Age:51 years Sex:Male Visit Date:01/29/2022 Primary Care Physician: BAIRON RIOJAS Hospital Discharge Instructions We would like to thank you for allowing us to assist you with your healthcare needs. The following includes patient education materials and information regarding your injury/illness. After you leave the hospital, you may get your health information including your test results, physician notes and discharge information by accessing your Patient Portal. Your Next Steps Follow Up Appointments Follow Up with??BAIRON RIOJAS When:??Within 1 to 2 weeks Why: 02/14/22 130pm Where: [address] [place] [id number]- The Following Services Have Been Arranged for You Other: He has ??a casework manager, Caryn Valles What How Much When Instructions Next Dose New amoxicillin-clavulanate (!- Augmentin 875 mg-125 mg oral tablet) 1 tab Oral (given by mouth) Every 12 hours Duration: 7 Days New apixaban (Eliquis 5 mg oral tablet) 2 tab Oral (given by mouth) 2 times a day New lactobacillus acidophilus (lactobacillus acidophilus oral capsule) Oral (given by mouth) 2 times a day New ofloxacin ophthalmic (ofloxacin 0.3% ophthalmic solution) 2 Drops Both eyes 4 times a day Changed acetaminophen (acetaminophen 500 mg oral tablet) 1-2 tabs Oral (given by mouth) Every 6 hours as needed for as needed for pain Changed atorvastatin (Lipitor 20 mg oral tablet) 1 tab Oral (given by mouth) Every evening Changed diphenhydrAMINE (Benadryl 25 mg oral capsule) 1- 2 caps Oral (given by mouth) Every 6 hours as needed for as needed for itching Changed divalproex sodium (divalproex sodium 250 mg oral tablet, extended release) 1 tab Oral (given by mouth) 2 times a day also takes DR 1000 mg twice daily ?? Changed divalproex sodium (divalproex sodium 500 mg oral delayed release tablet) 2 tab Oral (given by mouth) 2 times a day also takes ER 250mg twice daily ?? Changed ibuprofen (ibuprofen 400 mg oral tablet) 1 tab Oral (given by mouth) Every 4 hours as needed for as needed for pain Changed sertraline (sertraline 100 mg oral tablet) 2 tab Oral (given by mouth) Every morning Unchanged LORazepam (LORazepam 0.5 mg oral tablet) 1 tab Oral (given by mouth) Every 8 hours as needed for as needed for anxiety Unchanged magnesium hydroxide (Milk of Magnesia 8% oral suspension) 30 Milliliters Oral (given by mouth) Every night at bedtime as needed for as needed for constipation Unchanged risperiDONE (risperiDONE 2 mg oral tablet) 1 tab Oral (given by mouth) 2 times a day Unchanged simethicone (simethicone 80 mg oral tablet, chewable) Your Summary Your Care Team Admitting Physician - Gege Mata APRN Attending Physician - Lane Hernandez MD Primary Care Physician - BAIRON RIOJAS Your Diagnosis Diverticulitis Pulmonary embolus Seizures Depression Conjunctivitis of both eyes Problems Ongoing - Any problem that you are currently receiving treatment for. Depression Seizures Tests Performed/Pending Automated Diff BMP CBC w/ Diff Comprehensive Metabolic Panel GI Panel ([employer])?-- Results Pending -- Lactic Acid Magnesium Level SARS-CoV-2 (COVID-19)/Flu/RSV (GeneXpert) Thrombotic Risk Assessment LC?-- Results Pending -- Troponin-I Urinalysis with Microscopic if Indicated CT Abdomen and Pelvis w/ Contrast CT Angio Chest You will be contacted within 72 hours with your results. Discharge Vitals Temperature??(Temporal Artery) 98.2 ??F (36.8 ??C) Heart Rate??(Peripheral) 73 Respiratory Rate?? 20 Blood Pressure?? 145/107?? Weight?? 255.78 lb (116 kg) Allergies No Known Allergies Education Materials Pulmonary Embolism A pulmonary embolism (PE) is a sudden blockage or decrease of blood flow in one or both lungs that happens when a clot travels into the arteries of the lung (pulmonary arteries). Most blockages come from a blood clot that forms in the vein of a leg or arm (deep vein thrombosis, DVT) and travels to the lungs. A clot is blood that has thickened into a gel or solid. PE is a dangerous and life-threatening condition that needs to be treated right away. What are the causes? This condition is usually caused by a blood clot that forms in a vein and moves to the lungs. In rare cases, it may be caused by air, fat, part of a tumor, or other tissue that moves through the veins and into the lungs. What increases the risk? The following factors may make you more likely to develop this condition: ? Experiencing a traumatic injury, such as breaking a hip or leg. ? Having: ? A spinal cord injury. ? Major surgery, especially hip or knee replacement, or surgery on parts of the nervous system or on the abdomen. ? A stroke. ? A blood-clotting disease. ? Long-term (chronic) lung or heart disease. ? Cancer, especially if you are being treated with chemotherapy. ? A central venous catheter. ? Taking medicines that contain estrogen. These include control pills and hormone replacement therapy. ? Being: ? . ? In the period of time after your baby is delivered (). ? Older than age 60. ? Overweight. ? A smoker, especially if you have other risks. ? Not very active (sedentary), not being able to move at all, or spending long periods sitting, such as travel over 6 hours. You are also at a greater risk if you have a leg in a cast or splint. What are the signs or symptoms? Symptoms of this condition usually start suddenly and include: ? Shortness of breath during activity or at rest. ? Coughing, coughing up blood, or coughing up bloody mucus. ? Chest pain, back pain, or shoulder blade pain that gets worse with deep breaths. ? Rapid or irregular heartbeat. ? Feeling light-headed or dizzy, or fainting. ? Feeling anxious. ? Pain and swelling in a leg. This is a symptom of DVT, which can lead to PE. How is this diagnosed? This condition may be diagnosed based on your medical history, a physical exam, and tests. Tests may include: ? Blood tests. ? An ECG (electrocardiogram) of the heart. ? A CT pulmonary angiogram. This test checks blood flow in and around your lungs. ? A ventilation???perfusion scan, also called a lung VQ scan. This test measures air flow and blood flow to the lungs. ? An ultrasound to check for a DVT. How is this treated? Treatment for this condition depends on many factors, such as the cause of your PE, your risk for bleeding or developing more clots, and other medical conditions you may have. Treatment aims to stop blood clots from forming or growing larger. In some cases, treatment may be aimed at breaking apart or removing the blood clot. Treatment may include: ? Medicines, such as: ? Blood thinning medicines, also called anticoagulants, to stop clots from forming and growing. ? Medicines that break apart clots (fibrinolytics). ? Procedures, such as: ? Using a flexible tube to remove a blood clot (embolectomy) or to deliver medicine to destroy it (catheter-directed thrombolysis). ? Surgery to remove the clot (surgical embolectomy). This is rare. You may need a combination of immediate, long-term, and extended treatments. Your treatment may continue for several months (maintenance therapy) or longer depending on your medical conditions. You and your health care provider will work together to choose the treatment program that is best for you. Follow these instructions at home: Medicines ? Take vzci-vkf-eqhcmoe and prescription medicines only as told by your health care provider. ? If you are taking blood thinners: ? Talk with your health care provider before you take any medicines that contain aspirin or NSAIDs, such as ibuprofen. These medicines increase your risk for dangerous bleeding. ? Take your medicine exactly as told, at the same time every day. ? Avoid activities that could cause injury or bruising, and follow instructions about how to prevent falls. ? Wear a medical alert bracelet or carry a card that lists what medicines you take. ? Understand what foods and drugs interact with any medicines that you are taking. General instructions ? Ask your health care provider when you may return to your normal activities. Avoid sitting or lyingfor a long time without moving. ? Maintain a healthy weight. Ask your health care provider what weight is healthy for you. ? Do not use any products that contain nicotine or tobacco. These products include cigarettes, chewing tobacco, and vaping devices, such as e-cigarettes. If you need help quitting, ask your health careprovider. ? Talk with your health care provider about any travel plans. It is important to make sure that you are still able to take your medicine while traveling. ? Keep all follow-up visits. This is important. Where to find more information ? [place] [employer]: www.lung.org ? Centers for Disease Control and Prevention: www.cdc.gov Contact a health care provider if: ? You missed a dose of your blood thinner medicine. ? You have a fever. Get help right away if: ? You have: ? New or increased pain, swelling, warmth, or redness in an arm or leg. ? Shortness of breath that gets worse during activity or at rest. ? Worsening chest pain. ? A rapid or irregular heartbeat. ? A severe headache. ? Vision changes. ? A serious fall or accident, or you hit your head. ? Blood in your vomit, stool, or urine. ? A cut that will not stop bleeding. ? You cough up blood. ? You feel light-headed or dizzy, and that feeling does not go away. ? You cannot move your arms or legs. ? You are confused or have memory loss. These symptoms may represent a serious problem that is an emergency. Do not wait to see if the symptoms will go away. Get medical help right away. Call your local emergency services (911 in the [place] Do not drive yourself to the hospital. Summary ? A pulmonary embolism (PE) is a serious and potentially life-threatening condition. It happens when a blood clot from one part of the body travels to the arteries of the lung, causing a sudden blockage or decrease of blood flow to the lungs. This may result in shortness of breath, chest pain, dizziness, and fainting. ? Treatments for this condition usually include medicines to thin your blood (anticoagulants) or medicines to break apart blood clots. ? If you are given blood thinners, take your medicine exactly as told by your health care provider, at the same time every day. This is important. ? Understand what foods and drugs interact with any medicines that you are taking. ? If you have signs of PE or DVT, call your local emergency services (911 in the [place] This information is not intended to replace advice given to you by your health care provider. Make sure you discuss any questions you have with your health care provider. Document Revised: 01/13/2021 Document Reviewed: 01/13/2021 [employer] Patient Education ?? 2021 [employer]. Diverticulitis Diverticulitis is infection or inflammation of small pouches (diverticula) in the colon that form due to a condition called diverticulosis. Diverticula can trap stool (feces) and bacteria, causing infection and inflammation. Diverticulitis may cause severe stomach pain and diarrhea. It may lead to tissue damage in the colon that causes bleeding or blockage. The diverticula may also burst (rupture) and cause infected stool to enter other areas of the abdomen. What are the causes? This condition is caused by stool becoming trapped in the diverticula, which allows bacteria to grow in the diverticula. This leads to inflammation and infection. What increases the risk? You are more likely to develop this condition if you have diverticulosis. The risk increases if you: ? Are overweight or obese. ? Do not get enough exercise. ? Drink alcohol. ? Use tobacco products. ? Eat a diet that has a lot of red meat such as beef, pork, or valentino. ? Eat a diet that does not include enough fiber. High-fiber foods include fruits, vegetables, beans, nuts, and whole grains. ? Are over 40 years of age. What are the signs or symptoms? Symptoms of this condition may include: ? Pain and tenderness in the abdomen. The pain is normally located on the left side of the abdomen, but it may occur in other areas. ? Fever and chills. ? Nausea. ? Vomiting. ? Cramping. ? Bloating. ? Changes in bowel routines. ? Blood in your stool. How is this diagnosed? This condition is diagnosed based on: ? Your medical history. ? A physical exam. ? Tests to make sure there is nothing else causing your condition. These tests may include: ? Blood tests. ? Urine tests. ? CT scan of the abdomen. How is this treated? Most cases of this condition are mild and can be treated at home. Treatment may include: ? Taking wztt-xal-fxvgyaq pain medicines. ? Following a clear liquid diet. ? Taking antibiotic medicines by mouth. ? Resting. More severe cases may need to be treated at a hospital. Treatment may include: ? Not eating or drinking. ? Taking prescription pain medicine. ? Receiving antibiotic medicines through an IV. ? Receiving fluids and nutrition through an IV. ? Surgery. When your condition is under control, your health care provider may recommend that you have a colonoscopy. This is an exam to look at the entire large intestine. During the exam, a lubricated, bendable tube is inserted into the anus and then passed into the rectum, colon, and other parts of the large intestine. A colonoscopy can show how severe your diverticula are and whether something else may be causing your symptoms. Follow these instructions at home: Medicines ? Take najs-vji-gvzavye and prescription medicines only as told by your health care provider. These include fiber supplements, probiotics, and stool softeners. ? If you were prescribed an antibiotic medicine, take it as told by your health care provider. Do notstop taking the antibiotic even if you start to feel better. ? Ask your health care provider if the medicine prescribed to you requires you to avoid driving or using machinery. Eating and drinking ? Follow a full liquid diet or another diet as directed by your health care provider. ? After your symptoms improve, your health care provider may tell you to change your diet. He or she may recommend that you eat a diet that contains at least 25 grams (25 g) of fiber daily. Fiber makesit easier to pass stool. Healthy sources of fiber include: ? Berries. One cup contains 4???8 grams of fiber. ? Beans or lentils. One-half cup contains 5???8 grams of fiber. ? Green vegetables. One cup contains 4 grams of fiber. ? Avoid eating red meat. General instructions ? Do not use any products that contain nicotine or tobacco, such as cigarettes, e- cigarettes, and chewing tobacco. If you need help quitting, ask your health care provider. ? Exercise for at least 30 minutes, 3 times each week. You should exercise hard enough to raise your heart rate and break a sweat. ? Keep all follow-up visits as told by your health care provider. This is important. You may need to have a colonoscopy. Contact a health care provider if: ? Your pain does not improve. ? Your bowel movements do not return to normal. Get help right away if: ? Your pain gets worse. ? Your symptoms do not get better with treatment. ? Your symptoms suddenly get worse. ? You have a fever. ? You vomit more than one time. ? You have stools that are bloody, black, or tarry. Summary ? Diverticulitis is infection or inflammation of small pouches (diverticula) in the colon that form due to a condition called diverticulosis. Diverticula can trap stool (feces) and bacteria, causing infection and inflammation. ? You are at higher risk for this condition if you have diverticulosis and you eat a diet that does not include enough fiber. ? Most cases of this condition are mild and can be treated at home. More severe cases may need to be treated at a hospital. ? When your condition is under control, your health care provider may recommend that you have an examcalled a colonoscopy. This exam can show how severe your diverticula are and whether something elsemay be causing your symptoms. ? Keep all follow-up visits as told by your health care provider. This is important. This information is not intended to replace advice given to you by your health care provider. Make sure you discuss any questions you have with your health care provider. Document Revised: 11/23/2019 Document Reviewed: 11/23/2019 [employer] Patient Education ?? 2021 [employer]. Medication Information amoxicillin and clavulanate potassium?? (am OK i JORDEN in ??KLAV ue ROSENDO ate ??norman TAS ee um) ?? Augmentin?What is the most important information I should know about amoxicillin and clavulanate potassium?You should not use this medicine if you have severe kidney disease, if you have had liver problems or jaundice while taking amoxicillin and clavulanate potassium, or if you are allergic to any penicillin or cephalosporin antibiotic, such as Amoxil, Ceftin, Cefzil, Moxatag, Omnicef, and others. ?What is amoxicillin and clavulanate potassium?Amoxicillin is a penicillin antibiotic. Clavulanate potassium helps prevent certain bacteria from becoming resistant to amoxicillin. ?Amoxicillin and clavulanate potassium is a combination medicine used to treat many different infections caused by bacteria, such as sinusitis, pneumonia, ear infections, bronchitis, urinary tractinfections, and infections of the skin. ?Amoxicillin and clavulanate potassium may also be used for purposes not listed in this medication guide. ?What should I discuss with my healthcare provider before taking amoxicillin and clavulanate potassium?You should not use this medicine if you are allergic to it, or if: ?you have severe kidney disease (or if you are on dialysis);?you have had liver problems or jaundice while taking amoxicillin and clavulanate potassium;or ?you are allergic to any penicillin or cephalosporin antibiotic, such as Amoxil, Ceftin, Cefzil, Moxatag, Omnicef, and others. ?Tell your doctor if you have ever had: ?liver disease (hepatitis or jaundice); ?kidney disease; or ?mononucleosis. ?The??liquid??or??chewable tablet??may contain phenylalanine. ??Tell your doctor if you have phenylketonuria (PKU). ?Tell your doctor if you are or . ?Amoxicillin and clavulanate potassium can make control pills less effective. Ask your doctor about using a non-hormonal control (condom, diaphragm, cervical cap, or contraceptive sponge) to prevent . ?Do not give this medicine to a child without medical advice. ?How should I take amoxicillin and clavulanate potassium?Follow all directions on your prescription label and read all medication guides or instruction sheets. ??Use the medicine exactly as directed. ?Amoxicillin and clavulanate potassium may work best if you take it at the start of a meal. ?Take the medicine every 12 hours.?Do not crush or chew the??extended-release tablet. ??Swallow the pill whole, or break the pill in half and take both halves one at a time. Tell your doctor if you have trouble swallowing a whole or half pill. ?You must chew the??chewable tablet??before you swallow it. ?Shake the??oral suspension??(liquid) before you measure a dose. Use the dosing syringe provided, or use a medicine dose-measuring device (not a kitchen spoon). ?This medicine can affect the results of certain medical tests. ??Tell any doctor who treats youthat you are using amoxicillin and clavulanate potassium. ?Use this medicine for the full prescribed length of time, even if your symptoms quickly improve. ??Skipping doses can increase your risk of infection that is resistant to medication. ??Amoxicillin and clavulanate potassium will not treat a viral infection such as the flu or a common cold. ?Store the??tablets??at room temperature away from moisture and heat. ?Store the??liquid??in the refrigerator. Throw away any unused liquid after 10 days. ?What happens if I miss a dose?Take the medicine as soon as you can, but skip the missed dose if it is almost time for your next dose.??Do not??take two doses at one time.?What happens if I overdose?Seek emergency medical attention or call the Poison Help line at . ?Overdose can cause nausea, vomiting, stomach pain, diarrhea, skin rash, drowsiness, hyperactivity, and decreased urination. ?What should I avoid while taking amoxicillin and clavulanate potassium?Avoid taking this medicine together with or just after eating a high-fat meal. ??This will makeit harder for your body to absorb the medication. ?Antibiotic medicines can cause diarrhea, which may be a sign of a new infection. ??If you have diarrhea that is watery or bloody, call your doctor before using anti-diarrhea medicine.?What are the possible side effects of amoxicillin and clavulanate potassium?Get emergency medical help if you have??signs of an allergic reaction??(hives, difficult breathing, swelling in your face or throat)??or a severe skin reaction??(fever, sore throat, burning eyes,skin pain, red or purple skin rash with blistering and peeling). ?Stop using amoxicillin and clavulanate potassium and seek medical treatment if you have a serious drug reaction that can affect many parts of your body.?Symptoms may include skin rash, fever, swollen glands, muscle aches, severe weakness, unusual bruising, or yellowing of your skin or eyes. ?Call your doctor at once if you have: ?severe stomach pain, diarrhea that is watery or bloody (even if it occurs months after yourlast dose); ?pale or yellowed skin, dark colored urine, fever, confusion or weakness; ?loss of appetite, upper stomach pain; ?little or no urination; or ?easy bruising or bleeding. ?Common side effects may include: ?nausea, vomiting; diarrhea;?rash, itching;?vaginal itching or discharge; or ?diaper rash. ?This is not a complete list of side effects and others may occur. Call your doctor for medical advice about side effects. You may report side effects to FDA at 2-288-EJE-2028. ?What other drugs will affect amoxicillin and clavulanate potassium?Tell your doctor about all your other medicines, especially: ?allopurinol; ?probenecid; or ?a blood thinner--warfarin, Coumadin, Jantoven. ?This list is not complete. ??Other drugs may affect amoxicillin and clavulanate potassium, including prescription and kait-ott-exowrmj medicines, vitamins, and herbal products. ??Not all possibledrug interactions are listed here. ?Where can I get more information?Your doctor or pharmacist can provide more information about amoxicillin and clavulanate potassium. ?Remember, keep this and all other medicines out of the reach of children, never share your medicines with others, and use this medication only for the indication prescribed. ?Every effort has been made to ensure that the information provided by [employer] is accurate, up-to-date, and complete, but no guarantee is made to that effect. Drug information contained herein may be time sensitive. [facility] information has been compiled for use by healthcare practitioners and consumers in the [place] and therefore [facility] does not warrant that uses outside of the [place] are appropriate, unless specifically indicated otherwise. [employer] drug information does not endorse drugs, diagnose patients or recommend therapy. [employer] drug information is an informational resource designed to assist licensed healthcare practitioners in caring for their patients and/or to serve consumers viewing this service as a supplement to, and not a substitutefor, the expertise, skill, knowledge and judgment of healthcare practitioners. The absence of a warning for a given drug or drug combination in no way should be construed to indicate that the drug ordrug combination is safe, effective or appropriate for any given patient. [facility] does not assume any responsibility for any aspect of healthcare administered with the aid of information [facility] provides. The information contained herein is not intended to cover all possible uses, directions, precautions, warnings, drug interactions, allergic reactions, or adverse effects. If you have questions about the drugs you are taking, check with your doctor, nurse or pharmacist.?Copyright [employer]. Version: 14.. Revision Date: 12/01/2021. ? Patient Name:OSITO CHAPIN I have received this information and my questions have been answered. Patient/Die Stamper Name: Patient/Die Stamper Signature: Relationship to Patient: Witness Name/Signature: Date: Electronically Signed on: 01/31/2022 10:27 ESTSigned by:CC US Heart * Event Display: Echo Report Physician Emergency department Note * JOESPH Ferrara: PERFORM Event Display: ED Note Physician Authored Date: [id number] OSITO CHAPIN :1970 Age:51 years Sex:Male Visit Date:01/29/2022 Primary Care Physician: BAIRON RIOJAS Basic Information Time Seen: JOESPH Ferrara / 01/29/2022 14:47 Chief Complaint Pt sent from for L sided pain. History Of Present Illness: Patient is a 51-year-old male presenting to the emergency department for left sided pain.?? Does have a past medical history of seizure disorder mental health as he has, currently resides in a halfway, he arrives with his caregiver who provides most of the history.?? She states for the past 2 days he has not been his normal self.?? No measured fevers.?? He has been complaining of some left-sided abdominal pain.?? No recent travel no known sick contacts.?? No nausea vomiting diarrhea or constipation.?? On arrival he was noted to be hypoxic with oxygen saturation reading 89 to 91%.?? He was placed on nasal cannula oxygen.?? He denies pain in his chest,??denies SOB but appears short of breath.?? Caregiver states he has not been acting his normal self today. Review of Systems: Constitutional:?Positive for??fevers,?No??chills,?No??sweats ENT:?No??ear pain,?No??nasal congestion,?No??sore throat Respiratory:?Positive for??shortness of breath,?No??cough Cardiovascular:?No??Chest pain,?No??palpitations,?No??syncope Gastrointestinal:?Nonausea,?No??vomiting,?No??diarrhea,??PositiveAbdomi nal pain Musculoskeletal:??No??back pain,??No??neck pain,??No??joint pain Integumentary:?No??rash Physical Exam Vitals & Measurements T:??37.1?C ??(Oral)?? HR:??87??(Peripheral)?? RR:??22?? BP:??126/84?? SpO2:??99%?? HT:??180.000??cm?? WT:??116.00??kg??(Estimated)?? O2 Flow Rate:??4?? O2 Therapy:??Nasal cannula?? GENERAL: Awake and alert. No acute distress ?? CARDIOVASCULAR: Regular rate and rhythm ?? LUNGS: Initially on arrival had increased work and??breathing however this improved??with rest & oxygen.??no respiratory distress. Chest nontender. Normal breath sounds. No wheezing or crackles ?? ABDOMEN: Abdomen soft. LLQ and LUQ tenderness to palpation. nondistended active bowel sounds. No CVA/flank tenderness ?? EXTREMITIES: ?? Nontender. normal range of motion. ?? NEUROLOGIC: Alert and oriented x4. Motor normal.?Sensation normal. ?? SKIN: Color normal. ??Warm dry intact. No Rash ?? VASCULAR: Normal pedal pulses. No peripheral edema. Medical Decision Making: Hypoxic on arrival placed on 4 L??nasal cannula oxygen with oxygen saturations improving from 96 to98%. ?? CTA of the chest shows right-sided pulmonary embolism. ??CT abdomen shows diverticulitis.?? Given oxygen demand PE??and diverticulitis recommend hospital admission. ??Patient and caregiver both agreeable. ??Dr. Hernandez, hospitalist consulted. Procedure No Qualifying Data Assessment/Plan 1.??Diverticulitis??K57.92 Start Zosyn.?IV ??hydration given. ??Tylenol given for fever. Ordered: Lovenox, 116 mg = 0.77 mL, Subcutaneous, Injection, Once, First Dose: 01/29/22 17:10:00 EST, Stop Date: 01/29/22 17:10:00 EST, Physician Stop Zosyn, 4.5 g = 1 vials, IV Piggyback, Once, Antibiotic Indication diverticulitis, Administer over: 30 minutes, First Dose: 01/29/22 18:00:00 EST, Stop Date: 01/29/22 18:00:00 EST, Physician Stop, Routine, 200 mL/hr ?? 2.??Pulmonary embolus??I26.[address] Hernandez, hospitalist who prefers Lovenox. ??Initial injection given.?? Continue oxygen therapy ?? Admit to medicine service. Ordered: Lovenox, 116 mg = 0.77 mL, Subcutaneous, Injection, Once, First Dose: 01/29/22 17:10:00 EST, Stop Date: 01/29/22 17:10:00 EST, Physician Stop Zosyn, 4.5 g = 1 vials, IV Piggyback, Once, Antibiotic Indication diverticulitis, Administer over: 30 minutes, First Dose: 01/29/22 18:00:00 EST, Stop Date: 01/29/22 18:00:00 EST, Physician Stop, Routine, 200 mL/hr ?? 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, First Dose: 01/29/22 15:06:00 EST, Routine Blood Culture, Blood, Arm R, Stat collect, ST - Stat, 01/29/22 15:06:00 EST, Once, Nurse collect, Print Label Blood Culture, Blood, Stat collect, ST - Stat, 01/29/22 15:06:00 EST, Once, Nurse collect, Print Label Cardiac Monitoring, 01/29/22 15:06:00 EST, Once, Stop date 01/29/22 15:06:00 EST CV Electrocardiogram 12 Lead, 01/29/22 17:05:00 EST, Stat, Reason: Chest Pain, Stop date and time 01/29/22 17:05:00 EST, ORD_SET_REQ_DT_RANGE, [facility] Person Id Review Orders for Potential Auths., 01/29/22 17:05:45 EST Urinalysis with Microscopic if Indicated, Urine, Stat Collect, 01/29/22 15:15:00 EST, Once, Nurse collect, Print Label Vital Signs, 01/29/22 15:06:00 EST, Once, Stop date 01/29/22 15:06:00 EST, Q15min until stable and SBP greater than 90, then Q1hour Medication Reconciliation Unchanged acetaminophen (acetaminophen 500 mg oral tablet)1 tab Oral (given by mouth) every 4 hours as neededas needed for fever. ?? atorvastatin (Lipitor 20 mg oral tablet)1 tab Oral (given by mouth) every day. ?? diphenhydrAMINE (Benadryl 25 mg oral capsule)1 Capsules Oral (given by mouth) 3 times a day as needed as needed for motion sickness. ?? divalproex sodium (divalproex sodium 500 mg oral delayed release tablet)1 tab Oral (given by mouth)3 times a day. ?? ibuprofen (ibuprofen 400 mg oral tablet)1 tab Oral (given by mouth) every 4 hours. ?? LORazepam (LORazepam 0.5 mg oral tablet)1 tab Oral (given by mouth) every 8 hours as needed as needed for anxiety. ?? magnesium hydroxide (Milk of Magnesia 8% oral suspension)30 Milliliters Oral (given by mouth) everynight at bedtime as needed as needed for constipation. ?? risperiDONE (risperiDONE 2 mg oral tablet)1 tab Oral (given by mouth) 2 times a day. ?? sertraline (sertraline 100 mg oral tablet)1 tab Oral (given by mouth) every day. ?? simethicone (simethicone 80 mg oral tablet, chewable) Problem List/Past Medical History Ongoing No qualifying data Historical No qualifying data Medication Administration Given Tylenol, 1000 mg, IV Piggyback Allergies No Known Allergies Social History Electronic Cigarette/Vaping Electronic Cigarette Use: Never. Tobacco Never tobacco user Tobacco Use:. Diagnostic Results CT Abdomen and Pelvis w/ Contrast 01/29/2022 16:[address] Angio Chest 01/29/2022 16:[address] Angio Chest ?? 01/29/22 16:21:55 EXAM DESCRIPTION: CT Angio Chest ?? 01/29/2022 ?? INDICATION: HYPOXIA ?PE ?? TECHNIQUE: All CT scans at this facility use at least one of these dose optimization techniques: Automated exposure control; mA and/or kV adjustment per patient size (includes targeted exams where dose is matched to clinical indication); or iterative reconstruction. ?? CT angiography examination of the chest with thin section axial images including sagittal and coronal MPR images performed on a separate workstation under concurrent supervision. ?? 100 cc of Isovue 370 contrast was utilized ?? COMPARISON: None ?? FINDINGS: Respiratory motion artifact significantly limits evaluation, especially of pulmonary artery branches in the mid-lower chest bilaterally. Filling defects suspicious for pulmonary emboli are identified involving segmental right middle lobe and right lower lobe pulmonary artery branches. Normal opacification of the right ventricular outflow tract and main pulmonary arteries with no significant central pulmonary embolism. No findings to suggest right ventricular strain. ?? No evidence of thoracic aortic dissection. Mild ectasia of the ascending thoracic aorta measuring 3.6 x 3.3 cm. ?? No focal consolidation or pulmonary mass with mild subsegmental atelectasis or scarring in the posterior aspect of both lower lobes. No significant emphysematous changes. No central endobronchial filling defect identified ?? No pleural effusion or pneumothorax. ?? No mediastinal, hilar or axillary adenopathy. No pericardial effusion. ?? No suspicious regional osseous lesions. ?? IMPRESSION: Respiratory motion artifact significantly limits evaluation, especially in the mid-lower chest. Filling defects in segmental right middle lobe and right lower lobe pulmonary artery branches suspicious for pulmonary emboli. ?? No focal consolidation or pulmonary mass with mild subsegmental atelectasis or scarring in the posterior aspect of both lower lobes. ? JOB #: [id number] Electronically Signed By: ?? Signed By: Rufino Jamil MD ?? 01/29/22 16:43:35 ADDENDUM: Results telephoned to ER physician at the time of interpretation. ? JOB #: [id number] Electronically Signed By: ?? Signed By: Rufino Jamil MD ?? CT Abdomen and Pelvis w/ Contrast ?? 01/29/22 16:26:45 EXAM DESCRIPTION: CT Abdomen and Pelvis w/ Contrast ?? 01/29/2022 ?? INDICATION: PAIN LLQ, LEFT SIDE WITH FEVER ?? TECHNIQUE: All CT scans at this facility use at least one of these dose optimization techniques: Automated exposure control; mA and/or kV adjustment per patient size (includes targeted exams where dose is matched to clinical indication); or iterative reconstruction. ?? Technique: Axial CT images of the abdomen/pelvis with IV contrast administration ?? 100 cc of Isovue 370 contrast was utilized ?? COMPARISON: None ?? FINDINGS: No focal hepatic lesion. Normal enhancement of the main hepatic veins and main portal vein. ?? Normal spleen size without focal mass. ?? No calcified gallstones in the gallbladder. ?? Adrenal glands and pancreas appear within normal limits. Small fluid attenuation lesion involving the mid right kidney consistent with cyst. No solid renal mass, hydronephrosis or perinephric fluid collection on either side ?? Normal caliber abdominal aorta with mild atherosclerotic calcifications. No retroperitoneal adenopathy in the abdomen or pelvis. ?? Mural thickening and mesenteric inflammatory stranding involving the mid-distal descending colon consistent with colitis or acute diverticulitis. No abnormal fluid collection to suggest abscess. No free intraperitoneal air or ascites. No bowel dilatation to suggest obstruction or ileus. Normal appendix. ?? No suspicious regional osseous lesions. ?? IMPRESSION: Colitis or acute diverticulitis involving the mid-distal descending colon. Nonobstructive bowel pattern. No free air or evidence of abscess. ? JOB #: [id number] Electronically Signed By: ?? Signed By: Rufino Jamil MD ECG Sinus rhythm rate of 85.?? Reviewed with Dr. Mills Lab Results CBC and Differential?? LATEST RESULTS?? WBC?? 01/29/22 15:19?? 9.8?? RBC?? 01/29/22 15:19?? 5.27?? Hgb?? 01/29/22 15:19?? 14.8?? Hct?? 01/29/22 15:19?? 44.9?? MCV?? 01/29/22 15:19?? 85.2?? MCH?? 01/29/22 15:19?? 28.1?? MCHC?? 01/29/22 15:19?? 33.0?? RDW-CV?? 01/29/22 15:19?? 14.1?? Platelets?? 01/29/22 15:19?? 170?? MPV?? 01/29/22 15:19?? 9.3?? Neutro Auto?? 01/29/22 15:19?? 71.5?? Lymph Auto?? 01/29/22 15:19?? 15.6 ??Low?? Hartley Auto?? 01/29/22 15:19?? 11.8 ??High?? Eos, Auto?? 01/29/22 15:19?? 0.60?? Basophil Auto?? 01/29/22 15:19?? 0.2?? Imm Gran Auto?? 01/29/22 15:19?? 0.3?? Neutro Absolute?? 01/29/22 15:19?? 7.0 ??High?? Lymph Absolute?? 01/29/22 15:19?? 1.5?? Hartley Absolute?? 01/29/22 15:19?? 1.2 ??High?? Eos Absolute?? 01/29/22 15:19?? 0.1?? Baso Absolute?? 01/29/22 15:19?? 0.0?? Imm Gran Absolute?? 01/29/22 15:19?? 0.03? Routine Chemistry?? LATEST RESULTS?? Sodium Level?? 01/29/22 15:19?? 128 ??Low?? Potassium Level?? 01/29/22 15:19?? 4.1?? Chloride Level?? 01/29/22 15:19?? 89 ??Low?? CO2?? 01/29/22 15:19?? 26?? Alk Phos?? 01/29/22 15:19?? 41?? AST?? 01/29/22 15:19?? 13 ??Low?? ALT?? 01/29/22 15:19?? 15 ??Low?? BUN?? 01/29/22 15:19?? 14?? Glucose Level?? 01/29/22 15:19?? 99?? Creatinine Level?? 01/29/22 15:19?? 0.66?? BUN/Creat Ratio?? 01/29/22 15:19?? 21.2 ??High?? eGFR AA?? 01/29/22 15:19?? 113?? eGFR Non-AA?? 01/29/22 15:19?? 113?? Calcium Level?? 01/29/22 15:19?? 9.2?? Protein Total?? 01/29/22 15:19?? 7.9?? Albumin Level?? 01/29/22 15:19?? 3.7?? Globulin?? 01/29/22 15:19?? 4.2?? A/G Ratio?? 01/29/22 15:19?? 0.9?? Bilirubin Total?? 01/29/22 15:19?? 0.5?? Anion Gap?? 01/29/22 15:19?? 13.0 ??High?? Lactic Acid Lvl?? 01/29/22 15:19?? 1.2?? Magnesium Level?? 01/29/22 15:19?? 2.0?? Osmolality?? 01/29/22 15:19?? 258 ??Low? Infectious Disease?? LATEST RESULTS?? 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 01/29/22 15:07?? Unknown?? Symptomatic as defined by CDC??? 01/29/22 15:07?? Unknown?? Hospitalized due to COVID-19??? 01/29/22 15:07?? Unknown?? In ICU??? 01/29/22 15:07?? Unknown?? Group care resident??? 01/29/22 15:07?? Unknown?? status??? 01/29/22 15:07?? Unknown?? SARS-CoV-2(Covid19)PCR([facility])?? 01/29/22 15:07?? Negative?? Flu A ([facility]OV[facility])?? 01/29/22 15:07?? Negative?? Flu B ([facility]OV[facility])?? 01/29/22 15:07?? Negative?? RSV ([facility]OV[facility])?? 01/29/22 15:07?? Negative? Electronically Signed on 01/29/22 05:23 PM JOESPH Ferrara Progress note * Lane Hernandez MD: PERFORM, MODIFY Event Display: Progress Note - Physician Authored Date: [id number] OSITO CHAPIN :1970 Age:51 years Sex:Male Visit Date:01/29/2022 Primary Care Physician: BAIRON RIOJAS Anticipated Discharge Date Tomorrow Subjective Patient has no complaints Review of Systems Constitutional: The patient says he feels fine ENT:??No ear pain, nasal congestion, sore throat Respiratory:??No shortness of breath, cough Cardiovascular: The patient says he is breathing fine Gastrointestinal: The patient states he no longer has abdominal discomfort Genitourinary:??No hematuria Musculoskeletal:??No back pain, neck pain, joint pain, muscle pain, decreased range of motion Neurologic:??Alert & oriented X 4 Objective Vitals & Measurements T:??36.5?C ??(Oral)?? TMIN:??36.5?C ??(Oral)?? TMAX:??38.4?C ??(Oral)?? HR:??88??(Peripheral)?? RR:??22?? BP:??128/79?? SpO2:??96%?? HT:??180.000??cm?? WT:??116.2??kg?? O2 Flow Rate:??4??O2 Therapy:??Nasal cannula?? Physical Exam General: Pleasant,??slow but quite kind and oriented.?? HENT:??Normocephalic, clear tympanic membranes, normal hearing, moist oral mucosa, no scleral icterus, no sinus tenderness.?? Lungs: Nonspecific rhonchi in the mid lung field otherwise air movement is quite good.?? Heart:??Normal rate, regular rhythm, no murmur, gallop or edema. Abdomen: Only mild tenderness to deep palpation of the left lower quadrant, good bowel sounds.?? Musculoskeletal:??Normal range of motion and strength, no tenderness or swelling. Skin:??Skin is warm, dry and pink, no rashes or lesions. Neurologic:??Awake, alert and oriented X4, CN I-XII intact Lab Results Last 24 Hours?? Chemistry ? Event Name?? Event Result?? Date/Time?? Sodium Level 137 mmol/L 01/30/22 06:33:00 Potassium Level 4.5 mmol/L 01/30/22 06:33:00 Chloride Level 99 mmol/L 01/30/22 06:33:00 CO2 31 mmol/L 01/30/22 06:33:00 Alk Phos 41 IntlUnit/L 01/29/22 15:19:00 AST 13 IntlUnit/L??Low 01/29/22 15:19:00 ALT 15 IntlUnit/L??Low 01/29/22 15:19:00 BUN 12 mg/dL 01/30/22 06:33:00 Glucose Level 87 mg/dL 01/30/22 06:33:00 Creatinine Level 0.54 mg/dL??Low 01/30/22 06:33:00 BUN/Creat Ratio 22.2??High 01/30/22 06:33:00 eGFR AA 120 01/30/22 06:33:00 eGFR Non-AA 120 01/30/22 06:33:00 Calcium Level 8.6 mg/dL??Low 01/30/22 06:33:00 Protein Total 7.9 g/dL 01/29/22 15:19:00 Albumin Level 3.7 g/dL 01/29/22 15:19:00 Globulin 4.2 01/29/22 15:19:00 A/G Ratio 0.9 01/29/22 15:19:00 Bilirubin Total 0.5 mg/dL 01/29/22 15:19:00 Anion Gap 7 01/30/22 06:33:00 Lactic Acid Lvl 1.2 mmol/L 01/29/22 15:19:00 Magnesium Level 2 mg/dL 01/29/22 15:19:00 Osmolality 273 mOsm/kg??Low 01/30/22 06:33:00 Troponin-I 0.01 ng/mL 01/29/22 15:19:00 ? Hematology ? Event Name?? Event Result?? Date/Time?? WBC 6 K/mcL 01/30/22 06:33:00 RBC 4.88 Million/mcL 01/30/22 06:33:00 Hgb 13.7 g/dL 01/30/22 06:33:00 Hct 41.7 % 01/30/22 06:33:00 MCV 85.5 fL 01/30/22 06:33:00 MCH 28.1 pg 01/30/22 06:33:00 MCHC 32.9 g/dL 01/30/22 06:33:00 RDW-CV 14.2 % 01/30/22 06:33:00 Platelets 154 K/mcL 01/30/22 06:33:00 MPV 9.7 fL 01/30/22 06:33:00 Neutro Auto 65.5 % 01/30/22 06:33:00 Lymph Auto 20.9 % 01/30/22 06:33:00 Hartley Auto 11 %??High 01/30/22 06:33:00 Eos, Auto 1.8 % 01/30/22 06:33:00 Basophil Auto 0.5 % 01/30/22 06:33:00 Imm Gran Auto 0.3 % 01/30/22 06:33:00 Neutro Absolute 3.9 K/mcL 01/30/22 06:33:00 Lymph Absolute 1.2 K/mcL 01/30/22 06:33:00 Hartley Absolute 0.7 K/mcL??High 01/30/22 06:33:00 Eos Absolute 0.1 K/mcL 01/30/22 06:33:00 Baso Absolute 0 K/mcL 01/30/22 06:33:00 Imm Gran Absolute 0.02 01/30/22 06:33:00 ? Urinalysis ? Event Name?? Event Result?? Date/Time?? UA Color YELLOW. 01/30/22 03:24:00 UA Appear CLEAR. 01/30/22 03:24:00 UA Glucose NEGATIVE 01/30/22 03:24:00 UA Bili NEGATIVE 01/30/22 03:24:00 UA Ketones NEGATIVE 01/30/22 03:24:00 UA Spec Grav 1.01 01/30/22 03:24:00 UA Blood NEGATIVE 01/30/22 03:24:00 UA pH 5.5 01/30/22 03:24:00 UA Protein NEGATIVE 01/30/22 03:24:00 UA Urobilinogen 0.2 01/30/22 03:24:00 UA Nitrite NEGATIVE 01/30/22 03:24:00 UA Leuk Est NEGATIVE 01/30/22 03:24:00 ? All Other Results ? Event Name?? Event Result?? Date/Time?? 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 Unknown 01/29/22 15:07:00 Symptomatic as defined by CDC? Unknown 01/29/22 15:07:00 Hospitalized due to COVID-19? Unknown 01/29/22 15:07:00 In ICU? Unknown 01/29/22 15:07:00 Group care resident? Unknown 01/29/22 15:07:00 status? Unknown 01/29/22 15:07:00 SARS-CoV-2(Covid19)PCR([facility]) Neg-GeneXPert 01/29/22 15:07:00 Flu A ([facility]OV[facility]) Neg-GeneXPert 01/29/22 15:07:00 Flu B ([facility]OV[facility]) Neg-GeneXPert 01/29/22 15:07:00 RSV ([facility]OV[facility]) Neg-GeneXPert 01/29/22 15:07:00 ?:? Assessment/Plan 1.??Diverticulitis??K57.92 Zosyn, stool studies, allow for diet. ??Pain is diminishing. 2.??Pulmonary embolus??I26.99 Lovenox, hypercoagulable work-up,??change to Eliquis 3.??Seizures??R56.9 Continue current regimen, seizure precautions. 4.??Depression??F32.A Continue current regimen. 5.??Conjunctivitis of both eyes??H10.9 Continue ofloxacin ?? Time spent on patient care today is 40 minutes. Orders: LR 1000 mL, Total Volume (mL): 1,000, 1,000 mL, Soln-IV, IV, 60 mL/hr, Order Duration: 30 days, Start Date: 01/29/22 19:44:00 EST, Stop Date: 02/28/22 19:44:00 EST, 116 kg, Populate Charting Weight From Order, 2.41, m2 lactobacillus acidophilus oral capsule, 1 cap, Oral, Cap, BID for 30 days, First Dose: 01/30/22 9:00:00 EST, Stop Date: 03/01/22 8:59:00 EST, Physician Stop, Routine GI Panel (BioFire), Stool, Routine Collect, 01/30/22, Once, Nurse collect, Print Label, Order for future visit Electronically Signed on 01/30/22 08:[address] MD Electronically Signed on 01/30/22 08:[address] Hernandez MD Discharge summary * Lane Hernandez MD: PERFORM, MODIFY Event Display: Discharge Summary Authored Date: [id number] DARIOSITO :1970 Age:51 years Sex:Male Visit Date:01/29/2022 Primary Care Physician: BAIRON RIOJAS Admission Information Diverticulitis, PE Hospital Course This is a pleasant??51-year-old male??who lives in a group facility. ??He has a past medical history that includes developmental delay, seizures, hyperlipidemia [1] ?? He lives in an assisted facility. ??He has??caregivers [id number]. ?? Caregivers have noticed the patient not quite be himself the day before??admission.?? They went to a local??urgent care center where the??wait was too long??and they came down to our area. ?? In our urgent care center the patient was noted to have left lower quadrant pain??and to be hypoxic.??He was sent to the emergency room for evaluation. ?? In the emergency room CT of the abdomen pelvis was positive for diverticulitis. CT angio of the chest was positive for PE. ?? The patient was admitted on both Lovenox and Zosyn. ?? Echocardiogram was not particularly revealing for signs of significant right heart failure. To that point we have been able to wean the patient??off oxygen. We have transitioned to Eliquis. ?? As there??is no obvious causation,??patient did have COVID in long COVID??still being studied, I did send out a thrombotic work-up.?? Some of them will be skewed as the patient is already on Eliquis. ?? He will go home on Eliquis,??Augmentin, PCP follow-up. Physical Exam Vitals & Measurements T:??37.1?C ??(Oral)?? TMIN:??36.5?C ??(Oral)?? TMAX:??37.3?C ??(Oral)?? HR:??70??(Peripheral)?? BP:??120/79?? SpO2:??94%?? WT:??116.2??kg?? Pain Score:??0?? O2 Flow Rate:??2?? O2 Therapy:??Nasal cannula?? Medications Inpatient acetaminophen, 650 mg= 2 tab, Oral, every 4 hr, PRN divalproex sodium, 1000 mg= 4 tab, Oral, BID divalproex sodium 250 mg oral tablet, extended release, 250 mg= 1 tab, Oral, BID Eliquis, 10 mg= 2 tab, Oral, BID lactobacillus acidophilus oral capsule, 1 cap, Oral, BID Lipitor, 20 mg= 1 tab, Oral, Daily LORazepam, 0.5 mg= 1 tab, Oral, every 8 hr, PRN LR 1,000 mL, 1000 mL, IV Milk of Magnesia 8% oral suspension, 30 mL, Oral, every night at bedtime, PRN Normal Saline Flush, 10 mL, IV Flush, As Directed, PRN ofloxacin 0.3% ophthalmic solution, 2 drops, Eye-Both, QID risperiDONE, 2 mg= 2 tab, Oral, BID sertraline, 100 mg= 2 tab, Oral, Daily Zosyn Home acetaminophen 500 mg oral tablet, 1-2 tabs, Oral, every 6 hr, PRN Benadryl 25 mg oral capsule, 1- 2 caps, Oral, every 6 hr, PRN divalproex sodium 250 mg oral tablet, extended release, 250 mg= 1 tab, Oral, BID divalproex sodium 500 mg oral delayed release tablet, 1000 mg= 2 tab, Oral, BID ibuprofen 400 mg oral tablet, 400 mg= 1 tab, Oral, every 4 hr, PRN Lipitor 20 mg oral tablet, 20 mg= 1 tab, Oral, every evening LORazepam 0.5 mg oral tablet, 0.5 mg= 1 tab, Oral, every 8 hr, PRN Milk of Magnesia 8% oral suspension, 2.4 g= 30 mL, Oral, every night at bedtime, PRN risperiDONE 2 mg oral tablet, 2 mg= 1 tab, Oral, BID sertraline 100 mg oral tablet, 200 mg= 2 tab, Oral, every morning simethicone 80 mg oral tablet, chewable Social History Alcohol Never Electronic Cigarette/Vaping Electronic Cigarette Use: Never. Home/Environment Lives with [facility] at [facility], which is a retirement facility in [place], [place]. Living situation: Other. Tobacco Never tobacco user Tobacco Use:. Discharge Plan 1.??Diverticulitis??K57.92 Convert Zosyn to Augmentin. 2.??Pulmonary embolus??I26.99 Lovenox converted to Eliquis. ??10 mg p.o. twice daily for an additional 6 more days and 5 mg p.o. twice daily??until time determined by PCP and thrombotic risk work-up. 3.??Seizures??R56.9 Maintain current regimen. 4.??Depression??F32.A Maintain current regimen. 5.??Conjunctivitis of both eyes??H10.9 Oxfloxacin??eyedrops. Orders: Eliquis, 10 mg = 2 tab, Oral, Tab, BID for 7 days, First Dose: 01/30/22 21:00:00 EST, Stop Date: 02/06/22 20:59:00 EST, Physician Stop, Routine divalproex sodium, 1,000 mg = 4 tab, Oral, Tab-DR, BID, First Dose: 01/30/22 21:00:00 EST, Routine divalproex sodium 250 mg oral tablet, extended release, 250 mg = 1 tab, Oral, Tab-ER, BID, First Dose: 01/30/22 21:00:00 EST, Routine LR 1,000 mL, Total Volume (mL): 1,000, 1,000 mL, Soln-IV, IV, 60 mL/hr, Order Duration: 30 days, Start Date: 01/29/22 19:44:00 EST, Stop Date: 02/28/22 19:44:00 EST, 116 kg, Populate Charting Weight From Order, 2.41, m2 lactobacillus acidophilus oral capsule, 1 cap, Oral, Cap, BID for 30 days, First Dose: 01/30/22 9:00:00 EST, Stop Date: 03/01/22 8:59:00 EST, Physician Stop, Routine GI Panel (BioFire), Stool, Routine Collect, 01/30/22, Once, Nurse collect, Print Label, Order for future visit Thrombotic Risk Assessment LC, Blood, Routine, 01/30/22 15:18:00 EST, Once, Lab Collect All Diagnoses This Visit Diverticulitis Pulmonary embolus Seizures Depression Conjunctivitis of both eyes Patient Discharge Condition Stable Discharge Disposition Home with Augmentin and probiotic, eyedrops, Eliquis, PCP follow-up, hypercoagulable work-up pending. ?? Time spent in patient care today is 40 minutes. Medication Reconciliation Changed acetaminophen (acetaminophen 500 mg oral tablet)1-2 tabs Oral (given by mouth) every 6 hours as needed as needed for pain. ?? atorvastatin (Lipitor 20 mg oral tablet)1 tab Oral (given by mouth) every evening. ?? diphenhydrAMINE (Benadryl 25 mg oral capsule)1- 2 caps Oral (given by mouth) every 6 hours as needed as needed for itching. ?? divalproex sodium (divalproex sodium 250 mg oral tablet, extended release)1 tab Oral (given by mouth) 2 times a day. also takes DR 1000 mg twice daily. ?? divalproex sodium (divalproex sodium 500 mg oral delayed release tablet)2 tab Oral (given by mouth)2 times a day. also takes ER 250mg twice daily. ?? ibuprofen (ibuprofen 400 mg oral tablet)1 tab Oral (given by mouth) every 4 hours as needed as needed for pain. ?? sertraline (sertraline 100 mg oral tablet)2 tab Oral (given by mouth) every morning. ?? Unchanged LORazepam (LORazepam 0.5 mg oral tablet)1 tab Oral (given by mouth) every 8 hours as needed as needed for anxiety. ?? magnesium hydroxide (Milk of Magnesia 8% oral suspension)30 Milliliters Oral (given by mouth) everynight at bedtime as needed as needed for constipation. ?? risperiDONE (risperiDONE 2 mg oral tablet)1 tab Oral (given by mouth) 2 times a day. ?? simethicone (simethicone 80 mg oral tablet, chewable) [1]??H & P; Gege Mata, REFERENCE SERVICES HEAD 01/29/2022 21:40 EST Electronically Signed on 01/31/22 10:[address] Hernandez MD CTA Chest vessels W contrast IV * Rufino Jamil MD: VERIFY, VERIFY Event Display: Report EXAM DESCRIPTION: CT Angio Chest 01/29/2022 INDICATION: HYPOXIA ?PE TECHNIQUE: All CT scans at this facility use at least one of these dose optimization techniques: Automated exposure control; mA and/or kV adjustment per patient size (includes targeted exams where dose is matched to clinical indication); or iterative reconstruction. CT angiography examination of the chest with thin section axial images including sagittal and coronal MPR images performed on a separate workstation under concurrent supervision. 100 cc of Isovue 370 contrast was utilized COMPARISON: None FINDINGS: Respiratory motion artifact significantly limits evaluation, especially of pulmonary artery branches in the mid-lower chest bilaterally. Filling defects suspicious for pulmonary emboli are identified involving segmental right middle lobe and right lower lobe pulmonary artery branches. Normal opacification of the right ventricular outflow tract and main pulmonary arteries with no significant central pulmonary embolism. No findings to suggest right ventricular strain. No evidence of thoracic aortic dissection. Mild ectasia of the ascending thoracic aorta measuring 3.6 x 3.3 cm. No focal consolidation or pulmonary mass with mild subsegmental atelectasis or scarring in the posterior aspect of both lower lobes. No significant emphysematous changes. No central endobronchial filling defect identified No pleural effusion or pneumothorax. No mediastinal, hilar or axillary adenopathy. No pericardial effusion. No suspicious regional osseous lesions. IMPRESSION: Respiratory motion artifact significantly limits evaluation, especially in the mid-lower chest. Filling defects in segmental right middle lobe and right lower lobe pulmonary artery branches suspicious for pulmonary emboli. No focal consolidation or pulmonary mass with mild subsegmental atelectasis or scarring in the posterior aspect of both lower lobes. JOB #: [id number] Final Signed by: Rufino Jamil MD Signed (Electronic Signature): 01/29/2022 4:21 pm Note * Rufino Jamil MD: VERIFY, MODIFY Event Display: Addendum ADDENDUM: Results telephoned to ER physician at the time of interpretation. JOB #: [id number] Final Signed by: Rufino Jamil MD Signed (Electronic Signature): 01/29/2022 4:[address] Abdomen and Pelvis W contrast IV * Rufino Jamil MD: VERIFY, VERIFY Event Display: Report EXAM DESCRIPTION: CT Abdomen and Pelvis w/ Contrast 01/29/2022 INDICATION: PAIN LLQ, LEFT SIDE WITH FEVER TECHNIQUE: All CT scans at this facility use at least one of these dose optimization techniques: Automated exposure control; mA and/or kV adjustment per patient size (includes targeted exams where dose is matched to clinical indication); or iterative reconstruction. Technique: Axial CT images of the abdomen/pelvis with IV contrast administration 100 cc of Isovue 370 contrast was utilized COMPARISON: None FINDINGS: No focal hepatic lesion. Normal enhancement of the main hepatic veins and main portal vein. Normal spleen size without focal mass. No calcified gallstones in the gallbladder. Adrenal glands and pancreas appear within normal limits. Small fluid attenuation lesion involving the mid right kidney consistent with cyst. No solid renal mass, hydronephrosis or perinephric fluid collection on either side Normal caliber abdominal aorta with mild atherosclerotic calcifications. No retroperitoneal adenopathy in the abdomen or pelvis. Mural thickening and mesenteric inflammatory stranding involving the mid-distal descending colon consistent with colitis or acute diverticulitis. No abnormal fluid collection to suggest abscess. No free intraperitoneal air or ascites. No bowel dilatation to suggest obstruction or ileus. Normal appendix. No suspicious regional osseous lesions. IMPRESSION: Colitis or acute diverticulitis involving the mid-distal descending colon. Nonobstructive bowel pattern. No free air or evidence of abscess. JOB #: [id number] Final Signed by: Rufino Jamil MD Signed (Electronic Signature): 01/29/2022 4:26 pm Patient Care team information Personnel Name: SHINE BAIRON Linder Address: Address: [address] [place] [id number]
--- OUTSIDE RECORDS SUMMARY | 2023-03-19 14:53 | XMS_ITS | Continuity of Care Document ---
Author Name Unknown Organization [facility] Address [address] [place] [address] Care Team Providers Care Certified Energy Manager Name Role Phone BAIRON RIOJAS Primary Care Physician Encounter [facility] FIN NBR [id number] Date(s): 01/29/22 - 01/29/22 [facility] [address] [place] [address]- [place] Encounter Diagnosis Lower abdominal pain(Discharge Diagnosis) - 01/29/22 Discharge Disposition: Home or Self Care Attending Physician: Sherrell Mcdonough PA-C Allergies, Adverse Reactions, Alerts No Known Allergies Assessment and Plan Future Scheduled Tests Laboratory* CBC w/ Diff 01/29/22 * Comprehensive Metabolic Panel 01/29/22 * Lipase Level 01/29/22 * GI Panel (BioFire) 01/30/22 * Lactic Acid 01/29/22 * Urinalysis Dipstick Only 01/29/22 Functional Status 01/29/22 Other exposure to Infectious Disease Non e Medications acetaminophen 500 mg oral tablet 500 mg = 1 tab, Oral, every 4 hr, PRN as needed for fever, # 24 tab, 0 Refill(s) Start Date: 01/29/22 Status: Ordered Benadryl 25 mg oral capsule 25 mg = 1 cap, Oral, TID, PRN as needed for motion sickness, # 30 cap, 0 Refill(s) Start Date: 01/29/22 Status: Ordered divalproex sodium 500 mg oral delayed release tablet 500 mg = 1 tab, Oral, TID, # 270 tab, 0 Refill(s) Start Date: 01/29/22 Status: Ordered ibuprofen 400 mg oral tablet 400 mg = 1 tab, Oral, every 4 hr, # 60 tab, 0 Refill(s) Start Date: 01/29/22 Status: Ordered Lipitor 20 mg oral tablet 20 mg = 1 tab, Oral, Daily, # 30 tab, 0 Refill(s) Start Date: 01/29/22 Status: Ordered LORazepam 0.5 mg oral tablet 0.5 mg = 1 tab, Oral, every 8 hr, PRN as needed for anxiety, 0 Refill(s) Start Date: 01/29/22 Status: Ordered Milk of Magnesia 8% oral suspension 2.4 g 30 mL, Oral, every day at bedtime, PRN as needed for constipation, # 300 mL, 0 Refill(s) Start Date: 01/29/22 Status: Ordered risperiDONE 2 mg oral tablet 2 mg = 1 tab, Oral, BID, # 60 tab, 0 Refill(s) Start Date: 01/29/22 Status: Ordered sertraline 100 mg oral tablet 100 mg = 1 tab, Oral, Daily, # 30 tab, 0 Refill(s) Start Date: 01/29/22 Status: Ordered simethicone 80 mg oral tablet, chewable 0 Refill(s) Start Date: 01/29/22 Status: Ordered Problem List Condition Confirmation Course Effective Dates Status Health St atus Informant Depression Confirmed Active Seizures Confirmed Active Vital Signs Most recent to oldest [Reference Range]: 1 Temperature Tympanic [36.6-37.9 Deg C] 3 7.7 Deg C (01/29/22 12:35 PM) Peripheral Pulse Rate [60-100 bpm] 95 bp m (01/29/22 12:35 PM) Blood Pressure [90-140/60-90 mmHg] 131/8 0mmHg (01/29/22 12:35 PM) Weight 116 kg (01/29/22 12:35 PM) Weight Measured (lbs) 255.736 lb (01/29/22 12:35 PM) Height 180 cm (01/29/22 12:35 PM) Height/Length Measured (inches) 70.87 in ch (01/29/22 12:35 PM) BSA Measured 2.41 m2 (01/29/22 12:35 PM) Body Mass Index 35.8 kg/m2 (01/29/22 12:35 PM) Social History Social History Type Response Tobacco Never tobacco user T obacco Use:. Sex Physician Outpatient Note * Sherrell Mcdonough PA-C: PERFORM Event Display: Office Clinic Note Physician Authored Date: [id number] OSITO CHAPIN :1970 Age:51 years Sex:Male Visit Date:01/29/2022 Primary Care Physician: BAIRON RIOJAS Chief Complaint Patient c/o upset stomach. ??pain in lower left abd, constant and worse when laying down. History of Present Illness Patient is a 51-year-old male with traumatic brain injury??living in a [facility]??independently??who presents to the urgent care office today with??facility medical sales representative??for 2-week history of intermittent left lower abdominal pain, persistent within the last 24 hours, which she describes??as a constant??ache.?? Unsure of last bowel movement. ??But he has not had any??blood in the stool??or diarrhea. ??Perhaps he has had decreased appetite.?No nausea or vomiting, fever or chills.?No unintentional weight loss, night sweats. ??He has not tried anything [id number] for symptoms.?? No history of any abdominal surgeries. Physical Exam Vitals & Measurements T:??37.7?C ??(Tympanic)?? HR:??95??(Peripheral)?? BP:??131/80?? SpO2:??95%?? HT:??180??cm?? WT:??116??kg?? BMI:??35.8?? BSA:??2.41?? He is well-appearing and in no acute distress, accompanied by facility caregiver. Skin is warm pink and dry. ??No rash on the torso. Normal active bowel sounds. Minimal tenderness of the??left upper and left lower quadrant??without rigidity, guarding or rebound. Medical Decision Making: Lower abdominal pain, intermittent??14 days: This is a??51-year-old male??who is somewhat of a??poor historian??experiencing??2 weeks of??intermittent??left lower abdominal pain??without any systemicsymptoms, such as fever, vomiting??or diarrhea.?? Differential includes??constipation, IBS, diverticulitis,??colitis, appendicitis,??pyelonephritis. ??After speaking with cyber incident analyst,??it was decided that patient should be evaluated in the emergency department??for definitive evaluation. Assessment/Plan 1.??Lower abdominal pain??R10.30 Ordered: CBC w/ Diff, Blood, Routine, 01/29/22, Once, Lab Collect, Lower abdominal pain, Order for future visit Comprehensive Metabolic Panel, Blood, Routine, 01/29/22, Once, Lab Collect, Lower abdominal pain, Order for future visit Lactic Acid, Blood, Routine, 01/29/22, Once, Lab Collect, Lower abdominal pain, Order for future visit Lipase Level, Blood, Routine, 01/29/22, Once, Lab Collect, Lower abdominal pain, Order for future visit Urinalysis Dipstick Only, Urine, Routine Collect, 01/29/22, Once, Nurse collect, Print Label, Lowerabdominal pain, Order for future visit ?? Future Orders CBC w/ Diff, Blood, Routine, 01/29/22, Once, Lab Collect, Lower abdominal pain, Order for future visit Comprehensive Metabolic Panel, Blood, Routine, 01/29/22, Once, Lab Collect, Lower abdominal pain, Order for future visit Lactic Acid, Blood, Routine, 01/29/22, Once, Lab Collect, Lower abdominal pain, Order for future visit Lipase Level, Blood, Routine, 01/29/22, Once, Lab Collect, Lower abdominal pain, Order for future visit Urinalysis Dipstick Only, Urine, Routine Collect, 01/29/22, Once, Nurse collect, Print Label, Lowerabdominal pain, Order for future visit Problem List/Past Medical History Ongoing No qualifying data Historical No qualifying data Medications acetaminophen 500 mg oral tablet, 500 mg= 1 tab, Oral, every 4 hr, PRN Benadryl 25 mg oral capsule, 25 mg= 1 cap, Oral, TID, PRN divalproex sodium 500 mg oral delayed release tablet, 500 mg= 1 tab, Oral, TID ibuprofen 400 mg oral tablet, 400 mg= 1 tab, Oral, every 4 hr Lipitor 20 mg oral tablet, 20 mg= 1 tab, Oral, Daily LORazepam 0.5 mg oral tablet, 0.5 mg= 1 tab, Oral, every 8 hr, PRN Milk of Magnesia 8% oral suspension, 2.4 g= 30 mL, Oral, every night at bedtime, PRN risperiDONE 2 mg oral tablet, 2 mg= 1 tab, Oral, BID sertraline 100 mg oral tablet, 100 mg= 1 tab, Oral, Daily simethicone 80 mg oral tablet, chewable Allergies No Known Allergies Social History Electronic Cigarette/Vaping Electronic Cigarette Use: Never. Tobacco Never tobacco user Tobacco Use:. Electronically Signed on 01/29/22 02:39 PM Sherrell Mcdonough PA-C Patient Care team information Personnel Name: BAIRON RIOJAS Address: Address: [address] [place] [id number] [place]
--- OUTSIDE RECORDS SUMMARY | 2023-03-19 14:53 | XMS_ITS | Continuity of Care Document ---
Author Name Unknown Organization [facility] Address [address] [place] [id number] Care Team Providers Care Program Strategist Name Role Phone BAIRON RIOJAS Primary Care Physician [phone] Encounter LTTL_WA FIN NBR [id number] Date(s): 02/12/22 - 02/12/[address] [id number] Encounter Diagnosis GERD (gastroesophageal reflux disease)(Discharge Diagnosis) - 02/12/22 Discharge Disposition: Home f/u Internal Provider Attending Physician: Meir Holland MD Admitting Physician: Meir Holland MD Allergies, Adverse Reactions, Alerts No Known Allergies Assessment and Plan Future Scheduled Tests Laboratory* Lipase Level 01/29/22 Functional Status 02/12/22 Other exposure to Infectious Disease Non e Medications !-Augmentin 875 mg-125 mg oral tablet 1 tab, Oral, every 12 hr, # 14 tab, 0 Refill(s), called to pharmacy (Rx) Start Date: 01/31/22 Stop Date: 02/07/22 Status: Ordered !-Zofran ODT 4 mg oral tablet, disintegrating 4 mg = 1 tab, Oral, every 8 hr, PRN as needed for nausea/vomiting, # 12 tab, 0 Refill(s), Pharmacy:[facility], 180.34, cm, 02/12/22 12:14:00 EST, Height/Length Dosing, 116.12, kg, 02/12/22 12:14:00 EST, Weight Dosing Start Date: 02/12/22 Status: Ordered acetaminophen 500 mg oral tablet [...] 0 Refill(s) Start Date: 01/31/22 Status: Ordered famotidine 20 mg oral tablet 20 mg = 1 tab, Oral, Daily, # 14 tab, 0 Refill(s), Pharmacy: [facility], 180.34, cm, 02/12/22 12:14:00 EST, Height/Length Dosing, 116.12, kg, 02/12/22 12:14:00 EST, Weight Dosing Start Date: 02/12/22 Status: Ordered ibuprofen 400 mg oral tablet [...] Confirmed Active Results Laboratory List Name Date CBC w/ Diff 02/12/22 Comprehensive Metabolic Panel 02/12/22 Lipase Level 02/12/22 Magnesium Level 02/12/22 Automated Diff 02/12/22 Most recent to oldest [Reference Range]: 1 WBC [4.8-10.8 K/mcL] 6.1 K/mcL (02/12/22 12:24 PM) RBC [4.20-6.10 Million/mcL] 5.65 Million /mcL (02/12/22 12:24 PM) Neutro Auto [42.2-75.2 %] 71.2 % (02/12/22 12:24 PM) Lymph Auto [20.5-51.1 %] 19.0 % *LOW* (02/12/22 12:24 PM) Kaufman Auto [1.7-9.3 %] 6.7 % (02/12/22 12:24 PM) Basophil Auto [0.0-0.8 %] 1.0 % *HI* (02/12/22 12:24 PM) BUN [8-26 mg/dL] 18 mg/dL (02/12/22 12:24 PM) Glucose Level [74-106 mg/dL] 102 mg/dL (02/12/22 12:24 PM) Potassium Level [3.5-5.1 mmol/L] 4.3 mmo l/L (02/12/22 12:24 PM) Baso Absolute [0.0-0.2 K/mcL] 0.1 K/mcL (02/12/22 12:24 PM) MCV [80.0-99.0 fL] 84.8 fL (02/12/22 12:24 PM) AST [15-41 IntlUnit/L] 22 IntlUnit/L (02/12/22 12:24 PM) ALT [17-63 IntlUnit/L] 19 IntlUnit/L (02/12/22 12:24 PM) MCHC [32.0-36.0 g/dL] 32.8 g/dL (02/12/22 12:24 PM) Osmolality [275-295 mOsm/kg] 272 mOsm/kg *LOW* (02/12/22 12:24 PM) Sodium Level [134-143 mmol/L] 135 mmol/L (02/12/22 12:24 PM) Lymph Absolute [1.2-3.4 K/mcL] 1.2 K/mcL (02/12/22 12:24 PM) Hct [37.0-52.0 %] 47.9 % (02/12/22 12:24 PM) Lipase Level [18-51 unit/L] 34 unit/L (02/12/22 12:24 PM) Calcium Level [8.9-10.3 mg/dL] 9.5 mg/dL (02/12/22 12:24 PM) Kaufman Absolute [0.1-0.6 K/mcL] 0.4 K/mcL (02/12/22 12:24 PM) Albumin Level [3.5-5.0 g/dL] 4.3 g/dL (02/12/22 12:24 PM) Protein Total [6.5-8.1 g/dL] 8.1 g/dL (02/12/22 12:24 PM) MCH [27.0-31.0 pg] 27.8 pg (02/12/22 12:24 PM) Magnesium Level [1.8-2.5 mg/dL] 2.0 mg/d L (02/12/22 12:24 PM) Neutro Absolute [1.4-6.5 K/mcL] 4.3 K/mc L (02/12/22 12:24 PM) Bilirubin Total [0.2-1.2 mg/dL] 0.5 mg/d L (02/12/22 12:24 PM) Hgb [12.0-18.0 g/dL] 15.7 g/dL (02/12/22 12:24 PM) Alk Phos [38-130 IntlUnit/L] 43 IntlUnit /L (02/12/22 12:24 PM) MPV [7.4-10.4 fL] 9.3 fL (02/12/22 12:24 PM) Platelets [130-400 K/mcL] 277 K/mcL (02/12/22 12:24 PM) CO2 [22-32 mmol/L] 27 mmol/L (02/12/22 12:24 PM) Eos Absolute [0.0-0.2 K/mcL] 0.0 K/mcL (02/12/22 12:24 PM) eGFR Non-AA 121 *NA* (02/12/22 12:24 PM) eGFR AA 121 *NA* (02/12/22 12:24 PM) Chloride Level [98-111 mmol/L] 97 mmol/L *LOW* (02/12/22 12:24 PM) RDW-CV [11.5-14.5 %] 14.1 % (02/12/22 12:24 PM) A/G Ratio 1.1 *NA* (02/12/22 12:24 PM) BUN/Creat Ratio [8.0-20.0] 34.6 *HI* (02/12/22 12:24 PM) Globulin 3.8 *NA* (02/12/22 12:24 PM) Imm Gran Absolute 0.08 *NA* (02/12/22 12:24 PM) Imm Gran Auto [0.0-0.5 %] 1.3 % *HI* (02/12/22 12:24 PM) Creatinine Level [0.61-1.24 mg/dL] 0.52 mg/dL *LOW* (02/12/22 12:24 PM) Anion Gap [3.0-12.0] 11.0 (02/12/22 12:24 PM) Eos, Auto [0.00-3.00 %] 0.80 % (02/12/22 12:24 PM) Vital Signs Most recent to oldest [Reference Range]: 1 Temperature Tympanic [36.6-37.9 Deg C] 3 7 Deg C (02/12/22 11:53 AM) Peripheral Pulse Rate [60-100 bpm] 90 bp m (02/12/22 11:53 AM) Respiratory Rate [12-24 br/min] 18 br/mi n (02/12/22 11:53 AM) Blood Pressure [90-140/60-90 mmHg] 142/9 3mmHg *HI* (02/12/22 11:53 AM) Weight Dosing 116.12 kg (02/12/22 12:14 PM) Weight Estimated 116.12 kg (02/12/22 11:53 AM) Height/Length Dosing 180.340 cm (02/12/22 12:14 PM) Height/Length Estimated 180.340 cm (02/12/22 11:53 AM) Social History Social History Type Response Tobacco Never tobacco user T obacco Use:. Sex Hospital Discharge Instructions Patient Education 02/12/2022 12:56:53 Gastroesophageal Reflux Disease, Adult, Lhtz-pr-Korg Gastroesophageal Reflux Disease, Adult Gastroesophageal reflux (BEHZAD) happens when acid from the stomach flows up into the tube that connects the mouth and the stomach (esophagus). Normally, food travels down the esophagus and stays in thestomach to be digested. With BEHZAD, food and stomach acid sometimes move back up into the esophagus. You may have a disease called gastroesophageal reflux disease (GERD) if the reflux: ??? Happens often. ??? Causes frequent or very bad symptoms. ??? Causes problems such as damage to the esophagus. When this happens, the esophagus becomes sore and swollen. Over time, GERD can make small holes (ulcers) in the lining of the esophagus. What are the causes? This condition is caused by a problem with the muscle between the esophagus and the stomach. When this muscle is weak or not normal, it does not close properly to keep food and acid from coming back up from the stomach. The muscle can be weak because of: ??? Tobacco use. ??? . ??? Having a certain type of hernia (hiatal hernia). ??? Alcohol use. ??? Certain foods and drinks, such as coffee, chocolate, onions, and peppermint. What increases the risk? Being overweight. ??? Having a disease that affects your connective tissue. ??? Taking NSAIDs, such a ibuprofen. What are the signs or symptoms? Heartburn. ??? Difficult or painful swallowing. ??? The feeling of having a lump in the throat. ??? A bitter taste in the mouth. ??? Bad breath. ??? Having a lot of saliva. ??? Having an upset or bloated stomach. ??? Burping. ??? Chest pain. Different conditions can cause chest pain. Make sure you see your doctor if you have chest pain. ??? Shortness of breath or wheezing. ??? A long-term cough or a cough at night. ??? Wearing away of the surface of teeth (tooth enamel). ??? Weight loss. How is this treated? Making changes to your diet. ??? Taking medicine. ??? Having surgery. Treatment will depend on how bad your symptoms are. Follow these instructions at home: Eating and drinking ??? Follow a diet as told by your doctor. You may need to avoid foods and drinks such as: ??? Coffee and tea, with or without caffeine. ??? Drinks that contain alcohol. ??? Energy drinks and sports drinks. ??? Bubbly (carbonated) drinks or sodas. ??? Chocolate and cocoa. ??? Peppermint and mint flavorings. ??? Garlic and onions. ??? Horseradish. ??? Spicy and acidic foods. These include peppers, chili powder, layton powder, vinegar, hot sauces,and BBQ sauce. ??? Grady fruit juices and citrus fruits, such as oranges, winter, and limes. ??? Tomato-based foods. These include red sauce, chili, salsa, and pizza with red sauce. ??? Fried and fatty foods. These include donuts, honduran fries, potato chips, and high-fat dressings. ??? High-fat meats. These include hot dogs, rib eye steak, sausage, ham, and shrestha. ??? High-fat dairy items, such as whole milk, butter, and cream cheese. ??? Eat small meals often. Avoid eating large meals. ??? Avoid drinking large amounts of liquid with your meals. ??? Avoid eating meals during the 2???3 hours before bedtime. ??? Avoid lying down right after you eat. ??? Do not exercise right after you eat. Lifestyle ??? Do not smoke or use any products that contain nicotine or tobacco. If you need help quitting, ask your doctor. ??? Try to lower your stress. If you need help doing this, ask your doctor. ??? If you are overweight, lose an amount of weight that is healthy for you. Ask your doctor about a safe weight loss goal. General instructions ??? Pay attention to any changes in your symptoms. ??? Take soex-aoq-ocozken and prescription medicines only as told by your doctor. ??? Do not take aspirin, ibuprofen, or other NSAIDs unless your doctor says it is okay. ??? Wear loose clothes. Do not wear anything tight around your waist. ??? Raise (elevate) the head of your bed about 6 inches (15 cm). You may need to use a wedge to do this. ??? Avoid bending over if this makes your symptoms worse. ??? Keep all follow-up visits. Contact a doctor if: ??? You have new symptoms. ??? You lose weight and you do not know why. ??? You have trouble swallowing or it hurts to swallow. ??? You have wheezing or a cough that keeps happening. ??? You have a hoarse voice. ??? Your symptoms do not get better with treatment. Get help right away if: ??? You have sudden pain in your arms, neck, jaw, teeth, or back. ??? You suddenly feel sweaty, dizzy, or light-headed. ??? You have chest pain or shortness of breath. ??? You vomit and the vomit is green, yellow, or black, or it looks like blood or coffee grounds. ??? You faint. ??? Your poop (stool) is red, bloody, or black. ??? You cannot swallow, drink, or eat. These symptoms may represent a serious problem that is an emergency. Do not wait to see if the symptoms will go away. Get medical help right away. Call your local emergency services (911 in the [place] Do not drive yourself to the hospital. Summary ??? If a person has gastroesophageal reflux disease (GERD), food and stomach acid move back up intothe esophagus and cause symptoms or problems such as damage to the esophagus. ??? Treatment will depend on how bad your symptoms are. ??? Follow a diet as told by your doctor. ??? Take all medicines only as told by your doctor. This information is not intended to replace advice given to you by your health care provider. Make sure you discuss any questions you have with your health care provider. Document Revised: 08/22/2020 Document Reviewed: 08/22/2020 [employer] Patient Education ?? 2021 [employer]. Follow Up Care 02/12/2022 11:53:04 With:Follow up with primary care provider Address: When:1 to 2 weeks Physician Emergency department Note * JOESPH Ferrara: PERFORM Event Display: ED Note Physician Authored Date: [id number] OSITO CHAPIN :1970 Age:51 years Sex:Male Visit Date:02/12/2022 Primary Care Physician: BAIRON RIOJAS Basic Information Time Seen: JOESPH Ferrara / 02/12/2022 12:10 Chief Complaint vomiting, ??abdominial pain and dizziness. Recent hx of diverticulitis History Of Present Illness: Patient is a 51-year-old male presenting to the emergency department for abdominal pain.?? Seen earlier this month by myself diagnosed with diverticulitis and pulmonary embolism, after brief hospitalization was discharged home with Eliquis and Augmentin.?? Has been doing a low residue diet and doing very well.?? The past few days has returned to a more normal diet and had increased acidic foods, pizza tomato sauce and pineapple.?? Started to have some pain in his stomach late yesterday evening,had some nausea and vomiting overnight.?? At this time reports pain in his stomach.?? No fevers or chills.?? No current nausea.?? No diarrhea or constipation.?? No chest pain or shortness of breath.?? He does live in a snf with full-time caregivers, caregiver provides majority of the history. Review of Systems: Constitutional:?No??fevers,?No??chills,?No??sweats Respiratory:?No??shortness of breath,?No??cough Cardiovascular:?No??Chest pain,?No??palpitations,?No??syncope Gastrointestinal:?Nonausea,?Positive for??vomiting,?No??diarrhea,??PositiveAbdominal pain Genitourinary:?No??hematuria Musculoskeletal:??No??back pain,??No??neck pain Integumentary:?No??rash,?No??abrasions Physical Exam Vitals & Measurements T:??37?C ??(Tympanic)?? HR:??90??(Peripheral)?? RR:??18?? BP:??142/93?? SpO2:??94%?? HT:??180.340??cm?? WT:??116.12??kg??(Estimated)?? O2 Therapy:??Room air?? GENERAL: Awake and alert. No acute distress ?? CARDIOVASCULAR: Regular rate and rhythm, no murmur no rub ?? LUNGS: No respiratory distress. Chest nontender. Normal breath sounds. No wheezing or crackles ?? ABDOMEN: Abdomen soft epigastric tenderness. Abdomen is otherwise nontender. nondistended active bowel sounds. No CVA/flank tenderness ?? NEUROLOGIC: Alert and oriented.. Motor normal. Sensation normal. ?? SKIN: Color normal. ??Warm dry intact. No Rash ?? Procedure No Qualifying Data Assessment/Plan 1.??GERD (gastroesophageal reflux disease)??K21.9 Given GI cocktail with resolution of??pain.?? Suspect given recent increase in acidic foods??that this is contributing??to his pain today. ??We will start him on famotidine. ??Labs overall unremarkable.?? Given normal labs overall benign physical exam and improvement with GI cocktail??advanced imaging was not pursued at this time.?? He does have a follow-up with his primary care provider scheduled for tomorrow, instructed to keep this. ??Return to the ER if any worsening or changes.?Caregiver states understanding and agrees with above plan. Orders: famotidine 20 mg oral tablet, 20 mg = 1 tab, Oral, Daily, # 14 tab, 0 Refill(s), Pharmacy: [facility], 180.34, cm, 02/12/22 12:14:00 EST, Height/Length Dosing, 116.12, kg, 02/12/22 12:14:00 EST, Weight Dosing Normal Saline Flush, 10 mL, IV Flush, Injection, As Directed, PRN coordinator of online programs, First Dose: 02/12/22 12:20:00 EST, Routine Sodium Chloride 0.9% 1,000 mL, Total Volume (mL): 1,000, 1,000 mL, Soln-IV, Hydration Bolus, 999 mL/hr, Order Duration: 1 doses, Start Date: 02/12/22 12:20:00 EST, Stop Date: 02/12/22 13:19:00 EST, 116.12 kg, Populate Charting Weight From Order, 2.41, m2 Peripheral IV Insertion, 02/12/22 12:20:00 EST Urinalysis with Micro if Indicated and Culture if Indicated, Urine, Stat Collect, 02/12/22 12:20:00EST, Once, Nurse collect, Print Label Vital Signs, 02/12/22 12:20:00 EST, Once, Stop date 02/12/22 12:20:00 EST, Q15min until stable and SBP greater than 90, then Q1hour Patient Education Gastroesophageal Reflux Disease, Adult, [id number] Follow Up With When Contact Information Follow up with primary care provider Within 1 to 2 weeks Additional Instructions: Medication Reconciliation New Prescription famotidine (famotidine 20 mg oral tablet)1 tab Oral (given by mouth) every day. Refills: 0. ?? Unchanged acetaminophen (acetaminophen 500 mg oral tablet)1-2 tabs Oral (given by mouth) every 6 hours as needed as needed for pain. ?? amoxicillin-clavulanate (!-Augmentin 875 mg-125 mg oral tablet)1 tab Oral (given by mouth) every 12hours for 7 Days. Refills: 0. ?? apixaban (Eliquis 5 mg oral tablet)2 tab Oral (given by mouth) 2 times a day. ?? atorvastatin (Lipitor 20 mg oral tablet)1 [...] as needed as needed for pain. ?? lactobacillus acidophilus (lactobacillus acidophilus oral capsule)Oral (given by mouth) 2 times a day. ?? LORazepam (LORazepam 0.5 mg oral tablet)1 tab Oral (given by mouth) every 8 hours as needed as needed for anxiety. ?? magnesium hydroxide (Milk of Magnesia 8% oral suspension)30 Milliliters Oral (given by mouth) everynight at bedtime as needed as needed for constipation. ?? ofloxacin ophthalmic (ofloxacin 0.3% ophthalmic solution)2 Drops Both eyes 4 times a day. ?? risperiDONE (risperiDONE 2 mg oral tablet)1 tab Oral (given by mouth) 2 times a day. ?? sertraline (sertraline 100 mg oral tablet)2 tab Oral (given by mouth) every morning. ?? simethicone (simethicone 80 mg oral tablet, chewable) Problem List/Past Medical History Ongoing Depression Seizures Historical No qualifying data Medication Administration Given Sodium Chloride 0.9%, 1000 mL, Hydration Bolus Al hydroxide/Mg hydroxide/simethicone, 30 mL, Oral Lidocaine Viscous, 15 mL, Oral Allergies No Known Allergies Social History Alcohol Never Electronic Cigarette/Vaping Electronic Cigarette Use: Never. 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 Living situation: Other. Tobacco Never tobacco user Tobacco Use:. Lab Results CBC and Differential?? LATEST RESULTS?? HISTORICAL RESULTS?? WBC?? 02/12/22 12:24?? 6.1?? 01/31/22?? 4.8?? RBC?? 02/12/22 12:24?? 5.65?? 01/31/22?? 4.67?? Hgb?? 02/12/22 12:24?? 15.7?? 01/31/22?? 13.0?? Hct?? 02/12/22 12:24?? 47.9?? 01/31/22?? 40.8?? MCV?? 02/12/22 12:24?? 84.8?? 01/31/22?? 87.4?? MCH?? 02/12/22 12:24?? 27.8?? 01/31/22?? 27.8?? MCHC?? 02/12/22 12:24?? 32.8?? 01/31/22?? 31.9 ??Low?? RDW-CV?? 02/12/22 12:24?? 14.1?? 01/31/22?? 13.9?? Platelets?? 02/12/22 12:24?? 277?? 01/31/22?? 183?? MPV?? 02/12/22 12:24?? 9.3?? 01/31/22?? 9.7?? Neutro Auto?? 02/12/22 12:24?? 71.2?? 01/31/22?? 57.0?? Lymph Auto?? 02/12/22 12:24?? 19.0 ??Low?? 01/31/22?? 28.4?? Kaufman Auto?? 02/12/22 12:24?? 6.7?? 01/31/22?? 10.9 ??High?? Eos, Auto?? 02/12/22 12:24?? 0.80?? 01/31/22?? 2.90?? Basophil Auto?? 02/12/22 12:24?? 1.0 ??High?? 01/31/22?? 0.6?? Imm Gran Auto?? 02/12/22 12:24?? 1.3 ??High?? 01/31/22?? 0.2?? Neutro Absolute?? 02/12/22 12:24?? 4.3?? 01/31/22?? 2.7?? Lymph Absolute?? 02/12/22 12:24?? 1.2?? 01/31/22?? 1.4?? Kaufman Absolute?? 02/12/22 12:24?? 0.4?? 01/31/22?? 0.5?? Eos Absolute?? 02/12/22 12:24?? 0.0?? 01/31/22?? 0.1?? Baso Absolute?? 02/12/22 12:24?? 0.1?? 01/31/22?? 0.0?? Imm Gran Absolute?? 02/12/22 12:24?? 0.08?? 01/31/22?? 0.01? Routine Chemistry?? LATEST RESULTS?? HISTORICAL RESULTS?? Sodium Level?? 02/12/22 12:24?? 135?? 01/31/22?? 139?? Potassium Level?? 02/12/22 12:24?? 4.3?? 01/31/22?? 4.3?? Chloride Level?? 02/12/22 12:24?? 97 ??Low?? 01/31/22?? 99?? CO2?? 02/12/22 12:24?? 27?? 01/31/22?? 31?? Alk Phos?? 02/12/22 12:24?? 43?? 01/29/22?? 41?? AST?? 02/12/22 12:24?? 22?? 01/29/22?? 13 ??Low?? ALT?? 02/12/22 12:24?? 19?? 01/29/22?? 15 ??Low?? BUN?? 02/12/22 12:24?? 18?? 01/31/22?? 11?? Glucose Level?? 02/12/22 12:24?? 102?? 01/31/22?? 88?? Creatinine Level?? 02/12/22 12:24?? 0.52 ??Low?? 01/31/22?? 0.74?? BUN/Creat Ratio?? 02/12/22 12:24?? 34.6 ??High?? 01/31/22?? 14.9?? eGFR AA?? 02/12/22 12:24?? 121?? 01/31/22?? 109?? eGFR Non-AA?? 02/12/22 12:24?? 121?? 01/31/22?? 109?? Calcium Level?? 02/12/22 12:24?? 9.5?? 01/31/22?? 8.9?? Protein Total?? 02/12/22 12:24?? 8.1?? 01/29/22?? 7.9?? Albumin Level?? 02/12/22 12:24?? 4.3?? 01/29/22?? 3.7?? Globulin?? 02/12/22 12:24?? 3.8?? 01/29/22?? 4.2?? A/G Ratio?? 02/12/22 12:24?? 1.1?? 01/29/22?? 0.9?? Bilirubin Total?? 02/12/22 12:24?? 0.5?? 01/29/22?? 0.5?? Anion Gap?? 02/12/22 12:24?? 11.0?? 01/31/22?? 9.0?? Lipase Level?? 02/12/22 12:24?? 34? Magnesium Level?? 02/12/22 12:24?? 2.0?? 01/29/22?? 2.0?? Osmolality?? 02/12/22 12:24?? 272 ??Low?? 01/31/22?? 276? Electronically Signed on 02/12/22 02:07 PM JOESPH Ferrara Emergency department Discharge instructions * JOESPH Ferrara: PERFORM Event Display: ED Discharge Information Authored Date: [id number] OSITO CHAPIN :1970 Age:51 years Sex:Male Visit Date:02/12/2022 Primary Care Physician: BAIRON RIOJAS Discharge Instructions We would like to thank you for allowing us to assist you with your healthcare needs. The following includes patient education materials and information regarding your injury/illness. Diagnosis from Today's Visit GERD (gastroesophageal reflux disease) Discharge Vitals Temperature??(Tympanic) 98.6 ??F (37 ??C) Heart Rate??(Peripheral) 90 Respiratory Rate?? 18 Blood Pressure?? 142/93?? Height?? 71.00 in (180.340 cm) Weight??(Estimated) 256.04 lb (116.12 kg) Allergies No Known Allergies What to Do Next You Need to Schedule the Following Appointments Follow Up with??Follow up with primary care provider When:??Within 1 to 2 weeks You were treated today on an emergency basis; it may be arndt to contact your primary care provider to notify them of your visit today. You may have been referred to your regular doctor or a specialist, please follow up as instructed. If your condition worsens or you can't get in to see the doctor, contact the Emergency Department. Medications What How Much When Instructions Next Dose New famotidine (famotidine 20 mg oral tablet) 1 tab Oral (given by mouth) Every day Pickup at [facility] Unchanged acetaminophen (acetaminophen 500 mg oral tablet) 1-2 tabs Oral (given by mouth) Every 6 hours as needed for as needed for pain Unchanged amoxicillin-clavulanate (!-Augmentin 875 mg-125 mg oral tablet) 1 tab Oral (given by mouth) Every 12 hours Duration: 7 Days Unchanged apixaban (Eliquis 5 mg oral tablet) 2 tab Oral (given by mouth) 2 times a day Unchanged atorvastatin (Lipitor 20 mg oral tablet) 1 tab Oral (given by mouth) Every evening Unchanged diphenhydrAMINE (Benadryl 25 mg oral capsule) 1- 2 caps Oral (given by mouth) Every 6 hours as needed for as needed for itching Unchanged divalproex sodium (divalproex sodium 250 mg oral tablet, extended release) 1 tab Oral (given by mouth) 2 times a day also takes DR 1000 mg twice daily ?? Unchanged divalproex sodium (divalproex sodium 500 mg oral delayed release tablet) 2 tab Oral (given by mouth) 2 times a day also takes ER 250mg twice daily ?? Unchanged ibuprofen (ibuprofen 400 mg oral tablet) 1 tab Oral (given by mouth) Every 4 hours as needed for as needed for pain Unchanged lactobacillus acidophilus (lactobacillus acidophilus oral capsule) Oral (given by mouth) 2 times a day Unchanged LORazepam (LORazepam 0.5 mg oral tablet) 1 tab Oral (given by mouth) Every 8 hours as needed for as needed for anxiety Unchanged magnesium hydroxide (Milk of Magnesia 8% oral suspension) 30 Milliliters Oral (given by mouth) Every night at bedtime as needed for as needed for constipation Unchanged ofloxacin ophthalmic (ofloxacin 0.3% ophthalmic solution) 2 Drops Both eyes 4 times a day Unchanged risperiDONE (risperiDONE 2 mg oral tablet) 1 tab Oral (given by mouth) 2 times a day Unchanged sertraline (sertraline 100 mg oral tablet) 2 tab Oral (given by mouth) Every morning Unchanged simethicone (simethicone 80 mg oral tablet, chewable) Pharmacy Information [facility]: [address] [facility] [address] [place], [place] [id number] [phone] Education Materials Gastroesophageal Reflux Disease, Adult Gastroesophageal reflux (BEHZAD) happens when acid from the stomach flows up into the tube that connects the mouth and the stomach (esophagus). Normally, food travels down the esophagus and stays in thestomach to be digested. With BEHZAD, food and stomach acid sometimes move back up into the esophagus. You may have a disease called gastroesophageal reflux disease (GERD) if the reflux: ? Happens often. ? Causes frequent or very bad symptoms. ? Causes problems such as damage to the esophagus. When this happens, the esophagus becomes sore and swollen. Over time, GERD can make small holes (ulcers) in the lining of the esophagus. What are the causes? This condition is caused by a problem with the muscle between the esophagus and the stomach. When this muscle is weak or not normal, it does not close properly to keep food and acid from coming back up from the stomach. The muscle can be weak because of: ? Tobacco use. ? . ? Having a certain type of hernia (hiatal hernia). ? Alcohol use. ? Certain foods and drinks, such as coffee, chocolate, onions, and peppermint. What increases the risk? Being overweight. ? Having a disease that affects your connective tissue. ? Taking NSAIDs, such a ibuprofen. What are the signs or symptoms? Heartburn. ? Difficult or painful swallowing. ? The feeling of having a lump in the throat. ? A bitter taste in the mouth. ? Bad breath. ? Having a lot of saliva. ? Having an upset or bloated stomach. ? Burping. ? Chest pain. Different conditions can cause chest pain. Make sure you see your doctor if you have chest pain. ? Shortness of breath or wheezing. ? A long-term cough or a cough at night. ? Wearing away of the surface of teeth (tooth enamel). ? Weight loss. How is this treated? Making changes to your diet. ? Taking medicine. ? Having surgery. Treatment will depend on how bad your symptoms are. Follow these instructions at home: Eating and drinking ? Follow a diet as told by your doctor. You may need to avoid foods and drinks such as: ? Coffee and tea, with or without caffeine. ? Drinks that contain alcohol. ? Energy drinks and sports drinks. ? Bubbly (carbonated) drinks or sodas. ? Chocolate and cocoa. ? Peppermint and mint flavorings. ? Garlic and onions. ? Horseradish. ? Spicy and acidic foods. These include peppers, chili powder, layton powder, vinegar, hot sauces, andBBQ sauce. ? Grady fruit juices and citrus fruits, such as oranges, winter, and limes. ? Tomato-based foods. These include red sauce, chili, salsa, and pizza with red sauce. ? Fried and fatty foods. These include donuts, honduran fries, potato chips, and high-fat dressings. ? High-fat meats. These include hot dogs, rib eye steak, sausage, ham, and shrestha. ? High-fat dairy items, such as whole milk, butter, and cream cheese. ? Eat small meals often. Avoid eating large meals. ? Avoid drinking large amounts of liquid with your meals. ? Avoid eating meals during the 2???3 hours before bedtime. ? Avoid lying down right after you eat. ? Do not exercise right after you eat. Lifestyle ? Do not smoke or use any products that contain nicotine or tobacco. If you need help quitting, ask your doctor. ? Try to lower your stress. If you need help doing this, ask your doctor. ? If you are overweight, lose an amount of weight that is healthy for you. Ask your doctor about a safe weight loss goal. General instructions ? Pay attention to any changes in your symptoms. ? Take aral-gdr-uhbivhy and prescription medicines only as told by your doctor. ? Do not take aspirin, ibuprofen, or other NSAIDs unless your doctor says it is okay. ? Wear loose clothes. Do not wear anything tight around your waist. ? Raise (elevate) the head of your bed about 6 inches (15 cm). You may need to use a wedge to do this. ? Avoid bending over if this makes your symptoms worse. ? Keep all follow-up visits. Contact a doctor if: ? You have new symptoms. ? You lose weight and you do not know why. ? You have trouble swallowing or it hurts to swallow. ? You have wheezing or a cough that keeps happening. ? You have a hoarse voice. ? Your symptoms do not get better with treatment. Get help right away if: ? You have sudden pain in your arms, neck, jaw, teeth, or back. ? You suddenly feel sweaty, dizzy, or light-headed. ? You have chest pain or shortness of breath. ? You vomit and the vomit is green, yellow, or black, or it looks like blood or coffee grounds. ? You faint. ? Your poop (stool) is red, bloody, or black. ? You cannot swallow, drink, or eat. These symptoms may represent a serious problem that is an emergency. Do not wait to see if the symptoms will go away. Get medical help right away. Call your local emergency services (911 in the [place] Do not drive yourself to the hospital. Summary ? If a person has gastroesophageal reflux disease (GERD), food and stomach acid move back up into theesophagus and cause symptoms or problems such as damage to the esophagus. ? Treatment will depend on how bad your symptoms are. ? Follow a diet as told by your doctor. ? Take all medicines only as told by your doctor. This information is not intended to replace advice given to you by your health care provider. Make sure you discuss any questions you have with your health care provider. Document Revised: 08/22/2020 Document Reviewed: 08/22/2020 [employer] Patient Education ?? 2021 [employer] Tests Performed Medications and Immunizations Administered Given Sodium Chloride 0.9%, 1000 mL, Hydration Bolus Al hydroxide/Mg hydroxide/simethicone, 30 mL, Oral Lidocaine Viscous, 15 mL, Oral Lab Test Name Test Result Date/Time WBC 6.1 K/mcL 02/12/2022 12:24 EST RBC 5.65 Million/mcL 02/12/2022 12:24 EST Hgb 15.7 g/dL 02/12/2022 12:24 EST Hct 47.9 % 02/12/2022 12:24 EST MCV 84.8 fL 02/12/2022 12:24 EST MCH 27.8 pg 02/12/2022 12:24 EST MCHC 32.8 g/dL 02/12/2022 12:24 EST RDW-CV 14.1 % 02/12/2022 12:24 EST Platelets 277 K/mcL 02/12/2022 12:24 EST MPV 9.3 fL 02/12/2022 12:24 EST Neutro Auto 71.2 % 02/12/2022 12:24 EST Lymph Auto 19.0 % 02/12/2022 12:24 EST Kaufman Auto 6.7 % 02/12/2022 12:24 EST Eos, Auto 0.80 % 02/12/2022 12:24 EST Basophil Auto 1.0 % 02/12/2022 12:24 EST Imm Gran Auto 1.3 % 02/12/2022 12:24 EST Neutro Absolute 4.3 K/mcL 02/12/2022 12:24 EST Lymph Absolute 1.2 K/mcL 02/12/2022 12:24 EST Kaufman Absolute 0.4 K/mcL 02/12/2022 12:24 EST Eos Absolute 0.0 K/mcL 02/12/2022 12:24 EST Baso Absolute 0.1 K/mcL 02/12/2022 12:24 EST Imm Gran Absolute 0.08 02/12/2022 12:24 EST Sodium Level 135 mmol/L 02/12/2022 12:24 EST Potassium Level 4.3 mmol/L 02/12/2022 12:24 EST Chloride Level 97 mmol/L 02/12/2022 12:24 EST CO2 27 mmol/L 02/12/2022 12:24 EST Alk Phos 43 IntlUnit/L 02/12/2022 12:24 EST AST 22 IntlUnit/L 02/12/2022 12:24 EST ALT 19 IntlUnit/L 02/12/2022 12:24 EST BUN 18 mg/dL 02/12/2022 12:24 EST Glucose Level 102 mg/dL 02/12/2022 12:24 EST Creatinine Level 0.52 mg/dL 02/12/2022 12:24 EST BUN/Creat Ratio 34.6 02/12/2022 12:24 EST eGFR AA 121 02/12/2022 12:24 EST eGFR Non-AA 121 02/12/2022 12:24 EST Calcium Level 9.5 mg/dL 02/12/2022 12:24 EST Protein Total 8.1 g/dL 02/12/2022 12:24 EST Albumin Level 4.3 g/dL 02/12/2022 12:24 EST Globulin 3.8 02/12/2022 12:24 EST A/G Ratio 1.1 02/12/2022 12:24 EST Bilirubin Total 0.5 mg/dL 02/12/2022 12:24 EST Anion Gap 11.0 02/12/2022 12:24 EST Lipase Level 34 unit/L 02/12/2022 12:24 EST Magnesium Level 2.0 mg/dL 02/12/2022 12:24 EST Osmolality 272 mOsm/kg 02/12/2022 12:24 EST Patient/Special Education Resource Room Teacher Signature Patient Name:OSITO CHAPIN I have received this information and my questions have been answered. Patient/Special Education Resource Room Teacher Name: Patient/Special Education Resource Room Teacher Signature: Relationship to Patient: Witness Name/Signature: Date: Electronically Signed on: 02/12/2022 13:57 ESTSigned by:SOPHIA Patient Care team information Personnel Name: BAIRON RIOJAS Address: Address: [address] [place] [id number]
--- NOTE | 2023-03-19 15:45 | DI.CT_ITS ---
Exam(s) CT CHEST PE CTA EXAM: CT CHEST PE CTA CLINICAL HISTORY: repeating given motion; RSV hx of PE. TECHNIQUE: Imaging Protocol: Axial CT angiography was performed with multi-slice acquisition and mu lti-planar reconstructions as well as axial, coronal and sagittal MIP reconstructions. CONTRAST MATERIAL: Intravenous: Omnipaque 350 Contrast volume:100 ml COMPARISON: CR,XR XR CHEST 2V PA LATERAL from 03/18/[address] CHEST PE CTA from 03/19/2023 FINDINGS: The exam is again noted to be significantly limited due to motion. Pulmonary Arteries: No central pulmonary emboli. Branch vessels are obscured by motion artifact. Tracheobronchial tree: No mucous plugging. Mediastinum and Mely: No dominant adenopathy or fluid collection. Pulmonary parenchyma: Limited evaluation due to motion artifact. Dependent changes posteriorly at th e lung bases, worsening from prior. No gross infiltrates. Pleura: No effusion or pneumothorax. Heart: The heart is not dilated. No coronary artery calcifications are seen. Aorta: Thoracic aorta non-dilated. No dissection. Upper abdomen: No acute findings. Bones: Unremarkable for age. Tubes, Catheters, and Lines: None Soft tissues: Unremarkable. IMPRESSION: Exam is limited by motion. No central pulmonary emboli are visible. Branch vessels are obscured by motion artifact. Basilar atelectasis. No evidence of focal infiltrate. RADIATION DOSE DELIVERED: 629.35mGy.cm Total DLP DATA REPOSITORY: All CT scans at this facility are submitted to the National Radiology Data Registry (NRDR) Dose Index Registry (DIR) with the [employer] (ACR). RADIATION OPTIMIZATION: All CT scans at this facility use at least one of these dose optimization te chniques: automated exposure control; mA and/or kV adjustment per patient size (includes targeted exa ms where dose is matched to clinical indication); or iterative reconstruction.
[2023-03-19] MEDS: Enoxaparin 120 MG/0.8 ML SYR SC (17:37)
--- NOTE | 2023-03-19 19:00 | ED.PROG_ITS ---
Date of service: 03/19/23 Time of Service: 19:00 Medical Decision Making Care was signed out by Dr. Martino, please see his documentation regarding initial ED presentation course. Plan at signout was to admit the patient. Patient is RSV positive. He does have a history of pulmonary embolism and is not currently anticoagulated. He is at risk for PE given orthopedic injury. CT imaging today did not demonstrate central PE but artifact limited visualization of peripheral vessels. Given potential risk of pulmonary embolism, I will initiate treatment with Lovenox 1 mg/kg. I spoke with Dr. Mata who deferred to night hospitalist. I spoke with Dr. Salcido, discussed ED presentation course, he will admit the patient. Quality:SDOH Health Related Social Needs: No Data to Display Critical Care Time Critical Care Time Critical Care Time: Yes Total Critical Care Time: 40 Attestation: I spent greater than 40 minutes addressing this patient's immediate life threats. Please see MDM section of note. This time was spent engaged in work directly related to the patient's care, exclusive of separate procedures, and failure to initiate these interventions would have likely resulted in clinically significant or life threatening deterioration in the patient's condition. Sign Out Sign Out Data: Sign Out Comment: rsv, cough, hypoxia; hx of PE, motion artifact CT, no large PE seen; 5L NC satting 91% Last updated by Lane Martino MD at 03/19/23 17:34 Discharge Plan Disposition Patient Disposition: Admit to [facility] Discharge Details Clinical Impression: Respiratory syncytial virus (RSV) infection, Hypoxia Admit Date/Time: 03/19/23 19:32 Admit Provider: Meir Salcido Attending Provider: Meir Salcido Primary Care Provider: Kelvin Delatorre ED Provider: Naldo Bryant Discharge Data Discharge Date/Time-TO BE ENTERED AT DEPARTURE: 03/19/23 21:20
--- NOTE | 2023-03-19 19:19 | W.PM.HP.N ---
Date of service: 03/19/23 Time of Service: 19:20 Assessment and Plan Assessment and plan (1) Respiratory syncytial virus (RSV) infection: Status: Acute Assessment and plan: RSV. No signs mey pneumonia. I think the modest oxygen requirement is best explained as viral induced bronchospasm, as evidenced by reports of wheezing and multiple dosing of nebs. The question of PE in setting of LE trauma was raised -- hence the CTA and empiric Lovenox -- but I think the above scenario is reasonably accounting for signs and a PE within one day of LE trauam is intrinsically unlikely. I have asked ER to add on d-Dimer in any case. Will maintain nebs, steroids, and otherwise supportive care for RSV. I do not see clear indication for continued Doxycycline at this point. History of Present Illness History of Present Illness Chief Complaint: cough, SOB Narrative: 52 male with developmental delay, resident long-term, former smoker -- here yesterday with left foot fracture, but also reporting cough and fever, found to be RSV +. Wheezing noted, CXR with peribronchial thickening suggestive viral illness. Foot casted, and treated with nebs/steoids and Doxy. Returns for persistent cough and SOB. In ER findings of note for sats in high 80s. Received Duonebs and steroids. CTA obtained showing no central PE but periphery uninterpretable due to motion artefact. Received therapeutic dose Lovenox. I was asked to evaluate for admission. Review of Systems Narrative: per HPI PFSH All Active Problems Hypoxia (Acute) Respiratory syncytial virus (RSV) infection (Acute) Foot fracture, left (Acute) Respiratory syncytial virus (RSV) (Acute) GERD (gastroesophageal reflux disease) (Chronic) Vitamin D deficiency (Acute) Dermatophytosis of foot (Acute) Pain, foot (Acute) Nail dystrophy (Acute) Sensorineural hearing loss (SNHL) of both ears (Acute) Tremor (Acute) Tubular adenoma of colon (Acute) Tubular adenoma (Acute ~11/2019) 12/18/19 Dr. Rajiv Márquez, repeat colo 3 years w/ Yasirly prep Colon polyps (Acute) Cognitive developmental delay (Chronic) Mood disorder (Acute) Generalized epilepsy (Acute) Per caregiver he has not had a seizure in decades, see's Dr. Camarena for f/u Medical History Obesity History of diverticulitis Pulmonary embolism Cerumen impaction Tobacco use BMI 40.0-44.9, adult Epilepsy Conduct disorder, aggressive type Intellectual disability Onychomycosis of toenail Screening for colon cancer Dyshidrotic eczema H/O adenomatous polyp of colon Weakness of both legs At high risk for falls Hip pain, bilateral Morbid obesity Decreased hearing of both ears Impacted cerumen, bilateral COVID-19 Kidney stone History of tobacco use Other congenital valgus deformities of feet Lack of coordination Intermittent explosive disorder Per caregiver (Liu) on occasion he will have an agrressive incident per caregiver states he does not feel as though he will have any issues with procedures Anxiety disorder Conduct disorder, aggressive type, mild Per caregiver (Liu) has been in a very good place recently Therapeutic drug monitoring Onychomycosis Candidiasis Prediabetes Per caregiver states he is not diabetic, he has lost 25 lbs Varus deformities of feet, congenital Obstructive sleep apnea Remote PSG noted an AHI of 12.2 with an O2 sat jensen of 54%. He does not currently have a CPAP. Hyperlipidemia Surgical History S/P surgical manipulation of ankle joint R, 2013 Family History Father Epilepsy Brother , of seizure Epilepsy Social History Smoking/Tobacco Use Status: Former Tobacco Use Quit Date: 02/25/18 Smoking risk assessment performed?: Yes Alcohol Intake: never Drug use: Never Substance use type: does not use Housing: other Number of Children: 0 current occupation: Disabled Do you feel safe at home: Yes Additional Social history: He currently resides at [facility] (since November 2016). He is under the guardianship of [employer] (since February 2017). He graduated from high school and previously worked in a [email or web address]. Meds Allergies and Home Medications Allergies Allergy/AdvReac Type Severity Reaction Status Date / Time No Known Allergies Allergy Unverified 03/18/23 19:45 Home Medications Medication Instructions Recorded Confirmed Type sertraline 100 mg tablet 200 mg PO DAILY 07/23/17 03/19/23 History magnesium hydroxide 400 mg/5 mL 30 ml PO QID 08/07/17 03/19/23 History oral suspension (Milk of Magnesia) atorvastatin 20 mg tablet (Lipitor) 20 mg PO QHS 07/28/20 03/19/23 History MYLANTA 15 - 30 ml PO QID PRN 09/05/21 03/19/23 History acetaminophen 500 mg tablet 500 - 1,000 mg PO Q6H PRN 09/05/21 03/19/23 History (Tylenol Extra Strength) diphenhydramine HCl 25 mg tablet 25 mg PO Q6H PRN allergy symptoms 09/05/21 03/19/23 History (Benadryl Allergy) ibuprofen 200 mg tablet 400 mg PO TID PRN 09/05/21 03/19/23 History risperidone 1 mg tablet (Risperdal) 2 mg PO BID 09/05/21 03/19/23 History loperamide 2 mg capsule 2 mg PO DIRECTED PRN 10/25/21 03/19/23 History divalproex 250 mg tablet,delayed 250 mg PO BID 03/13/22 03/19/23 History release divalproex 500 mg tablet,delayed 1,000 mg PO BID 03/13/22 03/19/23 History release (Depakote) ondansetron 4 mg disintegrating 4 mg PO Q8H PRN 03/13/22 03/19/23 History tablet psyllium seed (sugar) oral powder 1 tbsp PO DAILY 03/13/22 03/19/23 History (Metamucil (sugar) oral powder) triamcinolone acetonide 0.1 % 1 applic topical BID PRN 03/13/22 03/19/23 History topical cream lorazepam 0.5 mg tablet 0.5 mg PO TID PRN 03/29/22 03/19/23 History multivitamin (One Daily 1 tab PO DAILY 03/29/22 03/19/23 History Multivitamin tablet) cholecalciferol (vitamin D3) 25 25 mcg PO DAILY 12/03/22 03/19/23 History mcg (1,000 unit) capsule ketoconazole 2 % topical cream 1 applic topical BID #30 grams 12/03/22 03/19/23 Rx urea 40 % topical cream 1 applic topical DAILY #198.4 grams 12/03/22 03/19/23 Rx doxycycline hyclate 100 mg tablet 100 mg PO BID #14 tabs 03/18/23 03/19/23 Rx Exam Narrative Exam Narrative: 113/60, 87, 37.6, 20, 93%. When I arrived sat 91, but cannula not in nose. 94-95% on 2L. HEENT atraumatic; neck supple; lungs diminished, obscured by ambient sound; heart RRR; abdomen soft and NT; extremities w/o edema, cast on left foot. Results Labs 03/19/23 13:05 03/19/23 13:05 Labs: Laboratory Results - last 24 hr 03/19/23 13:05 WBC 6.63 RBC 5.06 Hgb 13.8 Hct 42.0 MCV 83 MCH 27.3 MCHC 32.9 RDW 14.2 H Plt Count 121 L MPV 9.5 Immature Gran % 0.5 Neutrophils % 77.9 Lymphocytes % 10.6 Monocytes % 10.6 Eosinophils % 0.2 Basophils % 0.2 Nucleated RBC % 0.0 Absolute Neutrophils 5.18 Absolute Lymphocytes 0.70 L Absolute Monocytes 0.70 Absolute Eosinophils 0.01 Absolute Basophils 0.01 Sodium 138 Potassium 4.0 Chloride 100 Carbon Dioxide 29.5 Anion Gap 8.5 BUN 22 H Creatinine 1.0 Est GFR (CKD-EPI 2020) 90.00 Glucose 119 H Calcium 9.1 Total Bilirubin 0.3 AST 36 ALT 23 Alkaline Phosphatase 30 L Total Protein 7.5 Albumin 3.1 L Last Vital Signs Temp 37.6 C H 03/19/23 12:59 Pulse 87 03/19/23 17:46 Resp 20 03/19/23 13:29 BP 113/60 03/19/23 17:46 Pulse Ox 93 03/19/23 17:50 Time Spent Time spent with Patient: 40-54 minutes Time was spent: preparing to see the patient(eg.review tests), obtaining and/or reviewing separately otained hiistory, ordering medications,tests, procedures, referring, communicating with other health rn urgent care and indepentently interpreting results
[2023-03-19 19:54] LABS: D-Dimer 1401 ng/mlFEU (<500)
[2023-03-19] MEDS: methylPREDNISolone SUCC 40 MG VIAL IVP (22:26)
[2023-03-19] MEDS: Divalproex 500 MG TABEC 1000 MG PO (22:27)
[2023-03-19] MEDS: Atorvastatin 20 MG TAB PO (22:27)
[2023-03-19] MEDS: risperiDONE 1 MG TAB 2 MG PO (22:27)
[2023-03-19] MEDS: Albuterol/Ipratropium 3 ML UPD VIAL UPD (22:42)
[2023-03-19] MEDS: Acetaminophen 500 MG TAB PO (23:25)
[2023-03-19] MEDS: Divalproex 250 MG TABEC PO (23:25)
[2023-03-20] VITALS (14 sets, daily range): BP systolic 134–161; BP diastolic 83–95; PULSE 60–83; RESP 9–20; TEMP 36–36.7; O2SAT 92–96
[2023-03-20] MEDS: methylPREDNISolone SUCC 40 MG VIAL IVP (05:53)
[2023-03-20] MEDS: Sertraline 100 MG TAB 200 MG PO (08:20)
[2023-03-20] MEDS: Divalproex 500 MG TABEC 1000 MG PO ×2 (08:20→20:18)
[2023-03-20] MEDS: Divalproex 250 MG TABEC PO ×2 (08:20→20:18)
[2023-03-20] MEDS: risperiDONE 1 MG TAB 2 MG PO ×2 (08:20→20:19)
[2023-03-20] MEDS: Cholecalciferol (Vitamin D3) 1,000 UNIT TAB 1000 UNITS PO (08:21)
[2023-03-20] MEDS: Psyllium PKT 1 EACH PO (08:21)
[2023-03-20] MEDS: Albuterol/Ipratropium 3 ML UPD VIAL UPD ×4 (08:33→19:38)
[2023-03-20] MEDS: LORazepam 0.5 MG TAB PO (11:38)
[2023-03-20] MEDS: Acetaminophen 500 MG TAB PO (15:01)
[2023-03-20] MEDS: Ibuprofen 200 MG TAB 400 MG PO (15:01)
--- NOTE | 2023-03-20 15:28 | W.PM.PROGNOT ---
Date of Service Date of service: 03/20/23 Time of Service: 15:28 Assessment and Plan Assessment and plan (1) Hypoxic respiratory failure: Status: Acute Assessment and plan: wean oxygen as able d/t RSV (2) Respiratory syncytial virus (RSV) infection: Status: Acute Assessment and plan: on steroids and oxygen no antibiotics indicated at this time. (3) Obesity: Status: Chronic (4) Foot fracture, left: Status: Acute Assessment and plan: orthopedic consult non weightbearing PT consult discussed with DR Owusu Subjective Subjective Patient reports: no new complaints, tolerating liquids well, tolerating a regular diet, shortness of breath and afebrile Exam Const General: no acute distress Orientation: alert HENMT Head: normal to inspection Ears: external ears normal General nose exam: external nose normal Mouth: moist mucous membranes Eyes General: appearance normal, both eyes and all related structures Neck Neck: normal visual inspection Resp Effort & Inspection: normal respiratory effort and able to speak in complete sentences Auscultation: clear to auscultation bilaterally Cardio Jugular venous pressure: no JVD Rate: regular rate Heart Sounds: no murmurs Skin General skin exam: no rashes or lesions noted Neuro General: patient alert and patient oriented x3 Extrem General: full ROM and capillary refill normal Psych Mental Status: mental status grossly normal Objective Last Vital Signs Temp 36.7 C 03/20/23 14:52 Pulse 78 03/20/23 15:22 Resp 20 03/20/23 15:20 BP 134/85 03/20/23 14:52 Pulse Ox 92 03/20/23 15:20 Laboratory Results - last 24 hr 03/19/23 13:05 D-Dimer 1401 H Time Spent with Patient Time Spent with Patient: 25-34 minutes Time was spent: preparing to see the patient(eg.review tests), obtaining and/or reviewing separately otained hiistory, ordering medications,tests, procedures, indepentently interpreting results and counseling the patient
--- NOTE | 2023-03-20 16:29 | PDOC.CMIN ---
Date of service: 03/20/23 Time of Service: 16:29 Care Management Initial Assmt Initial Assessment REASON FOR HOSPITALIZATION:: RSV, Broncospasm PREVIOUS FUNCTIONAL STATUS/SOCIAL/FAMILY SUPPORTS:: Resides at [facility], where he has been for the last five years, prior to admission was reportedly independent with ADLs. OPG: Patricia Arthur. CURRENT FUNCTIONAL STATUS:: On precautions for RSV, reportedly cooperative. ADVANCE DIRECTIVES:: Guardian: Patricia Arthur Has patient been provided with info about the portal/API?: No Did the patient sign up for the portal?: No CODE STATUS:: Full Code INSURANCE COVERAGE / FINANCIAL ISSUES:: Medicare, Medicaid CURRENT HOME/COMMUNITY SERVICES/EQUIPMENT:: [facility]. OPG: Patricia. PRIMARY CARE PHYSICIAN:: Kelvin Delatorre POTENTIAL DISCHARGE NEEDS:: Possible surgery with Dr. Haji; awaiting Ortho consult. PATIENT/FAMILY EDUCATION NEEDS:: Review discharge instructions, discuss Ask Me Three. ANTICIPATED BARRIERS TO DISCHARGE:: Non weight bearing status. TRANSPORTATION:: Dependent on mobility and disposition. PLAN:: Awaiting ortho consult, PT recommendations. Anticipate Alberto will wean off O2 and return to residence at [facility]. CM following. [facility] All Active Problems (Updated 03/20/23 @ 15:33 by Berenice Gallego NP) Hypoxic respiratory failure (Acute) Obesity (Chronic) Hypoxia (Acute) Respiratory syncytial virus (RSV) infection (Acute) Foot fracture, left (Acute) Respiratory syncytial virus (RSV) (Acute) GERD (gastroesophageal reflux disease) (Chronic) Vitamin D deficiency (Acute) Dermatophytosis of foot (Acute) Pain, foot (Acute) Nail dystrophy (Acute) Sensorineural hearing loss (SNHL) of both ears (Acute) Tremor (Acute) Tubular adenoma of colon (Acute) Tubular adenoma (Acute ~11/2019) 12/18/19 Dr. Rajiv Márquez, repeat colo 3 years w/ Golytly prep Colon polyps (Acute) Cognitive developmental delay (Chronic) Mood disorder (Acute) Generalized epilepsy (Acute) Per caregiver he has not had a seizure in decades, see's Dr. Camarena for f/u Medical History Obesity History of diverticulitis Pulmonary embolism Cerumen impaction Tobacco use BMI 40.0-44.9, adult Epilepsy Conduct disorder, aggressive type Intellectual disability Onychomycosis of toenail Screening for colon cancer Dyshidrotic eczema H/O adenomatous polyp of colon Weakness of both legs At high risk for falls Hip pain, bilateral Morbid obesity Decreased hearing of both ears Impacted cerumen, bilateral COVID-19 Kidney stone History of tobacco use Other congenital valgus deformities of feet Lack of coordination Intermittent explosive disorder Per caregiver (Liu) on occasion he will have an agrressive incident per caregiver states he does not feel as though he will have any issues with procedures Anxiety disorder Conduct disorder, aggressive type, mild Per caregiver (Liu) has been in a very good place recently Therapeutic drug monitoring Onychomycosis Candidiasis Prediabetes Per caregiver states he is not diabetic, he has lost 25 lbs Varus deformities of feet, congenital Obstructive sleep apnea Remote PSG noted an AHI of 12.2 with an O2 sat jensen of 54%. He does not currently have a CPAP. Hyperlipidemia Surgical History S/P surgical manipulation of ankle joint R, 2013 Family History Father Epilepsy Brother , of seizure Epilepsy Social History Smoking/Tobacco Use Status: Former Tobacco Use Quit Date: 02/25/18 Smoking risk assessment performed?: Yes Alcohol Intake: never Drug use: Never Substance use type: does not use Housing: other Number of Children: 0 current occupation: Disabled Do you feel safe at home: Yes Additional Social history: He currently resides at [facility] (since November 2016). He is under the guardianship of Patricia Jerson (since February 2017). He graduated from high school and previously worked in a [employer]. SDOH(Care Management) Screening Will the Patient Participate in the Screening?: Unable to obtain
--- NOTE | 2023-03-20 17:35 | IN_ITS ---
PT Notes Visit Reasons: RSV, bronchospasm Physical Therapy Inpatient Initial Evaluation Date: 03/20/2023 Referring Doctor: Berenice Gallego NP PT Orders: PT CONSULT: Eval/Treat Precautions: Fall. Standard. NWB on the L LE with AD, supportive/appropriate footwear needed on the R. Patient Profile/Admitting Diagnosis: Alberto is a 52-year-old male admitted to the ED on 03/18/2022 due to trip and fall that caused him to hit his left foot. He sustained on x-ray fracture of the bases of the first through fifth metatarsals L, L Lisfranc fracture, fracture involving the anterior lateral aspect of the lateral cuneiform on the L with a question of a non-displaced fracture involving the head of the fifth metatarsal bone on the left foot. Patient was provided with a posterior slab cast on the left LE with order by orthopod to be nonweightbearing on the left. Patient came back to the ED on 03/19/2022 due to cough, fever, and hypoxia with diagnosis of recent RSV infection. PMHX: All Active Problems Hypoxia (Acute) Respiratory syncytial virus (RSV) infection (Acute) Foot fracture, left (Acute) Respiratory syncytial virus (RSV) (Acute) GERD (gastroesophageal reflux disease) (Chronic) Vitamin D deficiency (Acute) Dermatophytosis of foot (Acute) Pain, foot (Acute) Nail dystrophy (Acute) Sensorineural hearing loss (SNHL) of both ears (Acute) Tremor (Acute) Tubular adenoma of colon (Acute) Tubular adenoma (Acute ~11/2019) 12/18/19 Dr. Rajiv Márquez, repeat colo 3 years w/ Golytly prep Colon polyps (Acute) Cognitive developmental delay (Chronic) Mood disorder (Acute) Generalized epilepsy (Acute) Per caregiver he has not had a seizure in decades, see's Dr. Camarena for f/u Medical History Obesity History of diverticulitis Pulmonary embolism Cerumen impaction Tobacco use BMI 40.0-44.9, adult Epilepsy Conduct disorder, aggressive type Intellectual disability Onychomycosis of toenail Screening for colon cancer Dyshidrotic eczema H/O adenomatous polyp of colon Weakness of both legs At high risk for falls Hip pain, bilateral Morbid obesity Decreased hearing of both ears Impacted cerumen, bilateral COVID-19 Kidney stone History of tobacco use Other congenital valgus deformities of feet Lack of coordination Intermittent explosive disorder Per caregiver (Liu) on occasion he will have an agrressive incident per caregiver states he does not feel as though he will have any issues with proceduresAnxiety disorder Conduct disorder, aggressive type, mild Per caregiver (Liu) has been in a very good place recently Therapeutic drug monitoring Onychomycosis Candidiasis Prediabetes Per caregiver states he is not diabetic, he has lost 25 lbsVarus deformities of feet, congenital Obstructive sleep apnea Remote PSG noted an AHI of 12.2 with an O2 sat jensen of 54%. He does not currently have a CPAP. Hyperlipidemia Surgical History S/P surgical manipulation of ankle joint R, 2013 Social History/Home Situation: [facility] resident for over 5 years now. Independent with all mobility ADL performance without an assistive device prior to admission on 03/18/2023. Has been using a wheelchair at [facility] as patient has not been fully compliant with the weight bearing restriction. Equipment Owned/DME: Wheelchair Subjective: Unsure of whether he can manage not putting weight on his L foot standing up but agreeable to trying out the walker. Denied headache, chest pain, and lightheadedness throughout session. Objective: General Observation: Resting in bed. Left LE posterior slab cast in place. Oxygen supplementation via NC noted. Purplish discoloration in all 5 lfet toes from recent fracture. Mental Status: Alert and oriented as to person, place, time, and purpose. Able to pay attention, focus, and respond appropriately. Pain: Minimal pain in the left foot, moderate pain with attempts at standing Vital Signs: Closely monitored by nursing staff ROM: Right Lower Extremity: Hip flexion WFL. Hip abduction WFL. Knee flexion WFL. Ankle dorsiflexion WFL. Ankle plantarflexion WFL. Left Lower Extremity: Hip flexion WFL. Hip abduction WFL. Knee flexion WFL. Ankle dorsiflexion on posterior slab cast. Ankle plantarflexion NT, on posterior slab cast. Strength: Right Lower Extremity: Hip flexors 5/5. Hip abductors 5/5. Knee flexors 5/5. Knee extensors 5/5. Ankle dorsiflexors 5/5. Ankle plantarflexors 5/5. Left Lower Extremity: Hip flexors 5/5. Hip abductors 4/5. Knee flexors 4/5. Knee extensors 5/5. Ankle dorsiflexors NT. Ankle plantarflexors NT. Bed Mobility/Transfers: Moderate cueing provided for use of B hands as needed for support, movement sequence, AD management, and posture to reduce fall risk and minimize pain report Rolling stand by assist Supine to sit stand by assist Scoot up in bed stand by assist Sit to supine stand by assist Sit to stand moderate assist Stand to sit moderate assist Bed to reclining chair deferred Reclining chair to bed deferred Gait: Deferred. Needed assist of 2 during this evaluation to maintain NWB on the L LE for safety. Balance: Static Sitting: Normal Dynamic Sitting: Normal Static Standing: Fair Dynamic Standing: Poor Special Tests: Mobility Limitations Standardized Measure [facility] AM-PAC 6 clicks Basic Mobility Inpatient Short Form: Raw Score: 14 CMS Score: 61% deficit Informed Consent/Education: Patient was instructed in purpose of PT consult and plan of care. Agreeable to proceed with established PT POC to achieve personal goals. ASSESSMENT: Limited ability to maintain non-weightbearing status on the left LE due to pain level and generalized weakness from recent RSV infection. Patient will require the use of a front- wheeled walker and assist of 1-2 caregivers for essential transfers to minimize fall risk and ensure full compliance of weight bearing precaution. Patient presents with clinical signs and symptoms consistent with current/admitting diagnoses that have resulted to mobility limitations, gait instability, generalized weakness, and overall ADL decline as demonstrated by the following impairment level findings: 1. Decreased strength to L leg and foot major muscle groups 2. Impaired sitting/standing balance 3. Impaired activity tolerance 4. Limitation of joint range of motion in L leg (due to cast) Impairments are contributing to the following functional limitations: 1. Decline in bed mobility skills 2. Decline in transfer skills 3. Difficulty with ambulation without assistive device and physical assistance 4. Increased completion time for mobility ADL performance 5. Increased risk for falls 6. Difficulty with managing steps alone safely Patient is assessed as a 04673 moderate complexity based on the following: History: 52-year-old male with past medical history as indicated above Examination: Demonstrable impairment in strength, balance, and mobility level wi th underlying impairments and functional limitations as exhibited above as well as deficit score of 61% utilizing the [facility] Mobility Inpatient Short Form Presentation: Evolving Decision Makin moderate complexity Goals: Goals X1 week 1. Supine-Sit independent 2. Sit-Supine independent 3. Sit-Stand independent 4. Stand-Sit independent with FWW 5. Bed-Chair independent with FWW 6. Chair-Bed independent with FWW 7. Standby assist with gait on level surface with use of FWW for at least 15-30 feet without report of pain nor dyspnea (enough to cover bedroom<>bathroom and b edroom<>kitchen distances at home) 8. Standby assist with stair negotiation while holding onto [] rails for at least [] steps without report of pain nor dyspnea 9. Supervision with home exercise program 10. Fair static and dynamic standing balance/tolerance Plan of Care/Treatment Plan: 1-2x/day, 7 days/week x 1 week. Plan of care has been reviewed with the GREASER OPERATOR providing the service under Physical Therapy direction. Initiate Physical Therapy intervention for pain management as needed, strengthening, bed mobility, transfers, gait, stairs, balance training, and use of assistive device. DISCHARGE RECOMMENDATIONS: [] Home with no services [] [X] Home with services. Patient will benefit from home health PT services in order to progress mobility level using least restrictive assistive ambulatory device, assess home safety, identify additional equipment needs, and establish a functional maintenance program that will increase ability of patient to remain at home. [] Home with outpatient PT [] [] SNF for continued rehabilitation [] [] [facility] [] [] SNF versus LTC based on ability to participate and progress [] TREATMENT CODE/TIME: 22030 x 25 minutes for 1 unit beginning at 17:35 PM. Thank you for the opportunity to participate in the care of this patient. Angelika Cloud PT, DPT, CLT [facility] [place], [place] Per orthopod, NWB on the L LE
[2023-03-20] MEDS: Atorvastatin 20 MG TAB PO (20:19)
[2023-03-21] VITALS (9 sets, daily range): BP systolic 136–149; BP diastolic 74–93; PULSE 62–84; RESP 2–18; TEMP 36.2–37.5; O2SAT 90–96
[2023-03-21] MEDS: Acetaminophen 500 MG TAB PO ×2 (02:17→19:18)
[2023-03-21] MEDS: Albuterol/Ipratropium 3 ML UPD VIAL UPD ×4 (08:20→20:26)
--- NOTE | 2023-03-21 09:08 | PT.INTREAT ---
PT Notes Visit Reasons: RSV, bronchospasm Date: 03/21/23 PRECAUTIONS: Per orthopod, NWB on the L LE SUBJECTIVE: Pt in bed when approached for therapy this morning, pt agreed to participating wit therapy OBJECTIVE: ?Posterior slab cast on the left ankle ? PAIN: none reported while in bed/rest VITALS: monitored by nursing Therapeutic Activities 30mins: Direct one-on-one instruction in dynamic activities to improve functional performance. ?? BED MOBILITY/TRANSFERS? Rolling L/R: Supervision Supine-sit: ?Supervision? Sit-supine: ?Supervision? Sit-stand: ?Min A high bed ? Stand-sit: ?Min A cue for reaching beind for controlled descent.? Bed-Chair:? ?Stand pivot transfer going from EOB to recliner min/mod A ? Provided skilled cues and instruction on performance and technique throughout. ? ASSESSMENT:?PT setup for room recliner, [place] alarm, draw sheets and cover blanket for comfort and safety while in the recliner, pt required assistance wit nagi lozano prior to transfer, pt able to comply with NWB precaution and opped going from EOB to recliner. PLAN: Continue with global strengthening and general conditioning for improved mobility and activity tolerance until pt is ready for DC. TREATMENT CODE/TIME: 54945 x2 30mins (8:30-9:00am)
--- NOTE | 2023-03-21 09:14 | W.PM.PROGNOT ---
Date of Service Date of service: 03/21/23 Time of Service: 09:14 Assessment and Plan Assessment and plan (1) Hypoxic respiratory failure: Status: Acute Assessment and plan: Continue to wean oxygen, patient had no requirement at home remains on 2l/min (2) Respiratory syncytial virus (RSV) infection: Status: Acute Assessment and plan: Continue on steroids and oxygen continue duonebs start IS and vibrapep Afebrile no leukocytoisis normotensive no antibiotics indicated at this time. Procal in AM (3) Obesity: Status: Chronic Assessment and plan: Will psychotherapist counselor the patient to discuss weight management with PCP (4) Foot fracture, left: Status: Acute Assessment and plan: orthopedic consult ongoing: Surgical intervention projected early next week as per discussion with Respiratory concerns PT consult ongoing discussed with DR Owusu Subjective Subjective Patient reports: no new complaints, feels better, pain is less, tolerating liquids well, tolerating a regular diet, voiding w/o difficulty, flatus, bowel movement, shortness of breath (on exertion) and afebrile; denies diarrhea, blood in stool, nausea, vomiting or fever Exam Narrative Exam Narrative: Constitutional The patient is sitting in chair without acute distress and has obese body habitus HENMT: Head is atraumatic, normocephalic, no lymphadenopathy. Facial structures with normal appearance Eyes: Well aligned, intact ROM Neck: Normal ROM, no meningeal signs Neuro:alert and oriented to self, person, place knows he is the hospital. No neurological focal deficit Resp: Shallow respiratory pattern, speaks in short sentences, SOB on exertion, scattered ronchi and difficulty clearing secretions, diminished breath sounds to lower lobes Cardio: regular rhythm, S1, S2, no murmur, capillary refill<3 sec., bilateral radial and dorsalis pedis pulses are positive GI: Abdomen is not distended, soft and non tender, bowel sounds are present : Negative Costovertebral angle tenderness, no bladder distension Back/spine/Pelvis: No back tenderness, normal alignment Integumentary: No skin lesions or rash except for left distal foot purple discoloration d/t trauma [employer] Extremities: strength 3/5 to left bilateral lower ext. 5/5 otherwise Psych: RASS 0, congruent mood and normal affect. Objective Last Vital Signs Temp 36.2 C L 03/21/23 07:53 Pulse 62 03/21/23 07:53 Resp 17 03/21/23 07:53 BP 149/93 H 03/21/23 07:53 Pulse Ox 93 03/21/23 08:20 Time Spent with Patient Time Spent with Patient: >50 minutes Time was spent: preparing to see the patient(eg.review tests), ordering medications,tests, procedures, referring, communicating with other health human services care specialist, indepentently interpreting results, counseling the patient and care coordination
[2023-03-21] MEDS: Sertraline 100 MG TAB 200 MG PO (09:49)
[2023-03-21] MEDS: Divalproex 500 MG TABEC 1000 MG PO ×2 (09:49→19:19)
[2023-03-21] MEDS: risperiDONE 1 MG TAB 2 MG PO ×2 (09:49→19:19)
[2023-03-21] MEDS: Cholecalciferol (Vitamin D3) 1,000 UNIT TAB 1000 UNITS PO (09:49)
[2023-03-21] MEDS: Divalproex 250 MG TABEC PO ×2 (09:50→19:18)
[2023-03-21] MEDS: predniSONE 20 MG TAB 40 MG PO (09:50)
[2023-03-21] MEDS: Psyllium PKT 1 EACH PO (09:50)
[2023-03-21 12:38] LABS: Abs Immature Grans 0.03 10^3/uL (0.0-0.06); Absolute Neutrophil Count 6.07 10^3/uL (1.2-6.7); HCT 42.5 % (40.0-50.0); HGB 14.3 g/dL (13.5-17.5); MCH 27.9 pg (27.0-33.0); MCHC 33.6 % (32.0-36.0); MCV 83 fL (80-95); MPV 9.7 fL (8.0-11.0); Platelet Count 154 10^3/uL (130-400); RBC 5.13 10^6/uL (4.36-5.78); RDW 14.4 % (11.8-14.1); RDW-SD 43.7 fL; WBC 7.78 10^3/uL (4.4-10.8)
[2023-03-21 12:52] LABS: Anion Gap 5.1 mmol/L (3-11); BUN 16 mg/dL (7-18); CO2 32.9 mmol/L (21.0-32.0); CREATININE 0.8 mg/dL (0.70-1.30); Calcium 9.4 mg/dL (8.5-10.1); Chloride 100 mmol/L (98-107); Estimated GFR 105.82 (mL/min/1.73m2); Glucose 132 mg/dL (74-106); Potassium 4.7 mmol/L (3.5-5.1); Sodium 138 mmol/L (136-145)
[2023-03-21 12:54] LABS: Absolute Basophil Count 0.08 10^3/uL (0.0-0.2); Absolute Lymphocyte Count 1.01 10^3/uL (1.2-3.4); Absolute Monocyte Count 0.62 10^3/uL (0.1-0.8); Atypical Lymphocytes % 2
[2023-03-21 12:55] LABS: Diff Comment Manual Differential; RBC Morphology Normal
--- NOTE | 2023-03-21 14:34 | W.ORTHOCONSU ---
Date of service: 03/21/23 Time of Service: 14:35 History of Present Illness History of Present Illness Chief Complaint: Left Foot Fracture Narrative: Alberto is a 52-year-old male who reported having a fall at his current place resident, [facility], on March 18. Is not clear the exact mechanism but he fell and landed awkwardly onto his foot. He had immediate pain and difficulty with weightbearing. He had also had a few days of cough and low-grade fever. In the emergency department he was diagnosed with metatarsal fractures 1 through 5. He is placed in a splint. He was discharged back to the home but returned to times on consecutive days for increasing shortness of breath and cough along with difficulty in mobilization within the [place] [facility]. He was admitted for RSV, viral, pneumonia due to persistence of hypoxia. He continues to report pain about the left foot. He has significant developmental delays which has made following commands challenging as he is found by staff to usually have the foot dangling off the edge of the chair. He also has difficulties in following commands for deep breathing and coughing to help promote better lung utilization and oxygenation. He denies any numbness or tingling. Prior to this he was independently ambulatory. However, the nurse from the home does report that his desire to walk and move seem to be dipping. Consults Consult date: 03/18/23 Requesting physician: Federico Saldana Consult Reason Multiple Foot Fractures Assessment and Plan Assessment and plan (1) Fracture of second metatarsal bone of left foot: Status: Acute (2) Displaced fracture of first metatarsal bone, left foot, initial encounter for closed fracture: Status: Acute Assessment and plan: Alberto is a 52-year-old who does have some developmental delays and lives in a group residential home who is independently ambulatory and today had a fall. He unfortunately suffered multiple fractures of the left foot which involve the Lisfranc complex which is generally an unstable injury. Given the displaced nature of the first metatarsal fracture and the displacement of the second metatarsal from the second TMT joint, I would recommend operative stabilization. This would be with plates and screws to help secure the bones in appropriate position to allow mobilization in the future. Treating nonoperatively could be considered. However, it may have a high rate of instability or arthritis which would preclude the ability to ambulate successfully afterwards. Given his young age and his functional dependence prior to this fall I do think the operative intervention makes sense. I did discuss it with Alberto briefly and he seemed to be agreeable for surgery although with limited comprehension. I also discussed this with the nurse at the residential home. I reviewed the surgery with them and left a message with his guardian. I will discuss it in more detail with his guardian. Unfortunately, there is significant swelling and fracture blisters about the left foot which would preclude moving forward with surgery. Additionally, he continues to have an oxygen requirement and cough with a positive RSV pneumonia. He is on steroids. Therefore, I think is best that he gets off the steroids and seems to be improving from his lung status before he proceed with surgery. I discussed this with anesthesia who agrees to proceed with surgery when it is deemed safe from medicine and from orthopedics but with the desire to do spinal and peripheral nerve blockade. I will plan for surgical fixation next week. Likely . This will require specialized hardware to be brought in. I will continue to check the foot to ensure that we are making progress. It is imperative that he keeps his foot elevated, foot higher than knee. The new dressing hopefully provide better support and some compression to the foot to help minimize the swelling. I have discussed this case with the medicine team and have asked for their input on his lung status and consideration of surgery. He will be nonweightbearing after the surgery and is nonweightbearing on the left lower extremity now. He likely will require [place] [facility] facility discharge which will be determined by how he does postoperatively. Review of Systems All systems reviewed & are unremarkable except as noted in HPI and below PFSH All Active Problems Fracture of second metatarsal bone of left foot (Acute) Displaced fracture of first metatarsal bone, left foot, initial encounter for closed fracture (Acute) Hypoxic respiratory failure (Acute) Obesity (Chronic) Hypoxia (Acute) Respiratory syncytial virus (RSV) infection (Acute) Foot fracture, left (Acute) Respiratory syncytial virus (RSV) (Acute) GERD (gastroesophageal reflux disease) (Chronic) Vitamin D deficiency (Acute) Dermatophytosis of foot (Acute) Pain, foot (Acute) Nail dystrophy (Acute) Sensorineural hearing loss (SNHL) of both ears (Acute) Tremor (Acute) Tubular adenoma of colon (Acute) Tubular adenoma (Acute ~11/2019) 12/18/19 Dr. Rajiv Márquez, repeat colo 3 years w/ Golytly prep Colon polyps (Acute) Cognitive developmental delay (Chronic) Mood disorder (Acute) Generalized epilepsy (Acute) Per caregiver he has not had a seizure in decades, see's Dr. Camarena for f/u Medical History History of diverticulitis Pulmonary embolism Cerumen impaction Tobacco use BMI 40.0-44.9, adult Epilepsy Conduct disorder, aggressive type Intellectual disability Onychomycosis of toenail Screening for colon cancer Dyshidrotic eczema H/O adenomatous polyp of colon Weakness of both legs At high risk for falls Hip pain, bilateral Morbid obesity Decreased hearing of both ears Impacted cerumen, bilateral COVID-19 Kidney stone History of tobacco use Other congenital valgus deformities of feet Lack of coordination Intermittent explosive disorder Per caregiver (Liu) on occasion he will have an agrressive incident per caregiver states he does not feel as though he will have any issues with procedures Anxiety disorder Conduct disorder, aggressive type, mild Per caregiver (Liu) has been in a very good place recently Therapeutic drug monitoring Onychomycosis Candidiasis Prediabetes Per caregiver states he is not diabetic, he has lost 25 lbs Varus deformities of feet, congenital Obstructive sleep apnea Remote PSG noted an AHI of 12.2 with an O2 sat jensen of 54%. He does not currently have a CPAP. Hyperlipidemia Surgical History S/P surgical manipulation of ankle joint R, 2013 Family History Father Epilepsy Brother , of seizure Epilepsy Social History Smoking/Tobacco Use Status: Former Tobacco Use Quit Date: 02/25/18 Smoking risk assessment performed?: Yes Alcohol Intake: never Drug use: Never Substance use type: does not use Housing: other Number of Children: 0 current occupation: Disabled Do you feel safe at home: Yes Additional Social history: He currently resides at [facility] (since November 2016). He is under the guardianship of [employer] (since February 2017). 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 Exam Narrative Exam Narrative: Sitting up in the chair. No acute distress alert. Evaluation of the left lower extremity about the knee ecchymosis seen within the toes. He does report intact sensation over the deep and superficial peroneal nerve and tibial nerve. However, I question how reliable of the examination is. Faintly palpable PT pulse. Splint was removed and a new Booker splint with posterior slab was applied. He is able to demonstrate some active great toe extension and flexion. Diminished Results Last Vital Signs Temp 36.2 C L 03/21/23 07:53 Pulse 81 03/21/23 11:56 Resp 17 03/21/23 07:53 BP 149/93 H 03/21/23 07:53 Pulse Ox 90 L 03/21/23 11:56 Labs 03/22/23 07:00 03/22/23 07:00 Labs: Laboratory Results - last 24 hr 03/21/23 12:05 WBC 7.78 RBC 5.13 Hgb 14.3 Hct 42.5 MCV 83 MCH 27.9 MCHC 33.6 RDW 14.4 H Plt Count 154 MPV 9.7 Immature Gran % 0.0 Neutrophils % 78.0 Lymphocytes % 11.0 Atypical Lymphs % 2 Monocytes % 8.0 Eosinophils % 0.0 Basophils % 1.0 Nucleated RBC % 0.0 Absolute Neutrophils 6.07 Absolute Lymphocytes 1.01 L Absolute Monocytes 0.62 Absolute Eosinophils 0.00 Absolute Basophils 0.08 RBC Morphology Normal Sodium 138 Potassium 4.7 Chloride 100 Carbon Dioxide 32.9 H Anion Gap 5.1 BUN 16 Creatinine 0.8 Est GFR (CKD-EPI 2020) 105.82 Glucose 132 H Calcium 9.4 Imaging Imaging Studies: X-ray of the left foot along with a CT scan shows multiple fractures about the midfoot. This is a Lisfranc fracture. There is an intra-articular fracture of the first metatarsal bone and the joint surface with displacement. There is a fracture of the plantar surface of the second metatarsal with lateral displacement. There is nondisplaced fractures through the base of the third and fourth metatarsals however without any incongruity of the TMT joint and no displacement. There is 1/5 metatarsal tuberosity fracture with minimal displacement.
--- NOTE | 2023-03-21 15:18 | PTTR_ITS ---
Date of service: 03/21/23 Time of Service: 15:04 PT Notes Visit Reasons: RSV, bronchospasm Inpatient Physical Therapy Treatment Note [facility] Date: 03/21/23 PRECAUTIONS: Fall. Standard. NWB on the L LE with AD, supportive/appropriate footwear needed on the R. SUBJECTIVE: Patient reports having some pain, indicates his left foot, comments on its bruised appearance. Patient states that other than that he is doing well. Expects to have surgery on his foot at some point. OBJECTIVE: Sitting up in bedside chair with legs elevated. Posterior slab cast in place LLE. 2L/min supplemental O2 via nasal cannula. Agreeable to therapy. ? PAIN: 5/10 VITALS: monitored by nursing staff. ? Therapeutic Activities ([id number]): Direct one-on-one instruction in dynamic activities to improve functional performance. ? BED MOBILITY/TRANSFERS? Rolling L/R: not assessed Supine-sit: not assessed ? Sit-supine: not assessed ? Sit-stand x4: Mod assist of one at gait belt, with verbal cues for weightbea ring status as well as verbal and visual cues to push up from arm of chair. Mod- Max assist of one to maintain patient balance until both hands are on walker. After this, patient appears to lean hard to the right, but when this clinician slowly eased pressure off gait belt, upright balance was maintained. Stands for ~90 seconds each time.? Stand-sit: Min assist at gait belt with verbal cues to reach hands back for arms of chair. ? Bed-Chair: not assessed ? Chair-bed: not assessed Patient requires extended rest between periods of exertion (~2 minutes) to regain control of his breathing. Education provided on nasal breathing, diaphragmatic breathing. Provided skilled cues and instruction on performance and technique throughout. ASSESSMENT:? Patient tolerates therapy well, recovers well and is resting comfortably in the chair with call carrera in easy reach when this clinician exits treatment session. PLAN: Continue global strengthening, gait training per plan of care until patient is medically cleared for discharge. TREATMENT CODE/TIME: 13 minutes beginning at 15:04
--- NOTE | 2023-03-21 16:03 | CMPROGNOTE_ITS ---
Date of service: 03/21/23 Time of Service: 16:03 Care Management Progress Note Progress Note Text Progress Note Text: S/O: Alberto was made inpatient today due to oxygen status. Anticipate he will be brought to OR early next week for his foot fracture; refer to Ortho notes for additional information. CM continues to follow. A: 52 year old male admitted to [facility] 03/19/23 for RSV, Broncospasm P: Anticipate Alberto will be brought for surgery early next week, he will be evaluated for needs post surgically to inform discharge plan. Anticipate he will return to his residence once medically cleared, dependent on ability to ambulate and weight bearing status. CM following.
[2023-03-21] MEDS: Atorvastatin 20 MG TAB PO (19:18)
[2023-03-22] VITALS (12 sets, daily range): BP systolic 129–151; BP diastolic 83–92; PULSE 76–93; RESP 2–20; TEMP 36–36.8; O2SAT 90–97
[2023-03-22 07:32] LABS: Anion Gap 3.1 mmol/L (3-11); BUN 18 mg/dL (7-18); CO2 35.9 mmol/L (21.0-32.0); CREATININE 0.8 mg/dL (0.70-1.30); Calcium 9.2 mg/dL (8.5-10.1); Chloride 103 mmol/L (98-107); Estimated GFR 105.82 (mL/min/1.73m2); Glucose 84 mg/dL (74-106); Potassium 4.2 mmol/L (3.5-5.1); Sodium 142 mmol/L (136-145)
[2023-03-22 07:48] LABS: Abs Immature Grans 0.05 10^3/uL (0.0-0.06); HCT 42.6 % (40.0-50.0); HGB 14.1 g/dL (13.5-17.5); MCH 27.6 pg (27.0-33.0); MCHC 33.1 % (32.0-36.0); MCV 83 fL (80-95); MPV 9.5 fL (8.0-11.0); Platelet Count 182 10^3/uL (130-400); Procalcitonin < 0.1 ng/mL; RBC 5.11 10^6/uL (4.36-5.78); RDW 14.2 % (11.8-14.1); RDW-SD 43.6 fL; WBC 7.32 10^3/uL (4.4-10.8)
[2023-03-22 08:04] LABS: Absolute Lymphocyte Count 2.93 10^3/uL (1.2-3.4); Absolute Monocyte Count 0.44 10^3/uL (0.1-0.8); Absolute Neutrophil Count 3.95 10^3/uL (1.2-6.7); Atypical Lymphocytes % 14
[2023-03-22 08:05] LABS: Diff Comment Manual Differential; RBC Morphology Normal
[2023-03-22] MEDS: Albuterol/Ipratropium 3 ML UPD VIAL UPD ×3 (08:45→20:44)
[2023-03-22] MEDS: Psyllium PKT 1 EACH PO (09:14)
[2023-03-22] MEDS: Cholecalciferol (Vitamin D3) 1,000 UNIT TAB 1000 UNITS PO (09:14)
[2023-03-22] MEDS: predniSONE 20 MG TAB 40 MG PO (09:14)
[2023-03-22] MEDS: Divalproex 250 MG TABEC PO ×2 (09:14→20:18)
[2023-03-22] MEDS: Sertraline 100 MG TAB 200 MG PO (09:15)
[2023-03-22] MEDS: risperiDONE 1 MG TAB 2 MG PO ×2 (09:15→20:18)
[2023-03-22] MEDS: Ibuprofen 200 MG TAB 400 MG PO (09:15)
[2023-03-22] MEDS: Divalproex 500 MG TABEC 1000 MG PO ×2 (09:16→20:18)
--- NOTE | 2023-03-22 09:50 | W.PM.PROGNOT ---
Date of Service Date of service: 03/22/23 Time of Service: 09:50 Assessment and Plan Assessment and plan (1) Hypoxic respiratory failure: Status: Acute Assessment and plan: Continue to wean oxygen Down to 1 L Exercise oximetry testing needed prior to discharge (2) Respiratory syncytial virus (RSV) infection: Status: Acute Assessment and plan: Continue supportive therapy on steroids and oxygen Start Mucinex continue duonebs start IS and vibrapep, needs cue to initiate devices Remains afebrile, no leukocytoisis normotensive no antibiotics indicated at this time. Procal negative (3) Obesity: Status: Chronic Assessment and plan: Will job placement counselor the patient to discuss weight management with PCP (4) Foot fracture, left: Status: Acute Assessment and plan: orthopedic consult ongoing: Surgical intervention projected early next week when respiratory status improves as per discussion with discussed with DR Owusu Subjective Subjective Patient reports: no new complaints, feels better, tolerating liquids well, tolerating a regular diet, voiding w/o difficulty, flatus, no bowel movement, shortness of breath (on exertion is improved), afebrile and other (Patient stated feeling tired early in the morning but feeling better when seen.); denies diarrhea, blood in stool, nausea, vomiting or fever Exam Narrative Exam Narrative: Constitutional The patient is sitting in chair without acute distress and has obese body habitus HENMT: Head is atraumatic, normocephalic, no lymphadenopathy. Facial structures with normal appearance, profused clear to whitish nasal secretion Eyes: Well aligned, intact ROM Neck: Normal ROM, no meningeal signs Neuro:alert and oriented to self, person, place knows he is the hospital. 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 5/5 otherwise Psych: RASS 0, congruent mood and normal affect. Objective Last Vital Signs Temp 36.3 C L 03/22/23 08:02 Pulse 93 H 03/22/23 08:48 Resp 18 03/22/23 08:45 BP 129/92 H 03/22/23 08:02 Pulse Ox 92 03/22/23 08:55 Laboratory Results - last 24 hr 03/21/23 03/22/23 12:05 07:00 WBC 7.78 7.32 RBC 5.13 5.11 Hgb 14.3 14.1 Hct 42.5 42.6 MCV 83 83 MCH 27.9 27.6 MCHC 33.6 33.1 RDW 14.4 H 14.2 H Plt Count 154 182 MPV 9.7 9.5 Immature Gran % 0.0 0.0 Neutrophils % 78.0 54.0 Lymphocytes % 11.0 26.0 Atypical Lymphs % 2 14 Monocytes % 8.0 6.0 Eosinophils % 0.0 0.0 Basophils % 1.0 0.0 Nucleated RBC % 0.0 0.0 Absolute Neutrophils 6.07 3.95 Absolute Lymphocytes 1.01 L 2.93 Absolute Monocytes 0.62 0.44 Absolute Eosinophils 0.00 0.00 Absolute Basophils 0.08 0.00 RBC Morphology Normal Normal Sodium 138 142 Potassium 4.7 4.2 Chloride 100 103 Carbon Dioxide 32.9 H 35.9 H Anion Gap 5.1 3.1 BUN 16 18 Creatinine 0.8 0.8 Est GFR (CKD-EPI 2020) 105.82 105.82 Glucose 132 H 84 Calcium 9.4 9.2 Procalcitonin < 0.1 Time Spent with Patient Time Spent with Patient: >50 minutes Time was spent: preparing to see the patient(eg.review tests), ordering medications,tests, procedures, referring, communicating with other health inspector health care facilities, indepentently interpreting results, counseling the patient and care coordination
[2023-03-22 11:00] LABS: BE (Venous) 12 mmol/L (-2-3); HCO3 (Venous) 36 mmol/L (23-28); O2 Sat (Venous) 90 %; TCO2 (Venous) 31 mmol/L (24-29); pCO2 (Venous) 51 mmHg (41-51); pH (Venous) 7.45 (7.31-7.41); pO2 (Venous) 53 mmHg
--- NOTE | 2023-03-22 11:11 | PT.INTREAT ---
Date of service: 03/22/23 Time of Service: 10:00 PT Notes Visit Reasons: RSV, bronchospasm Inpatient Physical Therapy Treatment Note [facility] Date: 03/22/23 PRECAUTIONS: fall, standard, activity as tolerated. NWB LLE. Supportive footwear on right foot. SUBJECTIVE: Patient reports some pain, better than earlier. (Patient was initially approached at 8:44, reported 11/10 pain and a soiled brief.) AFTERNOON: patient reports being very tired. No c/o pain. OBJECTIVE: Supine in bed. Agreeable to therapy. 1L/min supplemental O2 via nasal cannula. AFTERNOON: supine in bed, agreeable to therapy, 2L/min supplemental O2 via nasal cannula ? PAIN: better. VITALS: monitored by nursing staff. Therapeutic Activities ([id number]): Direct one-on-one instruction in dynamic activities to improve functional performance. ? BED MOBILITY/TRANSFERS? Rolling L/R: Independent Supine-sit: Independent ? Sit-supine: not assessed ? Sit-stand: Mod assist of one at gait belt, verbal cues for NWB status which patient voices understanding and awareness. ? Stand-sit: CGA ? Bed-Chair: Mod assist at gait belt for balance and max verbal cues for maintaining WB status. ? Chair-bed: [] Provided skilled cues and instruction on performance and technique throughout. Gait Training ([id number]): Direct one-on-one instruction and skilled instruction in: [x] employing an assistive device [x] modified weight-bearing status [x] movement sequencing [x] turning and movement with proper form [x] Provided verbal cues for equipment management and technique [x] Provided instruction in gait pattern [] Patient education regarding pacing and breathing techniques to maximize activity tolerance? GAIT? Assistive Device: FWW ? Weight bearing: NWB LLE Assist: mod assist with max verbal cues to keep left leg off floor, no weight through left leg ? Distance:? 15 feet x2? Deviation: Patient appears to be using walker primarily for balance. Repeatedly encouraged patient to bear weight through arms, this appears to be difficult for this patient. LOB noted x1 with fatigue near end of treatment session, recovered without use of LLE with mod assist from this clinician via gait belt. ? ASSESSMENT:? Patient tolerates therapy well, maintains SaO2 within acceptable ranges. RN Myriam notified of patient's success. PLAN: Continue global strengthening per plan of care until patient is medically cleared for discharge and obtains safe discharge plan. TREATMENT CODE/TIME: 12 minutes beginning at 10:00 and 24 minutes beginning at 14:04 for a total of 36 minutes today.
--- NOTE | 2023-03-22 13:27 | W.ORTHOCONSU ---
[facility] All Active Problems Fracture of second metatarsal bone of left foot (Acute) Displaced fracture of first metatarsal bone, left foot, initial encounter for closed fracture (Acute) Hypoxic respiratory failure (Acute) Obesity (Chronic) Hypoxia (Acute) Respiratory syncytial virus (RSV) infection (Acute) Foot fracture, left (Acute) Respiratory syncytial virus (RSV) (Acute) GERD (gastroesophageal reflux disease) (Chronic) Vitamin D deficiency (Acute) Dermatophytosis of foot (Acute) Pain, foot (Acute) Nail dystrophy (Acute) Sensorineural hearing loss (SNHL) of both ears (Acute) Tremor (Acute) Tubular adenoma of colon (Acute) Tubular adenoma (Acute ~11/2019) 12/18/19 Dr. Rajiv Márquez, repeat colo 3 years w/ Golytly prep Colon polyps (Acute) Cognitive developmental delay (Chronic) Mood disorder (Acute) Generalized epilepsy (Acute) Per caregiver he has not had a seizure in decades, see's Dr. Camarena for f/u Medical History History of diverticulitis Pulmonary embolism Cerumen impaction Tobacco use BMI 40.0-44.9, adult Epilepsy Conduct disorder, aggressive type Intellectual disability Onychomycosis of toenail Screening for colon cancer Dyshidrotic eczema H/O adenomatous polyp of colon Weakness of both legs At high risk for falls Hip pain, bilateral Morbid obesity Decreased hearing of both ears Impacted cerumen, bilateral COVID-19 Kidney stone History of tobacco use Other congenital valgus deformities of feet Lack of coordination Intermittent explosive disorder Per caregiver (Liu) on occasion he will have an agrressive incident per caregiver states he does not feel as though he will have any issues with procedures Anxiety disorder Conduct disorder, aggressive type, mild Per caregiver (Liu) has been in a very good place recently Therapeutic drug monitoring Onychomycosis Candidiasis Prediabetes Per caregiver states he is not diabetic, he has lost 25 lbs Varus deformities of feet, congenital Obstructive sleep apnea Remote PSG noted an AHI of 12.2 with an O2 sat jensen of 54%. He does not currently have a CPAP. Hyperlipidemia Surgical History S/P surgical manipulation of ankle joint R, 2013 Family History Father Epilepsy Brother , of seizure Epilepsy Social History Smoking/Tobacco Use Status: Former Tobacco Use Quit Date: 02/25/18 Smoking risk assessment performed?: Yes Alcohol Intake: never Drug use: Never Substance use type: does not use Housing: other Number of Children: 0 current occupation: Disabled Do you feel safe at home: Yes Additional Social history: He currently resides at [facility] (since November 2016). He is under the guardianship of [employer] (since February 2017). He graduated from high school and previously worked in a [employer]. Results Last Vital Signs Temp 36.0 C L 03/22/23 23:42 Pulse 77 03/22/23 23:42 Resp 17 03/22/23 23:42 BP 131/83 03/22/23 23:42 Pulse Ox 94 03/22/23 23:42 Labs 03/22/23 07:00 03/22/23 07:00 Labs: Laboratory Results - last 24 hr 03/22/23 03/22/23 07:00 10:50 WBC 7.32 RBC 5.11 Hgb 14.1 Hct 42.6 MCV 83 MCH 27.6 MCHC 33.1 RDW 14.2 H Plt Count 182 MPV 9.5 Immature Gran % 0.0 Neutrophils % 54.0 Lymphocytes % 26.0 Atypical Lymphs % 14 Monocytes % 6.0 Eosinophils % 0.0 Basophils % 0.0 Nucleated RBC % 0.0 Absolute Neutrophils 3.95 Absolute Lymphocytes 2.93 Absolute Monocytes 0.44 Absolute Eosinophils 0.00 Absolute Basophils 0.00 RBC Morphology Normal VBG pH 7.45 H VBG pCO2 51 VBG pO2 53 VBG HCO3 36 H VBG Total CO2 31 H VBG O2 Saturation 90 VBG Base Excess 12 H Sodium 142 Potassium 4.2 Chloride 103 Carbon Dioxide 35.9 H Anion Gap 3.1 BUN 18 Creatinine 0.8 Est GFR (CKD-EPI 2020) 105.82 Glucose 84 Calcium 9.2 Procalcitonin < 0.1
--- NOTE | 2023-03-22 16:07 | PDOC.CMPRO ---
Date of service: 03/22/23 Time of Service: 16:07 Care Management Progress Note Progress Note Text Progress Note Text: Alberto will be brought for surgery early next week, he will be evaluated for needs post surgically to inform discharge plan. Anticipate he will return to his residence once medically cleared, dependent on ability to ambulate and weight bearing status. CM following. SDOH(Care Management) Screening Will the Patient Participate in the Screening?: Unable to obtain
[2023-03-22] MEDS: Atorvastatin 20 MG TAB PO (20:18)
[2023-03-22] MEDS: guaiFENesin 600 MG TABCR PO (20:18)
[2023-03-23] VITALS (10 sets, daily range): BP systolic 133–153; BP diastolic 77–92; PULSE 81–100; RESP 6–22; TEMP 36.5–37; O2SAT 90–94
[2023-03-23 06:57] LABS: Abs Immature Grans 0.16 10^3/uL (0.0-0.06); HCT 44.3 % (40.0-50.0); HGB 14.8 g/dL (13.5-17.5); MCH 27.5 pg (27.0-33.0); MCHC 33.4 % (32.0-36.0); MCV 82 fL (80-95); MPV 9.1 fL (8.0-11.0); Platelet Count 211 10^3/uL (130-400); RBC 5.38 10^6/uL (4.36-5.78); RDW 14.1 % (11.8-14.1); RDW-SD 41.8 fL; WBC 8.44 10^3/uL (4.4-10.8)
[2023-03-23 07:08] LABS: Anion Gap 6.4 mmol/L (3-11); BUN 20 mg/dL (7-18); CO2 33.6 mmol/L (21.0-32.0); CREATININE 0.8 mg/dL (0.70-1.30); Calcium 9.2 mg/dL (8.5-10.1); Chloride 101 mmol/L (98-107); Estimated GFR 105.82 (mL/min/1.73m2); Glucose 86 mg/dL (74-106); Potassium 4.3 mmol/L (3.5-5.1); Sodium 141 mmol/L (136-145)
[2023-03-23 07:13] LABS: Absolute Basophil Count 0.17 10^3/uL (0.0-0.2); Absolute Eosinophil Count 0.08 10^3/uL (0.0-0.7); Absolute Lymphocyte Count 3.21 10^3/uL (1.2-3.4); Absolute Monocyte Count 0.51 10^3/uL (0.1-0.8); Absolute Neutrophil Count 4.47 10^3/uL (1.2-6.7); Atypical Lymphocytes % 9; Diff Comment Manual Differential; RBC Morphology Normal
[2023-03-23] MEDS: Albuterol/Ipratropium 3 ML UPD VIAL UPD ×3 (08:34→20:32)
[2023-03-23] MEDS: Psyllium PKT 1 EACH PO (09:13)
[2023-03-23] MEDS: guaiFENesin 600 MG TABCR PO ×2 (09:14→20:31)
[2023-03-23] MEDS: Docusate Sodium 100 MG CAP PO (09:14)
[2023-03-23] MEDS: Sertraline 100 MG TAB 200 MG PO (09:14)
[2023-03-23] MEDS: predniSONE 20 MG TAB 40 MG PO (09:14)
[2023-03-23] MEDS: Divalproex 250 MG TABEC PO ×2 (09:15→20:31)
[2023-03-23] MEDS: Divalproex 500 MG TABEC 1000 MG PO ×2 (09:15→20:31)
[2023-03-23] MEDS: Cholecalciferol (Vitamin D3) 1,000 UNIT TAB 1000 UNITS PO (09:15)
[2023-03-23] MEDS: risperiDONE 1 MG TAB 2 MG PO ×2 (09:15→20:32)
--- NOTE | 2023-03-23 11:12 | PT.INTREAT ---
PT Notes Visit Reasons: RSV, bronchospasm Date: 03/23/23 PRECAUTIONS: fall, standard, activity as tolerated. NWB LLE. Supportive footwear on right foot. SUBJECTIVE: pt in bed when approached for therapy this morning, pt agreed to participating with session. OBJECTIVE: Left UE IV line, 2L 02 support NC, posterior slab cast in place LLE. PAIN: 5/10 VITALS: monitored by nursing Therapeutic Activities 75497 15mins: Direct one-on-one instruction in dynamic activities to improve functional performance. ?? BED MOBILITY/TRANSFERS? Rolling L/R: supervision Supine-sit: ?supervision ? Sit-supine: ?supervision? Sit-stand: ?SBA? Stand-sit: ?SBA ? Bed-Chair:?Stand pivot transfer CGA/min A ? Chair-bed: Stand pivot transfer CGA/min A Provided skilled cues and instruction on performance and technique throughout. Gait Training [id number] 10mins: Direct one-on-one instruction and skilled instruction in: Employing an assistive device Modified weight-bearing status Movement sequencing Turning and movement with proper form Provided verbal cues for equipment management and technique Provided instruction in gait pattern Patient education regarding pacing and breathing techniques to maximize activity tolerance? GAIT? Assistive Device: ??FWW? Weight bearing: NWB LLE Assist: ?CGA ? Distance:?? 5'? Deviation: ?single leg hop ? Provided skilled instruction in proper exercise performance Provided skilled manual cues to facilitate proper muscle recruitment and/or form: ASSESSMENT:?pt showing good carry over with NWB precaution, initially refused but was happy he did the transfer, PLAN: Continue global strengthening per plan of care until patient is medically cleared for discharge and obtains safe discharge plan. TREATMENT CODE/TIME: [id number], [id number] 25mins (10:45-11:10am)
[2023-03-23] MEDS: Acetaminophen 500 MG TAB PO (20:30)
[2023-03-23] MEDS: Atorvastatin 20 MG TAB PO (20:31)
[2023-03-23] MEDS: Normal Saline Flush 10 ML SYR IVP (20:32)
[2023-03-24] VITALS (9 sets, daily range): BP systolic 144–156; BP diastolic 87–94; PULSE 81–95; RESP 20–22; TEMP 33–36.9; O2SAT 90–95
[2023-03-24 06:13] LABS: Absolute Basophil Count 0.09 10^3/uL (0.0-0.2); Absolute Eosinophil Count 0.07 10^3/uL (0.0-0.7); Absolute Lymphocyte Count 2.59 10^3/uL (1.2-3.4); Absolute Monocyte Count 0.52 10^3/uL (0.1-0.8); Basophils % 1.1; Eosinophils % 0.9; HCT 43.4 % (40.0-50.0); HGB 14.3 g/dL (13.5-17.5); Immature Grans % 2.5; Lymphocytes % 32.5; MCH 27.2 pg (27.0-33.0); MCHC 32.9 % (32.0-36.0); MCV 83 fL (80-95); MPV 8.9 fL (8.0-11.0); Monocytes % 6.5; Neutrophils % 56.5; Platelet Count 227 10^3/uL (130-400); RBC 5.25 10^6/uL (4.36-5.78); RDW 14.2 % (11.8-14.1); RDW-SD 42.5 fL; WBC 7.97 10^3/uL (4.4-10.8)
[2023-03-24 06:26] LABS: Anion Gap 5.5 mmol/L (3-11); BUN 22 mg/dL (7-18); CO2 32.5 mmol/L (21.0-32.0); CREATININE 0.7 mg/dL (0.70-1.30); Chloride 103 mmol/L (98-107); Estimated GFR 110.18 (mL/min/1.73m2); Glucose 91 mg/dL (74-106); Potassium 4.4 mmol/L (3.5-5.1); Sodium 141 mmol/L (136-145)
[2023-03-24] MEDS: Albuterol/Ipratropium 3 ML UPD VIAL UPD ×4 (08:01→19:48)
[2023-03-24] MEDS: Psyllium PKT 1 EACH PO (08:58)
[2023-03-24] MEDS: Divalproex 250 MG TABEC PO ×2 (08:59→19:48)
[2023-03-24] MEDS: Sertraline 100 MG TAB 200 MG PO (08:59)
[2023-03-24] MEDS: Docusate Sodium 100 MG CAP PO (09:00)
[2023-03-24] MEDS: risperiDONE 1 MG TAB 2 MG PO ×2 (09:00→19:48)
[2023-03-24] MEDS: Divalproex 500 MG TABEC 1000 MG PO ×2 (09:00→19:48)
[2023-03-24] MEDS: Cholecalciferol (Vitamin D3) 1,000 UNIT TAB 1000 UNITS PO (09:01)
[2023-03-24] MEDS: guaiFENesin 600 MG TABCR PO ×2 (09:01→19:48)
[2023-03-24] MEDS: predniSONE 20 MG TAB 40 MG PO (09:01)
[2023-03-24] MEDS: Acetaminophen 500 MG TAB PO (11:11)
--- NOTE | 2023-03-24 12:08 | PT.INTREAT ---
PT Notes Visit Reasons: RSV, bronchospasm Date: 03/24/23 PRECAUTIONS: fall, standard, activity as tolerated. NWB LLE. Supportive footwear on right foot. Airborne Droplet precaution SUBJECTIVE: pt in bed when approached for therapy this morning, pt agreed to participating with session. OBJECTIVE: Left UE IV line, 2L 02 support NC, posterior slab cast in place LLE. PAIN: 5/10 VITALS: monitored by nursing Therapeutic Activities [id number] 15mins: Direct one-on-one instruction in dynamic activities to improve functional performance. ?? BED MOBILITY/TRANSFERS? Rolling L/R: supervision Supine-sit: ?supervision ? Sit-supine: ?supervision? Sit-stand: ?SBA? Stand-sit: ?SBA ? Bed-Chair:?Stand pivot transfer CGA? Chair-bed: Stand pivot transfer CGA Provided skilled cues and instruction on performance and technique throughout. Gait Training [id number] 10mins: Direct one-on-one instruction and skilled instruction in: Employing an assistive device Modified weight-bearing status Movement sequencing Turning and movement with proper form Provided verbal cues for equipment management and technique Provided instruction in gait pattern Patient education regarding pacing and breathing techniques to maximize activity tolerance? GAIT? Assistive Device: ??FWW? Weight bearing: NWB LLE Assist: ?CGA ? Distance:?? 5'x2 ? Deviation: ?single leg hop/Stand pivot transfer ? Provided skilled instruction in proper exercise performance Provided skilled manual cues to facilitate proper muscle recruitment and/or form: ASSESSMENT:?Pt showing improve movement and sequencing with pt verbalizing he did good with keeping his left LE elevated. PLAN: Continue global strengthening per plan of care until patient is medically cleared for discharge and obtains safe discharge plan. TREATMENT CODE/TIME: [id number], 66636k2 30mins (9:42-10:12am)
--- NOTE | 2023-03-24 17:00 | W.PM.PROGNOT ---
Date of Service Date of service: 03/23/23 Time of Service: 14:00 Assessment and Plan Assessment and plan (1) Hypoxic respiratory failure: Status: Acute Assessment and plan: Continue to wean oxygen, patient had no requirement at home As per RT patient on RA, no O2 when seen (2) Respiratory syncytial virus (RSV) infection: Status: Acute Assessment and plan: Continue on supportive treatment: steroids and oxygen continue duonebs continue IS and vibrapep: needs cueing, weak cough and difficulty clearing secretions: starting mucinex Remains Afebrile w/o leukocytoisis and normotensive no antibiotics indicated at this time. Procal negative (3) Obesity: Status: Chronic Assessment and plan: Will employment counselor the patient to discuss weight management with PCP Caloric intake controlled during hospitalization (4) Foot fracture, left: Status: Acute Assessment and plan: orthopedic consult ongoing: Surgical intervention projected early next week as per discussion with who will discuss with anesthesia Respiratory concerns PT consult ongoing:See note discussed with DR Owusu (5) On deep vein thrombosis (DVT) prophylaxis: Status: Acute Assessment and plan: On lovenox (6) Discharge planning issues: Status: Resolved Assessment and plan: [facility] and needs to be independent in ADL's prior to discharge CM to f/u Sx most likely 03/26 or 03/[address] Owusu Subjective Subjective Patient reports: no new complaints, feels better, tolerating liquids well, tolerating a regular diet, voiding w/o difficulty, flatus and bowel movement; denies diarrhea, nausea, vomiting, shortness of breath or fever Exam Narrative Exam Narrative: Constitutional The patient is in bed sleeping but awakens as I walked in the room HENMT: Head is atraumatic, normocephalic, no lymphadenopathy. Facial structures with normal appearance Eyes: Well aligned, intact ROM Neck: Normal ROM, no meningeal signs Neuro:alert and oriented to self knows that this is the hospital, unable to state date, day or town/ state. 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 5/5 otherwise Psych: RASS 0, congruent mood and normal affect. Objective Last Vital Signs Temp 36.9 C 03/24/23 14:42 Pulse 95 H 03/24/23 14:42 Resp 22 03/24/23 14:42 BP 144/87 H 03/24/23 14:42 Pulse Ox 95 03/24/23 15:30 Laboratory Results - last 24 hr 03/24/23 05:48 WBC 7.97 RBC 5.25 Hgb 14.3 Hct 43.4 MCV 83 MCH 27.2 MCHC 32.9 RDW 14.2 H Plt Count 227 MPV 8.9 Immature Gran % 2.5 Neutrophils % 56.5 Lymphocytes % 32.5 Monocytes % 6.5 Eosinophils % 0.9 Basophils % 1.1 Nucleated RBC % 0.0 Absolute Neutrophils 4.50 Absolute Lymphocytes 2.59 Absolute Monocytes 0.52 Absolute Eosinophils 0.07 Absolute Basophils 0.09 Sodium 141 Potassium 4.4 Chloride 103 Carbon Dioxide 32.5 H Anion Gap 5.5 BUN 22 H Creatinine 0.7 Est GFR (CKD-EPI 2020) 110.18 Glucose 91 Calcium 9.0 Time Spent with Patient Time Spent with Patient: >50 minutes Time was spent: preparing to see the patient(eg.review tests), obtaining and/or reviewing separately otained hiistory, ordering medications,tests, procedures, referring, communicating with other health customer care representative, indepentently interpreting results, counseling the patient and care coordination
--- NOTE | 2023-03-24 17:23 | PGE_ITS ---
Date of Service Date of service: 03/24/23 Time of Service: 15:00 Assessment and Plan Assessment and plan (1) Hypoxic respiratory failure: Status: Acute Assessment and plan: Continue to wean oxygen, patient had no requirement at home On RA but requires oxygen supplementation at night at 3 L As per RT, patient needs to be out of RSV infection before further testing can be done for oxygen supplementation/NARAYAN (2) Respiratory syncytial virus (RSV) infection: Status: Acute Assessment and plan: Continue on supportive treatment: steroids and oxygen continue duonebs continue IS and vibrapep: Continue to need cues Continue Mucinex; for the thick coughing of whitish thick sputum Remains Afebrile w/o leukocytoisis and hemodynamically stable no antibiotics indicated at this time. Procal was negative (3) Obesity: Status: Chronic Assessment and plan: Will social services counselor the patient to discuss weight management with PCP Caloric intake controlled during hospitalization (4) Foot fracture, left: Status: Acute Assessment and plan: orthopedic consult ongoing: Surgical intervention projected early next week as per discussion with and as per Ortho's discussion with anesthesia patient might be able to undergo surgery on Tuesdays Continue PT discussed with DR Owusu (5) On deep vein thrombosis (DVT) prophylaxis: Status: Acute Assessment and plan: Continue Lovenox lovenox (6) Discharge planning issues: Status: Resolved Assessment and plan: Patient reside in [place] and needs to be independent in ADL's prior to discharge;might need rehabilitation after surgery CM to f/u Sx most likely 03/26 or 03/27 as per discussion with orthopedic services Discussed with Dr. Owusu Subjective Subjective Patient reports: no new complaints, tolerating liquids well, tolerating a regular diet, flatus, bowel movement and diarrhea (incontinence while coughing); denies still having pain, nausea, vomiting, shortness of breath or fever Exam Narrative Exam Narrative: Constitutional The patient is in bed w/o distress HENMT: Facial structures with normal appearance Eyes: Well aligned Neuro:alert and oriented to self knows that this is the hospital, unable to state date, day or town/ state. 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 5/5 otherwise Psych: RASS 0, congruent mood and normal affect. Objective Last Vital Signs Temp 36.9 C 03/24/23 14:42 Pulse 95 H 03/24/23 14:42 Resp 22 03/24/23 14:42 BP 144/87 H 03/24/23 14:42 Pulse Ox 95 03/24/23 15:30 Laboratory Results - last 24 hr 03/24/23 05:48 WBC 7.97 RBC 5.25 Hgb 14.3 Hct 43.4 MCV 83 MCH 27.2 MCHC 32.9 RDW 14.2 H Plt Count 227 MPV 8.9 Immature Gran % 2.5 Neutrophils % 56.5 Lymphocytes % 32.5 Monocytes % 6.5 Eosinophils % 0.9 Basophils % 1.1 Nucleated RBC % 0.0 Absolute Neutrophils 4.50 Absolute Lymphocytes 2.59 Absolute Monocytes 0.52 Absolute Eosinophils 0.07 Absolute Basophils 0.09 Sodium 141 Potassium 4.4 Chloride 103 Carbon Dioxide 32.5 H Anion Gap 5.5 BUN 22 H Creatinine 0.7 Est GFR (CKD-EPI 2020) 110.18 Glucose 91 Calcium 9.0 Time Spent with Patient Time Spent with Patient: >50 minutes Time was spent: preparing to see the patient(eg.review tests), ordering medications,tests, procedures, referring, communicating with other health body care manager, indepentently interpreting results, counseling the patient and care coordination
[2023-03-24] MEDS: Atorvastatin 20 MG TAB PO (19:48)
[2023-03-24] MEDS: LORazepam 0.5 MG TAB PO (19:48)
[2023-03-24] MEDS: Normal Saline Flush 10 ML SYR IVP (19:48)
[2023-03-25] VITALS (14 sets, daily range): BP systolic 118–144; BP diastolic 72–91; PULSE 73–106; RESP 3–40; TEMP 36–36.9; O2SAT 90–95
[2023-03-25 06:42] LABS: Abs Immature Grans 0.22 10^3/uL (0.0-0.06); Absolute Basophil Count 0.03 10^3/uL (0.0-0.2); Absolute Eosinophil Count 0.07 10^3/uL (0.0-0.7); Absolute Lymphocyte Count 2.31 10^3/uL (1.2-3.4); Absolute Neutrophil Count 6.01 10^3/uL (1.2-6.7); Basophils % 0.3; Eosinophils % 0.7; HCT 45.8 % (40.0-50.0); HGB 15.3 g/dL (13.5-17.5); Immature Grans % 2.4; Lymphocytes % 24.7; MCH 27.7 pg (27.0-33.0); MCHC 33.4 % (32.0-36.0); MCV 83 fL (80-95); MPV 8.8 fL (8.0-11.0); Monocytes % 7.5; Neutrophils % 64.4; Platelet Count 255 10^3/uL (130-400); RBC 5.52 10^6/uL (4.36-5.78); RDW 14.1 % (11.8-14.1); RDW-SD 42.1 fL; WBC 9.34 10^3/uL (4.4-10.8)
[2023-03-25 07:17] LABS: Anion Gap 6.6 mmol/L (3-11); BUN 19 mg/dL (7-18); CO2 29.4 mmol/L (21.0-32.0); CREATININE 0.6 mg/dL (0.70-1.30); Calcium 9.6 mg/dL (8.5-10.1); Chloride 101 mmol/L (98-107); Estimated GFR 115.43 (mL/min/1.73m2); Glucose 80 mg/dL (74-106); Potassium 5.1 mmol/L (3.5-5.1); Sodium 137 mmol/L (136-145)
[2023-03-25 07:19] LABS: Diff Comment Agrees w/ Instrument; RBC Morphology Normal
[2023-03-25] MEDS: risperiDONE 1 MG TAB 2 MG PO ×2 (07:24→20:13)
[2023-03-25] MEDS: Sertraline 100 MG TAB 200 MG PO (07:24)
[2023-03-25] MEDS: Divalproex 500 MG TABEC 1000 MG PO ×2 (07:25→20:14)
[2023-03-25] MEDS: Divalproex 250 MG TABEC PO ×2 (07:25→20:14)
[2023-03-25] MEDS: Cholecalciferol (Vitamin D3) 1,000 UNIT TAB 1000 UNITS PO (07:26)
[2023-03-25] MEDS: guaiFENesin 600 MG TABCR PO ×2 (07:26→20:10)
[2023-03-25] MEDS: predniSONE 20 MG TAB 40 MG PO (07:26)
[2023-03-25] MEDS: Psyllium PKT 1 EACH PO (07:55)
[2023-03-25] MEDS: Albuterol/Ipratropium 3 ML UPD VIAL UPD ×4 (08:25→20:07)
--- NOTE | 2023-03-25 12:26 | PDOC.CMPRO ---
Date of service: 03/25/23 Time of Service: 12:26 Care Management Progress Note Progress Note Text Progress Note Text: S/O: Alberto was lying in bed when CM met with him. He stated that he spoke to the MD today, who stated that he will go to surgery tomorrow. He is happy with this plan, and is looking forward to returning to [facility] once he is medically ready to do so. CM will continue to follow. A: 52 year old male admitted to [facility] 03/19/23 for RSV, Broncospasm P: Anticipate Alberto will be brought for surgery tomorrow; he will be evaluated for needs post surgically to inform discharge plan. Anticipate he will return to his residence once medically cleared, dependent on ability to ambulate and weight bearing status. CM following. SDOH(Care Management) Screening Will the Patient Participate in the Screening?: Unable to obtain
--- NOTE | 2023-03-25 13:02 | W.PM.PROGNOT ---
Date of Service Date of service: 03/25/23 Time of Service: 12:35 Assessment and Plan Assessment and plan (1) Fracture of second metatarsal bone of left foot: Status: Acute (2) Displaced fracture of first metatarsal bone, left foot, initial encounter for closed fracture: Status: Acute Assessment and plan: Alberto is a 52-year-old who has a complex fracture of the left foot, involving the Lisfranc complex. He has fractures involving the first through fifth metatarsals. Unfortunately, given the displacement of the first and second metatarsal this would benefit from operative fixation to hopefully allow further weightbearing of future with minimal risk of arthritis or ambulatory dysfunction. His case is complicated by his current RSV pneumonia. He also had significant swelling and fracture blisters about the left foot which needs time for it to heal. It seems to be healing appropriately and therefore we can proceed to surgery in regards to the left foot. He still is requiring oxygen and has been receiving steroids. Based on availability in the OR and the ongoing lung and foot issues I will tentatively plan for surgery on . He will need to be n.p.o. after midnight on Saturday. If his lung issues have cleared I am happy to take him onto my service. Postoperatively, he likely will require retirement facility discharge, depending on how he does with physical therapy. He will be nonweightbearing for the first 6 weeks. Subjective Subjective Interval history since last seen: Dean reports improvement in pain of the left foot. He continues to have to wear oxygen and has a cough. It seems like his oxygen demand has continued to decrease, needing it mostly at night. He says that he has been keeping the leg elevated although he was found in the significantly dependent position upon entering the room today. Exam Narrative Exam Narrative: Sitting up in the chair. The left leg is dangling off the end of the chair the dependent position. Significant improvement with the swelling with the left leg. The hemorrhagic fracture blister has resolved and is healing. Ecchymosis resolving. Wrinkling of the skin. Sensation intact light touch to the deep and superficial peroneal nerve and tibial nerve. Objective Last Vital Signs Temp 36.0 C L 03/25/23 07:33 Pulse 102 H 03/25/23 12:02 Resp 20 03/25/23 11:57 BP 144/91 H 03/25/23 07:33 Pulse Ox 91 L 03/25/23 11:57 Laboratory Results - last 24 hr 03/25/23 06:30 WBC 9.34 RBC 5.52 Hgb 15.3 Hct 45.8 MCV 83 MCH 27.7 MCHC 33.4 RDW 14.1 Plt Count 255 MPV 8.8 Immature Gran % 2.4 Neutrophils % 64.4 Lymphocytes % 24.7 Monocytes % 7.5 Eosinophils % 0.7 Basophils % 0.3 Nucleated RBC % 0.0 Absolute Neutrophils 6.01 Absolute Lymphocytes 2.31 Absolute Monocytes 0.70 Absolute Eosinophils 0.07 Absolute Basophils 0.03 RBC Morphology Normal Sodium 137 Potassium 5.1 Chloride 101 Carbon Dioxide 29.4 Anion Gap 6.6 BUN 19 H Creatinine 0.6 L Est GFR (CKD-EPI 2020) 115.43 Glucose 80 Calcium 9.6 Time Spent with Patient Time Spent with Patient: <25 minutes Time was spent: preparing to see the patient(eg.review tests), indepentently interpreting results and counseling the patient
--- NOTE | 2023-03-25 13:31 | PHA.REVIEW2 ---
Pharmacy Admission Review Admission Clinical Review Admission Pharmacy Review: (Updated 03/24/23 @ 17:17 by Sharon Swenson APRN) On deep vein thrombosis (DVT) prophylaxis (Acute) Fracture of second metatarsal bone of left foot (Acute) Displaced fracture of first metatarsal bone, left foot, initial encounter for closed fracture (Acute) Hypoxic respiratory failure (Acute) Hypoxia (Acute) Respiratory syncytial virus (RSV) infection (Acute) Foot fracture, left (Acute) No Known Allergies Allergy (Unverified 03/18/23 19:45) Resuscitation Status Full Code Height 5 ft 11 in Weight 127.006 kg Comments Comments/Follow Ups: Per morning meeting, trying to wean off oxygen. Pharmacy Admission Review Renal Dosing Renal Dosing: BUN 19 mg/dL (7-18) H 03/25/23 06:30 Creatinine 0.6 mg/dL (0.70-1.30) L 03/25/23 06:30 Medications needing adjustments: Reviewed (CrCl 193.3 mL/min) Anticoagulation Anticoagulation: Hgb 15.3 g/dL (13.5-17.5) 03/25/23 06:30 Hct 45.8 % (40.0-50.0) 03/25/23 06:30 Plt Count 255 10^3/uL (130-400) 03/25/23 06:30 Creatinine 0.6 mg/dL (0.70-1.30) L 03/25/23 06:30 DVT Prophylaxis: Intervened (No DVT prophylaxis at the moment, per progress note from 03/24 states to continue Lovenox. One dose was given in the ED on 03/19, but no further orders were put in. Reached out to provider to make them aware.) Relevant Labs Relevant Labs: Sodium 137 mmol/L (136-145) 03/25/23 06:30 Potassium 5.1 mmol/L (3.5-5.1) 03/25/23 06:30 Chloride 101 mmol/L (98-107) 03/25/23 06:30 Electrolytes, C-Reactive P, ESR: Reviewed (BUN decreased to 19 from ) Cardiac Review Cardiac Review: BP, HR, EF%: Reviewed (HR 102, BP 144/91, Ox 91 L on NC 1+) QTc Review QTc: Reviewed (Last EKG was on 06/20/21 and QTc was 428) IV to PO Switch IV Medications: Reviewed Home Meds Home Med List reviewed: Reviewed Relevent Home Meds Not ordered & why?: On home med list but no order: ketoconazole, loperamide and multivitamin Recently filled but not on patients home med list: benztropine. Reached out to provider. Current Meds Current Medication Order Review: Reviewed Comments Comments/Follow Ups: Per morning meeting, trying to wean off oxygen.
--- NOTE | 2023-03-25 13:42 | PGE_ITS ---
Date of Service Date of service: 03/25/23 Time of Service: 10:40 Assessment and Plan Assessment and plan (1) Hypoxic respiratory failure: Status: Acute Assessment and plan: Wean oxygen, patient had no requirement at home On 1 l/min today with sat 88-90% on RA, requires oxygen supplementation at night As per previous RT , patient needs to be out of RSV infection before further testing can be done for oxygen supplementation/NARAYAN (2) Respiratory syncytial virus (RSV) infection: Status: Acute Assessment and plan: On supportive treatment: steroids and oxygen On duonebs IS and vibrapep ongoing: Continue to need cues On Mucinex; for the thick coughing of whitish thick sputum Remains afebrile w/o leukocytoisis and hemodynamically stable, no antibiotics indicated at this time. Procal was negative earlier no need to repeat at this time (3) Obesity: Status: Chronic Assessment and plan: patient counseled to discuss weight management with PCP Caloric intake controlled during hospitalization (4) Foot fracture, left: Status: Acute Assessment and plan: Orthopedic consult ongoing: Surgical intervention projected on as per notes today ; Coags, CBC , BMP ordered for 03/26 Continue PT discussed with DR De La Garza (5) On deep vein thrombosis (DVT) prophylaxis: Status: Acute Assessment and plan: Continue Lovenox and hold one dose prior to surgery (6) Discharge planning issues: Status: Resolved Assessment and plan: Res[place] in [place] and needs to be independent in ADL's prior to discharge;might need rehabilitation after surgery CM to f/u Sx most likely as per Dr. Haji's note on 03/[address] De La Garza Subjective Subjective Patient reports: no new complaints, still having pain, tolerating liquids well, tolerating a regular diet, voiding w/o difficulty, flatus and no bowel movement; denies diarrhea, nausea, vomiting, shortness of breath or fever Exam Narrative Exam Narrative: Neuro:alert and oriented to self and person,no neurological focal deficit Resp:bilateral air movement bilaterally, stronger productive cough of whitish thick sputum less copious than yesterday, left base remains coarse Cardio: regular rhythm, S1, S2, no murmur, GI: Abdomen is not distended, soft and non tender, bowel sounds are present Integumentary: left distal foot purple discoloration d/t 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 5/5 otherwise Psych: RASS 0, congruent mood and normal affect. Objective Last Vital Signs Temp 36.0 C L 03/25/23 07:33 Pulse 102 H 03/25/23 12:02 Resp 20 03/25/23 11:57 BP 144/91 H 03/25/23 07:33 Pulse Ox 91 L 03/25/23 11:57 Laboratory Results - last 24 hr 03/25/23 06:30 WBC 9.34 RBC 5.52 Hgb 15.3 Hct 45.8 MCV 83 MCH 27.7 MCHC 33.4 RDW 14.1 Plt Count 255 MPV 8.8 Immature Gran % 2.4 Neutrophils % 64.4 Lymphocytes % 24.7 Monocytes % 7.5 Eosinophils % 0.7 Basophils % 0.3 Nucleated RBC % 0.0 Absolute Neutrophils 6.01 Absolute Lymphocytes 2.31 Absolute Monocytes 0.70 Absolute Eosinophils 0.07 Absolute Basophils 0.03 RBC Morphology Normal Sodium 137 Potassium 5.1 Chloride 101 Carbon Dioxide 29.4 Anion Gap 6.6 BUN 19 H Creatinine 0.6 L Est GFR (CKD-EPI 2020) 115.43 Glucose 80 Calcium 9.6 Time Spent with Patient Time Spent with Patient: >50 minutes Time was spent: preparing to see the patient(eg.review tests), obtaining and/or reviewing separately otained hiistory, ordering medications,tests, procedures, referring, communicating with other health director of critical care, indepentently in terpreting results, counseling the patient and care coordination
[2023-03-25] MEDS: Enoxaparin 40 MG/0.4 ML SYR SC (15:34)
[2023-03-25] MEDS: LORazepam 0.5 MG TAB PO (20:11)
[2023-03-25] MEDS: Atorvastatin 20 MG TAB PO (20:11)
[2023-03-25] MEDS: Acetaminophen 500 MG TAB PO (20:12)
[2023-03-26] VITALS (12 sets, daily range): BP systolic 120–152; BP diastolic 77–87; PULSE 74–106; RESP 2–20; TEMP 36–36.7; O2SAT 90–96
[2023-03-26] MEDS: predniSONE 20 MG TAB 40 MG PO (07:39)
[2023-03-26] MEDS: Divalproex 500 MG TABEC 1000 MG PO ×2 (07:39→20:02)
[2023-03-26] MEDS: risperiDONE 1 MG TAB 2 MG PO ×2 (07:40→20:02)
[2023-03-26] MEDS: Divalproex 250 MG TABEC PO ×2 (07:40→20:02)
[2023-03-26] MEDS: Sertraline 100 MG TAB 200 MG PO (07:41)
[2023-03-26] MEDS: Acetaminophen 500 MG TAB PO ×3 (07:41→20:02)
[2023-03-26] MEDS: Cholecalciferol (Vitamin D3) 1,000 UNIT TAB 1000 UNITS PO (07:41)
[2023-03-26] MEDS: guaiFENesin 600 MG TABCR PO ×2 (07:42→20:02)
[2023-03-26] MEDS: Psyllium PKT 1 EACH PO (07:42)
[2023-03-26] MEDS: Normal Saline Flush 10 ML SYR IVP (07:44)
[2023-03-26 07:50] LABS: Abs Immature Grans 0.29 10^3/uL (0.0-0.06); Absolute Basophil Count 0.08 10^3/uL (0.0-0.2); Absolute Eosinophil Count 0.13 10^3/uL (0.0-0.7); Absolute Lymphocyte Count 2.21 10^3/uL (1.2-3.4); Absolute Monocyte Count 1.02 10^3/uL (0.1-0.8); Absolute Neutrophil Count 6.29 10^3/uL (1.2-6.7); Basophils % 0.8; Eosinophils % 1.3; HCT 46.7 % (40.0-50.0); HGB 15.6 g/dL (13.5-17.5); Immature Grans % 2.9; Lymphocytes % 22.1; MCH 27.2 pg (27.0-33.0); MCHC 33.4 % (32.0-36.0); MCV 81 fL (80-95); MPV 8.6 fL (8.0-11.0); Monocytes % 10.2; Neutrophils % 62.7; Platelet Count 311 10^3/uL (130-400); RBC 5.74 10^6/uL (4.36-5.78); RDW 13.7 % (11.8-14.1); RDW-SD 40.2 fL; WBC 10.02 10^3/uL (4.4-10.8)
[2023-03-26 08:00] LABS: Anion Gap 6.7 mmol/L (3-11); BUN 15 mg/dL (7-18); CO2 33.3 mmol/L (21.0-32.0); CREATININE 0.7 mg/dL (0.70-1.30); Calcium 9.1 mg/dL (8.5-10.1); Chloride 94 mmol/L (98-107); Estimated GFR 110.18 (mL/min/1.73m2); Glucose 85 mg/dL (74-106); Magnesium 1.8 mg/dL (1.8-2.4); Potassium 4.1 mmol/L (3.5-5.1); Sodium 134 mmol/L (136-145)
[2023-03-26 08:03] LABS: INR 1.1 (0.9-1.1); Prothrombin Time 10.6 sec (9.1-11.1)
[2023-03-26] MEDS: Albuterol/Ipratropium 3 ML UPD VIAL UPD ×4 (08:08→20:21)
--- NOTE | 2023-03-26 10:14 | W.PM.PROGNOT ---
Date of Service Date of service: 03/26/23 Time of Service: 10:15 Assessment and Plan Assessment and plan (1) Hypoxic respiratory failure: Status: Acute Assessment and plan: Wean oxygen, patient had no requirement at home On 1 l/min today with sat 88-90% on RA, requires oxygen supplementation at night As per previous RT , patient needs to be out of RSV infection before further testing can be done for oxygen supplementation/NARAYAN (2) Respiratory syncytial virus (RSV) infection: Status: Acute Assessment and plan: On supportive treatment: steroids and oxygen On duonebs IS and vibrapep ongoing: Continue to need cues On Mucinex; for the thick coughing of whitish thick sputum Remains afebrile w/o leukocytoisis and hemodynamically stable, no antibiotics indicated at this time. Procal was negative earlier no need to repeat at this time (3) Obesity: Status: Chronic Assessment and plan: patient counseled to discuss weight management with PCP Caloric intake controlled during hospitalization (4) Hyponatremia: Status: Acute Assessment and plan: Fluid restriction 1000ml/24 hours BMP in AM (5) Foot fracture, left: Status: Acute Assessment and plan: Orthopedic consult ongoing: Surgical intervention projected on ; Coags, CBC , BMP completed Continue PT discussed with DR De La Garza (6) On deep vein thrombosis (DVT) prophylaxis: Status: Acute Assessment and plan: On Lovenox and hold one dose prior to surgery (7) Discharge planning issues: Status: Resolved Assessment and plan: Residing in a skilled nursing and needs to be independent in ADL's prior to discharge;might need rehabilitation after surgery CM to f/u Sx most likely as per Dr. Haji's notes Pharmacy, [facility], had reached out re: Benztropine( ADR: decrease GI motility,neuro...) not on home med list, contacting care personal form home environment to determine if he was taking, other Rx ordered but Ketoconazole not relevant at this time RN Stephanie Motley spoke to Maribel from [facility] who confirmed that patient was on benztropine 0.5 mg BID, will order Discussed with Dr. 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 5/5 otherwise Psych: RASS 0, congruent mood and normal affect. Objective Last Vital Signs Temp 36.7 C 03/26/23 07:25 Pulse 106 H 03/26/23 08:12 Resp 20 03/26/23 08:08 BP 152/87 H 03/26/23 07:25 Pulse Ox 96 03/26/23 08:08 Laboratory Results - last 24 hr 03/26/23 07:35 WBC 10.02 RBC 5.74 Hgb 15.6 Hct 46.7 MCV 81 MCH 27.2 MCHC 33.4 RDW 13.7 Plt Count 311 MPV 8.6 Immature Gran % 2.9 Neutrophils % 62.7 Lymphocytes % 22.1 Monocytes % 10.2 Eosinophils % 1.3 Basophils % 0.8 Nucleated RBC % 0.0 Absolute Neutrophils 6.29 Absolute Lymphocytes 2.21 Absolute Monocytes 1.02 H Absolute Eosinophils 0.13 Absolute Basophils 0.08 PT 10.6 INR 1.1 APTT 25.0 Sodium 134 L Potassium 4.1 D Chloride 94 L Carbon Dioxide 33.3 H Anion Gap 6.7 BUN 15 Creatinine 0.7 Est GFR (CKD-EPI 2020) 110.18 Glucose 85 Calcium 9.1 Magnesium 1.8 Time Spent with Patient Time Spent with Patient: >50 minutes Time was spent: preparing to see the patient(eg.review tests), obtaining and/or reviewing separately otained hiistory, ordering medications,tests, procedures, referring, communicating with other health animal care supervisor, indepentently interpreting results, counseling the patient and care coordination
--- NOTE | 2023-03-26 10:25 | INPN_ITS ---
PT Notes Visit Reasons: RSV, bronchospasm Physical Therapy Inpatient Progress Note Date: 03/26/2023 Dates of Service: 03/20/2023 through 03/26/2022 Referring Doctor: Berenice Gallego NP PT Orders: PT CONSULT: Eval/Treat Precautions: Fall. Standard. NWB on the L LE with AD, supportive/appropriate fo otwear needed on the R. Patient Profile/Admitting Diagnosis: Planned for fixation of fractured area on by Dr. Haji with order to continue NWB for 6 weeks more postoperatively. Alberto is a 52-year-old male admitted to the ED on 03/18/2022 due to trip and fall that caused him to hit his left foot. He sustained on x-ray fracture of the bases of the first through fifth metatarsals L, L Lisfranc fracture, fracture involving the anterior lateral aspect of the lateral cuneiform on the L with a question of a non- displaced fracture involving the head of the fifth metatarsal bone on the left foot. Patient was provided with a posterior slab cast on the left LE with order by orthopod to be nonweightbearing on the left. Patient came back to the ED on 03/19/2022 due to cough, fever, and hypoxia with diagnosis of recent RSV infection. Subjective: Agreeable to plan of making use of walker during transfers safer. Reported fatigue at end of session but was able to do more with intermittent rests. Objective: General Observation: Resting in bed. Left LE posterior slab cast in place. Oxygen supplementation discharged. Purplish discoloration in all 5 feet toes from recent fracture. Mental Status: Alert and oriented as to person, place, time, and purpose. Able to pay attention, focus, and respond appropriately. Pain: Minimal pain in the left foot Vital Signs: Bp 132/77 mmHg, SaO2 92% on RA, HR 110 after transferring from bed to chair ROM: Right Lower Extremity: Hip flexion WFL. Hip abduction WFL. Knee flexion WFL. Ankle dorsiflexion WFL. Ankle plantarflexion WFL. Left Lower Extremity: Hip flexion WFL. Hip abduction WFL. Knee flexion WFL. Ankle dorsiflexion on posterior slab cast. Ankle plantarflexion NT, on posterior slab cast. Strength: Right Lower Extremity: Hip flexors 5/5. Hip abductors 5/5. Knee flexors 4/5. Knee extensors 4/5. Ankle dorsiflexors 5/5. Ankle plantarflexors 5/5. Left Lower Extremity: Hip flexors 5/5. Hip abductors 4/5. Knee flexors 4/5. Knee extensors 5/5. Ankle dorsiflexors NT. Ankle plantarflexors NT. Bed Mobility/Transfers: Moderate cueing provided for use of B hands as needed for support, movement sequence, AD management, and posture to reduce fall risk and minimize pain report Rolling stand by assist Supine to sit stand by assist Scoot up in bed stand by assist Sit to supine stand by assist Sit to stand minimal assist Stand to sit contact guard assist Bed to reclining chair minimal assist Gait: Managed to hop 8x to transfer from edge of bed to chair. Moderate cues provided to fully extend R knee, extend trunk, and use B UE strength to stand more erect and to push down on walker handle to support whole body. Fatigued after activity and descended onto chair rather quickly. NWB better complied with for this session compared to date of eval. Balance: Static Sitting: Normal Dynamic Sitting: Normal Static Standing: Fair Dynamic Standing: Poor Special Tests: Mobility Limitations Standardized Measure [facility] AM-PAC 6 clicks Basic Mobility Inpatient Short Form: Raw Score: 16 CMS Score: 54% deficit Informed Consent/Education: Patient was instructed in purpose of PT consult and plan of care. Agreeable to proceed with established PT POC to achieve personal goals. THERA ACT: Worked on increasing B UE/trunk strength working on chair push up with moderate cueing given for correct technique while complying with NWB on the L (placed L LE onto black stool) during activity, 10 reps for 2 sets. ASSESSMENT: Improving ability to maintain non-weightbearing status on the left LE with moderate cues for increased trunk extension. R hip and knee extension and use of B UE strength. Patient will continue to require the use of a front-wheeled walker and assist of 1 for essential transfers to minimize fall risk and ensure full compliance of weight bearing precaution. Activity tolerance for one-legged weight bearing using FWW needs to improve as patient has a distance of about 20 feet from bedroom to the bathroom. Patient presents with clinical signs and symptoms consistent with current/admitting diagnoses that have resulted to mobility limitations, gait instability, generalized weakness, and overall ADL decline as demonstrated by the following impairment level findings: 1. Decreased strength to L leg and foot major muscle groups 2. Impaired sitting/standing balance 3. Impaired activity tolerance 4. Limitation of joint range of motion in L leg (due to cast) Impairments are contributing to the following functional limitations: 1. Decline in bed mobility skills 2. Decline in transfer skills 3. Difficulty with ambulation without assistive device and physical assistance 4. Increased completion time for mobility ADL performance 5. Increased risk for falls 6. Difficulty with managing steps alone safely Patient is assessed as a 78715 moderate complexity based on the following: History: 52-year-old male with past medical history as indicated above Examination: Demonstrable impairment in strength, balance, and mobility level with underlying impairments and functional limitations as exhibited above as well as deficit score of 61% utilizing the [facility] Mobility Inpatient Short Form Presentation: Evolving Decision Makin moderate complexity Goals: Goals X1 week 1. Supine-Sit independent NOT MET, CONTINUE 2. Sit-Supine independent NOT MET, CONTINUE 3. Sit-Stand independent NOT MET, CONTINUE 4. Stand-Sit independent with FWW NOT MET, CONTINUE 5. Bed-Chair independent with FWW NOT MET, CONTINUE 6. Chair-Bed independent with FWW NOT MET, CONTINUE 7. Standby assist with gait on level surface with use of FWW for at least 15-30 feet without report of pain nor dyspnea (enough to cover bedroom<>bathroom and bedroom<>kitchen distances at home) NOT MET, CONTINUE 8. Standby assist with stair negotiation while holding onto [] rails for at least [] steps without report of pain nor dyspnea NOT MET, CONTINUE 9. Supervision with home exercise program NOT MET, CONTINUE 10. Fair static and dynamic standing balance/tolerance NOT MET, CONTINUE Plan of Care/Treatment Plan: 1-2x/day, 7 days/week x 1 week. Plan of care has been reviewed with the PLASMA TABLE OPERATOR providing the service under Physical Therapy direction. Initiate Physical Therapy intervention for pain management as needed, strengthening, bed mobility, transfers, gait, stairs, balance training, and use of assistive device. DISCHARGE RECOMMENDATIONS: [] Home with no services [] [X] Home with services. Patient will benefit from home health PT services in order to progress mobility level using least restrictive assistive ambulatory device, assess home safety, identify additional equipment needs, and establish a functional maintenance program that will increase ability of patient to remain at home. [] Home with outpatient PT [] [] SNF for continued rehabilitation [] [] [facility] [] [] SNF versus LTC based on ability to participate and progress [] TREATMENT CODE/TIME: 52746 x 35 minutes for 2 units beginning at 10:25 AM. Thank you for the opportunity to participate in the care of this patient. Angelika Cloud PT, DPT, CLT [facility] [place], [place]
[2023-03-26] MEDS: Enoxaparin 40 MG/0.4 ML SYR SC (15:11)
--- NOTE | 2023-03-26 15:50 | PTTR_ITS ---
Date of service: 03/26/23 Time of Service: 14:54 PT Notes Visit Reasons: RSV, bronchospasm Inpatient Physical Therapy Treatment Note [facility] Date: 03/26/23 PRECAUTIONS: Fall, standard, activity as tolerated. NWB LLE. Droplet precautions discontinued as of today. SUBJECTIVE: Patient is very tired, initially refuses therapy when approached at 13:36. At 14:54 patient is asleep sidelying on right side facing the door, wakes easily, sits up EOB immediately upon recognizing this clinician. OBJECTIVE: Side lying in bed, asleep. Wakes easily. Agreeable to therapy. ? PAIN: no pain reported. VITALS: monitoed by nursing staff. ? BED MOBILITY/TRANSFERS? Rolling L/R: independent Supine-sit: SBA ? Sit-supine: SBA? Sit-stand: CGA? Stand-sit: CGA ? Bed-Chair: Min assist? Chair-bed: min assist with mod verbal cues. ? Therapeutic Exercises (28780h2): Direct one-on-one instruction in therapeutic exercises to develop strength, endurance, range of motion and flexibility. ? Exercises: With green theraband and max verbal, visual and tactile cues, patient completes the following: * Self anchored tricep extensions 2x10 - verbal and tactile cues for hand placement and exertion * horizontal abduction 2x10 - verbal and visual cues for technique, exertion * therapist-anchored rows 2x10 - verbal and visual cues for complete performance * therapist-anchored lat press downs 2x10 - minimal verbal cues needed for technique Ambulation ? Assistive Device: FWW ? Weight bearing: NWB LLE Assist: min assist of one at gait belt ? Distance:? 5 feet x2 ? Deviation: Patient does not appear to be taking any weight into his arms despite verbal and tactile cues - appears to be hopping heavily on right foot, u sing walker for balance. ? Provided skilled instruction in proper exercise performance Provided skilled manual cues to facilitate proper muscle recruitment and/or form: as above. Also, continuous cues for patient to breath and not hold his breath. ASSESSMENT:? Patient appeared to have difficulty understanding therapist cues and instructions today. Tolerates therapy well, reports fatigue at beginning and end of session, no increase in pain. PLAN: Continue global strengthening per plan of care until patient is medically cleared for discharge and obtains a safe discharge plan. Patient may benefit from a short stay in a subacute rehab in order to optimize patient outcomes and protect weightbearing status. TREATMENT CODE/TIME: 18 minutes beginning at 14:54
--- NOTE | 2023-03-26 17:05 | PDOC.CMPRO ---
Date of service: 03/26/23 Time of Service: 17:05 Care Management Progress Note Progress Note Text Progress Note Text: Brought to OR as planned, CM following. SDOH(Care Management) Screening Will the Patient Participate in the Screening?: Unable to obtain
--- NOTE | 2023-03-26 17:16 | RESPIRATORY ---
Pt has Respironics DreamStation through [employer] with small nasal pillows. Auto min 6, auto max 10, no O2 bleed-in
[2023-03-26] MEDS: Atorvastatin 20 MG TAB PO (20:02)
[2023-03-26] MEDS: Benztropine 1 MG TAB 0.5 MG PO (20:02)
[2023-03-27] VITALS (8 sets, daily range): BP systolic 115–153; BP diastolic 73–89; PULSE 80–105; RESP 8–20; TEMP 36–37.1; O2SAT 90–102
--- NOTE | 2023-03-27 06:40 | W.PM.PROGNOT ---
Date of Service Date of service: 03/27/23 Time of Service: 16:30 Assessment and Plan Assessment and plan (1) Displaced fracture of first metatarsal bone, left foot, initial encounter for closed fracture: Status: Acute (2) Fracture of second metatarsal bone of left foot: Status: Acute Assessment and plan: Alberto is a 52-year-old male who has a complex fracture about his midfoot involving all 5 metatarsals but particular the Lisfranc complex and displaced articular fractures of the first and second metatarsal. Given his functional dependence prior to this injury I think the best step is to proceed with surgery. I discussed this with some other colleagues who also agreed. However, this is complicated given his mental capacity, living situation, and ongoing viral pneumonia from RSV. He does have a productive cough which does not appear purulent. He has had workup over the past few days without any concern for bacterial pneumonia. However, he still is requiring some mild oxygen and still is on steroids. I will discuss with the hospital team about the steroid usage as I do worry about wound healing potential given the status of the foot and the steroids. He did have a large hemorrhagic fracture blisters and bulla about the right leg which seem to be resolved and thus is ready for surgery. It is important to move forward with surgery before too late for trying to fix these fractures. I have special equipment has been called and will plan for surgery tomorrow starting around lunch. N.p.o. after midnight tonight. Hold Lovenox. Subjective Subjective Interval history since last seen: Continues to be stable in regards to his breathing. He requires 1 L or less during the day and usually some increased supplementation at night. Unfortunate, he does have difficulty with falling commands and keeping the nasal cannula in position. He reports improvement with the pain of his foot. He has had bowel movement. He continues have a cough productive of some white sputum occasionally although this seems to be stable not worsening. No fevers no chills. He still is on prednisone 40 mg daily. He is on no antibiotics. Exam Narrative Exam Narrative: Resting in the chair. No acute distress. Left lower extremity is in a splint with resolved hemorrhagic fracture blisters. Objective Last Vital Signs Temp 36.0 C L 03/26/23 23:30 Pulse 74 03/26/23 23:30 Resp 20 03/26/23 23:30 BP 120/80 03/26/23 23:30 Pulse Ox 90 L 03/26/23 23:30 Laboratory Results - last 24 hr 03/26/23 07:35 WBC 10.02 RBC 5.74 Hgb 15.6 Hct 46.7 MCV 81 MCH 27.2 MCHC 33.4 RDW 13.7 Plt Count 311 MPV 8.6 Immature Gran % 2.9 Neutrophils % 62.7 Lymphocytes % 22.1 Monocytes % 10.2 Eosinophils % 1.3 Basophils % 0.8 Nucleated RBC % 0.0 Absolute Neutrophils 6.29 Absolute Lymphocytes 2.21 Absolute Monocytes 1.02 H Absolute Eosinophils 0.13 Absolute Basophils 0.08 PT 10.6 INR 1.1 APTT 25.0 Sodium 134 L Potassium 4.1 D Chloride 94 L Carbon Dioxide 33.3 H Anion Gap 6.7 BUN 15 Creatinine 0.7 Est GFR (CKD-EPI 2020) 110.18 Glucose 85 Calcium 9.1 Magnesium 1.8 Time Spent with Patient Time Spent with Patient: <25 minutes Time was spent: obtaining and/or reviewing separately otained hiistory and counseling the patient
[2023-03-27 07:41] LABS: Anion Gap 5.8 mmol/L (3-11); BUN 21 mg/dL (7-18); CO2 33.2 mmol/L (21.0-32.0); CREATININE 0.8 mg/dL (0.70-1.30); Calcium 9.1 mg/dL (8.5-10.1); Chloride 98 mmol/L (98-107); Estimated GFR 105.82 (mL/min/1.73m2); Glucose 92 mg/dL (74-106); Potassium 4.1 mmol/L (3.5-5.1); Sodium 137 mmol/L (136-145)
[2023-03-27] MEDS: Psyllium PKT 1 EACH PO (07:48)
[2023-03-27] MEDS: Divalproex 250 MG TABEC PO ×2 (07:49→19:11)
[2023-03-27] MEDS: Sertraline 100 MG TAB 200 MG PO (07:49)
[2023-03-27] MEDS: Divalproex 500 MG TABEC 1000 MG PO ×2 (07:49→19:11)
[2023-03-27] MEDS: predniSONE 20 MG TAB 40 MG PO (07:49)
[2023-03-27] MEDS: guaiFENesin 600 MG TABCR PO ×2 (07:50→19:12)
[2023-03-27] MEDS: risperiDONE 1 MG TAB 2 MG PO ×2 (07:50→19:11)
[2023-03-27] MEDS: Benztropine 1 MG TAB 0.5 MG PO ×2 (07:50→19:12)
[2023-03-27] MEDS: Acetaminophen 500 MG TAB PO ×3 (07:50→19:11)
[2023-03-27] MEDS: Cholecalciferol (Vitamin D3) 1,000 UNIT TAB 1000 UNITS PO (07:50)
[2023-03-27] MEDS: Multivitamin TAB 1 TAB PO (07:57)
[2023-03-27] MEDS: Albuterol/Ipratropium 3 ML UPD VIAL UPD ×3 (08:18→20:23)
--- NOTE | 2023-03-27 11:30 | W.PM.PROGNOT ---
Date of Service Date of service: 03/27/23 Time of Service: 11:30 Assessment and Plan Assessment and plan (1) Hypoxic respiratory failure: Status: Acute Assessment and plan: patient had no requirement at home sating low 90's on room air during the day, requires oxygen supplementation at night outpatient testing for oxygen supplementation/NARAYAN (2) Respiratory syncytial virus (RSV) infection: Status: Resolved Assessment and plan: respiratory status stable, prednisone completed (3) Obesity: Status: Chronic Assessment and plan: patient counseled to discuss weight management with PCP Caloric intake controlled during hospitalization (4) Hyponatremia: Status: Acute Assessment and plan: normalized, stop fluid restriction (5) Foot fracture, left: Status: Acute Assessment and plan: Orthopedic consult ongoing: Surgical intervention planned on ; NPO after midnight Coags, CBC , BMP completed Continue PT (6) On deep vein thrombosis (DVT) prophylaxis: Status: Acute Assessment and plan: On Lovenox and hold one dose prior to surgery (7) Discharge planning issues: Status: Resolved Assessment and plan: Residing in a long-term and needs to be independent in ADL's prior to discharge;might need rehabilitation after surgery CM to f/u Discussed with Dr. De La Garza Subjective Subjective Patient reports: no new complaints, feels better, tolerating liquids well and tolerating a regular diet; denies shortness of breath Interval history since last seen: pain is managed Exam Const General: no acute distress Orientation: alert HENMT Head: normal to inspection Mouth: moist mucous membranes Eyes General: appearance normal, both eyes and all related structures Neck Neck: normal visual inspection Resp Effort & Inspection: normal respiratory effort and able to speak in complete sentences Auscultation: clear to auscultation bilaterally Cardio Jugular venous pressure: no JVD Rate: regular rate Skin General skin exam: no rashes or lesions noted Neuro General: patient alert and patient oriented x3 Extrem General: full ROM and capillary refill normal Psych Mental Status: mental status grossly normal Objective Last Vital Signs Temp 37.1 C 03/27/23 07:33 Pulse 105 H 03/27/23 08:19 Resp 17 03/27/23 08:19 BP 115/73 03/27/23 07:33 Pulse Ox 93 03/27/23 08:19 Laboratory Results - last 24 hr 03/27/23 06:36 Sodium 137 Potassium 4.1 Chloride 98 Carbon Dioxide 33.2 H Anion Gap 5.8 BUN 21 H Creatinine 0.8 Est GFR (CKD-EPI 2020) 105.82 Glucose 92 Calcium 9.1 Time Spent with Patient Time Spent with Patient: 25-34 minutes Time was spent: preparing to see the patient(eg.review tests), obtaining and/or reviewing separately otained hiistory, ordering medications,tests, procedures and indepentently interpreting results
--- NOTE | 2023-03-27 11:59 | PTTR_ITS ---
Date of service: 03/27/23 Time of Service: 10:59 PT Notes Visit Reasons: RSV, bronchospasm Inpatient Physical Therapy Treatment Note [facility] Date: 03/27/23 PRECAUTIONS: Fall, standard, activity as tolerated. NWB LLE. SUBJECTIVE: Patient reports feeling dizzy as he moves from supine to sit, this does not resolve and in fact worsens during AM transfer. AFTERNOON: Patient reports significant pain in LLE as well as continued dizziness. OBJECTIVE: Sleeping supine in bed, wakes easily, agreeable to therapy. AFTERNOON: Daniel's pose in bed, alert, agreeable to therapy. ? PAIN: Yes, LLE, a lot. VITALS: monitored by nursing staff. Vitals have been fine per RN Gustavo, Joe and Hospitalist Amanda Gallego. BP during morning treatment session after initial report of dizziness is 150/67, although patient's arm was not fully relaxed so this may have been an inaccurate reading. Therapeutic Activities ([id number]): Direct one-on-one instruction in dynamic activities to improve functional performance. ? BED MOBILITY/TRANSFERS? Rolling L/R: set up assist - help positioning pillows, blankets etc Supine-sit: set up assist - therapist required to lower foot of bed so patient sits up to a flat surface. ? Sit-supine: not assessed ? Sit-stand: min to mod assist of one at gait belt ? Stand-sit: CGA-min assist of one at gait belt ? Bed-Chair: min assist of one at gait belt for safe transfer ? Chair-bed: not assessed Provided skilled cues and instruction on performance and technique throughout. ? Therapeutic Exercises (44587m7): Direct one-on-one instruction in therapeutic exercises to develop strength, endurance, range of motion and flexibility. ? Exercises: With green theraband and max verbal, visual and tactile cues, patient completes the following: * Self anchored tricep extensions 2x10 - verbal and tactile cues for hand placement and exertion * horizontal abduction 2x10 - verbal and visual cues for technique, exertion * therapist-anchored rows 2x10 - verbal and visual cues for complete performance * therapist-anchored lat press downs 2x10 - minimal verbal cues needed for technique ASSESSMENT:? Patient tolerates therapy better in the afternoon than the morning - balance appears better, patient becomes less short of breath, reports less fatigue after afternoon treatment session. PLAN: Continue global strengthening per plan of care until patient is medically cleared for discharge and obtains safe discharge plan. TREATMENT CODE/TIME: 18 minutes beginning at 10:59 and 20 minutes beginning at 15:44 for a total of 38 minutes today.
[2023-03-27] MEDS: Enoxaparin 40 MG/0.4 ML SYR SC (13:47)
[2023-03-27] MEDS: Atorvastatin 20 MG TAB PO (19:12)
[2023-03-28] VITALS (27 sets, daily range): BP systolic 103–149; BP diastolic 59–90; PULSE 70–93; RESP 2–20; TEMP 35.8–37; O2SAT 90–99; BMI 39.0
[2023-03-28 06:04] LABS: Abs Immature Grans 0.25 10^3/uL (0.0-0.06); Absolute Basophil Count 0.07 10^3/uL (0.0-0.2); Absolute Eosinophil Count 0.08 10^3/uL (0.0-0.7); Absolute Lymphocyte Count 2.41 10^3/uL (1.2-3.4); Absolute Monocyte Count 0.95 10^3/uL (0.1-0.8); Basophils % 0.6; Eosinophils % 0.7; HCT 46.1 % (40.0-50.0); HGB 15.2 g/dL (13.5-17.5); Immature Grans % 2.2; Lymphocytes % 21.7; MCH 27.4 pg (27.0-33.0); MCV 83 fL (80-95); MPV 8.8 fL (8.0-11.0); Monocytes % 8.5; Neutrophils % 66.3; Platelet Count 324 10^3/uL (130-400); RBC 5.55 10^6/uL (4.36-5.78); RDW 14.1 % (11.8-14.1); RDW-SD 42.5 fL; WBC 11.12 10^3/uL (4.4-10.8)
[2023-03-28 06:08] LABS: Absolute Neutrophil Count 7.37 10^3/uL (1.2-6.7)
[2023-03-28] MEDS: Albuterol/Ipratropium 3 ML UPD VIAL UPD ×3 (08:07→19:35)
--- NOTE | 2023-03-28 08:34 | ANES.PREOP_ITS ---
General Info Date of Service Date Performed: 03/28/23 Height: 5 ft 11 in Weight: 127.006 kg Body Mass Index (BMI): 39.0 Surgical Procedure: Operation Date: 03/28/23 12:40 Proposed Procedure Side Surgeon p ORIF 1st, 2nd Metatarsal FX Left German Haji MD Meds Allergies and Home Medications Allergies Allergy/AdvReac Type Severity Reaction Status Date / Time No Known Allergies Allergy Unverified 03/18/23 19:45 Home Medication Medication Instructions Recorded sertraline 100 mg tablet 200 mg PO DAILY 07/23/17 magnesium hydroxide 400 mg/5 mL 30 ml PO QID 08/07/17 oral suspension (Milk of Magnesia) atorvastatin 20 mg tablet (Lipitor) 20 mg PO QHS 07/28/20 MYLANTA 15 - 30 ml PO QID PRN 09/05/21 acetaminophen 500 mg tablet 500 - 1,000 mg PO Q6H PRN 09/05/21 (Tylenol Extra Strength) diphenhydramine HCl 25 mg tablet 25 mg PO Q6H PRN allergy symptoms 09/05/21 (Benadryl Allergy) ibuprofen 200 mg tablet 400 mg PO TID PRN 09/05/21 loperamide 2 mg capsule 2 mg PO DIRECTED PRN 10/25/21 divalproex 500 mg tablet,delayed 1,000 mg PO BID 03/13/22 release (Depakote) ondansetron 4 mg disintegrating 4 mg PO Q8H PRN 03/13/22 tablet psyllium seed (sugar) oral powder 1 tbsp PO DAILY 03/13/22 (Metamucil (sugar) oral powder) triamcinolone acetonide 0.1 % 1 applic topical BID PRN 03/13/22 topical cream lorazepam 0.5 mg tablet 0.5 mg PO TID PRN 03/29/22 cholecalciferol (vitamin D3) 25 25 mcg PO DAILY 12/03/22 mcg (1,000 unit) capsule ketoconazole 2 % topical cream 1 applic topical BID #30 grams 12/03/22 urea 40 % topical cream 1 applic topical DAILY #198.4 grams 12/03/22 doxycycline hyclate 100 mg tablet 100 mg PO BID #14 tabs 03/18/23 divalproex 250 mg tablet,extended 250 mg PO BID 01/24/24 release 24 hr multivitamin with folic acid 400 1 tab PO DAILY 03/20/23 mcg tablet (Daily-Berna (with folic acid)) risperidone 2 mg tablet 2 mg PO BID 03/20/23 benztropine 0.5 mg tablet 0.5 mg PO BID 03/26/23 Current Visit Medications: Current Medications Generic Name Dose Route Start Last Admin Trade Name Freq PRN Reason Stop Dose Admin Acetaminophen 500 - 1,000 mg 03/25/23 19:00 03/28/23 00:33 Acetaminophen 500 Mg Tab PO Not Given Q6H TOM Albuterol Sulfate 2.5 mg 03/19/23 19:32 Albuterol 2.5 Mg/3 Ml Inh Soln Vial UPD Q4H PRN PRN Albuterol/Ipratropium 3 ml 03/20/23 12:00 03/28/23 08:07 Albuterol/Ipratropium 3 Ml Upd Vial UPD 3 ml QID TOM Administration Atorvastatin Calcium 20 mg 03/19/23 22:00 03/27/23 19:12 Atorvastatin 20 Mg Tab PO 20 mg HS TOM Administration Benztropine Mesylate 0.5 mg 03/26/23 20:00 03/27/23 19:12 Benztropine 1 Mg Tab PO 0.5 mg BID TOM Administration Cholecalciferol 1,000 units 03/20/23 08:30 03/27/23 07:50 Cholecalciferol (Vitamin D3) 1,000 Unit Tab PO 1,000 units DAILY TOM Administration Diphenhydramine HCl 25 mg 03/20/23 10:13 Diphenhydramine 25 Mg Cap PO Q6H PRN PRN allergy symptoms Divalproex Sodium 1,000 mg 03/19/23 22:00 03/27/23 19:11 Divalproex 500 Mg Tabec PO 1,000 mg BID TOM Administration Divalproex Sodium 250 mg 03/19/23 22:00 03/27/23 19:11 Divalproex 250 Mg Tabec PO 250 mg BID TOM Administration Docusate Sodium 100 mg 03/24/23 17:04 Docusate Sodium 100 Mg Cap PO BID PRN PRN Constipation Enoxaparin Sodium 40 mg 03/26/23 14:00 03/27/23 13:47 Enoxaparin 40 Mg/0.4 Ml Syr SC 40 mg Q24H TOM Administration Guaifenesin 600 mg 03/22/23 20:00 03/27/23 19:12 Guaifenesin 600 Mg Tabcr PO 600 mg BID TOM Administration Ibuprofen 400 mg 03/20/23 10:13 03/22/23 09:15 Ibuprofen 200 Mg Tab PO 400 mg TID PRN PRN Administration Loperamide HCl 2 mg 03/26/23 10:20 Loperamide 2 Mg Cap PO Q4H PRN PRN Lorazepam 0.5 mg 03/20/23 10:14 03/25/23 20:11 Lorazepam 0.5 Mg Tab PO 0.5 mg TID PRN PRN Administration Magnesium Hydroxide 30 ml 03/20/23 10:15 Milk Of Magnesia 30 Ml Cup PO QID PRN PRN Constipation Multivitamins 1 tab 03/27/23 08:30 03/27/23 07:57 Multivitamin Tab PO 1 tab DAILY TOM Administration Ondansetron HCl 4 mg 03/20/23 10:15 Ondansetron O.D.T. 4 Mg Tabef PO Q8H PRN PRN Pt's Own Urea 40% 0 each 03/21/23 08:30 03/27/23 07:58 Cream TP Not Given DAILY TOM Psyllium Hydrophilic Mucilloid 1 each 03/20/23 08:30 03/27/23 07:48 Psyllium Pkt PO 1 each DAILY TOM Administration Risperidone 2 mg 03/19/23 22:00 03/27/23 19:11 Risperidone 1 Mg Tab PO 2 mg BID TOM Administration Sertraline HCl 200 mg 03/20/23 08:30 03/27/23 07:49 Sertraline 100 Mg Tab PO 200 mg DAILY TOM Administration Sodium Chloride 0 ml 03/22/23 09:29 03/26/23 07:44 Normal Saline Flush 10 Ml Syr IVP 10 ml PRN PRN Administration PFSH Active Problems Active Problems: Problem Status Onset Code Hyponatremia E87.1 On deep vein thrombosis (DVT) prophylaxis Z79.899 Fracture of second metatarsal bone of left foot S92.322A Displaced fracture of first metatarsal bone, left foot, initial encounter for closed fracture S92.312A Hypoxic respiratory failure J96.91 Obesity E66.9 Hypoxia R09.02 Respiratory syncytial virus (RSV) infection B33.8 Foot fracture, left S92.902A Respiratory syncytial virus (RSV) B33.8 GERD (gastroesophageal reflux disease) K21.9 Vitamin D deficiency E55.9 Dermatophytosis of foot B35.3 Pain, foot M79.673 Nail dystrophy L60.3 Sensorineural hearing loss (SNHL) of both ears H90.3 Tremor R25.1 Tubular adenoma of colon D12.6 Tubular adenoma ~11/2019 D36.9 Colon polyps K63.5 Cognitive developmental delay F81.9 Mood disorder F39 Generalized epilepsy G40.309 Medical History Medical History History of diverticulitis Pulmonary embolism Cerumen impaction Tobacco use BMI 40.0-44.9, adult Epilepsy Conduct disorder, aggressive type Intellectual disability Onychomycosis of toenail Screening for colon cancer Dyshidrotic eczema H/O adenomatous polyp of colon Weakness of both legs At high risk for falls Hip pain, bilateral Morbid obesity Decreased hearing of both ears Impacted cerumen, bilateral COVID-19 Kidney stone History of tobacco use Other congenital valgus deformities of feet Lack of coordination Intermittent explosive disorder Per caregiver (Liu) on occasion he will have an agrressive incident per caregiver states he does not feel as though he will have any issues with procedures Anxiety disorder Conduct disorder, aggressive type, mild Per caregiver (Liu) has been in a very good place recently Therapeutic drug monitoring Onychomycosis Candidiasis Prediabetes Per caregiver states he is not diabetic, he has lost 25 lbs Varus deformities of feet, congenital Obstructive sleep apnea Remote PSG noted an AHI of 12.2 with an O2 sat jensen of 54%. He does not currently have a CPAP. Hyperlipidemia Surgical History Surgical History S/P surgical manipulation of ankle joint R, 2013 Tobacco Smoking/Tobacco Use Status: Former Tobacco Use Alcohol Alcohol Intake: never Substance Use Substance use: Never Substance use type: does not use Vital Signs and Lab Results Vital Signs Most Recent Vital Signs in EMR: Most Recent Vital Signs Temp Pulse Resp BP Pulse Ox 36.7 C 91 H 19 105/59 L 94 03/28/23 08:11 03/28/23 08:11 03/28/23 08:11 03/28/23 08:11 03/28/23 08:11 Lab Results 03/28/23 05:50 03/27/23 06:36 Blood Type / Crossmatch: 2 No Data to Display Complete Blood Count: 2 White Blood Count 11.12 10^3/uL (4.4-10.8) H 03/28/23 05:50 Red Blood Count 5.55 10^6/uL (4.36-5.78) 03/28/23 05:50 Hemoglobin 15.2 g/dL (13.5-17.5) 03/28/23 05:50 Hematocrit 46.1 % (40.0-50.0) 03/28/23 05:50 Platelet Count 324 10^3/uL (130-400) 03/28/23 05:50 Complete Metabolic Panel: 2 Sodium 137 mmol/L (136-145) 03/27/23 06:36 Potassium 4.1 mmol/L (3.5-5.1) 03/27/23 06:36 Chloride 98 mmol/L (98-107) 03/27/23 06:36 Carbon Dioxide 33.2 mmol/L (21.0-32.0) H 03/27/23 06:36 BUN 21 mg/dL (7-18) H 03/27/23 06:36 Creatinine 0.8 mg/dL (0.70-1.30) 03/27/23 06:36 Est GFR (CKD-EPI 2020) 105.82 (mL/min/1.73m2) 03/27/23 06:36 Magnesium 1.8 mg/dL (1.8-2.4) 03/26/23 07:35 Calcium 9.1 mg/dL (8.5-10.1) 03/27/23 06:36 Albumin 3.1 g/dL (3.4-5.0) L 03/19/23 13:05 Glucose 92 mg/dL (74-106) 03/27/23 06:36 Liver Function Panel: 2 Alanine Aminotransferase (ALT/SGPT) 23 U/L (16-63) 03/19/23 13: 05 Aspartate Amino Transf (AST/SGOT) 36 U/L (15-37) 03/19/23 13:05 Coagulation Panel: 2 INR International Normalized Ratio 1.1 (0.9-1.1) 03/26/23 07:3 5 Prothrombin Time 10.6 sec (9.1-11.1) 03/26/23 07:35 Activated Partial Thromboplast Time 25.0 sec (23.6-32.8) 07:35 D-Dimer 1401 ng/mlFEU (<500) H 03/19/23 13:05 Cardiac Panel: 2 No Data to Display Arterial Blood Gas: 2 No Data to Display Venous Blood Gas: 2 Venous Blood pH 7.45 (7.31-7.41) H 03/22/23 10:50 Venous Blood Partial Pressure O2 53 mmHg 03/22/23 10:50 Venous Blood Partial Pressure CO2 51 mmHg (41-51) 03/22/23 10:5 0 Venous Blood Oxygen Saturation 90 % 03/22/23 10:50 Venous Blood HCO3 36 mmol/L (23-28) H 03/22/23 10:50 Venous Blood Base Excess 12 mmol/L (-2-3) H 03/22/23 10:50 Venous Blood Total Carbon Dioxide 31 mmol/L (24-29) H 03/22/23 10:50 Pancreas Panel: 2 No Data to Display Thyroid Panel: 2 No Data to Display Infectious Disease: 2 Coronavirus (COVID-19)(PCR) Negative (Negative) 03/18/23 20:30 Coronavirus 2019 Source Nasopharynx 03/18/23 20:30 Influenza Virus Type A (PCR) Negative (Negative) 03/18/23 20:3 0 Influenza Virus Type B (PCR) Negative (Negative) 03/18/23 20:3 0 Respiratory Syncytial Virus (PCR) Positive (Negative) A* 03/18 20:30 Blood Cultures: 2 No Data to Display Toxicology Panel: 2 No Data to Display Anesthesia Assessment and Plan Anesthesia History Personal History: No History of Anesthesia Complications Family History: No Family History of Anesthesia Complications Exercise Tolerance Exercise Tolerance: Metabolic Equivalents>4 Cardiac & Pulmonary Exam Cardiac Exam: Normal S1/S2 Heart Sounds Pulmonary Exam: Other Implantable Cardiac Device Does patient have a Pacemaker or an ICD?: No Airway Exam Known Difficult Airway: No Mallampati Class: 3 Mouth Opening: Normal (> 3cm) Thyromental Distance: Greater than 3 cm Neck Range of Motion: Full ROM Neck Circumference: Normal Teeth Condition: Normal Dentition ASA Classification ASA Score: ASA 3 Emergency Case?: No NPO Status NPO Status: NPO Clears >2 hours, Solids >8 hours Anesthesia Plan Resuscitation Status: Full Code Anesthesia Technique: Primary Nerve Block Airway Planned: Natural Airway Monitors Used: Standard Monitors Preoperative Comments:: 52 yo developmentally delayed male for ORIF foot fracture. Sig PMHx: RSV (03/18 tested positive, admitted), NARAYAN, GERD, anxiety, epilepsy. former smoker, Previous Anes: - colo, prop, natural airway, no issues. Discussed risks, benefits of regional and spinal anes with GA back up with Patricia. questions answered.
[2023-03-28] MEDS: Acetaminophen 500 MG TAB PO ×2 (09:02→17:15)
[2023-03-28] MEDS: risperiDONE 1 MG TAB 2 MG PO ×2 (09:02→20:40)
[2023-03-28] MEDS: Sertraline 100 MG TAB 200 MG PO (09:02)
[2023-03-28] MEDS: Benztropine 1 MG TAB 0.5 MG PO ×2 (09:02→20:41)
[2023-03-28] MEDS: Divalproex 250 MG TABEC PO ×2 (09:03→20:41)
[2023-03-28] MEDS: Divalproex 500 MG TABEC 1000 MG PO ×2 (09:03→20:41)
--- NOTE | 2023-03-28 09:06 | PT.INNT ---
Date of service: 03/28/23 Time of Service: 09:00 PT Notes Visit Reasons: RSV, bronchospasm Patient refuses therapy due to no breakfast, surgery today around 12:30. Will check back this afternoon.
--- NOTE | 2023-03-28 11:41 | W.ANESNERVE ---
Nerve Block Single Injection Procedure Date and Time Date Performed: 03/28/23 Procedure Start: 11:14 Location Where Procedure Performed Procedure Location: Med/Surg Reason Performed: Acute Pain Management Pain Diagnosis: Foot Pain Requesting Provider: German Haji Timeout Performed Timeout Performed: Yes Monitoring Used ECG, Blood Pressure and SpO2 Sterility Sterility: Hand Hygiene, Surgical Cap, Surgical Mask, Sterile Gloves and Chlorhexidine Sedation Given During Procedure Sedation Given (Indicate Dose Given): No Sedation given Patient Mental Status Patient Mental Status: Awake Nerve Block 1st Nerve Block: Laterality: Left Block Type: Adductor Canal Ultrasound Image Saved?: Yes Needle / Catheter Used: 100mm SonoPlex II Local Anesthetic Bolus (Indicate Dose Given): Lidocaine used for local infiltration of skin, Injected in 3-5ml increments after negative blood aspiration and Bupivacaine 0.5% Dose:: 10 Additives (Indicate Dose Given): Epinephrine to make 1:400,000 (2.5mcg/ml) Dose:: 0.025ml and Precedex Dose:: 16 Ultrasound: Sterile probe cover and gel used Nerve Stimulator: Supplement to Ultrasound use and No twitch or parasthesia noted < 0.5 mA Paresthesia: None Procedure Tolerated: No Complications and Patient tolerated well Procedure Outcome: Successful Performed By: Meir Haji 2nd Nerve Block: Laterality: Left Block Type: Popliteal Sciatic Ultrasound Image Saved?: Yes Needle / Catheter Used: 100mm SonoPlex II Local Anesthetic Bolus (Indicate Dose Given): Lidocaine used for local infiltration of skin, Injected in 3-5ml increments after negative blood aspiration and Bupivacaine 0.5% Dose:: 15 Additives (Indicate Dose Given): Epinephrine to make 1:400,000 (2.5mcg/ml) Dose:: 0.05 ml and Precedex Dose:: 25 mcg Ultrasound: Sterile probe cover and gel used Nerve Stimulator: Supplement to Ultrasound use and No twitch or parasthesia noted < 0.5 mA Paresthesia: None Procedure Tolerated: No Complications and Patient tolerated well Procedure Outcome: Successful Performed By: Meir Haji
[2023-03-28] MEDS: Lactated Ringers 1,000 ML 30 ML IV (12:45)
--- NOTE | 2023-03-28 12:51 | PGE_ITS ---
Date of Service Date of service: 03/28/23 Time of Service: 07:35 Assessment and Plan Assessment and plan (1) Displaced fracture of first metatarsal bone, left foot, initial encounter for closed fracture: Status: Acute Assessment and plan: Alberto is a 52-year-old who has a Lisfranc fracture complex, with displaced fractures of the first and second metatarsals. He has had improvement of the swelling of the foot. His lungs, while still recovering from the viral pneumonia with ongoing minimal oxygen requirement and cough, has improved. At this point he makes sense to proceed with fixation of the fractures to stabilize the fractures, stabilize the midfoot, and allow independent function in the future. I called the guardian last night and discussed the surgery with her, Patricia Arthur, in detail. I reviewed the risk of the procedure to include bleeding, infection, pain, stiffness, hardware failure, prominence, union, nonunion, need for repeat procedures, worsening arthritis, blood clot, damage to nerves and vessels, damage to muscle and tendons. Despite these risk, she elects to proceed. I also reviewed that with Alberto, and he agrees to proceed. (2) Fracture of second metatarsal bone of left foot: Status: Acute Subjective Subjective Interval history since last seen: No acute concerns. He reports improved pain in foot. He has some pain of his buttocks region. No change in shortness of breath or cough. Objective Last Vital Signs Temp 36.6 C 03/28/23 11:15 Pulse 82 03/28/23 12:00 Resp 16 03/28/23 11:15 BP 135/90 03/28/23 12:00 Pulse Ox 92 03/28/23 12:00 Laboratory Results - last 24 hr 03/28/23 05:50 WBC 11.12 H RBC 5.55 Hgb 15.2 Hct 46.1 MCV 83 MCH 27.4 MCHC 33.0 RDW 14.1 Plt Count 324 MPV 8.8 Immature Gran % 2.2 Neutrophils % 66.3 Lymphocytes % 21.7 Monocytes % 8.5 Eosinophils % 0.7 Basophils % 0.6 Nucleated RBC % 0.0 Absolute Neutrophils 7.37 H Absolute Lymphocytes 2.41 Absolute Monocytes 0.95 H Absolute Eosinophils 0.08 Absolute Basophils 0.07 Time Spent with Patient Time Spent with Patient: 25-34 minutes Time was spent: preparing to see the patient(eg.review tests), obtaining and/or reviewing separately otained hiistory, referring, communicating with other health director critical care and care coordination
[2023-03-28] MEDS: Bupivacaine 0.25% Pres-Free 30 ML VIAL (13:29)
[2023-03-28] MEDS: EPINEPHrine 1 MG/ML AMP pres-free (13:30)
--- NOTE | 2023-03-28 15:15 | DI.RAD_ITS ---
Exam(s) XR FLOURO OR C-ARM <1 HR EXAM: XR FLOURO OR C-ARM <1 HR CLINICAL HISTORY: left foot fracture. TECHNIQUE: 2D digital imaging was performed. COMPARISON: No exams were available for comparison FINDINGS: 3 views Fluoroscopy provided during orthopedic foot procedure. See procedure report for the IMPRESSION: Radiation exposure index/cumulative dose:Sarahbailey= 3.182 mGy DATA REPOSITORY: RADIATION DOSE DELIVERED:
--- NOTE | 2023-03-28 16:20 | W.ANESPOSTOP ---
Postoperative Evaluation Date, Time and Location Date Performed: 03/28/23 Time Performed: 16:20 Patient Location: PACU Vital Signs Most Recent Imported Vital Signs: Most Recent Vital Signs Temp Pulse Resp BP Pulse Ox 36.7 C 75 17 146/80 H 96 03/28/23 15:58 03/28/23 15:58 03/28/23 15:58 03/28/23 15:58 03/28/23 15:58 Pain Score Most Recent Pain Score: Most Recent Pain Score Pain Level 0 03/28/23 12:00 Assessment Mental Status: Awake (Alert & Oriented to Patient Baseline) Airway and Respiratory Function: Patient has been admitted and is receiving care as an inpatient Cardiovascular Function: Hemodynamically Stable Hydration Status: Adequately Hydrated Nausea & Vomiting: No Nausea or Vomiting Pain: Pt. Denies Any Pain Peripheral Nerve Block: Regional nerve block not resolved at time of post operative discharge
[2023-03-28] MEDS: ceFAZolin 1 GM/50 ML BAG IVPB (17:16)
--- NOTE | 2023-03-28 17:37 | ROE_ITS ---
Date of service: 03/28/23 Time of Service: 13:00 Operative Note Operative Note DATE OF PROCEDURE: 03/28/23 PRE-OP DIAGNOSIS: Left LisFranc Fracture (involving 1-5 Metatarsals) POST-OP DIAGNOSIS: same PROCEDURE: Open Reduction and Internal Fixation of 1st and 2nd Metatarsal Fractures, LisFranc Joint SURGEON: German Haji FISHER SPONGE HOOKING: Myra Johnston ANESTHESIA TYPE: Spinal and Primary Nerve Block Refer to Anesthesia Record ESTIMATED BLOOD LOSS: 50 PATHOLOGY: none sent TOURNIQUET TIME: 0 COMPLICATIONS: None Patient was transported to: PACU Patient's condition: stable Indications: Alberto is a 52-year-old who suffered a fall with a resultant Lisfranc fracture, instability Lisfranc joint, fractures involving the first through fifth metatarsals. He had significant swelling and fracture blistering which precluded him from proceeding sooner with fixation. This is also complicated by RSV pneumonia. He was deemed to be stable from the lung perspective as well as with resolution of the swelling and fracture blisters and thus I recommend we proceed with operative fixation of the displaced first and second metatarsals, and the Lisfranc joint. I reviewed this with him as well as his guardian. I discussed risk to include bleeding, infection, pain, stiffness, malunion, nonunion, damage to nerves or vessels, damage to muscles and tendons, need for repeat procedures, arthritis, blood clot. Despite these risk he and his guardian agreed to proceed. Findings: There is a comminuted fracture about the base of the first metatarsal involving the joint surface. This was quite challenging to reduce given his comminution and attachments of the tibialis anterior to some of the broken fragments. The joint surface was able to be reconstituted and reduced, provisionally fixed and held with a single screw just below the joint surface. The metatarsal fracture was then further reduced and held in appropriate alignment with a first TMT plate. The metatarsal was grossly unstable, this was also reduced and secured with a second TMT plate. Procedure Description: Alberto was greeted in the preoperative holding area. His identity was confirmed the correct site was identified and marked. The consent was reviewed with the guardian over the phone in the previous day and was signed. Preoperative primary nerve block was administered. He was taken to the operating room and placed in the supine position. He still had some mild sensation about the foot and therefore spinal anesthetic was administered. The left leg was placed onto a bone foam ramp. The left foot was prepped ChloraPrep and draped in a standard fashion. A nonsterile tourniquet was placed high up on the left thigh was not used. Prophylactic and biotics in the form of cefazolin 3 g was administered. A timeout is performed for safe surgery. 2 incisions were proposed on the skin, one just medial to the EHL tendon about the dorsal medial foot centered on the first TMT joint. Second incision was made just lateral to the shaft of the second TMT joint. This was confirmed with x-ray. These incision sites were anesthetized with 0.25% bupivacaine. The medial based incision was started, incising skin only. There is branches of venous structures which were protected and retracted out of the way. The tibialis anterior was seen over the plantar aspect of the wound. There was a significant amount of extension onto the base of the first metatarsal. The joint was identified and the capsule and periosteum was elevated subperiosteally with a knife. This allowed excellent visualization of the first TMT joint. There was gross instability of the first metatarsal. There is also more fragmentation than expected at the level of the joint. There is a large joint piece plantarly and centrally which was identified. However, there was some challenging reduction as some of the joint surface and fragments plantarly where attached the tibialis anterior insertion, thus making it hard to retract the tibialis anterior without distracting fragments. However, these were distracted all the way and the central portion of the joint was aligned and held with a K wire. A clamp was placed over the plantar aspect of the first metatarsal and over the dorsum of the bone. This seemed to reduce the axial split which was seen on the CT scan. With this held I then placed a single screw directly adjacent to the joint surface into the plantar piece. This was a 2.7 millimeter screw which had excellent fixation. The x-ray was challenging to interpret as it appeared that the screw may be penetrate the joint. However, direct visualization did not show any joint penetration with the screw but did secure the plantar section of the first metatarsal. I then reduced the remainder of the fragments which were displaced from the tibialis anterior onto the medial aspect of the first metatarsal. All these were held in position a dorsal medial Synthes variable angle 2.7 mm first TMT plate was applied. This was secured with 2 olive K wires and very gentle compression was placed to help reduce the joint fully. Direct visualization showed that the joint was reduced. I then placed three 2.7 mm locking screws on both the distal and proximal aspects. This secured the joint rigidly. X-ray showed appropriate positioning of the screws. Attention was now turned to the second TMT joint. The more lateral incision was now made. This was incised sharply the skin. Branch of the superficial peroneal nerve identified. These were retracted all the way. The crossing extensor houses longus tendon was also identified which was also retracted. The base of the second metatarsal was these identifiable as it was grossly unstable. The capsule over the dorsum of the second TMT joint was disrupted. Subperiosteal dissection was carried out over the second TMT joint. The base of the second metatarsal was grossly unstable. I used a large [id number] clamp to reduce the second metatarsal and a plantar and medial direction, having 1 molina of the clamp over the dorsal lateral surface of the base of the second metatarsal and the second time over the plantar medial aspect of the medial cuneiform. This reduced the second metatarsal onto the middle cuneiform and into its appropriate position adjacent to the first metatarsal and the medial cuneiform. This was confirmed to be in a good position both with direct visualization as well as fluoroscopy. With this held in appropriate position I then placed a 2.7 mm variable angle TMT fusion plate. This was positioned appropriately and a olive K wire was placed to secure it about the middle cuneiform. A nonlocking screw was utilized to compress it distally. Once again, x-ray was obtained to make sure there is appropriate positioning of the plate and appropriate reduction of the second metatarsal into the second TMT joint. Locking screws were then placed proximally and distally to secure this joint. Clamp was removed. X-rays were obtained. There is no gapping of the TMT joint with manipulation of the forefoot or midfoot. I did not place any other Lisfranc type screw nor did I fix the third, fourth, or fifth metatarsals today. To be stable. The wound was then thoroughly irrigated. Final x-rays were obtained. There is no significant bleeding. Deep tissue was closed over the plate as best as possible for both wounds. Deep tissues were reapproximated with a 3-0 Vicryl. The skin was closed with a running 4-0 nylon. The foot was dressed with Xeroform, 4 x 4's, ABD, Webril and a short posterior slab splint. At the end the case all counts were correct. He tolerated procedure well. He did have some persistent coughing during the case but was intubated and was transferred to the PACU in stable condition. He will be nonweightbearing for 6 weeks. After 6 weeks we will transition to partial progressive weightbearing with the use of a fracture walker boot. Before 6 weeks I would likely place him into a short leg cast given some concerns about adherence to nonweightbearing protocols.
--- NOTE | 2023-03-28 18:05 | W.PM.PROGNOT ---
Date of Service Date of service: 03/28/23 Time of Service: 18:05 Assessment and Plan Assessment and plan (1) Displaced fracture of first metatarsal bone, left foot, initial encounter for closed fracture: Status: Acute Assessment and plan: repaired today, POD 0 followed by orthopedics, continue routine post operative care. (2) Hypoxic respiratory failure: Status: Acute Assessment and plan: patient had no requirement at home recent RSV infection sating low 90's on room air during the day, requires oxygen supplementation at night outpatient testing for oxygen supplementation/NARAYAN (3) Respiratory syncytial virus (RSV) infection: Status: Resolved Assessment and plan: respiratory status stable, prednisone completed (4) Obesity: Status: Chronic Assessment and plan: patient counseled to discuss weight management with PCP Caloric intake controlled during hospitalization (5) Hyponatremia: Status: Resolved Assessment and plan: normalized, stop fluid restriction (6) On deep vein thrombosis (DVT) prophylaxis: Status: Acute Assessment and plan: On Lovenox (7) Discharge planning issues: Status: Resolved Assessment and plan: Residing in a [facility] and needs to be independent in ADL's prior to discharge;might need rehabilitation after surgery CM to f/u Discussed with Dr. De La Garza Subjective Subjective Patient reports: no new complaints Exam Const General: no acute distress Orientation: alert HENMT Head: normal to inspection Mouth: moist mucous membranes Eyes General: appearance normal, both eyes and all related structures Neck Neck: normal visual inspection Resp Effort & Inspection: normal respiratory effort and able to speak in complete sentences Auscultation: clear to auscultation bilaterally Cardio Jugular venous pressure: no JVD Rate: regular rate Skin General skin exam: no rashes or lesions noted Neuro General: patient alert and patient oriented x3 Extrem General: full ROM and capillary refill normal Left lower extremity: lower leg; abnormal ROM (posterior splint intact toes old bruising no swelling good sensation/mvmt) Psych Mental Status: mental status grossly normal Objective Last Vital Signs Temp 36.8 C 03/28/23 17:52 Pulse 93 H 03/28/23 17:52 Resp 16 03/28/23 17:52 BP 125/84 03/28/23 17:52 Pulse Ox 91 L 03/28/23 17:52 Laboratory Results - last 24 hr 03/28/23 05:50 WBC 11.12 H RBC 5.55 Hgb 15.2 Hct 46.1 MCV 83 MCH 27.4 MCHC 33.0 RDW 14.1 Plt Count 324 MPV 8.8 Immature Gran % 2.2 Neutrophils % 66.3 Lymphocytes % 21.7 Monocytes % 8.5 Eosinophils % 0.7 Basophils % 0.6 Nucleated RBC % 0.0 Absolute Neutrophils 7.37 H Absolute Lymphocytes 2.41 Absolute Monocytes 0.95 H Absolute Eosinophils 0.08 Absolute Basophils 0.07 Time Spent with Patient Time Spent with Patient: <25 minutes Time was spent: preparing to see the patient(eg.review tests), indepentently interpreting results and counseling the patient
[2023-03-28] MEDS: Normal Saline Flush 10 ML SYR IVP (20:40)
[2023-03-28] MEDS: Atorvastatin 20 MG TAB PO (20:41)
[2023-03-28] MEDS: guaiFENesin 600 MG TABCR PO (20:41)
[2023-03-29] VITALS (12 sets, daily range): BP systolic 130–134; BP diastolic 77–85; PULSE 72–92; RESP 2–20; TEMP 36.3–36.9; O2SAT 88–94
[2023-03-29] MEDS: ceFAZolin 1 GM/50 ML BAG IVPB ×2 (01:03→11:15)
[2023-03-29] MEDS: Normal Saline Flush 10 ML SYR IVP (01:03)
[2023-03-29] MEDS: Acetaminophen 500 MG TAB PO ×4 (01:04→20:09)
[2023-03-29] MEDS: Albuterol/Ipratropium 3 ML UPD VIAL UPD ×4 (08:22→19:38)
--- NOTE | 2023-03-29 08:22 | PT.INNT ---
PT Notes Visit Reasons: RSV, bronchospasm Patient is currently on caseload. Same PT plan of care will be followed in compliance with weight bearing precautions, as ordered.
[2023-03-29] MEDS: Psyllium PKT 1 EACH PO (08:25)
[2023-03-29] MEDS: Divalproex 250 MG TABEC PO ×2 (08:26→20:10)
[2023-03-29] MEDS: Multivitamin TAB 1 TAB PO (08:26)
[2023-03-29] MEDS: Cholecalciferol (Vitamin D3) 1,000 UNIT TAB 1000 UNITS PO (08:26)
[2023-03-29] MEDS: Divalproex 500 MG TABEC 1000 MG PO ×2 (08:26→20:11)
[2023-03-29] MEDS: risperiDONE 1 MG TAB 2 MG PO ×2 (08:26→20:10)
[2023-03-29] MEDS: guaiFENesin 600 MG TABCR PO ×2 (08:26→20:11)
[2023-03-29] MEDS: Sertraline 100 MG TAB 200 MG PO (08:26)
[2023-03-29] MEDS: Benztropine 1 MG TAB 0.5 MG PO ×2 (08:26→20:10)
[2023-03-29] MEDS: Ibuprofen 600 MG TAB PO (09:20)
[2023-03-29] MEDS: LORazepam 0.5 MG TAB PO (09:20)
--- NOTE | 2023-03-29 10:28 | PT.INTREAT ---
PT Notes Visit Reasons: RSV, bronchospasm Date: 03/29/23 PRECAUTIONS: fall, standard, activity as tolerated. continued to be NWB LLE with FWW. Supportive footwear on right foot. SUBJECTIVE: pt in bed when approached for therapy this morning, pt agreed to participating with session. OBJECTIVE: short leg cast. PAIN: none reported VITALS: monitored by nursing Therapeutic Activities [id number] 18mins: Direct one-on-one instruction in dynamic activities to improve functional performance. ?? BED MOBILITY/TRANSFERS? Rolling L/R: supervision Supine-sit: ?supervision ? Sit-supine: ?supervision? Sit-stand: ?SBA? Stand-sit: ?SBA ? Bed-Chair:?Stand pivot transfer CGA/SBA ? Chair-bed: Stand pivot transfer CGA/SBA Provided skilled cues and instruction on performance and technique throughout. Gait Training: Direct one-on-one instruction and skilled instruction in: Employing an assistive device Modified weight-bearing status Movement sequencing Turning and movement with proper form Provided verbal cues for equipment management and technique Provided instruction in gait pattern Patient education regarding pacing and breathing techniques to maximize activity tolerance? GAIT? Assistive Device: ??FWW? Weight bearing: NWB LLE Assist: ?CGA ? Distance:?? 5'x2 ? Deviation: ?single leg hop/Stand pivot transfer ? Provided skilled instruction in proper exercise performance Provided skilled manual cues to facilitate proper muscle recruitment and/or form: ASSESSMENT:?Pt status post operative day one now with short leg cast he continues to be NWB on the LLE for the next 6weeks. Pt moving quicker and with good execution, back juarez hop required CGA for stability all other activity requiring SBA only. PLAN: Continue global strengthening per plan of care until patient is medically cleared for discharge and obtains safe discharge plan. TREATMENT CODE/TIME: 94123e7 18mins (9:56-10:14am)
--- NOTE | 2023-03-29 10:54 | CMPROGNOTE_ITS ---
Date of service: 03/29/23 Time of Service: 10:54 Care Management Progress Note Progress Note Text Progress Note Text: S/O: Alberto was lying in bed when CM met with him. He reported that he went to the OR yesterday, and that today he is feeling pretty good. He stated that he has worked with PT, and he feels that he is doing well with ambulation, which is modified currently to non weight bearing on his L foot. CM asked him if he feels that he would be able to safely ambulate at home (EEF), and he stated that he thinks he will be able to be safe, with supervision, which is provided at the facility. CM also discussed the option of him going to short term rehab, to get stronger prior to returning home, which he agreed that it would be a good idea. CM will send a referral to [facility] for consideration, at his request. CM called Patricia, his guardian, and discussed these options as well, and she agreed to the referral being sent. CM will continue to follow. A: 52 year old male admitted to [facility] 03/19/23 for RSV, Broncospasm P: Anticipate Alberto will be brought for surgery tomorrow; he will be evaluated for needs post surgically to inform discharge plan. Anticipate he will return to his residence once medically cleared, dependent on ability to ambulate and weight bearing status. CM following. SDOH(Care Management) Screening Will the Patient Participate in the Screening?: Unable to obtain
--- NOTE | 2023-03-29 13:06 | PGE_ITS ---
Date of Service Date of service: 03/29/23 Time of Service: 13:06 Assessment and Plan Assessment and plan (1) Displaced fracture of first metatarsal bone, left foot, initial encounter for closed fracture: Status: Acute Assessment and plan: POD #1 Open Reduction and Internal Fixation of 1st and 2nd Metatarsal Fractures, LisFranc Joint no post operative complications, pain is well managed followed by orthopedics, continue routine post operative care. maintain posterior splint. (2) Hypoxic respiratory failure: Status: Acute Assessment and plan: patient had no requirement at home recent RSV infection sating low 90's on room air during the day, requires oxygen supplementation at night outpatient testing for oxygen supplementation/NARAYAN (3) Respiratory syncytial virus (RSV) infection: Status: Resolved Assessment and plan: respiratory status stable, prednisone completed (4) Obesity: Status: Chronic Assessment and plan: patient counseled to discuss weight management with PCP Caloric intake controlled during hospitalization (5) Hyponatremia: Status: Resolved Assessment and plan: normalized, stop fluid restriction (6) On deep vein thrombosis (DVT) prophylaxis: Status: Acute Assessment and plan: On Lovenox (7) Discharge planning issues: Status: Resolved Assessment and plan: Residing in a nursing home and needs to be independent in ADL's prior to discharge;might need rehabilitation after surgery CM to f/u Discussed with Dr. De La Garza Subjective Subjective Patient reports: no new complaints, tolerating liquids well, tolerating a regular diet, voiding w/o difficulty, bowel movement and afebrile Interval history since last seen: pain managed on current regimen, working with PT and not independent yet Exam Const General: no acute distress Orientation: alert HENMT Head: normal to inspection Mouth: moist mucous membranes Eyes General: appearance normal, both eyes and all related structures Neck Neck: normal visual inspection Resp Effort & Inspection: normal respiratory effort and able to speak in complete sentences Auscultation: clear to auscultation bilaterally Cardio Jugular venous pressure: no JVD Rate: regular rate Skin General skin exam: no rashes or lesions noted Neuro General: patient alert and patient oriented x3 Extrem Left lower extremity: lower leg; abnormal ROM (posterior splint intact toes old bruising no swelling good sensation/mvmt) Psych Mental Status: mental status grossly normal Objective Last Vital Signs Temp 36.3 C L 03/29/23 07:44 Pulse 92 H 03/29/23 11:12 Resp 18 03/29/23 08:22 BP 133/80 03/29/23 07:44 Pulse Ox 88 L 03/29/23 11:12 Time Spent with Patient Time Spent with Patient: 25-34 minutes Time was spent: preparing to see the patient(eg.review tests), obtaining and/or reviewing separately otained hiistory, ordering medications,tests, procedures, referring, communicating with other health adult day care worker, indepentently interpreting results, counseling the patient and care coordination
--- NOTE | 2023-03-29 14:17 | PT.INTREAT ---
PT Notes Visit Reasons: RSV, bronchospasm Date: 03/29/23 PRECAUTIONS: fall, standard, activity as tolerated. continued to be NWB LLE with FWW. Supportive footwear on right foot. SUBJECTIVE: pt in bed when approached for therapy this afternoon, pt agreed to participating with session. OBJECTIVE: short leg cast LLE. PAIN: none reported VITALS: monitored by nursing Therapeutic Activities [id number] 18mins: Direct one-on-one instruction in dynamic activities to improve functional performance. ?? BED MOBILITY/TRANSFERS? Rolling L/R: supervision Supine-sit: ?supervision ? Sit-supine: ?supervision? Sit-stand: ?SBA? Stand-sit: ?SBA ? Bed-Chair:?Stand pivot transfer CGA? Chair-bed: Stand pivot transfer CGA Provided skilled cues and instruction on performance and technique throughout. Gait Training: Direct one-on-one instruction and skilled instruction in: Employing an assistive device Modified weight-bearing status Movement sequencing Turning and movement with proper form Provided verbal cues for equipment management and technique Provided instruction in gait pattern Patient education regarding pacing and breathing techniques to maximize activity tolerance? GAIT? Assistive Device: ??FWW? Weight bearing: NWB LLE Assist: ?CGA ? Distance:?? 10'x1 ? Deviation: ?single leg hop/Stand pivot transfer ? Provided skilled instruction in proper exercise performance Provided skilled manual cues to facilitate proper muscle recruitment and/or form: ASSESSMENT:?pt had a couple of LOB during gait training distance requiring CGA for recovery and fall prevention. goal was to try and reach the toilet seat for transfer training but pt was to fatigued to complete target distance requiring pt seated rest break after 10' of gait training, pt took WC ride back to side of bed, stand pivot transfer and bed mobility going upwards in bed supervision. PLAN: Continue global strengthening per plan of care until patient is medically cleared for discharge and obtains safe discharge plan. TREATMENT CODE/TIME: [id number] 25mins (2:00-2:25pm)
[2023-03-29] MEDS: Enoxaparin 40 MG/0.4 ML SYR SC (14:48)
--- NOTE | 2023-03-29 14:54 | W.PM.PROGNOT ---
Date of Service Date of service: 03/29/23 Time of Service: 13:20 Assessment and Plan Assessment and plan (1) Displaced fracture of first metatarsal bone, left foot, initial encounter for closed fracture: Status: Acute (2) Fracture of second metatarsal bone of left foot: Status: Acute Assessment and plan: Alberto is a 52-year-old 1 day status post open reduction internal fixation of first and second metatarsal fractures involving the Lisfranc joint. He is doing well. He has no acute complaints. No complications. He does seem to be requiring slightly more oxygen today but does not have other overt changes. I appreciate the medicine team involvement with his care. At this point he may continue to recover as expected. He is nonweightbearing to left lower extremity. He would likely require rehabilitation before returning back to his care home, [facility]. I recommend that he keep the foot elevated is much as possible. Physical therapy should start today for nonweightbearing training. He may resume any anticoagulation. Follow-up with me in approximately 3 weeks. Subjective Subjective Interval history since last seen: No acute concerns. He denies any pain. He reports having intact sensation to the foot. He denies any worsening shortness of breath or cough. No fevers and no chills. Exam Narrative Exam Narrative: Sitting up in the bed. No acute distress. Conversant. Splint to the left lower extremity is clean dry and intact. Continued resolving ecchymosis about the toes. He endorses sensation to the deep and superficial peroneal nerve and tibial nerve. He is able to actively flex and extend the toes. No pain with passive nor active range of motion of the toes. Objective Last Vital Signs Temp 36.3 C L 03/29/23 07:44 Pulse 92 H 03/29/23 11:12 Resp 18 03/29/23 08:22 BP 133/80 03/29/23 07:44 Pulse Ox 88 L 03/29/23 11:12 Time Spent with Patient Time Spent with Patient: <25 minutes Time was spent: obtaining and/or reviewing separately otained hiistory, counseling the patient and care coordination
--- NOTE | 2023-03-29 15:13 | CHAPLAIN ---
Dean was in bed when I visited. A staff member from [facility] had just left. Dean has lived at [facility] for five years. He said he doesn't like it here. At [facility] he goes out once a day for a car ride. He likes to watch Gunsmoke on TV, but that's about it according to the [facility] staff. He asked for some peanut butter and crackers, but his nurse said he had just had some. According to the [facility] staff, Dean had a very traumatic childhood. He has a sister who lives out of state. He told me that he grew up in [place], [place], but never went across the border to [place] and that that would not be a good idea. Dean had surgery on his foot and needs to be independent getting and using the bathroom and showering before he can return to [facility].
[2023-03-29] MEDS: Atorvastatin 20 MG TAB PO (20:10)
[2023-03-30] VITALS (13 sets, daily range): BP systolic 110–142; BP diastolic 72–88; PULSE 67–102; RESP 2–24; TEMP 36.3–37; O2SAT 92–95
[2023-03-30] MEDS: Acetaminophen 500 MG TAB PO ×4 (01:31→19:49)
[2023-03-30] MEDS: Ibuprofen 600 MG TAB PO (02:04)
[2023-03-30] MEDS: Psyllium PKT 1 EACH PO (07:52)
[2023-03-30] MEDS: Divalproex 500 MG TABEC 1000 MG PO ×2 (07:53→19:52)
[2023-03-30] MEDS: Benztropine 1 MG TAB 0.5 MG PO ×2 (07:53→19:51)
[2023-03-30] MEDS: Sertraline 100 MG TAB 200 MG PO (07:53)
[2023-03-30] MEDS: Divalproex 250 MG TABEC PO ×2 (07:53→19:52)
[2023-03-30] MEDS: Multivitamin TAB 1 TAB PO (07:53)
[2023-03-30] MEDS: guaiFENesin 600 MG TABCR PO ×2 (07:54→19:49)
[2023-03-30] MEDS: Cholecalciferol (Vitamin D3) 1,000 UNIT TAB 1000 UNITS PO (07:54)
[2023-03-30] MEDS: risperiDONE 1 MG TAB 2 MG PO ×2 (07:54→19:50)
[2023-03-30] MEDS: Albuterol/Ipratropium 3 ML UPD VIAL UPD ×4 (08:18→19:48)
--- NOTE | 2023-03-30 09:32 | PT.INTREAT ---
PT Notes Visit Reasons: RSV, bronchospasm Inpatient Physical Therapy Treatment Note [facility] Date: 03/30/23 PRECAUTIONS:RSV L LE NWB OBJECTIVE: ? Therapeutic Activities ([id number][]): Direct one-on-one instruction in dynamic activities to improve functional performance. ? BED MOBILITY/TRANSFERS? Supine-sit: CGA? Sit-stand: CGA? Stand-sit: CGA ? Provided skilled cues and instruction on performance and technique throughout. Gait Training (05915h[1]): Direct one-on-one instruction and skilled instruction in: [X] employing an assistive device [X] modified weight-bearing status [X] movement sequencing [] turning and movement with proper form [] Provided verbal cues for equipment management and technique [] Provided instruction in gait pattern [] Patient education regarding pacing and breathing techniques to maximize activity tolerance? GAIT? Assistive Device: FWW? Weight bearing: NWB L LE Assist: CGAx2 ? Distance:? 5ft forward 5 steps back ? Therapeutic Exercises ([id number][]): Direct one-on-one instruction in therapeutic exercises to develop strength, endurance, range of motion and flexibility. ? Exercises ? LAQ x 10 Seated hip abd x10 ? ASSESSMENT:? Pt tolerated today's session fairly well. Pt did seem to fatigue fairly quickly. PLAN: Cont as per PT POC. TREATMENT CODE/TIME: 9:15-9:30 (15) Gait
--- NOTE | 2023-03-30 10:41 | PGE_ITS ---
Date of Service Date of service: 03/30/23 Time of Service: 10:41 Assessment and Plan Assessment and plan (1) Displaced fracture of first metatarsal bone, left foot, initial encounter for closed fracture: Status: Acute Assessment and plan: POD #2 Open Reduction and Internal Fixation of 1st and 2nd Metatarsal Fractures, LisFranc involving 1-5 metatarsal Pain is well managed Orthopedics is followin up for post operative care. Posterior splint in place, not to be removed Continue PT (2) Hypoxic respiratory failure: Status: Acute Assessment and plan: Resolved, no oxygen requirement at home and no daytime oxygen requirement recent RSV infection over 12 days ago, no longer contagious or symptomatic Saturation in O2 in the low to mid 90s on room air during the day Monitoring for requirement in oxygen supplementation at night Consider ambulatory oximetry testing prior to discharge and outpatient testing for oxygen supplementation/NARAYAN (3) Respiratory syncytial virus (RSV) infection: Status: Resolved Assessment and plan: Resolved despite rhinorrhea respiratory status stable, prednisone course completed (4) Obesity: Status: Chronic Assessment and plan: As previously mentioned, patient counseled to discuss weight management with PCP Caloric intake controlled during hospitalization (5) Hyponatremia: Status: Resolved Assessment and plan: normalized, stop fluid restriction (6) On deep vein thrombosis (DVT) prophylaxis: Status: Acute Assessment and plan: On Lovenox (7) Discharge planning issues: Status: Resolved Assessment and plan: Residing in a senior care and needs to be independent in ADL's prior to discharge Referrals sent CM to f/u Discussed with Dr. De La Garza Subjective Subjective Patient reports: no new complaints, feels better, pain is less, tolerating liquids well, tolerating a regular diet, voiding w/o difficulty, flatus, bowel movement (03/26) and afebrile; denies diarrhea, nausea, vomiting, shortness of breath or fever Exam Narrative Exam Narrative: Neuro:alert and oriented to self and person,no neurological focal deficit, pleasant, no acute distress Resp:clear lungs, diminished but clear bases, rhinorrhea Cardio: regular rhythm, no murmur GI: Abdomen is not distended, soft and non tender, bowel sounds are present Integumentary: left distal foot purple to dorsal toes, less swollen than prior to surgery ,can move toes, cap refill < 3 sec to left toes Extremities: strength 4/5 to left lower ext. 5/5 otherwise Psych: RASS 0, congruent mood and normal affect. Objective Last Vital Signs Temp 36.3 C L 03/30/23 07:30 Pulse 100 H 03/30/23 08:23 Resp 18 03/30/23 08:18 BP 130/80 03/30/23 07:30 Pulse Ox 95 03/30/23 08:20 Time Spent with Patient Time Spent with Patient: >50 minutes Time was spent: preparing to see the patient(eg.review tests), obtaining and/or reviewing separately otained hiistory, ordering medications,tests, procedures, referring, communicating with other health nonfarm animal caretaker, indepentently interpreting results, counseling the patient and care coordination
[2023-03-30] MEDS: Enoxaparin 40 MG/0.4 ML SYR SC (14:11)
[2023-03-30] MEDS: Atorvastatin 20 MG TAB PO (19:53)
[2023-03-31] VITALS (10 sets, daily range): BP systolic 102–151; BP diastolic 61–85; PULSE 73–110; RESP 2–22; TEMP 36.2–36.9; O2SAT 92–97
[2023-03-31] MEDS: Acetaminophen 500 MG TAB PO ×2 (02:16→07:04)
[2023-03-31 06:30] LABS: Abs Immature Grans 0.11 10^3/uL (0.0-0.06); Absolute Basophil Count 0.05 10^3/uL (0.0-0.2); Absolute Eosinophil Count 0.17 10^3/uL (0.0-0.7); Absolute Lymphocyte Count 1.48 10^3/uL (1.2-3.4); Absolute Monocyte Count 0.64 10^3/uL (0.1-0.8); Absolute Neutrophil Count 4.26 10^3/uL (1.2-6.7); Basophils % 0.7; Eosinophils % 2.5; HCT 44.5 % (40.0-50.0); HGB 14.8 g/dL (13.5-17.5); Immature Grans % 1.6; Lymphocytes % 22.1; MCH 27.5 pg (27.0-33.0); MCHC 33.3 % (32.0-36.0); MCV 83 fL (80-95); Monocytes % 9.5; Neutrophils % 63.6; RBC 5.38 10^6/uL (4.36-5.78); RDW 14.4 % (11.8-14.1); WBC 6.71 10^3/uL (4.4-10.8)
[2023-03-31 06:47] LABS: Diff Comment Diff Reviewed; RBC Morphology Normal
[2023-03-31] MEDS: Albuterol/Ipratropium 3 ML UPD VIAL UPD ×4 (07:39→20:08)
[2023-03-31] MEDS: Psyllium PKT 1 EACH PO (07:46)
[2023-03-31] MEDS: Divalproex 500 MG TABEC 1000 MG PO ×2 (07:46→20:07)
[2023-03-31] MEDS: Sertraline 100 MG TAB 200 MG PO (07:47)
[2023-03-31] MEDS: guaiFENesin 600 MG TABCR PO ×2 (07:47→20:08)
[2023-03-31] MEDS: Divalproex 250 MG TABEC PO ×2 (07:47→20:08)
[2023-03-31] MEDS: risperiDONE 1 MG TAB 2 MG PO ×2 (07:47→20:07)
[2023-03-31] MEDS: Benztropine 1 MG TAB 0.5 MG PO ×2 (07:47→20:07)
[2023-03-31] MEDS: Cholecalciferol (Vitamin D3) 1,000 UNIT TAB 1000 UNITS PO (07:47)
[2023-03-31] MEDS: Multivitamin TAB 1 TAB PO (07:48)
--- NOTE | 2023-03-31 10:17 | PT.INTREAT ---
PT Notes Visit Reasons: RSV, bronchospasm Inpatient Physical Therapy Treatment [facility] Date: 03/31/23 PRECAUTIONS:NWB L LE OBJECTIVE: ? Therapeutic Activities ([id number][]): Direct one-on-one instruction in dynamic activities to improve functional performance. ? BED MOBILITY/TRANSFERS? Rolling L/R: [] Supine-sit: CGA? Sit-supine: ? Sit-stand: CGAx2? Stand-sit: CGAx2 ? Bed-Chair: [id number] vc's ? Chair-bed: [] Provided skilled cues and instruction on performance and technique throughout. Gait Training ([id number][1]): Direct one-on-one instruction and skilled instruction in: [X] employing an assistive device [X] modified weight-bearing status [] movement sequencing [X] turning and movement with proper form [X] Provided verbal cues for equipment management and technique [] Provided instruction in gait pattern [] Patient education regarding pacing and breathing techniques to maximize activity tolerance? GAIT? Assistive Device: FWW? Weight bearing: NWB L LE Assist: CGAx2 ? Distance:? Approx 7ft forward and then back to chair ? Therapeutic Exercises ([id number][1]): Direct one-on-one instruction in therapeutic exercises to develop strength, endurance, range of motion and flexibility. ? Exercises ? LAQ x 10 L LE Seated marching L LE x 10 UE rowing x 10 UE shoulder flexion x 10 ASSESSMENT:? Pt fatigues quickly but was able to tolerate more today during his session. Stil requires vc's for ambulation with NWB statuc and advancement of walker while walking. PLAN: Cont as per PT POC. TREATMENT CODE/TIME: 11-03: (25)
--- NOTE | 2023-03-31 10:39 | W.PM.PROGNOT ---
Date of Service Date of service: 03/31/23 Time of Service: 10:39 Assessment and Plan Assessment and plan (1) Displaced fracture of first metatarsal bone, left foot, initial encounter for closed fracture: Status: Acute Assessment and plan: POD #3 Open Reduction and Internal Fixation of 1st and 2nd Metatarsal Fractures, LisFranc involving 1-5 metatarsal Pain is well managed: Schedule APAP and PRN ibuprofen Orthopedics is following up for post operative care. Needs 3-week appointment on discharge with Dr. Haji Posterior splint in place, not to be removed Continue PT: Cue needed for non-weightbearing (2) Hypoxic respiratory failure: Status: Acute Assessment and plan: Resolved, no oxygen requirement at home and no daytime oxygen requirement Ambulatory oximetry testing completed: no need for Oxygen RSV infection: Resolved Monitoring for requirement in oxygen supplementation at night Consider outpatient testing for oxygen supplementation/NARAYAN (3) Respiratory syncytial virus (RSV) infection: Status: Resolved Assessment and plan: Resolved despite and as above respiratory status stable, prednisone course completed (4) Obesity: Status: Chronic Assessment and plan: As previously mentioned, patient counseled to discuss weight management with PCP Caloric intake controlled during hospitalization (5) On deep vein thrombosis (DVT) prophylaxis: Status: Acute Assessment and plan: Continue Lovenox (6) Discharge planning issues: Status: Resolved Assessment and plan: Residing in a retirement [facility] 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 Mata Subjective Subjective Patient reports: no new complaints, feels better, still having pain, pain is less, tolerating liquids well, tolerating a regular diet, voiding w/o difficulty and bowel movement; denies diarrhea, nausea, vomiting, shortness of breath or fever Exam Narrative Exam Narrative: Neuro:alert and oriented to self and person,no neurological focal deficit, pleasant but resistant when encourage to be more independent , no acute distress Resp:clear lungs Cardio: regular rhythm, no murmur GI: Abdomen is not distended, soft and non tender, bowel sounds are present Integumentary: left distal foot purple to dorsal toes, less swollen than prior to surgery ,can move toes, cap refill < 3 sec to left toes Extremities: strength 4/5 to left lower ext. 5/5 otherwise, discomfort after PT Psych: RASS 0, congruent mood and normal to irritable affect. Objective Last Vital Signs Temp 36.2 C L 03/31/23 07:32 Pulse 85 03/31/23 07:44 Resp 18 03/31/23 07:39 BP 151/85 H 03/31/23 07:32 Pulse Ox 94 03/31/23 07:39 Laboratory Results - last 24 hr 03/31/23 06:15 WBC 6.71 RBC 5.38 Hgb 14.8 Hct 44.5 MCV 83 MCH 27.5 MCHC 33.3 RDW 14.4 H Plt Count MPV Immature Gran % 1.6 Neutrophils % 63.6 Lymphocytes % 22.1 Monocytes % 9.5 Eosinophils % 2.5 Basophils % 0.7 Nucleated RBC % 0.0 Absolute Neutrophils 4.26 Absolute Lymphocytes 1.48 Absolute Monocytes 0.64 Absolute Eosinophils 0.17 Absolute Basophils 0.05 RBC Morphology Normal Time Spent with Patient Time Spent with Patient: >50 minutes Time was spent: preparing to see the patient(eg.review tests), obtaining and/or reviewing separately otained hiistory, ordering medications,tests, procedures, referring, communicating with other health senior care specialist, indepentently interpreting results, counseling the patient and care coordination
[2023-03-31] MEDS: Ibuprofen 600 MG TAB PO (13:22)
[2023-03-31 14:02] LABS: Platelet Count 150 10^3/uL (130-400)
[2023-03-31] MEDS: Enoxaparin 40 MG/0.4 ML SYR SC (14:14)
[2023-03-31] MEDS: Acetaminophen 500 MG TAB 1000 MG PO (17:49)
[2023-03-31] MEDS: Atorvastatin 20 MG TAB PO (20:07)
[2023-04-01] VITALS (8 sets, daily range): BP systolic 129–143; BP diastolic 90–91; PULSE 80–104; RESP 2–24; TEMP 36–36.7; O2SAT 90–94
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
[2023-04-01 06:45] LABS: Abs Immature Grans 0.08 10^3/uL (0.0-0.06); Absolute Basophil Count 0.06 10^3/uL (0.0-0.2); Absolute Eosinophil Count 0.21 10^3/uL (0.0-0.7); Absolute Lymphocyte Count 1.72 10^3/uL (1.2-3.4); Absolute Monocyte Count 0.73 10^3/uL (0.1-0.8); Absolute Neutrophil Count 4.53 10^3/uL (1.2-6.7); Basophils % 0.8; Eosinophils % 2.9; HCT 43.4 % (40.0-50.0); HGB 14.3 g/dL (13.5-17.5); Immature Grans % 1.1; Lymphocytes % 23.5; MCHC 32.9 % (32.0-36.0); MCV 82 fL (80-95); MPV 8.7 fL (8.0-11.0); Neutrophils % 61.7; Platelet Count 310 10^3/uL (130-400); RDW 14.2 % (11.8-14.1); RDW-SD 42.3 fL; WBC 7.33 10^3/uL (4.4-10.8)
[2023-04-01 06:54] LABS: Anion Gap 3.7 mmol/L (3-11); BUN 13 mg/dL (7-18); CO2 33.3 mmol/L (21.0-32.0); CREATININE 0.8 mg/dL (0.70-1.30); Calcium 9.2 mg/dL (8.5-10.1); Chloride 100 mmol/L (98-107); Estimated GFR 105.82 (mL/min/1.73m2); Glucose 87 mg/dL (74-106); Potassium 4.2 mmol/L (3.5-5.1); Sodium 137 mmol/L (136-145)
[2023-04-01] MEDS: Albuterol/Ipratropium 3 ML UPD VIAL UPD ×4 (08:31→20:46)
[2023-04-01] MEDS: Sertraline 100 MG TAB 200 MG PO (08:58)
[2023-04-01] MEDS: Divalproex 250 MG TABEC PO ×2 (08:58→20:45)
[2023-04-01] MEDS: Benztropine 1 MG TAB 0.5 MG PO ×2 (08:58→20:45)
[2023-04-01] MEDS: guaiFENesin 600 MG TABCR PO ×2 (08:59→20:46)
[2023-04-01] MEDS: Divalproex 500 MG TABEC 1000 MG PO ×2 (08:59→20:46)
[2023-04-01] MEDS: risperiDONE 1 MG TAB 2 MG PO ×2 (08:59→20:46)
[2023-04-01] MEDS: Cholecalciferol (Vitamin D3) 1,000 UNIT TAB 1000 UNITS PO (08:59)
[2023-04-01] MEDS: Multivitamin TAB 1 TAB PO (09:00)
[2023-04-01] MEDS: Psyllium PKT 1 EACH PO (09:00)
--- NOTE | 2023-04-01 10:47 | PTTR_ITS ---
Date of service: 04/01/23 Time of Service: 10:02 PT Notes Visit Reasons: RSV, bronchospasm Inpatient Physical Therapy Treatment [facility] Date: 04/01/23 PRECAUTIONS: Fall, standard, activity as tolerated. NWB LLE. SUBJECTIVE: Patient reports feeling good, foot feels good, pain significantly decreased. Per SALES ORDER SPECIALIST Mac, patient reportedly wants to be more independent. AFTERNOON: Per staff report, patient increasingly behavioral when denied snacks. OBJECTIVE: Supine in bed, agreeable to therapy. AFTERNOON: Supine in bed, suspicious of wheelchair. Agreeable to therapy. ? PAIN: none reported. VITALS: monitoredy by nursing staff. Therapeutic Activities (61021p8): Direct one-on-one instruction in dynamic activities to improve functional performance. ? BED MOBILITY/TRANSFERS? Rolling L/R: independent Supine-sit: SBA ? Sit-supine: SBA ? Sit-stand: Min to mod assist of one at gait belt, verbal cues for NWB status ignored ~50% of the time. ? Stand-sit: CGA to min assist of one at gait belt, verbal cues for proximity to seat as well as NWB status. ? Bed-Chair: CGA with verbal cues for NWB status, with ~75% compliance. ? Chair-bed: CGA with verbal cues for NWB status, with ~75% compliance. Gait Training ([id number]): Direct one-on-one instruction and skilled instruction in: [x] employing an assistive device [x] modified weight-bearing status [x] movement sequencing [x] turning and movement with proper form [x] Provided verbal cues for equipment management and technique [x] Provided instruction in gait pattern [x] Patient education regarding pacing and breathing techniques to maximize activity tolerance? GAIT? Assistive Device: FWW? Weight bearing: NWB LLE Assist: CGA to min, with verbal cues for NWB status as well as verbal and tactile cues for posture, WB through arms/walker. ? Distance:? 8 feet, 8 feet, 5 feet, 3 feet ? Deviation: Patient tends to push walker too far forward, hunch shoulders, hinge forward at hips, keep right knee bent. Continuous verbal cues and tactile cues, as well as demonstration and patient education provided. Patient verbalizes understanding, then continues to attempt PWB on LLE. ? ASSESSMENT:? Patient struggling more with compliance with NWB status now that he has less pain in the foot & ankle. Education provided on importance of following 's recommendations PLAN: Continue global strengthening, gait training, and balance per plan of care until patient is medically cleared for discharge. TREATMENT CODE/TIME: 19 minutes beginning at 10:02 and 30 minutes beginning at 15:12 for a total of 49 minutes today.
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
[2023-04-01] MEDS: Acetaminophen 500 MG TAB 1000 MG PO ×2 (11:35→17:09)
--- NOTE | 2023-04-01 13:11 | W.PM.PROGNOT ---
Date of Service Date of service: 04/01/23 Time of Service: 12:40 Assessment and Plan Assessment and plan (1) Fracture of second metatarsal bone of left foot: Status: Acute (2) Displaced fracture of first metatarsal bone, left foot, initial encounter for closed fracture: Status: Acute Assessment and plan: Alberto is a 52-year-old who is now status post ORIF of his Lisfranc fracture, involving the first and second metatarsals. He seems to be doing well. He has no complaints of pain. He is able to mobilize with physical therapy but needs prompting. Based on the requirements of his nursing home he needs to be able to be unassisted with these transfers and mobility, which she currently is not. Given his mild mental disabilities, alf rehab may be his best estimation. I default to physical therapy and care management team. Continue with ibuprofen and Tylenol for pain if he has any. Elevate is much as possible. Continue with the splint to the left lower extremity with plan for office visit in 2 to 3 weeks. I would recommend aspirin 81 mg twice daily on discharge for 2 weeks. Subjective Subjective Interval history since last seen: No acute issues. Doing well and mobilized with PT although requiring cues and direction, unable to fully maintain his nonweightbearing precautions without prompting. No significant change in his breathing status. He reports no significant pain. Exam Narrative Exam Narrative: Splint intact to left lower extremity. Does appear somewhat disheveled as if it has been moved quite a bit. The dressing still intact overlying the wound with some mild sanguinous discharge. Resolving ecchymosis. He endorses full sensation over the deep and superficial peroneal nerve and tibial nerve. He is able to actively flex and extend the toes. Objective Last Vital Signs Temp 36.7 C 04/01/23 07:55 Pulse 104 H 04/01/23 12:40 Resp 16 04/01/23 12:35 BP 129/90 04/01/23 07:55 Pulse Ox 90 L 04/01/23 12:40 Laboratory Results - last 24 hr 03/31/23 04/01/23 13:42 06:06 WBC 7.33 RBC 5.30 Hgb 14.3 Hct 43.4 MCV 82 MCH 27.0 MCHC 32.9 RDW 14.2 H Plt Count 150 310 D MPV 8.7 Immature Gran % 1.1 Neutrophils % 61.7 Lymphocytes % 23.5 Monocytes % 10.0 Eosinophils % 2.9 Basophils % 0.8 Nucleated RBC % 0.0 Absolute Neutrophils 4.53 Absolute Lymphocytes 1.72 Absolute Monocytes 0.73 Absolute Eosinophils 0.21 Absolute Basophils 0.06 Sodium 137 Potassium 4.2 Chloride 100 Carbon Dioxide 33.3 H Anion Gap 3.7 BUN 13 Creatinine 0.8 Est GFR (CKD-EPI 2020) 105.82 Glucose 87 Calcium 9.2 Time Spent with Patient Time Spent with Patient: <25 minutes Time was spent: preparing to see the patient(eg.review tests), obtaining and/or reviewing separately otained hiistory and counseling the patient
--- NOTE | 2023-04-01 13:49 | PGE_ITS ---
Date of Service Date of service: 04/01/23 Time of Service: 13:50 Assessment and Plan Assessment and plan (1) Displaced fracture of first metatarsal bone, left foot, initial encounter for closed fracture: Status: Acute Assessment and plan: POD #4 Open Reduction and Internal Fixation of 1st and 2nd Metatarsal Fractures, LisFranc involving 1-5 metatarsal Continue Schedule APAP and PRN ibuprofen. No further pain complaints Orthopedics is following up for post operative care. Needs 3-week appointment on discharge with Dr. Haji Posterior splint in place, not to be removed Continue PT: Cue needed for non-weightbearing, aware of not been able to put weight on the left foot (2) Hypoxic respiratory failure: Status: Acute Assessment and plan: RSV infection: Resolved Resolved, no oxygen requirement at home and no daytime oxygen requirement Ambulatory oximetry testing completed: no need for Oxygen No requirement in oxygen supplementation at night Consider outpatient testing for oxygen supplementation/NARAYAN (3) Respiratory syncytial virus (RSV) infection: Status: Resolved Assessment and plan: Resolved despite and as above respiratory status stable, prednisone course completed (4) Obesity: Status: Chronic Assessment and plan: As previously mentioned, patient counseled to discuss weight management with PCP Caloric intake controlled during hospitalization (5) On deep vein thrombosis (DVT) prophylaxis: Status: Acute Assessment and plan: Continue Lovenox (6) Discharge planning issues: Status: Resolved Assessment and plan: Residing in a longterm [facility] and 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 Mata Subjective Subjective Patient reports: no new complaints, feels better, tolerating liquids well, tolerating a regular diet, flatus, bowel movement and other (Feeling happy, doing his IS ans ); denies still having pain, voiding w/o difficulty, diarrhea, nausea, vomiting, shortness of breath or fever Exam Narrative Exam Narrative: Neuro:alert and oriented to self and person,no neurological focal deficit, pleasant w/o no acute distress Resp:clear lungs Cardio: regular rhythm, no murmur GI: Abdomen is not distended, soft and non tender, bowel sounds are present Integumentary: left distal foot purple to dorsal toes, less swollen than prior to surgery ,can move toes, cap refill < 3 sec to left toes Extremities: strength 4/5 to left lower ext. 5/5 otherwise, no discomfort after PT Psych: RASS 0, congruent mood and normal to irritable affect. Objective Last Vital Signs Temp 36.7 C 04/01/23 07:55 Pulse 104 H 04/01/23 12:40 Resp 16 04/01/23 12:35 BP 129/90 04/01/23 07:55 Pulse Ox 90 L 04/01/23 12:40 Laboratory Results - last 24 hr 03/31/23 04/01/23 13:42 06:06 WBC 7.33 RBC 5.30 Hgb 14.3 Hct 43.4 MCV 82 MCH 27.0 MCHC 32.9 RDW 14.2 H Plt Count 150 310 D MPV 8.7 Immature Gran % 1.1 Neutrophils % 61.7 Lymphocytes % 23.5 Monocytes % 10.0 Eosinophils % 2.9 Basophils % 0.8 Nucleated RBC % 0.0 Absolute Neutrophils 4.53 Absolute Lymphocytes 1.72 Absolute Monocytes 0.73 Absolute Eosinophils 0.21 Absolute Basophils 0.06 Sodium 137 Potassium 4.2 Chloride 100 Carbon Dioxide 33.3 H Anion Gap 3.7 BUN 13 Creatinine 0.8 Est GFR (CKD-EPI 2020) 105.82 Glucose 87 Calcium 9.2 Time Spent with Patient Time Spent with Patient: >50 minutes Time was spent: preparing to see the patient(eg.review tests), obtaining and/or reviewing separately otained hiistory, ordering medications,tests, procedures, referring, communicating with other health health care / medical job titles, indepentently interpreting results, counseling the patient and care coordination
[2023-04-01] MEDS: Enoxaparin 40 MG/0.4 ML SYR SC (14:56)
[2023-04-01 16:54] LABS: Lab Add On Test DONE
[2023-04-01 17:13] LABS: Hemoglobin A1C 5.7 % (<5.7)
[2023-04-01] MEDS: diphenhydrAMINE 25 MG CAP PO (20:45)
[2023-04-01] MEDS: Atorvastatin 20 MG TAB PO (20:46)
[2023-04-01] MEDS: LORazepam 0.5 MG TAB PO (20:46)
[2023-04-01] MEDS: Ibuprofen 600 MG TAB PO (20:46)
[2023-04-02] MEDS: Acetaminophen 500 MG TAB 1000 MG PO ×2 (06:00→12:00)
[2023-04-02 07:35] VITALS: BP 126/81; PULSE 80; RESP 16; TEMP 36.1; O2SAT 96
[2023-04-02] MEDS: Psyllium PKT 1 EACH PO (07:38)
[2023-04-02] MEDS: risperiDONE 1 MG TAB 2 MG PO (07:39)
[2023-04-02] MEDS: guaiFENesin 600 MG TABCR PO (07:39)
[2023-04-02] MEDS: Multivitamin TAB 1 TAB PO (07:39)
[2023-04-02] MEDS: Divalproex 250 MG TABEC PO (07:39)
[2023-04-02] MEDS: Sertraline 100 MG TAB 200 MG PO (07:40)
[2023-04-02] MEDS: Benztropine 1 MG TAB 0.5 MG PO (07:40)
[2023-04-02] MEDS: Divalproex 500 MG TABEC 1000 MG PO (07:40)
[2023-04-02] MEDS: Cholecalciferol (Vitamin D3) 1,000 UNIT TAB 1000 UNITS PO (07:41)
[2023-04-02 07:43] VITALS: PULSE 78; RESP 16; RESP 2; RESP 9; O2SAT 95
[2023-04-02] MEDS: Albuterol/Ipratropium 3 ML UPD VIAL UPD ×2 (07:43→11:42)
--- NOTE | 2023-04-02 10:54 | W.PM.DS.N ---
Date of service: 04/02/23 Time of Service: 10:55 DS: Diagnosis Discharge Diagnosis (1) Fracture of second metatarsal bone of left foot: Status: Acute (2) Displaced fracture of first metatarsal bone, left foot, initial encounter for closed fracture: Status: Acute Discharge Plan Disposition Patient Disposition: [facility]iary Facility(SNF) Condition: Fair Discharge Details Reason For Visit: RSV, bronchospasm Admit Date/Time: 03/19/23 19:32 Admit Provider: Meir Salcido Attending Provider: Meir Salcido Primary Care Provider: [facility] Course Hospital Course: This is a 52 year old male patient with past medical history of cognitive impairment who lives in a resident long term, former smoker, who came to the [facility] ED on 03/18/23 for evaluation of left foot fracture, but also reporting cough and fever, and he was found to be RSV +. Patient had wheezing noted, CXR with peribronchial thickening, consistent with viral illness. His foot was immobilized and the patient was treated with nebs/steroids and Doxycycline and discharged back to the assisted. He returned on 03/19/23 for evaluation of persistent cough and shortness of breath. In the ED patient had oxygen saturations in the high 80s; he received Duonebs and steroids. Patient was admitted to the medical floor. Patient was treated for RSV with oxygen, nebulizers and steroids. Patient was seen by orthopedics for his complex fracture of his left foot (involving the Lisfranc complex). Patient underwent open reduction internal fixation of first and second metatarsal fractures involving the Lisfranc joint on 03/[address] Haji; there were no complications. Patient now has no oxygen requirement and passed ambulatory oximetry testing. Patient's pain is controlled. Patient's medication list was reconciled. Patient was started on, and should continue aspirin 81 mg BID for two weeks. Patient is nonweightbearing to left lower extremity, he should keep the foot elevated is much as possible. Patient is discharged to a rehab facility, stable. Follow up with orthopedics in 2-3 weeks. Home Meds and New Rx's Prescriptions: New albuterol sulfate 2.5 mg /3 mL (0.083 %) Solution For Nebulization 2.5 mg UPD Q4H PRN PRNQty: 0 0RF guaifenesin [Mucus Relief ER] 600 mg Tablet Extended Release 12hr 600 mg PO BID PRN (Reason: Cough) Qty: 0 0RF aspirin 81 mg capsule 81 mg PO BID Qty: 60 0RF Continued atorvastatin [Lipitor] 20 mg tablet 20 mg PO QHS triamcinolone acetonide 0.1 % cream 1 applic topical BID PRN Metamucil (sugar) Powder 1 tbsp PO DAILY lorazepam 0.5 mg tablet 0.5 mg PO TID PRN diphenhydramine HCl [Benadryl Allergy] 25 mg tablet 25 mg PO Q6H PRN (Reason: allergy symptoms) Patient Comments: 1-2 po Q6 hrs cholecalciferol (vitamin D3) 25 mcg (1,000 unit) capsule 25 mcg PO DAILY ketoconazole 2 % cream 1 applic topical BID Qty: 30 5RF Rx Instructions: Apply to affected areas of feet BID. urea 40 % cream 1 applic topical DAILY Qty: 198.4 3RF Rx Instructions: apply to feet as directed sertraline 100 MG tablet 200 mg PO DAILY magnesium hydroxide [Milk of Magnesia] 400 MG/5 ML suspension 30 ml PO QID ibuprofen 200 mg tablet 400 mg PO TID PRN MYLANTA 15 - 30 ml PO QID PRN acetaminophen [Tylenol Extra Strength] 500 mg tablet 500 - 1,000 mg PO Q6H PRN divalproex [Depakote] 500 mg tablet,delayed release (DR/EC) 1,000 mg PO BID divalproex 250 mg tablet extended release 24 hr 250 mg PO BID multivitamin with folic acid [Daily-Berna (with folic acid)] 400 mcg tablet 1 tab PO DAILY risperidone 2 mg tablet 2 mg PO BID benztropine 0.5 mg tablet 0.5 mg PO BID Discontinued ondansetron 4 mg tablet,disintegrating 4 mg PO Q8H PRN loperamide 2 mg capsule 2 mg PO DIRECTED PRN doxycycline hyclate 100 mg tablet 100 mg PO BID Qty: 14 0RF Discharge Instructions Instructions: Aspirin (By mouth) Additional Instructions: Orthopedics: Elevate left lower extremity as much as possible. Continue with the splint to the left lower extremity with plan for office visit in 2 to 3 weeks. Recommend aspirin 81 mg twice daily on discharge for 2 weeks. Referrals: Kelvin Delatorre [Primary Care Provider] - (after discharge from rehab) German Haji MD [ [facility] STAFF PHYSICIAN] - (2-3 weeks) Activity:: Activity as Tolerated Equipment/Supplies:: Oxygen (L/min Below) Diet:: Other Discharge Orders Discharge Orders: Discharge Order (Routine); Ordered 04/02/23 Ordered By: Denise Thayer DS: Summary Time Spent with Patient providing and/or coordinating discharge services: Greater than 30 minutes Status at Discharge Functional status at discharge: wheelchair bound Overall status at discharge: patient is progressing back to baseline Mental Status: mental status grossly normal Speech and Movement: speech and movement normal Mood: congruent mood Affect: normal affect Quality:SDOH Health Related Social Needs: No Data to Display Exam Const General: no acute distress Orientation: alert HENMT Head: normal to inspection Mouth: moist mucous membranes Eyes General: appearance normal, both eyes and all related structures Neck Neck: normal visual inspection Resp Effort & Inspection: normal respiratory effort and able to speak in complete sentences Auscultation: clear to auscultation bilaterally Cardio Jugular venous pressure: no JVD Rate: regular rate Skin General skin exam: no rashes or lesions noted Neuro General: patient alert and patient oriented x3 Extrem Left lower extremity: lower leg; abnormal ROM (posterior splint intact toes old bruising no swelling good sensation/mvmt) Psych Mental Status: mental status grossly normal Speech and Movement: speech and movement normal Mood: congruent mood Affect: normal affect DS: Data Vitals/I&O Vitals and I&O: Vital Signs Temperature 36.1 C L 04/02/23 07:35 Temperature Source Tympanic 04/02/23 07:35 Pulse 78 04/02/23 07:43 Pulse Rhythm Regular 04/02/23 07:45 Respiratory Rate 16 04/02/23 07:43 Respiratory Effort Normal, Non-Labored 04/02/23 07:45 Respiratory Depth Normal 04/02/23 07:45 Respiratory Pattern Normal 04/02/23 07:45 Blood Pressure 126/81 04/02/23 07:35 Blood Pressure Mean 94 03/19/23 21:01 Blood Pressure Position Sitting 03/19/23 12:59 Pulse Oximetry 95 04/02/23 07:43 Respiratory End-tidal CO2 45 03/28/23 16:28 Oxygen Delivery Method Room Air 04/02/23 07:43 Oxygen Flow Rate 0 04/02/23 07:43 Fraction of Inspired Oxygen (FIO2) 21 03/28/23 08:07 Pain Level 0 04/02/23 07:35 Comment pt assisted to chair for meal 04/02/23 07:35 Intake & Output 04/01/23 04/01/23 04/02/23 11:59 23:59 11:59 Intake Total 240 / 720 480 / 720 120 / 120 Output Total 275 / 275 800 / 800 Balance -35 / 445 480 / 445 -680 / -680 Intake: Oral 240 / 720 480 / 720 120 / 120 Output: Urine 225 / 225 800 / 800 Stool 50 / 50 Other: Urine Color Yellow Yellow Yellow Urine Appearance Clear Clear Clear Urine Odor Normal Normal Comment voided into toilet, unmeasured Stool Size Moderate Small Stool Characteristics Formed Soft Formed Voiding Methods Urinal Urinal Data Completed and Pending Labs on day of discharge: Labs from last 24 hours 04/01/23 06:06 Hemoglobin A1c 5.7 Add-On Test Request DONE [facility] All Active Problems (Updated 03/29/23 @ 14:57 by German Haji MD) On deep vein thrombosis (DVT) prophylaxis (Acute) Fracture of second metatarsal bone of left foot (Acute) s/p ORIF 1st and 2nd Metatarsals (03/28/23) Displaced fracture of first metatarsal bone, left foot, initial encounter for closed fracture (Acute) s/p ORIF 1st and 2nd Metatarsals (03/28/23) Hypoxic respiratory failure (Acute) Obesity (Chronic) Hypoxia (Acute) Foot fracture, left (Acute) Respiratory syncytial virus (RSV) (Acute) GERD (gastroesophageal reflux disease) (Chronic) Vitamin D deficiency (Acute) Dermatophytosis of foot (Acute) Pain, foot (Acute) Nail dystrophy (Acute) Sensorineural hearing loss (SNHL) of both ears (Acute) Tremor (Acute) Tubular adenoma of colon (Acute) Tubular adenoma (Acute ~11/2019) 12/18/19 Dr. Rajiv Márquez, repeat colo 3 years w/ Gracie prep Colon polyps (Acute) Cognitive developmental delay (Chronic) Mood disorder (Acute) Generalized epilepsy (Acute) Per caregiver he has not had a seizure in decades, see's Dr. Camarena for f/u Medical History History of diverticulitis Pulmonary embolism Cerumen impaction Tobacco use BMI 40.0-44.9, adult Epilepsy Conduct disorder, aggressive type Intellectual disability Onychomycosis of toenail Screening for colon cancer Dyshidrotic eczema H/O adenomatous polyp of colon Weakness of both legs At high risk for falls Hip pain, bilateral Morbid obesity Decreased hearing of both ears Impacted cerumen, bilateral COVID-19 Kidney stone History of tobacco use Other congenital valgus deformities of feet Lack of coordination Intermittent explosive disorder Per caregiver (Liu) on occasion he will have an agrressive incident per caregiver states he does not feel as though he will have any issues with procedures Anxiety disorder Conduct disorder, aggressive type, mild Per caregiver (Liu) has been in a very good place recently Therapeutic drug monitoring Onychomycosis Candidiasis Prediabetes Per caregiver states he is not diabetic, he has lost 25 lbs Varus deformities of feet, congenital Obstructive sleep apnea Remote PSG noted an AHI of 12.2 with an O2 sat jensen of 54%. He does not currently have a CPAP. Hyperlipidemia Surgical History S/P surgical manipulation of ankle joint , 2013 Family History Father Epilepsy Brother , of seizure Epilepsy Social History Smoking/Tobacco Use Status: Former Tobacco Use Quit Date: 02/25/18 Smoking risk assessment performed?: Yes Alcohol Intake: never Drug use: Never Substance use type: does not use Housing: other Number of Children: 0 current occupation: Disabled Do you feel safe at home: Yes Additional Social history: He currently resides at [facility] (since November 2016). He is under the guardianship of Patricia Jerson (since February 2017). He graduated from high school and previously worked in a [employer]. Time Spent with Patient Time Spent with Patient: 45-69 minutes Time was spent: preparing to see the patient(eg.review tests), referring, communicating with other health acute care registered nurse, counseling the patient and care coordination
[2023-04-02 11:42] VITALS: PULSE 101; PULSE 98; RESP 17; O2SAT 95
--- NOTE | 2023-04-02 14:49 | PDOC.CMDIS ---
Date of service: 04/02/23 Time of Service: 14:50 LACE Index Scoring Tool Questions: Length of Stay (in days): 7 - 13 Was the patient admitted via the E.D.?: Yes E.D. Visits: 1 Answers: Total Score: 9 Risk of Readmission: Low Risk Care Management Discharge Plan Reason for Hospitalization: RSV, Broncospasm Discharge Plan: Alberto will discharge to [facility] for a short rehab stay prior to returning to [facility]. His guardian, Patricia is agreeable to this plan. He will transport via W/C van. Patient/Family Education Needs: Review discharge instructions, discuss Ask Me Three. Services Needed at Discharge: Halfway Facility and Transportation SDOH Health Related Social Needs: No Data to Display
== END 2023-04-02 13:41 | disposition skilled nursing facility (03) | DRG 981 ==
LOC: ER 20:09 → MS 03-20 08:20
PROVIDERS: Emergency Medicine; Family Medicine; Nurse Practitioner Acute Care; Student in an Organized Health Care Education/Training Program; Admitting Provider General Practice; Emergency Provider Student in an Organized Health Care Education/Training Program; PCP Internal Medicine; Visit Provider General Practice
PROC: 0QSP04Z Reposition Left Metatarsal with Internal Fixation Device, Open Approach (ICD-10-PCS; CPT 28485; principal; 2023-03-28 12:30)
DX: J98.01 Acute bronchospasm (principal); J96.01 Acute respiratory failure with hypoxia; E87.1 Hypo-osmolality and hyponatremia; S92.312A Displaced fracture of first metatarsal bone, left foot, initial encounter for closed fracture; B97.4 Respiratory syncytial virus as the cause of diseases classified elsewhere; S92.332A Displaced fracture of third metatarsal bone, left foot, initial encounter for closed fracture; S92.342A Displaced fracture of fourth metatarsal bone, left foot, initial encounter for closed fracture; S92.352A Displaced fracture of fifth metatarsal bone, left foot, initial encounter for closed fracture; S92.322A Displaced fracture of second metatarsal bone, left foot, initial encounter for closed fracture; E66.9 Obesity, unspecified; E55.9 Vitamin D deficiency, unspecified; K21.9 Gastro-esophageal reflux disease without esophagitis; H90.3 Sensorineural hearing loss, bilateral; G40.309 Generalized idiopathic epilepsy and epileptic syndromes, not intractable, without status epilepticus; L60.3 Nail dystrophy; R25.1 Tremor, unspecified; F39 Unspecified mood [affective] disorder; F79 Unspecified intellectual disabilities; E78.5 Hyperlipidemia, unspecified; G47.33 Obstructive sleep apnea (adult) (pediatric); Z68.39 Body mass index [BMI] 39.0-39.9, adult; Z86.711 Personal history of pulmonary embolism; Z87.891 Personal history of nicotine dependence; W19.XXXA Unspecified fall, initial encounter
CPT/HCPCS: 28485 ×2; 00123; 36415; 71275; 76000; 76942; 80048; 80053; 82805; 84145; 94618; 96361; 96365; 97110; 97112; 97116; 97162; 97530; 99223; 99231; 99232; 99291; J1650; 83036; 83735; 85025; 85049; 85379; 85610; 85730; 94640; 94660; 94667; 94668; 94760; 99222; 99233; 99238; G0378; J0131; J0171; J0665; J0690; J1100; J1885; J2001; J2371; J2405; J2704; J2919; J3490; J7512; J7613; J7620

== ENCOUNTER 2023-04-12 10:41 | Outpatient (CLI) | payer MEDICARE, MEDICAID, SELFPAY ==
--- NOTE | 2023-04-12 10:12 | DI.RAD_ITS ---
Exam(s) XR FOOT LT COMPLETE EXAM: XR FOOT LT COMPLETE CLINICAL HISTORY: F/U FX. TECHNIQUE: 2D digital imaging was performed. Three views. COMPARISON: CR,XR XR FOOT LT COMPLETE from 03/18/2023 XA XR FLOURO OR C-ARM <1 HR from 03/28/2023 FINDINGS: BONES: fixation plates are again noted across the 1st and 2nd MTP joints. The fracture alignment is unchanged. There has also been no change in the alignment of the 5th metatarsal fracture. There is no change in alignment of the fractures of the 4th and 5th metatarsal heads. The proximal 3rd and 4 th metatarsal fractures are less well visualized on remain nondisplaced. No bony destructive lesion is seen. JOINTS: No dislocation present. SOFT TISSUE: Dorsal swelling. IMPRESSION: Stable fracture and hardware alignment. DATA REPOSITORY: RADIATION DOSE DELIVERED:
== END 2023-04-12 10:42 | disposition home or self-care (01) ==
LOC: DIORS 10:42
PROVIDERS: PCP Internal Medicine; Referring Provider Internal Medicine; Visit Provider Physician Assistant
DX: S92.322D Displaced fracture of second metatarsal bone, left foot, subsequent encounter for fracture with routine healing; S92.312D Displaced fracture of first metatarsal bone, left foot, subsequent encounter for fracture with routine healing; X58.XXXD Exposure to other specified factors, subsequent encounter
CPT/HCPCS: 29405; 73630

== ENCOUNTER 2023-04-27 08:12 | Outpatient (REF) | payer MEDICARE, MEDICAID, SELFPAY ==
[2023-04-27 08:43] LABS: VALPROIC ACID 27.1 ug/mL
== END 2023-04-27 08:13 | disposition home or self-care (01) ==
LOC: LBN 08:12
PROVIDERS: PCP Physician Assistant; Visit Provider Family Medicine
DX: G40.319 Generalized idiopathic epilepsy and epileptic syndromes, intractable, without status epilepticus (principal); Z51.81 Encounter for therapeutic drug level monitoring; Z79.899 Other long term (current) drug therapy
CPT/HCPCS: 80164

== ENCOUNTER 2023-05-13 15:21 | Outpatient (CLI) | payer MEDICARE, MEDICAID, SELFPAY ==
--- NOTE | 2023-05-13 14:15 | DI.RAD_ITS ---
Exam(s) XR FOOT LT COMPLETE EXAM: XR FOOT LT COMPLETE CLINICAL HISTORY: F/U FOOT FRACTURES. TECHNIQUE: 2D digital imaging was performed. Three views. COMPARISON: CR XR FOOT LT COMPLETE from 04/12/2023 FINDINGS: BONES: A cast is in place which somewhat obscures the bony detail. The fractures of the distal 4th an d 5th metatarsals are not well seen. The fracture at the base of the 5th metatarsal appears unchanged . Hardware is again noted spanning the 1st and 2nd tarsal metatarsal joints. JOINTS: No dislocation present. SOFT TISSUE: Dorsal swelling. IMPRESSION: Stable fracture alignment. DATA REPOSITORY: RADIATION DOSE DELIVERED:
== END 2023-05-13 15:22 | disposition home or self-care (01) ==
LOC: DIORS 15:21
PROVIDERS: PCP Physician Assistant; Visit Provider Student in an Organized Health Care Education/Training Program
DX: S92.322D Displaced fracture of second metatarsal bone, left foot, subsequent encounter for fracture with routine healing (principal); X58.XXXD Exposure to other specified factors, subsequent encounter
CPT/HCPCS: 73630

== ENCOUNTER 2023-05-15 12:41 | Outpatient (REF) | payer MEDICARE, MEDICAID, SELFPAY ==
[2023-05-15 13:04] LABS: VALPROIC ACID 16.6 ug/mL
== END 2023-05-15 12:42 | disposition home or self-care (01) ==
LOC: LBN 12:41
PROVIDERS: PCP Physician Assistant; Visit Provider Family Medicine
DX: F63.81 Intermittent explosive disorder (principal)
CPT/HCPCS: 80164

== ENCOUNTER 2023-06-10 16:00 | Outpatient (CLI) | payer MEDICARE, MEDICAID, SELFPAY ==
--- NOTE | 2023-06-10 14:45 | DI.RAD_ITS ---
Exam(s) XR FOOT LT COMPLETE EXAM: XR FOOT LT COMPLETE CLINICAL HISTORY: F/U FX. TECHNIQUE: 2D digital imaging was performed. Three views. COMPARISON: CR XR FOOT LT COMPLETE from 04/12/2023 CR XR FOOT LT COMPLETE from 05/13/2023 FINDINGS: The cast has been removed. There is no change in alignment of the hardware spanning the 1st and 2nd MTP joints. There has been healing at the 5th metatarsal base fracture. There has also been some healing at the fracture of the distal 5th metatarsal. Mild dorsal soft tissue swelling. IMPRESSION: Healing fractures of the 5th metatarsal. Postsurgical changes at the 1st and 2nd MTP joints. DATA REPOSITORY: RADIATION DOSE DELIVERED:
== END 2023-06-10 16:01 | disposition home or self-care (01) ==
LOC: DIORS 16:01
PROVIDERS: PCP Physician Assistant; Referring Provider Physician Assistant; Visit Provider Student in an Organized Health Care Education/Training Program
DX: S92.312D Displaced fracture of first metatarsal bone, left foot, subsequent encounter for fracture with routine healing (principal); S92.322D Displaced fracture of second metatarsal bone, left foot, subsequent encounter for fracture with routine healing; X58.XXXD Exposure to other specified factors, subsequent encounter
CPT/HCPCS: 73630

== ENCOUNTER 2023-06-11 15:12 | Outpatient (REF) | payer MEDICARE, MEDICAID, SELFPAY ==
[2023-06-11 14:07] LABS: VALPROIC ACID 42.4 ug/mL
== END 2023-06-11 15:13 | disposition home or self-care (01) ==
LOC: LBN 15:12
PROVIDERS: PCP Physician Assistant; Visit Provider Family Medicine
DX: S92.322A Displaced fracture of second metatarsal bone, left foot, initial encounter for closed fracture; S92.312A Displaced fracture of first metatarsal bone, left foot, initial encounter for closed fracture; X58.XXXA Exposure to other specified factors, initial encounter; G40.319 Generalized idiopathic epilepsy and epileptic syndromes, intractable, without status epilepticus
CPT/HCPCS: 80164